=== PATIENT | male | born 1955 | race Hispanic/Latino ===

== ENCOUNTER 2019-11-22 09:09 | Inpatient (IN) | payer MEDICARE, MEDICAID, SELFPAY ==
[2019-11-22] VITALS (31 sets, daily range): BP systolic 127–193; BP diastolic 75–95; PULSE 60–103; RESP 22–45; TEMP 36.1–37.4; O2SAT 85–99; BMI 45.1
--- NOTE | ~2019-11-22 | XR_ITS ---
EXAMINATION: XR chest 1V portable DATE: 12/19/2019 06:11 INDICATION: COVID-19 pneumonia. TECHNIQUE: A single frontal view of the chest was obtained. COMPARISON: Chest single view 12/18/2019 FINDINGS: The lung volumes are small. There are airspace opacities throughout the lungs bilaterally. No pleural effusion or pneumothorax. The heart size is normal. The endotracheal tube tip is 3.2 cm ab ove the anthony. The nasogastric tube tip is in the distal stomach. A right internal jugular central v enous catheter is seen with tip in the right atrium. Median sternotomy wires are noted. IMPRESSION: 1. Stable diffuse lung disease, consistent with pneumonia versus pulmonary edema versus acute respira tory distress syndrome (ARDS). Reviewed, dictated and finalized at location A. IMPRESSION: 1. Stable diffuse lung disease, consistent with pneumonia versus pulmonary gabbie a versus acute respiratory distress syndrome (ARDS).
--- NOTE | ~2019-11-22 | CT_ITS ---
EXAMINATION: CT chest abdomen pelvis wo con DATE: 12/09/2019 11:20 INDICATION: Sepsis. Covid -positive patient on ventilator. TECHNIQUE: Computed tomography (CT) of the chest, abdomen, and pelvis was performed without intraveno us contrast. Automated exposure control and iterative reconstruction technique were employed. Exam do se: 1352.31 mGy-cm total exam DLP. COMPARISON: 12/09/2019 portable AP chest FINDINGS: CHEST CT: An endotracheal tube is present. There is a right internal jugular central venous catheter. There is a nasogastric tube, the distal tip overlying the distal gastric antrum. Status post sternotomy and coronary artery bypass graft surgery. Extensive coronary artery calcificat ions. Heart size is within normal limits. No pericardial effusion. There is slight bilateral pleural effusions. There is aortic and great vessel calcification. No thoracic aortic aneurysm. No hilar or mediastinal mass lesion or lymphadenopathy. There is pneumomediastinum. There are extensive patchy groundglass and consolidating infiltrates scattered throughout most of bot h lungs, consistent with extensive bilateral pneumonia; findings would be consistent with Covid 19 pn eumonia. Prominent osteoarthritic change at the glenohumeral joints. Degenerative changes of the thoracic and lumbar spine. No suspicious osteolytic or osteoblastic lesio ns are noted. ABDOMEN/PELVIS CT: Status post cholecystectomy. Status post appendectomy. The liver, spleen, pancreas, and adrenal glands and kidneys are unremarkable on this limited noncontr ast examination. No urinary tract calculus or hydroureteronephrosis is evident. There is some nonspecific bilateral perinephric stranding and mild asymmetric thickening of the right lateroconal fascia. There is abdominal aortic calcification and calcification of the aortic branches. No abdominal aortic aneurysm. No intraperitoneal or retroperitoneal or pelvic mass lesion or adenopathy or ascites. There is a prominent amount of fecal material in the colon, some liquid stool. There is no bowel obst ruction. No bowel wall thickening, pneumatosis or intraperitoneal free air. Prostate enlargement and calcifications. There is a Rios catheter within the evacuated urinary bladd er. There is some air in the urinary bladder likely due to the catheter. Bilateral small fat-containing inguinal hernias, left greater than right. IMPRESSION: Severe bilateral pneumonia Pneumomediastinum; no pneumothorax Endotracheal and NG tubes in satisfactory position Right internal jugular central venous catheter Status post cholecystectomy Status post appendectomy Prostate enlargement and calcifications Reviewed, dictated and finalized at [facility]. Reviewed, dictated and finalized at location A.
--- NOTE | ~2019-11-22 | XR_ITS ---
EXAMINATION: XR chest 1V portable EXAM DATE: 11/22/2019 10:09 INDICATION: Respiratory failure. TECHNIQUE: Portable AP frontal chest x-ray was obtained. Comparison is made to prior examination from 07/18/2016. FINDINGS: There is extensive left greater than right acute airspace disease which is ill-defined. Dif ferential diagnosis includes acute lung injury (including from COVID-19), pneumonia from other etiolo gy, less likely asymmetric pulmonary edema. Please clinically correlate. Sternotomy wires are present without findings to suggest sternal dehiscence. No pneumothorax or pleur al effusion. The cardiomediastinal silhouette is prominent but magnified on this AP technique. There are mild bony degenerative changes. IMPRESSION: 1. Extensive bilateral acute airspace disease; please clinically correlate. Reviewed, dictated and finalized at location A.
--- NOTE | ~2019-11-22 | XR_ITS ---
EXAMINATION: XR chest ET placement, XR abdomen NG/feed tube insert DATE: 11/26/2019 11:12 INDICATION: Endotracheal tube placement. Orogastric tube placement.. TECHNIQUE: 1. frontal view of the chest was obtained. 2. Supine AP view of the abdomen was obtained. COMPARISON: Chest radiograph dated 11/26/2019 at 6:08 AM FINDINGS: Chest: Endotracheal tube tip 2.9 cm above the anthony. No significant interval change in bilateral diffuse pa tchy airspace opacities. No pneumothorax or definitive pleural effusion. The cardiomediastinal silhou ette is normal. Median sternotomy wires and mediastinal surgical clips are seen, likely from prior co ronary artery bypass grafting. Abdomen: Nasogastric tube tip in proximal side port in the body of the stomach. The subscapularis scattered th roughout the colon. No dilated loops of gas-filled bowel to suggest obstruction. Cholecystectomy clip s in the right upper quadrant. IMPRESSION: 1. Endotracheal tube and nasogastric tube in expected positions. 2. Unchanged diffuse bilateral lung disease consistent with pneumonia and/or pulmonary edema. Reviewed, dictated and finalized at location A. IMPRESSION: 1. Endotracheal tube and nasogastric tube in expected positions. 2. Unchanged diffuse bilateral lung disease consistent with pneumonia and/or pu lmonary edema.
--- NOTE | ~2019-11-22 | XR_ITS ---
EXAMINATION: XR chest 1V portable EXAM DATE: 12/26/2019 06:15 INDICATION: Acute respiratory failure. COVID-19 TECHNIQUE: Portable AP frontal chest x-ray was obtained. Comparison is made to prior examination from 12/23/2019. FINDINGS: Patient has tracheostomy tube in position. There is left-sided PICC line, tip projecting o dixie inferior aspect of the SVC. Sternotomy wires are present without findings to suggest sternal dehi scence. There is extensive bilateral acute airspace disease, probably ARDS from viral infection. There are no sizable pleural effusions. There is no pneumothorax suspected. The cardiac silhouette is enlarge d. The bones and soft tissues are unremarkable. There is no significant interval change. IMPRESSION: Stable extensive acute airspace disease. Reviewed, dictated and finalized at location A.
--- NOTE | ~2019-11-22 | XR_ITS ---
XR chest 1V portable DATE: 12/20/2019 06:13 INDICATION: Acute respiratory failure. Covid 19 positive. TECHNIQUE: Portable upright AP chest on 12/20/2019 at 0527 hours COMPARISON: 12/19/2019 portable AP chest at 0516 hours 12/18/2019 portable AP chest FINDINGS: ET tube is 3.5 cm above anthony in satisfactory position. A nasogastric tube is noted passin g into the stomach. Left upper extremity PIC catheter tip is situated near the superior cavoatrial junction. Status post sternotomy. Cardiomegaly. Aortic calcification, ectasia, unfolding. There are diffuse bilateral patchy urinary infiltrates throughout the lungs; there is suggestion of m ild improvement compared to 12/18/2019. No pleural effusion or pneumothorax is evident. Osteoarthritic changes of both glenohumeral joints. IMPRESSION: Diffuse extensive bilateral pulmonary infiltrates, suggestion of mild improvement since Reviewed, dictated and finalized at location A. IMPRESSION: Diffuse extensive bilateral pulmonary infiltrates, suggestion of mi ld improvement since 12/18/2019
--- NOTE | ~2019-11-22 | XR_ITS ---
EXAMINATION: XR chest 1V portable EXAM DATE: 12/23/2019 06:06 INDICATION: Acute respiratory failure. COVID-19 TECHNIQUE: Portable AP frontal chest x-ray was obtained. Comparison is made to prior examination from 02/22/2020. FINDINGS: Patient has had interval tracheostomy tube placement. Sternotomy wires are present without findings to suggest sternal dehiscence. There is there are suspected below the right hemidiaphragm, please clinically correlate. There is ext ensive bilateral acute airspace disease. There are no sizable pleural effusions. There is no pneumo thorax suspected. The cardiac silhouette is enlarged. The bones and soft tissues are unremarkable . Development of free intraperitoneal air is the only change compared to yesterday. IMPRESSION: 1. Probable free intraperitoneal gas, could be postoperative or bowel perforation. 2. Stable airspace disease and other findings as above. I spoke with nurse in the ICU, states patient did have both tracheostomy and PEG tube placement yeste rday which could explain the free intraperitoneal air. Reviewed, dictated and finalized at location A. IMPRESSION: 1. Probable free intraperitoneal gas, could be postoperative or bowel perforat ion. 2. Stable airspace disease and other findings as above. I spoke with nurse in the ICU, states patient did have both tracheostomy and PE G tube placement yesterday which could explain the free intraperitoneal air.
--- NOTE | ~2019-11-22 | US_ITS ---
EXAMINATION: US venous doppler [facility] DATE: 11/28/2019 14:58 INDICATION: Acute respiratory failure TECHNIQUE: Grayscale ultrasound images without and with compression and Doppler ultrasound images of the bilateral lower extremity veins were obtained. COMPARISON: None. FINDINGS: The visualized portions of right common femoral vein, profunda (deep) femoral vein, femoral vein, pop liteal vein, posterior tibial veins, peroneal veins, gastrocnemius vein and greater saphenous vein ou tflow are patent. The visualized portions of left common femoral vein, profunda femoral vein, femoral vein, popliteal v ein, posterior tibial veins, peroneal veins, gastrocnemius vein and greater saphenous vein outflow ar e patent. IMPRESSION: 1. No deep venous thrombosis in either lower limb. Reviewed, dictated and finalized at location A.
--- NOTE | ~2019-11-22 | XR_ITS ---
EXAMINATION: XR chest 1V portable DATE: 12/11/2019 23:20 INDICATION: Respiratory failure. TECHNIQUE: A single frontal view of the chest was obtained. COMPARISON: Chest single view 12/11/2019 at 5:16 AM FINDINGS: There are patchy airspace opacities throughout the lungs bilaterally. No pleural effusion o r pneumothorax. The heart size is normal. The endotracheal tube tip is 3.4 cm above the anthony. The n asogastric tube tip is in the distal stomach. A right internal jugular central venous catheter is see n with tip in the right atrium. Surgical clips in the right upper quadrant are likely from cholecyste ctomy. Median sternotomy wires and mediastinal surgical clips are seen, likely from prior coronary ar edgard bypass grafting. IMPRESSION: 1. Stable severe diffuse lung disease, consistent with pneumonia versus pulmonary edema versus acute respiratory distress syndrome (ARDS). Reviewed, dictated and finalized at location A. IMPRESSION: 1. Stable severe diffuse lung disease, consistent with pneumonia versus pulmona ry edema versus acute respiratory distress syndrome (ARDS).
--- NOTE | ~2019-11-22 | XR_ITS ---
EXAMINATION: XR chest ET placement INDICATION: Respiratory failure, reintubated TECHNIQUE: Portable AP chest at 1135 hours COMPARISON: 0547 hours FINDINGS: The endotracheal tube ends approximately 2.8 cm above the anthony. The nasogastric tube is f ollowed as far as the stomach. Its tip is beyond the inferior margin of the radiograph. A right inter nal jugular central venous catheter ends with its tip in the distal superior vena cava. Diffuse bilat eral patchy airspace opacities persist without significant change. There is no pleural effusion or pn eumothorax. The cardiomediastinal silhouette is stable. IMPRESSION: 1. Endotracheal tube in adequate position. 2. Diffuse lung disease without significant change, consistent with pulmonary edema and/or pneumonia and/or acute respiratory distress syndrome (ARDS). Reviewed, dictated and finalized at location A. IMPRESSION: 1. Endotracheal tube in adequate position. 2. Diffuse lung disease without significant change, consistent with pulmonary e froy and/or pneumonia and/or acute respiratory distress syndrome (ARDS).
--- NOTE | ~2019-11-22 | XR_ITS ---
EXAMINATION: XR chest 1V portable DATE: 12/17/2019 06:12 INDICATION: COVID-19 pneumonia. TECHNIQUE: A single frontal view of the chest was obtained. COMPARISON: Chest single view 12/16/2019 FINDINGS: The lung volumes are small. There are airspace and interstitial opacities throughout the rajesh ngs bilaterally. No pleural effusion or pneumothorax. Cardiomegaly is noted. The endotracheal tube ti p is 2.7 cm above the anthony. The nasogastric tube tip is beyond the inferior margin of the radiograp h, but at least to the stomach. A right internal jugular central venous catheter is seen with tip at superior cavoatrial junction. Median sternotomy wires are noted. IMPRESSION: 1. Stable diffuse lung disease, consistent with pneumonia versus pulmonary edema versus acute respira tory distress syndrome (ARDS). Reviewed, dictated and finalized at location A. IMPRESSION: 1. Stable diffuse lung disease, consistent with pneumonia versus pulmonary gabbie a versus acute respiratory distress syndrome (ARDS).
--- NOTE | ~2019-11-22 | US_ITS ---
EXAMINATION: US venous doppler [facility] DATE: 12/25/2019 13:08 INDICATION: Lower limb edema. TECHNIQUE: Grayscale ultrasound images without and with compression and Doppler ultrasound images of the bilateral lower extremity veins were obtained. COMPARISON: Ultrasound 11/28/2019 FINDINGS: The visualized portions of right common femoral vein, profunda (deep) femoral vein, femoral vein, pop liteal vein, peroneal veins, posterior tibial veins, and greater saphenous vein outflow are patent. The visualized portions of left common femoral vein, profunda femoral vein, femoral vein, popliteal v ein, peroneal veins, posterior tibial veins, and greater saphenous vein outflow are patent. IMPRESSION: 1. No deep venous thrombosis. Reviewed, dictated and finalized at location A.
--- NOTE | ~2019-11-22 | XR_ITS ---
EXAMINATION: XR chest 1V portable DATE: 12/12/2019 22:27 INDICATION: Decreased oxygen saturation. TECHNIQUE: A single frontal view of the chest was obtained. COMPARISON: Chest single view at 5:12 AM FINDINGS: There are patchy airspace opacities throughout the lungs bilaterally. No pleural effusion o r pneumothorax. The heart size is normal. The endotracheal tube tip is 2.9 cm above the anthony. The n asogastric tube tip is beyond the inferior margin of the radiograph, but at least to the stomach. A r ight internal jugular central venous catheter is seen with tip in the superior vena cava. IMPRESSION: 1. Diffuse lung disease with worsening on the right, consistent with pneumonia versus pulmonary edema versus acute respiratory distress syndrome (ARDS). Reviewed, dictated and finalized at location A.
--- NOTE | ~2019-11-22 | XR_ITS ---
EXAMINATION: XR chest 1V portable DATE: 11/25/2019 05:58 INDICATION: Bilateral pulmonary infiltrates TECHNIQUE: frontal view of the chest was obtained. COMPARISON: Chest radiograph dated 11/24/2019 FINDINGS: No significant interval change in patchy bilateral airspace opacities. No pleural effusion or pneumot horax. The cardiomediastinal silhouette is normal. Median sternotomy wires and mediastinal surgical c lips are seen, likely from prior coronary artery bypass grafting. IMPRESSION: 1. No significant change in extensive bilateral airspace disease concerning for pneumonia. Reviewed, dictated and finalized at location A.
--- NOTE | ~2019-11-22 | XR_ITS ---
EXAMINATION: XR chest 1V portable DATE: 12/06/2019 06:33 INDICATION: Bilateral lung infiltrates. COVID-19 pneumonia. TECHNIQUE: A single frontal view of the chest was obtained. COMPARISON: Chest single view 12/05/2019 FINDINGS: Lung volumes are small. There are airspace and interstitial opacities throughout the lungs bilaterally. No pleural effusion or pneumothorax. The heart size is normal. Median sternotomy wires a re noted. The endotracheal tube tip is 1.9 cm above the anthony. The nasogastric tube tip is beyond th e inferior margin of the radiograph, but at least to the stomach. There are surgical clips in the abd omen. A right internal jugular central venous catheter is seen with tip in the right atrium. IMPRESSION: 1. Unchanged diffuse lung disease, consistent with pneumonia versus pulmonary edema versus acute resp iratory distress syndrome (ARDS). Reviewed, dictated and finalized at location A. IMPRESSION: 1. Unchanged diffuse lung disease, consistent with pneumonia versus pulmonary e froy versus acute respiratory distress syndrome (ARDS).
--- NOTE | ~2019-11-22 | XR_ITS ---
EXAMINATION: XR chest 1V portable DATE: 12/16/2019 06:16 INDICATION: Bilateral lung infiltrates. COVID-19 positive. TECHNIQUE: A single frontal view of the chest was obtained. COMPARISON: Chest single view 12/15/2019 FINDINGS: Lung volumes are small. There are airspace and interstitial opacities throughout the lungs bilaterally. No pleural effusion or pneumothorax. The heart size is normal. The endotracheal tube tip is 3.1 cm above the anthony. Median sternotomy wires and mediastinal surgical clips are seen, likely from prior coronary artery bypass grafting. The nasogastric tube tip is beyond the inferior margin of the radiograph, but at least to the stomach. A right internal jugular central venous catheter is see n with tip in the right atrium. IMPRESSION: 1. Stable diffuse lung disease, consistent with pneumonia versus pulmonary edema versus acute respira tory distress syndrome (ARDS). Reviewed, dictated and finalized at location A. IMPRESSION: 1. Stable diffuse lung disease, consistent with pneumonia versus pulmonary gabbie a versus acute respiratory distress syndrome (ARDS).
--- NOTE | ~2019-11-22 | XR_ITS ---
XR abdomen obstructive series 12/24/2019 22:38 Indication: Vomiting Procedure: Supine and upright views of abdomen Comparison: 12/05/2019 Findings: There is abnormal gas beneath the diaphragm and surrounding small bowel loops, compatible w ith free intraperitoneal air. Findings suspicious for bowel perforation in the absence of recent surg mercedes. Status post median sternotomy for CABG. Cardiomegaly. There is diffuse bilateral airspace diseas e, most likely edema. There is a gastric tube in the upper abdomen. Impression: 1: Probable free intraperitoneal air, suspicious for bowel perforation and there is no clinical histo ry of recent surgery. Consider correlation with CT. 2: Cardiomegaly with diffuse bilateral airspace disease, most likely edema. Dr. Harley discussed with the abstract clerk in ICU [facility] at 12/24/2019 22:51 CDT. Reviewed, dictated and finalized at location A. Impression: 1: Probable free intraperitoneal air, suspicious for bowel perforation and ther e is no clinical history of recent surgery. Consider correlation with CT. 2: Cardiomegaly with diffuse bilateral airspace disease, most likely edema. Dr. Harley discussed with the abstract clerk in ICU [facility] at 12/24/2019 22:51 CDT.
--- NOTE | ~2019-11-22 | XR_ITS ---
EXAMINATION: XR chest 1V portable DATE: 12/12/2019 06:05 INDICATION: Respiratory failure TECHNIQUE: frontal view of the chest was obtained. COMPARISON: Chest radiograph dated 12/11/2019 FINDINGS: Endotracheal tube tip 1.2 cm above the anthony. Nasogastric tube tip in the gastric pylorus with proxi mal side-port in the distal body of the stomach. Right internal jugular central venous catheter with distal tip near the superior cavoatrial junction. Unchanged distribution but with slight decreased density of scattered bilateral patchy airspace opaci ties. No pleural effusion or pneumothorax. Borderline heart size. Median sternotomy wires and mediast inal surgical clips are seen, likely from prior coronary artery bypass grafting. Cholecystectomy clip s in right upper quadrant. IMPRESSION: 1. Slight improvement in diffuse bilateral patchy airspace opacities which could represent multifocal pneumonia, pulmonary edema, ARDS or some combination thereof. 2. Nasogastric tube tip near the gastric pylorus possibly in the first portion of the duodenum and wo uld consider withdrawal by 5 cm. Reviewed, dictated and finalized at location A. IMPRESSION: 1. Slight improvement in diffuse bilateral patchy airspace opacities which coul d represent multifocal pneumonia, pulmonary edema, ARDS or some combination the reof. 2. Nasogastric tube tip near the gastric pylorus possibly in the first portion of the duodenum and would consider withdrawal by 5 cm.
--- NOTE | ~2019-11-22 | XR_ITS ---
EXAMINATION: XR chest 1V portable DATE: 12/09/2019 05:37 INDICATION: Respiratory failure TECHNIQUE: frontal view of the chest was obtained. COMPARISON: Chest radiograph dated 12/08/2019 and 12/07/2019 FINDINGS: Right internal jugular central venous catheter with distal tip near the superior cavoatrial junction. Continued progression in diffuse interstitial and patchy airspace opacities throughout both lungs. T here is some relative sparing of the apices and periphery of the lungs. No pneumothorax or definitive pleural effusion. Heart size remains within normal limits for AP technique. Median sternotomy wires and mediastinal surgical clips are seen, likely from prior coronary artery bypass grafting. Cholecyst ectomy clips in the right upper quadrant. IMPRESSION: 1. Worsening diffuse bilateral lung disease suggesting pulmonary edema superimposed over atelectasis, pneumonia and/or ARDS. Reviewed, dictated and finalized at location A. IMPRESSION: 1. Worsening diffuse bilateral lung disease suggesting pulmonary edema superimp osed over atelectasis, pneumonia and/or ARDS.
--- NOTE | ~2019-11-22 | XR_ITS ---
EXAMINATION: XR chest 1V portable DATE: 12/05/2019 05:40 INDICATION: Bilateral pulmonary infiltrates. COVID 19 TECHNIQUE: frontal view of the chest was obtained. COMPARISON: Chest radiograph dated 12/04/2019 FINDINGS: Endotracheal tube tip 3.3 cm above the anthony. Right internal jugular central venous catheter with di stal tip at the superior cavoatrial junction. Nasogastric tube extends below the left hemidiaphragm with distal tip collimated off the study. No significant interval change in diffuse indistinct interstitial pattern and patchy airspace opaciti es throughout both lungs. No pleural effusion or pneumothorax. The cardiomediastinal silhouette is no rmal. Median sternotomy wires and mediastinal surgical clips are seen, likely from prior coronary art mercedes bypass grafting. Cholecystectomy clips in right upper quadrant. IMPRESSION: 1. No change in diffuse bilateral lung disease consistent with pneumonia, pulmonary edema, ARDS or co mbination thereof. Reviewed, dictated and finalized at location A. IMPRESSION: 1. No change in diffuse bilateral lung disease consistent with pneumonia, pulmo nary edema, ARDS or combination thereof.
--- NOTE | ~2019-11-22 | US_ITS ---
EXAMINATION: US arterial duplex LE RT DATE: 12/09/2019 10:17 INDICATION: Pain at the site of a femoral arterial line TECHNIQUE: Grayscale and color Doppler images of the region of concern at the right groin were obtain ed. COMPARISON: None. FINDINGS: Right common femoral, superficial femoral and profunda femoral arteries appear normal with normal tri phasic arterial waveforms. The right common femoral, superficial femoral and profunda femoral veins a ppear normal and compressible with no arterialization of flow to suggest AV fistula. No pseudoaneurys ms identified. There is an 8.3 x 2.7 x 3.9 cm heterogeneously hypoechoic/anechoic fluid collection wi thout internal flow on color Doppler likely representing a large hematoma. IMPRESSION: 1. 8.3 x 2.7 x 3.9 cm complex fluid collection at the right groin without internal flow on color Dopp ler most likely representing an evolving hematoma. No pseudoaneurysm identified. Reviewed, dictated and finalized at location A. IMPRESSION: 1. 8.3 x 2.7 x 3.9 cm complex fluid collection at the right groin without inter nal flow on color Doppler most likely representing an evolving hematoma. No pse udoaneurysm identified.
--- NOTE | ~2019-11-22 | XR_ITS ---
EXAMINATION: XR chest 1V portable DATE: 11/26/2019 06:34 INDICATION: Bilateral pulmonary infiltrates. TECHNIQUE: frontal view of the chest was obtained. COMPARISON: Chest radiograph dated 11/25/2019 FINDINGS: No significant interval change in patchy bilateral airspace opacities. No pleural effusion or pneumot horax. The cardiomediastinal silhouette is normal. Median sternotomy wires and mediastinal surgical c lips are seen, likely from prior coronary artery bypass grafting. Cholecystectomy clips in right uppe r quadrant. IMPRESSION: 1. No significant change in extensive bilateral airspace disease concerning for pneumonia. Reviewed, dictated and finalized at location A.
--- NOTE | ~2019-11-22 | XR_ITS ---
EXAMINATION: XR chest 1V portable EXAM DATE: 11/23/2019 06:15 INDICATION: Pneumonia. Bilateral infiltrates. TECHNIQUE: Portable AP frontal chest x-ray was obtained. Comparison is made to prior examination from 07/18/2016. FINDINGS: There is extensive left greater than right acute airspace disease which is ill-defined. Dif ferential diagnosis includes acute lung injury (including from COVID-19), pneumonia from other etiolo gy, less likely asymmetric pulmonary edema. Please clinically correlate. Sternotomy wires are present without findings to suggest sternal dehiscence. No pneumothorax or pleur al effusion. The cardiomediastinal silhouette is prominent but magnified on this AP technique. There are mild bony degenerative changes. Accounting for differences in technique, there is no significant interval change. IMPRESSION: 1. Extensive bilateral acute airspace disease not significantly changed. Reviewed, dictated and finalized at location A.
--- NOTE | ~2019-11-22 | XR_ITS ---
EXAMINATION: XR chest 1V portable DATE: 12/03/2019 06:07 INDICATION: Bilateral pulmonary infiltrates. COVID 19 positive. TECHNIQUE: frontal view of the chest was obtained. COMPARISON: Chest radiograph dated 12/02/2019 FINDINGS: Endotracheal tube tip 5.0 cm above the anthony. Right internal jugular central venous catheter with di stal tip near the superior cavoatrial junction. Nasogastric tube extends below the left hemidiaphrag m with distal tip collimated off the study. Continued significant improvement in diffuse bilateral airspace opacities. No pleural effusion or pne umothorax. The cardiomediastinal silhouette is normal. IMPRESSION: 1. Continued significant decrease in diffuse bilateral lung disease which could represent improving p neumonia, pulmonary edema, ARDS or some combination thereof. Reviewed, dictated and finalized at location A. IMPRESSION: 1. Continued significant decrease in diffuse bilateral lung disease which could represent improving pneumonia, pulmonary edema, ARDS or some combination there of.
--- NOTE | ~2019-11-22 | XR_ITS ---
EXAMINATION: XR chest 1V portable DATE: 11/24/2019 06:23 INDICATION: Bilateral pulmonary infiltrates TECHNIQUE: frontal view of the chest was obtained. COMPARISON: Chest radiograph dated 11/23/2019 FINDINGS: Chronic mild elevation of the right hemidiaphragm. No significant interval change in bilateral patchy airspace opacities throughout both lungs relatively sparing the right lower lung zone. No pleural ef fusion or pneumothorax. The cardiomediastinal silhouette is normal limits for AP technique. Median st ernotomy wires and mediastinal surgical clips are seen, likely from prior coronary artery bypass felisha ting. IMPRESSION: 1. No significant change in extensive bilateral airspace opacities concerning for pneumonia. Reviewed, dictated and finalized at location A. IMPRESSION: 1. No significant change in extensive bilateral airspace opacities concerning f or pneumonia.
--- NOTE | ~2019-11-22 | XR_ITS ---
EXAMINATION: XR chest 1V portable EXAM DATE: 12/22/2019 06:05 INDICATION: Acute respiratory failure. COVID-19 TECHNIQUE: Portable AP frontal chest x-ray was obtained. Comparison is made to prior examination from 12/21/2019. FINDINGS: Endotracheal tube tip is 3-4 centimeters above the anthony (ideal range is between 2 to 5 cm ). Feeding tube is in position. There is a left-sided PICC line. There is rather extensive bilateral acute airspace disease. There are no sizable pleural effusions. There is no pneumothorax suspected. The cardiomediastinal silhouette is prominent but magnified o n this AP technique. Mild to moderate thoracolumbar spondylosis. Sternotomy wires. There is no sig nificant interval change compared to prior exam. IMPRESSION: 1. Line(s) and tube(s) in position. 2. Extensive bilateral acute airspace disease. Reviewed, dictated and finalized at location A.
--- NOTE | ~2019-11-22 | XR_ITS ---
XR chest ET placement 12/09/2019 09:19 Indication: Intubation. Respiratory failure. Procedure: AP portable chest Comparison: Comparison to multiple prior studies sequentially, with oldest reviewed study dated 12/05. Findings: Improving diffuse bilateral airspace disease. NG tube in the stomach. Endotracheal tube tip 4.4 cm above the anthony. Right IJ central line tip in the SVC. No pleural effusion or pneumothorax. Impression: 1: Improving bilateral airspace disease which may represent edema, pneumonia or less likely ARDS. Reviewed, dictated and finalized at location B. Impression: 1: Improving bilateral airspace disease which may represent edema, pneumonia or less likely ARDS.
--- NOTE | ~2019-11-22 | XR_ITS ---
EXAMINATION: XR chest 1V portable DATE: 11/30/2019 05:48 INDICATION: Respiratory failure TECHNIQUE: frontal view of the chest was obtained. COMPARISON: Chest radiograph dated 11/29/2019 FINDINGS: Endotracheal tube tip 3.4 cm above the anthony. Nasogastric tube extends below the left hemidiaphragm with distal tip collimated off the study. Right internal jugular central venous catheter with distal tip near the superior cavoatrial junction. Diffuse bilateral airspace opacities with some increase in the right lower lung zone. No pneumothorax or definitive pleural effusion. The cardiomediastinal silhouette is normal. Median sternotomy wires and mediastinal surgical clips are seen, likely from prior coronary artery bypass grafting. IMPRESSION: 1. Extensive diffuse bilateral lung disease with slight progression in the right lower lung zone whic h could represent pneumonia, pulmonary edema, ARDS or some combination thereof. Reviewed, dictated and finalized at location A. IMPRESSION: 1. Extensive diffuse bilateral lung disease with slight progression in the righ t lower lung zone which could represent pneumonia, pulmonary edema, ARDS or ivon e combination thereof.
--- NOTE | ~2019-11-22 | XR_ITS ---
EXAMINATION: XR chest 1V portable DATE: 12/10/2019 06:13 INDICATION: Respiratory failure TECHNIQUE: frontal view of the chest was obtained. COMPARISON: Chest radiograph and CT dated 12/09/2019 FINDINGS: Endotracheal tube tip 2.8 cm above the anthony. Nasogastric tube tip in proximal side port in the stom ach. Right internal jugular central venous catheter with distal tip near the superior cavoatrial junc tion. Persistent diffuse bilateral patchy airspace opacities throughout both lungs consistent with pneumoni a. No pleural effusion or pneumothorax. The cardiomediastinal silhouette is normal. IMPRESSION: 1. No significant interval change in diffuse bilateral lung disease consistent with pneumonia, pulmon jamel edema, ARDS or some combination thereof. Reviewed, dictated and finalized at location A. IMPRESSION: 1. No significant interval change in diffuse bilateral lung disease consistent with pneumonia, pulmonary edema, ARDS or some combination thereof.
--- NOTE | ~2019-11-22 | XR_ITS ---
EXAMINATION: XR chest 1V portable DATE: 11/29/2019 05:56 INDICATION: Respiratory failure TECHNIQUE: frontal view of the chest was obtained. COMPARISON: Chest radiograph dated 11/28/2019 and 11/26/2019 FINDINGS: Endotracheal tube tip 3.8 cm above the anthony. Nasogastric tube extends below the left hemidiaphragm with distal tip collimated off the study. Right internal jugular central venous catheter with distal tip at the superior cavoatrial junction. No significant interval change in diffuse bilateral lung disease. No pleural effusion or pneumothorax . The cardiomediastinal silhouette is normal. Median sternotomy wires and mediastinal surgical clips are seen, likely from prior coronary artery bypass grafting. IMPRESSION: 1. No change in extensive bilateral lung disease which could represent pneumonia, pulmonary edema, AR DS or some combination thereof. Reviewed, dictated and finalized at location A. IMPRESSION: 1. No change in extensive bilateral lung disease which could represent pneumoni a, pulmonary edema, ARDS or some combination thereof.
--- NOTE | ~2019-11-22 | XR_ITS ---
EXAMINATION: XR chest 1V portable DATE: 12/01/2019 05:27 INDICATION: Respiratory failure TECHNIQUE: frontal view of the chest was obtained. COMPARISON: Chest radiograph dated 11/30/2019 FINDINGS: Endotracheal tube tip 3.5 cm above the anthony. Nasogastric tube extends below the left hemidiaphragm with distal tip collimated off the study. Right internal jugular central venous catheter with distal tip at the superior cavoatrial junction. Again seen is diffuse bilateral patchy airspace opacities with slight improvement in the right upper lung zone. Skinfold projects over the left lung. No pleural effusion or pneumothorax. The cardiomedia stinal silhouette is normal. Median sternotomy wires and mediastinal surgical clips are seen, likely from prior coronary artery bypass grafting. IMPRESSION: 1. Sensitive diffuse bilateral lung disease which could represent pneumonia, pulmonary edema, ARDS or some combination thereof slight improvement in the right upper lung zone. Reviewed, dictated and finalized at location A. IMPRESSION: 1. Sensitive diffuse bilateral lung disease which could represent pneumonia, pu lmonary edema, ARDS or some combination thereof slight improvement in the right upper lung zone.
--- NOTE | ~2019-11-22 | XR_ITS ---
EXAMINATION: XR chest 1V portable INDICATION: Respiratory failure TECHNIQUE: Portable AP chest at 0547 hours COMPARISON: 12/12/2019 FINDINGS: The endotracheal tube ends approximately 2.1 cm above the anthony. The nasogastric tube is f ollowed as far as the stomach. Its tip is beyond the inferior margin of the radiograph. A right inter nal jugular central venous catheter ends with its tip in the superior vena cava. There are diffuse, p atchy bilateral airspace opacities with mild improvement. The heart size is normal. There is no pleur al effusion or pneumothorax. Mild elevation of the right hemidiaphragm is seen. IMPRESSION: 1. Diffuse lung disease with slight improvement, consistent with pneumonia and/or pulmonary edema and /or acute respiratory distress syndrome (ARDS). Reviewed, dictated and finalized at location A. IMPRESSION: 1. Diffuse lung disease with slight improvement, consistent with pneumonia and/ or pulmonary edema and/or acute respiratory distress syndrome (ARDS).
--- NOTE | ~2019-11-22 | XR_ITS ---
EXAMINATION: XR chest 1V portable DATE: 12/07/2019 05:46 INDICATION: Respiratory failure. COVID-19 pneumonia. TECHNIQUE: A single frontal view of the chest was obtained. COMPARISON: Chest single view 12/06/2019 FINDINGS: There are airspace and interstitial opacities throughout the lungs bilaterally. No pleural effusion or pneumothorax. The heart size is normal. Median sternotomy wires and mediastinal surgical clips are seen, likely from prior coronary artery bypass grafting. The nasogastric tube tip is in the distal stomach. Surgical clips in the right upper quadrant are likely from cholecystectomy. The endo tracheal tube tip is 4.0 cm above the anthony. A right internal jugular central venous catheter is see n with tip in the right atrium. IMPRESSION: 1. Stable diffuse lung disease, consistent with pneumonia versus pulmonary edema versus acute respira tory distress syndrome (ARDS). Reviewed, dictated and finalized at location A. IMPRESSION: 1. Stable diffuse lung disease, consistent with pneumonia versus pulmonary gabbie a versus acute respiratory distress syndrome (ARDS).
--- NOTE | ~2019-11-22 | XR_ITS ---
EXAMINATION: XR sm bowel follow through WS EXAM DATE: 12/25/2019 13:27 INDICATION: Free intraperitoneal gas PEG tube. TECHNIQUE: 200 mL of Omnipaque 350 was injected through the gastrostomy tube and a KUB image was obt ained portably. Correlation is made to CT scan abdomen pelvis 12/24/2019. FINDINGS: There is free intraperitoneal gas. There is contrast within the stomach and proximal portio n of the jejunum. There are cholecystectomy clips. There is a linear band of soft tissue density in t he right upper quadrant which is likely the same ligament or soft tissue identified on CT scan valladares l image. Relatively low density of the contrast, but no suspicion of contrast extravasation on this i mage. IMPRESSION: Free intraperitoneal gas. Opacified stomach, proximal jejunum. No suspicion of extravasat ed contrast. Reviewed, dictated and finalized at location A. IMPRESSION: Free intraperitoneal gas. Opacified stomach, proximal jejunum. No s uspicion of extravasated contrast.
--- NOTE | ~2019-11-22 | XR_ITS ---
XR chest 1V portable DATE: 12/21/2019 06:23 INDICATION: Acute respiratory failure. Covid 19 positive patient TECHNIQUE: Portable AP chest on 12/21/2019 at 0526 hours COMPARISON: 12/20/2019 portable AP chest at 0527 hours FINDINGS: ET tube in satisfactory position. NG tube in stomach. Left upper extremity PIC catheter ove rlying upper right atrium. Status post sternotomy. Diffuse patchy bilateral pulmonary infiltrates persist, relatively stable since 12/20/2019. No pleural effusion is evident. Aortic calcification. Bilateral glenohumeral osteoarthritis. IMPRESSION: Persistent diffuse bilateral patchy pulmonary infiltrates, relatively stable since 020 Reviewed, dictated and finalized at location A. IMPRESSION: Persistent diffuse bilateral patchy pulmonary infiltrates, relative ly stable since 12/20/2019
--- NOTE | ~2019-11-22 | XR_ITS ---
EXAMINATION: XR chest 1V portable DATE: 12/02/2019 05:20 INDICATION: COVID 19. Bilateral pulmonary infiltrates. TECHNIQUE: frontal view of the chest was obtained. COMPARISON: Chest radiograph dated 12/01/2019 FINDINGS: Endotracheal tube tip 3.6 cm above the anthony. Right internal jugular central venous catheter tip at the superior cavoatrial junction. Nasogastric tube extends below the left hemidiaphragm with distal tip collimated off the study. Interval improvement in diffuse bilateral patchy airspace opacities. No pleural effusion or pneumotho rax. The cardiomediastinal silhouette is normal. Median sternotomy wires and mediastinal surgical cli ps are seen, likely from prior coronary artery bypass grafting. IMPRESSION: 1. Continued improvement in diffuse bilateral lung disease which could represent pneumonia, pulmonary edema, ARDS or some combination thereof. Reviewed, dictated and finalized at location A. IMPRESSION: 1. Continued improvement in diffuse bilateral lung disease which could represen t pneumonia, pulmonary edema, ARDS or some combination thereof.
--- NOTE | ~2019-11-22 | XR_ITS ---
EXAMINATION: XR chest 1V portable DATE: 12/11/2019 06:16 INDICATION: Respiratory failure TECHNIQUE: frontal view of the chest was obtained. COMPARISON: Chest radiograph dated 12/10/2019 FINDINGS: Endotracheal tube tip 2.1 cm above the anthony. Nasogastric tube tip near the gastric outlet with prox imal side-port in the body of the stomach. Right internal jugular central venous catheter with distal tip near the superior cavoatrial junction. No significant interval change in diffuse bilateral airspace opacities throughout both lungs. No pleu ral effusion or pneumothorax. The cardiomediastinal silhouette is normal. Median sternotomy wires and mediastinal surgical clips are seen, likely from prior coronary artery bypass grafting. IMPRESSION: 1. Unchanged diffuse bilateral lung disease consistent with pneumonia, pulmonary edema, ARDS or some combination thereof. 2. Nasogastric tube tip near the gastric outlet. Consider withdrawal by 5 cm. Reviewed, dictated and finalized at location A. IMPRESSION: 1. Unchanged diffuse bilateral lung disease consistent with pneumonia, pulmonar y edema, ARDS or some combination thereof. 2. Nasogastric tube tip near the gastric outlet. Consider withdrawal by 5 cm.
--- NOTE | ~2019-11-22 | XR_ITS ---
EXAMINATION: XR chest 1V portable DATE: 11/28/2019 05:55 INDICATION: Respiratory failure TECHNIQUE: frontal view of the chest was obtained. COMPARISON: Chest radiograph dated 11/27/2019 FINDINGS: Endotracheal tube tip 4.0 cm above the anthony. Nasogastric tube tip in proximal side port in the body of the stomach. Right internal jugular central venous catheter with distal tip in the right atrium. Scattered opacities throughout both lungs. No pleural effusion or pneumothorax. Cholecystectomy clips in the right upper quadrant. Moderate scattered degenerative skeletal changes. IMPRESSION: 1. No change in extensive bilateral lung disease which could represent pneumonia, pulmonary edema, AR DS or some combination thereof. Reviewed, dictated and finalized at location A. IMPRESSION: 1. No change in extensive bilateral lung disease which could represent pneumoni a, pulmonary edema, ARDS or some combination thereof.
--- NOTE | ~2019-11-22 | XR_ITS ---
EXAMINATION: XR chest 1V portable DATE: 11/27/2019 05:48 INDICATION: Bilateral pulmonary infiltrates TECHNIQUE: Portable AP view of the chest was obtained. COMPARISON: Chest radiograph dated 11/26/2019 FINDINGS: Endotracheal tube tip 3.1 cm above the anthony. Right internal jugular central venous catheter with di stal tip in the right atrium. Nasogastric tube extends below the left hemidiaphragm with distal tip collimated off the study. Persistent diffuse patchy airspace opacities throughout both lungs. No pleural effusion or pneumothor ax. The cardiomediastinal silhouette is normal. Median sternotomy wires and mediastinal surgical clip s are seen, likely from prior coronary artery bypass grafting. IMPRESSION: 1. Excessive bilateral lung disease which could represent pneumonia, pulmonary edema, ARDS or some co mbination thereof. Reviewed, dictated and finalized at location A. IMPRESSION: 1. Excessive bilateral lung disease which could represent pneumonia, pulmonary edema, ARDS or some combination thereof.
--- NOTE | ~2019-11-22 | US_ITS ---
EXAMINATION: US venous doppler UE DATE: 12/25/2019 13:08 INDICATION: Upper limb edema. TECHNIQUE: Grayscale ultrasound images without and with compression and Doppler ultrasound images of the bilateral upper extremity veins were obtained. COMPARISON: None. FINDINGS: The visualized portions of the right internal jugular vein, subclavian vein, axillary vein, brachial veins, basilic vein, cephalic vein, radial vein, and ulnar vein are patent. The visualized portions of the left internal jugular vein, subclavian vein, axillary vein, cephalic v ein, radial vein, and ulnar vein are patent. There is thrombus in left brachial and basilic veins. IMPRESSION: 1. Deep vein thrombosis involving left brachial vein. I called this result to Dr. Ho on 0 at 13:20. 2. Superficial vein thrombosis involving left basilic vein. Reviewed, dictated and finalized at location A. IMPRESSION: 1. Deep vein thrombosis involving left brachial vein. I called this result to Dr. Ho on 12/25/19 at 13:20. 2. Superficial vein thrombosis involving left basilic vein.
--- NOTE | ~2019-11-22 | XR_ITS ---
EXAMINATION: XR chest port-a-cath/central EXAM DATE: 11/26/2019 13:50 INDICATION: Left IJ line placement. TECHNIQUE: Portable AP frontal chest x-ray was obtained. Comparison is made to prior examination from earlier same date. FINDINGS: Endotracheal tube, feeding tube, right IJ central line overlying expected position. Sterno carlos wires are present without findings to suggest sternal dehiscence. Rather extensive bilateral ill-defined acute airspace disease again noted. There are no sizable pleu ral effusions. There is no pneumothorax suspected. The cardiomediastinal silhouette is prominent but magnified on this AP technique. There are bony degenerative changes. There is no significant interval change compared to prior exam. IMPRESSION: 1. Line(s) and tube(s) in position. 2. No evidence postprocedure pneumothorax. 3. Rather extensive airspace disease unchanged. Reviewed, dictated and finalized at location B.
--- NOTE | ~2019-11-22 | XR_ITS ---
EXAMINATION: XR chest 1V portable EXAM DATE: 12/27/2019 05:50 INDICATION: Pneumonia. COVID 19. TECHNIQUE: Portable AP frontal chest x-ray was obtained. Comparison is made to prior examination from 12/26/2019. FINDINGS: Patient has tracheostomy tube in position. There is left-sided PICC line, tip projecting ov er inferior aspect of the SVC. Sternotomy wires are present without findings to suggest sternal dehis cence. There is extensive bilateral acute airspace disease, probably ARDS from viral infection. There are no sizable pleural effusions. There is no pneumothorax suspected. The cardiac silhouette is enlarge d. Cardiac monitoring leads. The bones and soft tissues are unremarkable. There is no significant interv al change. IMPRESSION: Stable extensive acute airspace disease. Reviewed, dictated and finalized at location A.
--- NOTE | ~2019-11-22 | XR_ITS ---
EXAMINATION: XR chest 1V portable DATE: 12/15/2019 06:39 INDICATION: Bilateral lung infiltrates. COVID-19 pneumonia. TECHNIQUE: A single frontal view of the chest was obtained on 2 radiographs. COMPARISON: Chest single view 12/14/2019, chest CT 12/09/2019 FINDINGS: There are airspace and interstitial opacities throughout the lungs bilaterally. No pleural effusion or pneumothorax. The heart size is normal. Median sternotomy wires and mediastinal surgical clips are seen, likely from prior coronary artery bypass grafting. The endotracheal tube tip is 3.2 c m above the anthony. The nasogastric tube tip is in the stomach. A right internal jugular central veno us catheter is seen with tip at the superior cavoatrial junction. Surgical clips in the right upper q uadrant are likely from cholecystectomy. IMPRESSION: 1. Unchanged diffuse lung disease, consistent with pneumonia versus pulmonary edema versus acute resp iratory distress syndrome (ARDS). Reviewed, dictated and finalized at location A. IMPRESSION: 1. Unchanged diffuse lung disease, consistent with pneumonia versus pulmonary e froy versus acute respiratory distress syndrome (ARDS).
--- NOTE | ~2019-11-22 | XR_ITS ---
EXAMINATION: XR abdomen obstructive series DATE: 12/05/2019 08:12 INDICATION: Ileus versus small bowel obstruction. TECHNIQUE: Frontal supine and upright views of the abdomen were obtained. COMPARISON: 11/26/[address] abdomen and pelvis dated 03/06/2018 FINDINGS: Nasogastric tube tip and proximal side port at the gastric antrum. Moderate amount of gas scattered t hroughout the colon which demonstrates a normal haustral fold pattern. Small amount of stool in the d escending colon. No dilated gas-filled loops of small bowel to suggest obstruction. Cholecystectomy c lips in the right upper quadrant. Diffuse patchy airspace opacities throughout both lungs consistent with pneumonia. Cardiomediastinal silhouette is normal. Median sternotomy wires and mediastinal surgi jarocho clips are seen, likely from prior coronary artery bypass grafting. Increased density at the right sacroiliac joint corresponding to bulky bridging anterior osteophyte on prior CT. IMPRESSION: 1. Nonobstructive bowel gas pattern. 2. Diffuse bilateral lung disease consistent with pneumonia Reviewed, dictated and finalized at location A.
--- NOTE | ~2019-11-22 | XR_ITS ---
EXAMINATION: XR chest 1V portable DATE: 12/04/2019 05:45 INDICATION: COVID 19. Bilateral pulmonary infiltrates. TECHNIQUE: frontal view of the chest was obtained. COMPARISON: Chest radiograph dated 12/03/2019 FINDINGS: Endotracheal tube tip 4.5 cm above the anthony. Nasogastric tube extends below the left hemidiaphragm with distal tip collimated off the study. Right internal jugular central venous catheter with distal tip near the superior cavoatrial junction. Slight increase in diffuse indistinct interstitial pattern suggesting pulmonary edema superimposed ov er mild patchy airspace opacities. No pleural effusion or pneumothorax. The cardiomediastinal silhoue tte is normal. Cholecystectomy clips in the right upper quadrant. IMPRESSION: 1. Slight increase in diffuse indistinct interstitial pattern superimposed over persistent patchy air space opacities most likely representing mild pulmonary edema superimposed over pneumonia and/or ARDS . Reviewed, dictated and finalized at location A. IMPRESSION: 1. Slight increase in diffuse indistinct interstitial pattern superimposed over persistent patchy airspace opacities most likely representing mild pulmonary e froy superimposed over pneumonia and/or ARDS.
--- NOTE | ~2019-11-22 | XR_ITS ---
EXAMINATION: XR chest 1V portable DATE: 12/08/2019 05:49 INDICATION: Respiratory failure TECHNIQUE: frontal view of the chest was obtained. COMPARISON: Chest radiograph dated 12/07/2019 FINDINGS: Endotracheal tube and nasogastric tube have been removed. Right internal jugular central venous henna ter with distal tip near the superior cavoatrial junction. Decreased right lung volume with elevation of the right hemidiaphragm. Interval increase in the diffuse airspace and interstitial opacities thr oughout both lungs. No pleural effusion or pneumothorax. The cardiomediastinal silhouette is normal. Median sternotomy wires and mediastinal surgical clips are seen, likely from prior coronary artery by pass grafting. Cholecystectomy clips in right upper quadrant. IMPRESSION: 1. Worsening bilateral diffuse lung disease consistent with pneumonia, pulmonary edema, ARDS or some combination thereof. 2. Interval elevation of the right hemidiaphragm suggesting some degree of atelectasis on the right. Reviewed, dictated and finalized at location A. IMPRESSION: 1. Worsening bilateral diffuse lung disease consistent with pneumonia, pulmonar y edema, ARDS or some combination thereof. 2. Interval elevation of the right hemidiaphragm suggesting some degree of atel ectasis on the right.
--- NOTE | ~2019-11-22 | XR_ITS ---
EXAMINATION: XR chest 1V portable INDICATION: Bilateral infiltrates, COVID 19 positive TECHNIQUE: Portable AP chest at 0516 hours COMPARISON: 12/13/2019 FINDINGS: The endotracheal tube ends approximately 2.8 cm above the anthony. The nasogastric tube is i n the stomach. A right internal jugular central venous catheter ends with its tip in the superior seng a cava. Diffuse patchy bilateral airspace opacities are unchanged. There is no pleural effusion or pn eumothorax. The cardiomediastinal silhouette is stable. Median sternotomy wires and mediastinal surgi jarocho clips are seen, likely from prior coronary artery bypass grafting. IMPRESSION: 1. Diffuse lung disease without significant change, consistent with pulmonary edema and/or pneumonia and/or acute respiratory distress syndrome (ARDS). Reviewed, dictated and finalized at location A. IMPRESSION: 1. Diffuse lung disease without significant change, consistent with pulmonary e froy and/or pneumonia and/or acute respiratory distress syndrome (ARDS).
--- NOTE | ~2019-11-22 | XR_ITS ---
EXAMINATION: XR abdomen NG/feed tube insert INDICATION: Reinserted OG TECHNIQUE: Portable AP KUB-NG at 1136 hours COMPARISON: 12/09/2019 FINDINGS: The OG tube ends with its tip in the distal stomach. Diffuse lung disease is noted. A right -sided central venous catheter ends with its tip in the distal superior vena cava. IMPRESSION: 1. OG tube in the stomach. Reviewed, dictated and finalized at location A. IMPRESSION: 1. OG tube in the stomach.
--- NOTE | ~2019-11-22 | XR_ITS ---
XR abdomen NG/feed tube insert INDICATION: Evaluate NG tube position. TECHNIQUE: Limited KUB perform for evaluating NG tube . COMPARISON: 12/05/2019 FINDINGS: NG tube tip in the stomach. Visualized bowel gas pattern is unremarkable. IMPRESSION: 1: NG tube tip in the stomach. Reviewed, dictated and finalized at location B.
--- NOTE | ~2019-11-22 | XR_ITS ---
EXAMINATION: XR chest 1V portable DATE: 12/18/2019 06:05 INDICATION: COVID-19 pneumonia. TECHNIQUE: A single frontal view of the chest was obtained. COMPARISON: Chest single view 12/17/2019 FINDINGS: Skinfolds overlie right chest. The lung volumes are small. There are airspace opacities thr oughout the lungs bilaterally. No pleural effusion or pneumothorax. The heart size is normal. Median sternotomy wires and mediastinal surgical clips are seen, likely from prior coronary artery bypass gr afting. The endotracheal tube tip is 2.3 cm above the anthony. The nasogastric tube tip is beyond the inferior margin of the radiograph, but at least to the stomach. A right internal jugular central veno us catheter is seen with tip in the right atrium. IMPRESSION: 1. Diffuse lung disease with worsening on the left, consistent with pneumonia versus pulmonary edema versus acute respiratory distress syndrome (ARDS). Reviewed, dictated and finalized at location A. IMPRESSION: 1. Diffuse lung disease with worsening on the left, consistent with pneumonia v ersus pulmonary edema versus acute respiratory distress syndrome (ARDS).
--- NOTE | ~2019-11-22 | CT_ITS ---
EXAMINATION: CT chest abdomen pelvis w con DATE: 12/24/2019 23:42 CDT INDICATION: Free intraperitoneal air. COVID positive. TECHNIQUE: Computed tomography (CT) of the chest, abdomen, and pelvis was performed with 100 cc Omnip aque 350 intravenous contrast. The dose-length product was 1573.67 mGy-cm. Automated exposure control and iterative reconstruction technique were employed. COMPARISON: CT dated 12/09/2019 FINDINGS: CHEST CT: There has been progression of extensive bilateral airspace consolidation. There is a tracheostomy tub e present. There is mediastinal lymphadenopathy. Small left pleural effusion. There is thickening of the esophagus, suspicious for esophagitis. No pneumothorax. Cardiomegaly. There is atherosclerosis of the aorta and coronary arteries. ABDOMEN/PELVIS CT: There is a moderate amount of free intraperitoneal air, suspicious for bowel perforation. The site of perforation is not identified. Rios catheter in the bladder. There is bladder wall thickening with surrounding perivesical infiltration and fluid in the paracolic gutters, suspicious for cystitis. Fat -containing inguinal hernias. There are bilateral lipomas in the hip flexor muscles. There are degene rative changes of the thoracic and lumbar spine. No evidence for bowel obstruction. The liver, spleen , pancreas, adrenal glands and kidneys are unremarkable. IMPRESSION: 1. Moderate free intraperitoneal air, suspicious for bowel perforation. Site of perforation not ident ified. 2: Progression of extensive bilateral airspace disease which may represent pneumonia, edema and/or AR DS. 3: Abnormal bladder wall thickening with surrounding perivesical infiltration, suspicious for cystiti s. 4: Small left pleural effusion. Reviewed, dictated and finalized at location A. IMPRESSION: 1. Moderate free intraperitoneal air, suspicious for bowel perforation. Site of perforation not identified. 2: Progression of extensive bilateral airspace disease which may represent pneu monia, edema and/or ARDS. 3: Abnormal bladder wall thickening with surrounding perivesical infiltration, suspicious for cystitis. 4: Small left pleural effusion.
--- NOTE | 2019-11-22 09:13 | ED.GENADULT ---
HPI - General Adult General Chief complaint: Shortness of Breath/Dyspnea Stated complaint: SOB,COUGH,FEVER Time Seen by Provider: 11/22/19 09:12 Source: patient Mode of arrival: ambulatory Limitations: no limitations History of Present Illness HPI narrative: Patient is a 64-year-old male with a history of hypertension, hyperlipidemia, CABG, diabetes who presents for evaluation of fever, cough and shortness of breath. Patient reportedly has had symptoms over the past 3 days, worsening, with increased dyspnea overnight into this morning. Patient's brought him to the emergency department because he was having trouble breathing. He is reporting fever, chills, myalgias, nonproductive cough and difficulty breathing. He denies overt chest pain, but reports all over body pain and achiness. Patient denies recent travel or recent sick contacts. Patient's states that they have mostly been quarantining at home with minimal outside exposures. No nausea or diarrhea per patient. Patient does have a history of pneumonia. Patient does not use any tobacco products currently. Denies drug use or alcohol use. Related Data Home Medications Medication Instructions Recorded Confirmed amlodipine-benazepril 1 cap PO DAILY 11/22/19 11/22/19 famotidine 40 mg PO BID 11/22/19 11/22/19 glimepiride 4 mg PO DAILY 11/22/19 11/22/19 levothyroxine 100 mcg PO DAILY 11/22/19 11/22/19 metformin 1,000 mg PO BID 11/22/19 11/22/19 metoprolol succinate 25 mg PO DAILY 11/22/19 11/22/19 omeprazole 40 mg PO DAILY 11/22/19 11/22/19 potassium chloride 10 meq PO DAILY 11/22/19 11/22/19 semaglutide [Ozempic] 0.5 mg SUBCUT WEEKLY 11/22/19 11/22/19 sitagliptin [Januvia] 100 mg PO DAILY 11/22/19 11/22/19 Allergies Allergy/AdvReac Type Severity Reaction Status Date / Time naproxen Allergy Unknown Redness of Verified 11/22/19 09:43 Skin Review of Systems Review of Systems: Narrative: CONSTITUTIONAL: Reports fever and chills EYES: Denies visual changes, redness, or discharge. ENT: Denies rhinorrhea, congestion, sore throat, or otalgia. CARDIOVASCULAR: Denies chest pain RESPIRATORY: Reports cough and shortness of breath GASTROINTESTINAL: Denies abdominal pain, nausea, vomiting, or diarrhea. GENITOURINARY: Denies dysuria or hematuria. SKIN: Denies rash or itching. MUSCULOSKELETAL: Reports myalgias NEUROLOGIC: Reports mild headache PMFSH Past Medical History Medical History (Updated 11/22/19 @ 14:05 by Reed Ho MD) Anxiety Chronic knee pain after total replacement of both knee joints Congestive heart failure Coronary artery disease involving coronary bypass graft Depression Diabetes Hyperlipidemia Hypertension Hypothyroidism Myocardial infarction Surgical History Surgical History (Updated 11/22/19 @ 09:29 by Sherry Nieto MD) H/O total knee replacement History of appendectomy Social History Social History Smoking status: Former smoker Smoking end date: 05/28/92 Alcohol intake: never Substance use: never Gender identity (if verbalized by the patient): Male Spiritual care concerns: No Exam Narrative: Exam Narrative: GENERAL: Awake, alert, able to converse HEAD: Normocephalic, atraumatic. EYES: PERRLA and EOMI. ENT: Nares clear, no rhinorrhea or epistaxis. Mucous membranes moist. NECK: Supple. CHEST: Tachypneic, hypoxemic, room air saturation 72%, no audible wheezing HEART: Borderline tachycardic rate, sinus rhythm ABDOMEN:Non distended, non tender EXTREMITIES: Normal range of motion. No edema. SKIN: Warm, dry, no rash. NEURO:No focal deficits. Alert and oriented x3 Course Vital Signs Vital signs: Vital Signs Pulse Rate 100 11/22/19 09:22 Respiratory Rate 45 H 11/22/19 09:22 Pulse Oximetry 86 L 11/22/19 09:22 Temperature 36.5 C 11/22/19 15:49 Pulse Rate 85 11/22/19 14:22 Respiratory Rate 24 H 11/22/19 14:00 Blood Pressure 15
--- NOTE | 2019-11-22 09:17 | PC.NURSE ---
Pt placed on o2 at 2L/NC, spo2 increases to 86%.
--- NOTE | 2019-11-22 09:20 | PC.NURSE ---
sp02 87%, increased O2 to 4L/NC
--- NOTE | 2019-11-22 09:24 | ECG_ITS ---
Measurements Intervals [place] Rate: 101 P: 9 NV: 158 QRS: -19 QRSD: 90 T: 65 QT: 319 QTc: 415 Interpretive Statements SINUS TACHYCARDIA INCOMPLETE RIGHT BUNDLE BRANCH BLOCK DELAYED PRECORDIAL R/S TRANSITION BORDERLINE ST-T WAVE ABNORMALITY- HIGH LATERAL LEADS BASELINE ARTIFACT- I, II, AVR, V1-V3 BORDERLINE ECG Electronically Signed On 11-22-2019 13:14:12 CDT by Eugene Moss D.O.
--- NOTE | 2019-11-22 09:30 | PC.NURSE ---
O2 increased to 6L/NC per order Dr. Nieto for spo2 of 88%.
[2019-11-22] MEDS: SODIUM CHLORIDE 0.9% IV 500 ML 999 ML IV CONT (09:41)
--- NOTE | 2019-11-22 09:48 | PC.NURSE ---
RT at bedside for ABG collection. Pt currently 94-95% on 6L/NC.
[2019-11-22 09:49] LABS: Basophils Percent Auto 0.2 % (0.2-1.2); Hematocrit 38.9 % (42.0-52.0); Hemoglobin 13.1 g/dL (14.0-18.0); Immature Granulocyte Absolute 0.04 K/mm3 (0.00-0.031); Immature Granulocyte Percent A 0.7 % (0-0.5); Lymphocytes Absolute Auto 0.75 K/mm3 (0.9-3.2); Lymphocytes Percent Auto 12.5 % (18.3-44.2); Mean Corpuscular HGB Conc 33.7 g/dl (32-36); Mean Corpuscular Hemoglobin 29.8 pg (26-34); Mean Corpuscular Volume 88.4 fl (80-100); Mean Platelet Volume 10.1 fl (7.4-10.4); Monocytes Absolute Auto 0.5 K/mm3 (0.1-0.6); Monocytes Percent Auto 8.5 % (2.6-8.5); Neutrophils Absolute Auto 4.7 K/mm3 (1.3-6.7); Neutrophils Percent Auto 78.1 % (45.5-73.1); Platelet Count Result 198 k/mm3 (150-375); Red Cell Distribution Width 12.4 % (11.5-14.5)
[2019-11-22 09:57] LABS: Alveolar/Arterial O2 Gradient 214.9 mmHg; Base Excess ABG 0.5 mEq/l (+/-2.0); Fractional Inspired Oxygen 44 %; HCO3 ABG 23.7 mEq/l (22.0-26.0); Oxygen Content ABG 15.8 %vol (16.0-22.0); Oxygen Saturation ABG 92.8 % (95.0-100.0); PCO2 ABG 33.6 mmHg (35.0-45.0); PO2 ABG 60.5 mmHg (80.0-100.0); PO2 FiO2 Ratio Arterial Blood 1.38 %; Total Hemoglobin 12.5 g/dL (12.0-18.0); pH ABG 7.466 (7.350-7.450)
[2019-11-22 09:58] LABS: Device NASAL CANNULA; Site Drawn LEFT BRACHIAL
[2019-11-22 10:01] LABS: Alanine Aminotransferase 27 U/L (4-50); Albumin Level 3.9 g/dL (3.5-5.1); Alkaline Phosphatase 88 U/L (38-126); Aspartate Amino Transferase 51 U/L (17-59); Bilirubin,Total 0.4 mg/dL (0.2-1.3); Blood Urea Nitrogen 18 mg/dL (9-20); Calcium 8.4 mg/dL (8.4-10.2); Carbon Dioxide 27 mmol/L (22-30); Chloride 102 mmol/L (98-107); Estimated CRCL calculation 79 ml/min; Estimated Glomerular Filt Rate > 60; Glucose 172 mg/dL (75-110); Lactic Acid Reflex 1.3 mmol/L (0.7-2.1); Potassium 3.8 mmol/L (3.4-5.0); Sodium 137 mmol/L (137-145)
[2019-11-22 10:01] LABS: INR 1.1; Prothrombin Time 13.7 Seconds (11.1-14.7)
[2019-11-22 10:02] LABS: Partial Thromboplastin Time 29.8 SECONDS (22.3-36.8)
--- NOTE | 2019-11-22 10:11 | PC.NURSE ---
After ABG's resulted, pt placed on high flow o2 at 8L/nc per order Dr. Nieto. Pt remains unable to void.
[2019-11-22 10:13] LABS: NT Pro B Type Natriuretic Pept 662 PG/ML (5-100); Troponin I < 0.012 ng/mL (0.000-0.034)
[2019-11-22 10:20] LABS: CRP 20.2 mg/dL (<1.0); Lactate Dehydrogenase 1068 U/L (313-618)
[2019-11-22] MEDS: ENOXAPARIN 40 MG/0.4 ML SYRINGE SUB-Q (10:55)
[2019-11-22 11:17] LABS: Add Urine Microscopic? YES; Appearance Urine Clear (Clear); Bacteria Urine Trace /hpf; Bilirubin Urine Negative (Negative); Blood Urine 1+ (Negative); Color Urine Yellow (Yellow); Glucose Urine UA 1+ mg/dL (Negative); Ketones Urine 1+ mg/dL (Negative); Leukocyte Esterase Ur Negative LEU/UL (Negative); Mucus Urine Heavy /lpf; Nitrate Urine Negative (Negative); Protein Urine 3+ mg/dL (Negative); RBC Urine 0-2 /hpf (0-2); Specific Grav Ur 1.028 (1.001-1.035); Urobilinogen Urine Negative mg/dL (<2.0); WBC Urine 0-3 /hpf
--- NOTE | 2019-11-22 12:17 | ADMGEN ---
This patient, Willie Urias, was admitted to Intensive Care Unit-2. Patient/family oriented to hospital policies and general routines including ID bracelet, bed and alarms, visiting hours, pain management, procedures, bathroom and other care routines, personal items, smoking policy, room service/diet, and visiting hours. Valuables list has been completed. Information on how to activate the Rapid Response Team has been discussed. Patient/Family are encouraged to report perceived risks to care and to ask questions if they do not understand what they are told or what they should do.
--- NOTE | 2019-11-22 12:27 | WPDCNINT ---
Assessment and Plan Assessment and plan (1) Respiratory failure with hypoxia: Qualifiers: Chronicity: acute Qualified Code(s): J96.01 - Acute respiratory failure with hypoxia Code(s): J96.91 - Respiratory failure, unspecified with hypoxia Status: Acute Assessment and Plan: Acute hypoxic respiratory failure likely related to bilateral infiltrates likely covid -19 started on azithromycin and ceftraixone CXR and ABGs reviewed On high flow therapy D/w pt regarding intubation if situations worsens, he is agreeabe for mechanical ventilaton started pt on Dexamethasone. If Covid is positive will start pt on Remdesivir (2) Suspected 2019 novel coronavirus infection: Code(s): Z20.828 - Contact with and (suspected) exposure to other viral communicable diseases Status: Acute Assessment and Plan: SARS-CoV-2 PCR obtained and pending Pt on airborne, droplet and contact isolation and precautions check inflammatory markers (3) DM type 2 (diabetes mellitus, type 2): Code(s): E11.9 - Type 2 diabetes mellitus without complications Status: Acute Assessment and Plan: Accucheks and SSI - Monitor blood sugars as pt on steroids (4) Essential (primary) hypertension: Code(s): I10 - Essential (primary) hypertension Status: Acute Assessment and Plan: pt slightlt hypertensive, has not taken his meds on the day of admission. Will start metoprolol and add PRN hydralazine. Hold armand inhibitor (5) DVT prophylaxis: Code(s): Z29.9 - Encounter for prophylactic measures, unspecified Status: Acute Assessment and Plan: Lovenox (6) Hypothyroidism: Code(s): E03.9 - Hypothyroidism, unspecified Status: Acute Assessment and Plan: continue levothyroxine Additional Plan D/w pt using interior design assistant services. Updated him with his condition and plan of care. He is agreeable to mechanical ventilation if required. Alos discussed with him is code status and he requested to be a full code Code Status: Full code Critical care time spent: 47 minutes Due to a high probability of clinically significant, life threatening deterioration, the patient required my highest level of preparedness to intervene emergently and I personally spent this critical care time directly and personally managing the patient. This critical care time included obtaining a history; examining the patient; pulse oximetry; ordering and review of studies; arranging urgent treatment with development of a management plan; evaluation of patient's response to treatment; frequent reassessment; and discussions with other providers. It was exclusive of separately billable procedures and treating other patients and teaching time. Please see Assessment and Plan section and the rest of the note for further information on patient assessment and treatment Psychology Teacher Consult Note Consult date: 11/22/19 Time Seen: 11:33 Reason for consult: Acute respiratory failure, suspect COVID-19, shortness of breath, fevers, malaise HPI: Willie Urias is a 64 year old male with significant past medical history of essential hypertension, hyperlipidemia, CAD/CABG, diabetes type 2 hypothyroidism, anxiety and depression presented to the ED on 11/22/2019 in the morning with complains of fevers, cough, increasing shortness of breath. History was obtained from medical records as well as the remote interior design assistant via Internet in the room. Patient states that his fevers and shortness of breath along with chills, myalgias, nonproductive cough started about 3 days ago and have been worsening since then. On the day of admission patient's breathing worsened significantly and he was unable to catch his breath. On further questioning the patient in the room in the ICU he stated that he has been home most of the times but has been going out to the stores for gross creatinine medicines. He is not aware if he was not contact with an
--- NOTE | 2019-11-22 12:39 | PC.NURSE ---
Upon arrival of patient from ED, patient was on 8L high flow and oxygen saturation was only 86%. turned up oxygen to 10L, pulse ox still did not come up. Turned up oxygen to 12L and pulse ox came up to 90%. dr. chin at bedside to examine the patient. verbal orders to have respiratory place patient on Airvo. Respiratory called and came to bedside to place patient on Airvo. Setting are at 80% and 60L. Will continue to monitor and no new orders at this time.
[2019-11-22 13:29] LABS: Glucose Point of Care 181 (65-105)
[2019-11-22] MEDS: METOPROLOL SUCCINATE EXT REL 25 MG TABCR PO (14:22)
[2019-11-22] MEDS: PANTOPRAZOLE SODIUM IV 40 MG VIAL IV PUSH (14:22)
[2019-11-22 15:00] LABS: Troponin I < 0.012 ng/mL (0.000-0.034)
[2019-11-22] MEDS: INSULIN ASPART (*BKC) 100 UNITS/ML SUB-Q (17:08)
[2019-11-22 17:16] LABS: Glucose Point of Care 312 (65-105)
--- NOTE | 2019-11-22 19:00 | PM.IMHP ---
H&P: HPI History of Present Illness Chief complaint: Cough, shortness of breath, fever. Narrative: Willie Urias is a 64-year-old male with history of coronary artery disease status post CABG, hypertension, hyperlipidemia, and type 2 diabetes mellitus who presented to the emergency department earlier this morning with complaints of cough, shortness of breath, and fever. The patient is primarily Danish-speaking however he is able to speak some [place], and I am able to speak some Danish and thus I was able to obtain a pretty good history. Some of this history is supplemented via a review of the electronic medical records as well as previous H&Ps done by myself. He has had symptoms for the past 3 days, with increasing shortness of breath overnight and into this morning. He has a cough but it has not been very productive and he also reports subjective fever, chills, and myalgias. He and his have been at home most of the time during quarantine, with minimal outside exposure aside from going to the grocery store into the pharmacy. He has not had recent travel and is unaware of any sick contacts. He denies chest pain, pleuritic pain, abdominal pain, nausea, vomiting, diarrhea, anosmia, and dysgeusia. No dysphagia or concerns for aspiration. Review of Systems Review of Systems: Narrative: All systems were reviewed and are remarkable except as noted in the HPI. [facility] Past Medical History Medical History (Updated 11/22/19 @ 22:44 by Rere Weiner PA-C) Anemia Anxiety Cerebrovascular accident Chronic knee pain after total replacement of both knee joints Congestive heart failure Coronary artery disease involving coronary bypass graft Depression Former smoker Gastroesophageal reflux disease Hiatal hernia Hyperlipidemia Hypertension Hypothyroidism Myocardial infarction Osteoarthritis Type 2 diabetes mellitus with diabetic neuropathy Vitamin D deficiency Surgical History Surgical History (Updated 11/22/19 @ 22:36 by Rere Weiner PA-C) History of appendectomy History of bilateral knee arthroplasty (~03/2015) History of endoscopy With findings of hiatal hernia. Previous food impaction with subsequent removal and esophageal dilatation. History of laparoscopic cholecystectomy (~02/2015) History of three vessel coronary artery bypass (~2012) Family History Family History (Updated 11/22/19 @ 22:38 by Rere Weiner PA-C) Sibling Diabetes mellitus Mother Diabetes mellitus Other Hypertension Social History Social History (Updated 11/22/19 @ 22:39 by Rere Weiner PA-C) Social History: Surrogate decision maker: Colleen Szymanski, . Code status: Full code. Smoking packs per day: 1.5 Smoking cigarettes per day: 30.0 Years smoked: 20 Smoking pack-years: 30.00 Smoking status: Former smoker Smoking end date: 05/28/92 Alcohol intake: never Substance use: never Additional living arrangements comments: Patient lives with his in [place]. Additional occupation/education comments: Retired. Gender identity (if verbalized by the patient): Male Spiritual care concerns: No Meds Home Medications and Allergies Home Medications Medication Instructions Recorded Confirmed Type amlodipine-benazepril 1 cap PO DAILY 11/22/19 11/22/19 History famotidine 40 mg PO BID 11/22/19 11/22/19 History glimepiride 4 mg PO DAILY 11/22/19 11/22/19 History levothyroxine 100 mcg PO DAILY 11/22/19 11/22/19 History metformin 1,000 mg PO BID 11/22/19 11/22/19 History metoprolol succinate 25 mg PO DAILY 11/22/19 11/22/19 History omeprazole 40 mg PO DAILY 11/22/19 11/22/19 History potassium chloride 10 meq PO DAILY 11/22/19 11/22/19 History semaglutide [Ozempic] 0.5 mg SUBCUT WEEKLY 11/22/19 11/22/19 History sitagliptin [Januvia] 100 mg PO DAILY 11/22/19 11/22/19 History Allergies Allergy/AdvReac Type Severity Reaction Status Date / Time naproxen Allergy Unknown Redness of Veri
[2019-11-22 21:04] LABS: SARS-CoV-2 RNA PCR Positive
[2019-11-22 21:16] LABS: Glucose Point of Care 244 (65-105)
[2019-11-22] MEDS: INSULIN GLARGINE (*BKC) 100 UNITS/ML 8 UNITS SUB-Q (21:45)
[2019-11-23] VITALS (18 sets, daily range): BP systolic 121–149; BP diastolic 66–86; PULSE 58–81; RESP 25–32; TEMP 35.9–36.7; O2SAT 86–96
[2019-11-23 04:06] LABS: Alveolar/Arterial O2 Gradient 490.1 mmHg; Base Excess ABG 0.6 mEq/l (+/-2.0); Carboxyhemoglobin 0.3 % THb (0-2.0); Fractional Inspired Oxygen 80 %; HCO3 ABG 23.9 mEq/l (22.0-26.0); Methemoglobin ABG 0.3 %THb (0-1.5); Oxygen Content ABG 15.7 %vol (16.0-22.0); Oxyhemoglobin 80.3 % THb (90.0-100.0); PCO2 ABG 34.2 mmHg (35.0-45.0); PO2 FiO2 Ratio Arterial Blood 0.56 %; Reduced Hemoglobin 19.1 %THb (0-5.0); Total Hemoglobin 13.9 g/dL (12.0-18.0); pH ABG 7.462 (7.350-7.450)
[2019-11-23 04:09] LABS: Device HIGH FLOW THERAPY; Modified Allen's Test Pass; Oxygen Saturation ABG 83.4 % (95.0-100.0); PO2 ABG 44.4 mmHg (80.0-100.0); Site Drawn RIGHT RADIAL
[2019-11-23 04:53] LABS: Basophils Percent Auto 0.2 % (0.2-1.2); Hematocrit 39.3 % (42.0-52.0); Hemoglobin 13.2 g/dL (14.0-18.0); Immature Granulocyte Absolute 0.04 K/mm3 (0.00-0.031); Immature Granulocyte Percent A 0.5 % (0-0.5); Lymphocytes Absolute Auto 0.68 K/mm3 (0.9-3.2); Mean Corpuscular HGB Conc 33.6 g/dl (32-36); Mean Corpuscular Hemoglobin 29.5 pg (26-34); Mean Corpuscular Volume 87.7 fl (80-100); Mean Platelet Volume 10.5 fl (7.4-10.4); Monocytes Absolute Auto 0.6 K/mm3 (0.1-0.6); Monocytes Percent Auto 6.5 % (2.6-8.5); Neutrophils Absolute Auto 7.3 K/mm3 (1.3-6.7); Neutrophils Percent Auto 84.8 % (45.5-73.1); Platelet Count Result 209 k/mm3 (150-375); Red Blood Count 4.48 M/mm3 (4.6-6.20); Red Cell Distribution Width 12.3 % (11.5-14.5); White Blood Count 8.6 K/mm3 (4.5-10.0)
[2019-11-23 05:03] LABS: Hemoglobin A1C 8.1 % (<5.7)
[2019-11-23 05:04] LABS: INR 1.1; Prothrombin Time 13.4 Seconds (11.1-14.7)
[2019-11-23 05:05] LABS: Partial Thromboplastin Time 29.4 SECONDS (22.3-36.8)
[2019-11-23 05:07] LABS: D Dimer 0.35 ug/mL (<0.48)
[2019-11-23 05:23] LABS: Alanine Aminotransferase 28 U/L (4-50); Albumin Level 3.6 g/dL (3.5-5.1); Alkaline Phosphatase 82 U/L (38-126); Aspartate Amino Transferase 44 U/L (17-59); Bilirubin,Total 0.2 mg/dL (0.2-1.3); Blood Urea Nitrogen 20 mg/dL (9-20); CRP 15.7 mg/dL (<1.0); Calcium 8.4 mg/dL (8.4-10.2); Carbon Dioxide 24 mmol/L (22-30); Chloride 105 mmol/L (98-107); Estimated Glomerular Filt Rate > 60; Glucose 216 mg/dL (75-110); Lactate Dehydrogenase 912 U/L (313-618); Magnesium 2.3 mg/dL (1.6-2.3); Phosphorus 2.8 mg/dL (2.5-4.5); Potassium 4.1 mmol/L (3.4-5.0); Sodium 136 mmol/L (137-145)
[2019-11-23] MEDS: LEVOTHYROXINE SODIUM 100 MCG TABLET PO (05:46)
[2019-11-23 06:14] LABS: Lactic Acid 1.1 mmol/L (0.7-2.1)
[2019-11-23] MEDS: ENOXAPARIN 40 MG/0.4 ML SYRINGE SUB-Q (08:13)
[2019-11-23] MEDS: METOPROLOL SUCCINATE EXT REL 25 MG TABCR PO (08:13)
[2019-11-23] MEDS: PANTOPRAZOLE SODIUM IV 40 MG VIAL IV PUSH (08:13)
--- NOTE | 2019-11-23 08:22 | WPDINTPN ---
Progress Note: A&P Assessment and Plan (1) Respiratory failure with hypoxia: Qualifiers: Chronicity: acute Qualified Code(s): J96.01 - Acute respiratory failure with hypoxia Code(s): J96.91 - Respiratory failure, unspecified with hypoxia Status: Acute Assessment and Plan: Acute hypoxic respiratory failure likely related to bilateral infiltrates POSITIVE COVID-19 Continue azithromycin and ceftriaxone Continue dexamethasone, started patient on Remdesivir CXR and ABGs reviewed On high flow therapy, patient looks comfortable at this time, O2 sats have been greater than 92%, will continue to monitor D/w pt regarding intubation if situations worsens, he is agreeabe for mechanical ventilaton (2) Suspected 2019 novel coronavirus infection: Code(s): Z20.828 - Contact with and (suspected) exposure to other viral communicable diseases Status: Acute Assessment and Plan: SARS-CoV-2 PCR POSITIVE Pt on airborne, droplet and contact isolation and precautions D-dimer and ferritin are within normal limits LDH and CRP trending down (3) DM type 2 (diabetes mellitus, type 2): Code(s): E11.9 - Type 2 diabetes mellitus without complications Status: Acute Assessment and Plan: Accucheks and SSI - Monitor blood sugars as pt on steroids (4) Essential (primary) hypertension: Code(s): I10 - Essential (primary) hypertension Status: Acute Assessment and Plan: pt slightlt hypertensive, has not taken his meds on the day of admission. Will start metoprolol and add PRN hydralazine. Hold armand inhibitor (5) DVT prophylaxis: Code(s): Z29.9 - Encounter for prophylactic measures, unspecified Status: Acute Assessment and Plan: Lovenox (6) Hypothyroidism: Code(s): E03.9 - Hypothyroidism, unspecified Status: Acute Assessment and Plan: continue levothyroxine Additional Plan D/w pt using professional bilingual interpreter services via the Internet. Updated him with his condition and plan of care. He is agreeable to mechanical ventilation if required. Code Status: Full code Critical care time spent: 37 minutes Due to a high probability of clinically significant, life threatening deterioration, the patient required my highest level of preparedness to intervene emergently and I personally spent this critical care time directly and personally managing the patient. This critical care time included obtaining a history; examining the patient; pulse oximetry; ordering and review of studies; arranging urgent treatment with development of a management plan; evaluation of patient's response to treatment; frequent reassessment; and discussions with other providers. It was exclusive of separately billable procedures and treating other patients and teaching time. Please see Assessment and Plan section and the rest of the note for further information on patient assessment and treatment Subjective Date/time seen: 11/23/19 08:22 Interval history: Reason for consult: Acute respiratory failure, POSITIVE COVID-19, shortness of breath, fevers, malaise 11/23/2019: Professional bilingual interpreter services via the Internet we used. In seen and examined, complains of chest tightness with deep respirations, complains of watery and burning eyes. Denies any abdominal pain, nausea, vomiting, diarrhea. Denies any back pain, lower extremity pain, headaches, vision changes. Urine output was adequate, patient is afebrile. Remains on high-flow oxygen therapy, 60% flow rate 90% FiO2. Patient's D-dimer and ferritin are normal. Lactic acid is 1.1. WBC count is 8.6 lymphocyte percentage is decreased. LDH and CRP trending down. Review of Systems Review of Systems: All systems reviewed & are unremarkable except as noted in HPI and below Exam Const: General: comfortable Other: Tachypneic but in no acute distress at this time HENMT: Mouth: Yes moist mucous membranes Eyes:
[2019-11-23 08:33] LABS: Glucose Point of Care 201 (65-105)
[2019-11-23] MEDS: INSULIN ASPART (*BKC) 100 UNITS/ML SUB-Q ×3 (09:08→17:13)
[2019-11-23] MEDS: REMDESIVIR 200 MG/NS 250 ML 200 MG/250 ML BAG 250 MG IVPB (09:23)
[2019-11-23 12:15] LABS: Glucose Point of Care 230 (65-105)
--- NOTE | 2019-11-23 15:35 | PM.IMPN ---
Progress Note: A&P Assessment and Plan (1) Acute respiratory failure with hypoxia: Code(s): J96.01 - Acute respiratory failure with hypoxia Status: Acute Assessment and Plan: On high flow oxygen, he does not seem in resp distress at this time. The most likely cause for his hypoxemic failure is COVID 19. Management per intensive care physician. 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 (4) Hypothyroidism: Qualifiers: Hypothyroidism type: unspecified Qualified Code(s): E03.9 - Hypothyroidism, unspecified Code(s): E03.9 - Hypothyroidism, unspecified Status: Acute (5) DVT prophylaxis: Code(s): Z29.9 - Encounter for prophylactic measures, unspecified Status: Acute Assessment and Plan: On pharmacological therapy. Subjective Date/time seen: Not in distress, he states he feels better today, no significant cough or chest pain. 11/23/19 15:35 Review of Systems Review of Systems: All systems reviewed & are unremarkable except as noted in HPI and below Exam Const: General: no acute distress Neck: Neck: supple and no JVD Resp: Auscultation: diminished lung sounds Cardio: Other: Not using accessory muscles to breath. GI: Auscultation: normal bowel sounds Skin: General skin exam: normal color and no rashes or lesions noted Neuro: Cognition (Neuro): normal cognition Motor exam (neuro): 5/5 motor strength present throughout and Normal motor muscle tone present throughout Extrem: General: normal to inspection Psych: Affect: normal affect Objective Data Vital Signs Vital Signs: Vital Signs - 24 hr 11/22/19 15:49 11/22/19 16:08 11/22/19 16:24 Temperature 97.7 F Pulse Rate 71 73 Respiratory Rate 30 H Blood Pressure 127/77 Pulse Oximetry 97 11/22/19 16:48 11/22/19 17:05 11/22/19 17:40 Temperature Pulse Rate Respiratory Rate Blood Pressure Pulse Oximetry 95 99 91 11/22/19 18:00 11/22/19 20:00 11/22/19 20:16 Temperature 97 F L Pulse Rate 69 66 Respiratory Rate 28 H 25 H Blood Pressure 138/81 147/80 H Pulse Oximetry 95 98 97 11/22/19 22:00 11/23/19 00:00 11/23/19 01:56 Temperature 97 F L 96.9 F L Pulse Rate 62 58 L Respiratory Rate 22 H 27 H Blood Pressure 144/78 H 128/69 Pulse Oximetry 92 93 92 11/23/19 02:00 11/23/19 04:00 11/23/19 05:17 Temperature 97.9 F Pulse Rate 58 L 71 Respiratory Rate 30 H 25 H Blood Pressure 121/80 149/79 H Pulse Oximetry 92 86 L 89 L 11/23/19 06:00 11/23/19 08:00 11/23/19 08:05 Temperature 96.7 F L Pulse Rate 62 73 Respiratory Rate 27 H 28 H Blood Pressure 147/77 H 147/81 H Pulse Oximetry 96 93 95 11/23/19 08:13 11/23/19 10:00 11/23/19 12:00 Temperature 97.9 F Pulse Rate 68 81 67 Respiratory Rate 26 H 32 H Blood Pressure 140/77 136/72 Pulse Oximetry 93 95 11/23/19 14:00 Temperature Pulse Rate 69 Respiratory Rate 31 H Blood Pressure 138/86 Pulse Oximetry 95 Intake/Output Intake/Output: Intake & Output 11/20/19 11/21/19 11/22/19 11/23/19 23:59 23:59 23:59 23:59 Intake Total 1220 390 Output Total 175 400 Balance 1045 -10 Meds/Results Medications: Active Medications Generic Name Dose Route Start Last Admin Trade Name Freq PRN Reason Stop Dose Admin Acetaminoph
[2019-11-23 16:43] LABS: Glucose Point of Care 294 (65-105)
[2019-11-23] MEDS: INSULIN GLARGINE (*BKC) 100 UNITS/ML 12 UNITS SUB-Q (21:19)
[2019-11-23] MEDS: ACETAMINOPHEN 325 MG TABLET 650 MG PO (21:19)
[2019-11-23 21:57] LABS: Glucose Point of Care 250 (65-105)
[2019-11-24] VITALS (14 sets, daily range): BP systolic 113–160; BP diastolic 62–88; PULSE 57–83; RESP 22–32; TEMP 36.3–36.9; O2SAT 87–94; BMI 45.8
[2019-11-24] MEDS: ACETAMINOPHEN 325 MG TABLET 650 MG PO (04:30)
[2019-11-24 04:39] LABS: Alveolar/Arterial O2 Gradient 623.1 mmHg; Base Excess ABG 1.8 mEq/l (+/-2.0); Fractional Inspired Oxygen 100 %; HCO3 ABG 25.4 mEq/l (22.0-26.0); Methemoglobin ABG 0.3 %THb (0-1.5); Oxygen Content ABG 16.7 %vol (16.0-22.0); Oxygen Saturation ABG 89.8 % (95.0-100.0); Oxyhemoglobin 87.7 % THb (90.0-100.0); PCO2 ABG 36.3 mmHg (35.0-45.0); PO2 ABG 53.6 mmHg (80.0-100.0); PO2 FiO2 Ratio Arterial Blood 0.54 %; Total Hemoglobin 13.6 g/dL (12.0-18.0); pH ABG 7.462 (7.350-7.450)
[2019-11-24 04:40] LABS: Device HIGH FLOW THERAPY; Modified Allen's Test Pass; Site Drawn RIGHT RADIAL
[2019-11-24 05:06] LABS: Basophils Percent Auto 0.2 % (0.2-1.2); Hematocrit 39.1 % (42.0-52.0); Hemoglobin 13.2 g/dL (14.0-18.0); Immature Granulocyte Absolute 0.12 K/mm3 (0.00-0.031); Immature Granulocyte Percent A 0.8 % (0-0.5); Lymphocytes Absolute Auto 1.05 K/mm3 (0.9-3.2); Lymphocytes Percent Auto 6.9 % (18.3-44.2); Mean Corpuscular HGB Conc 33.8 g/dl (32-36); Mean Corpuscular Hemoglobin 29.3 pg (26-34); Mean Corpuscular Volume 86.9 fl (80-100); Mean Platelet Volume 10.9 fl (7.4-10.4); Monocytes Absolute Auto 0.7 K/mm3 (0.1-0.6); Monocytes Percent Auto 4.5 % (2.6-8.5); Neutrophils Absolute Auto 13.2 K/mm3 (1.3-6.7); Neutrophils Percent Auto 87.6 % (45.5-73.1); Platelet Count Result 253 k/mm3 (150-375); Red Cell Distribution Width 12.1 % (11.5-14.5); White Blood Count 15.1 K/mm3 (4.5-10.0)
[2019-11-24 05:16] LABS: INR 1.1; Prothrombin Time 13.8 Seconds (11.1-14.7)
[2019-11-24 05:18] LABS: Lactic Acid 1.4 mmol/L (0.7-2.1)
[2019-11-24 05:20] LABS: Alanine Aminotransferase 34 U/L (4-50); Albumin Level 3.3 g/dL (3.5-5.1); Alkaline Phosphatase 83 U/L (38-126); Aspartate Amino Transferase 39 U/L (17-59); Bilirubin,Total 0.2 mg/dL (0.2-1.3); Blood Urea Nitrogen 23 mg/dL (9-20); CRP 6.1 mg/dL (<1.0); Calcium 8.1 mg/dL (8.4-10.2); Carbon Dioxide 26 mmol/L (22-30); Chloride 103 mmol/L (98-107); Estimated Glomerular Filt Rate > 60; Glucose 190 mg/dL (75-110); Lactate Dehydrogenase 897 U/L (313-618); Magnesium 2.3 mg/dL (1.6-2.3); Phosphorus 3.8 mg/dL (2.5-4.5); Sodium 134 mmol/L (137-145)
[2019-11-24 05:22] LABS: D Dimer 0.27 ug/mL (<0.48)
[2019-11-24] MEDS: LEVOTHYROXINE SODIUM 100 MCG TABLET PO (06:01)
--- NOTE | 2019-11-24 07:24 | WPDINFPN2 ---
Progress Note: A&P Assessment and Plan (1) COVID-19 virus infection: Code(s): U07.1 - COVID-19 Status: Acute Assessment and Plan: 1. Dyspnea and cough due to CoVid 10 viral pneumonia 2. TKAs 3. DM REC Remdesivir #2 /5, and dexamethasone # 2 / 10 (there is of course no data looking at efficacy of the combination, but very reasonable to give). Stop antibacterials. Subjective Date/time seen: 11/24/19 07:24 Objective Data Vital Signs Vital Signs: Vital Signs - 24 hr 11/23/19 08:00 11/23/19 08:05 11/23/19 08:13 Temperature 35.9 C L Pulse Rate 73 68 Respiratory Rate 28 H Blood Pressure 147/81 H Pulse Oximetry 93 95 11/23/19 10:00 11/23/19 12:00 11/23/19 14:00 Temperature 36.6 C Pulse Rate 81 67 69 Respiratory Rate 26 H 32 H 31 H Blood Pressure 140/77 136/72 138/86 Pulse Oximetry 93 95 95 11/23/19 16:00 11/23/19 16:07 11/23/19 18:00 Temperature 36.7 C Pulse Rate 71 75 69 Respiratory Rate 31 H 31 H Blood Pressure 137/78 131/74 Pulse Oximetry 88 L 94 11/23/19 20:00 11/23/19 21:05 11/23/19 22:00 Temperature 36.6 C Pulse Rate 70 62 Respiratory Rate 32 H 26 H Blood Pressure 133/71 127/66 Pulse Oximetry 90 93 93 11/24/19 00:00 11/24/19 02:00 11/24/19 04:00 Temperature 36.4 C 36.3 C L Pulse Rate 63 63 74 Respiratory Rate 24 H 26 H 31 H Blood Pressure 113/62 153/71 H 139/70 Pulse Oximetry 93 93 88 L 11/24/19 06:00 Temperature Pulse Rate 58 L Respiratory Rate 26 H Blood Pressure 137/76 Pulse Oximetry 94 Intake/Output Intake/Output: Intake & Output 11/21/19 11/22/19 11/23/19 11/24/19 23:59 23:59 23:59 23:59 Intake Total 1220 760 240 Output Total 175 7400 450 Balance 4040 -930 -456 Meds/Results Medications: Active Medications Generic Name Dose Route Start Last Admin Trade Name Freq PRN Reason Stop Dose Admin Acetaminophen 650 mg 11/22/19 10:38 11/24/19 04:30 Tylenol Tablet PO 650 mg Q4H PRN Administration Mild Pain (1-3) or Fever Artificial Tears 1 drop 11/23/19 15:28 11/23/19 16:00 Artificial Tears EACH EYE 1 drop QID PRN Administration Dry Eye(s) Dexamethasone Sodium Phosphate 6 mg 11/23/19 09:00 11/23/19 09:23 Decadron 10 Mg/Ml Inj IV PUSH 12/02/19 09:01 6 mg DAILY OLENA Administration Dextrose 12.5 gm 11/22/19 13:13 Dextrose 50% Syringe IV PUSH PRN PRN Hypoglycemia Protocol Enoxaparin Sodium 40 mg 11/23/19 09:00 11/23/19 08:13 Lovenox SUB-Q 40 mg DAILY OLENA Administration Glucagon 1 mg 11/22/19 13:13 Glucagon For Inj IM PRN PRN Hypoglycemia Protocol Glucose 15 gm 11/22/19 13:13 Glutose 15 PO PRN PRN Hypoglycemia Protocol Hydralazine HCl 10 mg 11/22/19 13:22 Apresoline Hcl Inj IV PUSH Q4H PRN Blood Pressure - High Azithromycin 500 mg in 250 mls @ 250 mls/hr 11/22/19 14:00 11/23/19 15:52 Zithromax IVPB Infused Q24H OLENA Infusion Ceftriaxone Sodium/Dextrose 1 gm in 50 mls @ 100 mls/hr 11/22/19 14:00 11/23/19 15:00 Rocephin 1 Gm/D5w 50 Ml IVPB Infused Q24H OLENA Infusion Dextrose 1,000 mls @ 100 mls/hr 11/22/19 13:13 Dextrose 5% 1,000 Ml IVPB PRN PRN Hypoglycemia Protocol Remdesivir 100 mg in 250 mls @ 250 mls/hr 11/24/19 09:00 IVPB 11/27/19 10:00 Q24H OLENA Insulin Aspart 4 - 8 units 11/22/19 17:00 11/23/19 17:13 Novolog SUB-Q 5 units TIDWM OLENA Administration Protocol Insulin Glargine 12 units 11/23/19 21:00 11/23/19 21:19 Lantus SUB-Q 12 units HS OLENA Administration Levothyroxine Sodium 100 mcg 11/23/19 06:30 11/24/19 06:01 Synthroid PO 100 mcg DAILY@0630 OLENA Administration Metoprolol Succinate 25 mg 11/22/19 13:20 11/23/19 08:13 Toprol Xl PO 25 mg DAILY OLENA Administration Ondansetron HCl 4 mg 11/22/19 10:38 Zofran Inj IV PUSH Q4H PRN Nausea Pantoprazole Sodium 40 mg 06
[2019-11-24] MEDS: PANTOPRAZOLE SODIUM IV 40 MG VIAL IV PUSH (08:06)
[2019-11-24] MEDS: ENOXAPARIN 40 MG/0.4 ML SYRINGE SUB-Q (08:07)
[2019-11-24] MEDS: METOPROLOL SUCCINATE EXT REL 25 MG TABCR PO (08:07)
[2019-11-24] MEDS: REMDESIVIR 100 MG/NS 250 ML 100 MG/250 ML BAG 250 MG IVPB (08:07)
[2019-11-24 08:23] LABS: Glucose Point of Care 172 (65-105)
--- NOTE | 2019-11-24 09:02 | WPDINTPN ---
Progress Note: A&P Assessment and Plan (1) Respiratory failure with hypoxia: Qualifiers: Chronicity: acute Qualified Code(s): J96.01 - Acute respiratory failure with hypoxia Code(s): J96.91 - Respiratory failure, unspecified with hypoxia Status: Acute Assessment and Plan: Acute hypoxic respiratory failure likely related to bilateral infiltrates POSITIVE COVID-19 Continue azithromycin and ceftriaxone Continue dexamethasone, started patient on Remdesivir CXR and ABGs reviewed On high flow therapy, patient looks comfortable at this time, O2 sats have been greater than 92%, will continue to monitor D/w pt regarding intubation if situations worsens, he is agreeabe for mechanical ventilaton (2) Suspected 2019 novel coronavirus infection: Code(s): Z20.828 - Contact with and (suspected) exposure to other viral communicable diseases Status: Acute Assessment and Plan: SARS-CoV-2 PCR POSITIVE Pt on airborne, droplet and contact isolation and precautions D-dimer and ferritin are within normal limits LDH and CRP trending down Appreciate infectious disease evaluation recommendation (3) DM type 2 (diabetes mellitus, type 2): Qualifiers: 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 correction insulin use status Diabetes mellitus complication status: with neurologic complications Diabetes mellitus complication detail: with unspecified neuropathy Qualified Code(s): E11.40 - Type 2 diabetes mellitus with diabetic neuropathy, unspecified Code(s): E11.9 - Type 2 diabetes mellitus without complications Status: Acute Assessment and Plan: Accucheks and SSI -continue Lantus - Monitor blood sugars as pt on steroids (4) Essential (primary) hypertension: Code(s): I10 - Essential (primary) hypertension Status: Acute Assessment and Plan: Patient is hypertensive, -continue metoprolol and p.r.n. hydralazine (5) DVT prophylaxis: Code(s): Z29.9 - Encounter for prophylactic measures, unspecified Status: Acute Assessment and Plan: Lovenox (6) Hypothyroidism: Qualifiers: Hypothyroidism type: unspecified Qualified Code(s): E03.9 - Hypothyroidism, unspecified Code(s): E03.9 - Hypothyroidism, unspecified Status: Acute Assessment and Plan: continue levothyroxine Additional Plan D/w pt using professional rn diabetes services via the Internet. Updated him with his condition and plan of care. He is agreeable to mechanical ventilation if required. Code Status: Full code Critical care time spent: 34 minutes Due to a high probability of clinically significant, life threatening deterioration, the patient required my highest level of preparedness to intervene emergently and I personally spent this critical care time directly and personally managing the patient. This critical care time included obtaining a history; examining the patient; pulse oximetry; ordering and review of studies; arranging urgent treatment with development of a management plan; evaluation of patient's response to treatment; frequent reassessment; and discussions with other providers. It was exclusive of separately billable procedures and treating other patients and teaching time. Please see Assessment and Plan section and the rest of the note for further information on patient assessment and treatment Subjective Date/time seen: 11/24/19 09:02 Interval history: Reason for consult: Acute respiratory failure, POSITIVE COVID-19, shortness of breath, fevers, malaise 11/24/2019:Professional rn diabetes services via the Internet we used to converse with the patient. Patient denies any chest pain, abdominal pain, nausea vomiting. Still complains of shortness of breath. Patient is on 60 L flow rate and 90% FiO2. Patient's D-dimer and ferritin are within normal limits, LDH and CRP trending down. Patient remains on dexamethasone and Rem
[2019-11-24] MEDS: INSULIN ASPART (*BKC) 100 UNITS/ML SUB-Q ×2 (12:07→16:17)
[2019-11-24 12:31] LABS: Glucose Point of Care 242 (65-105)
--- NOTE | 2019-11-24 12:38 | CONS_ITS ---
DATE OF CONSULTATION: 11/24/2019 REASON FOR CONSULTATION: COVID infection. HISTORY OF PRESENT ILLNESS: The patient is a 64-year-old male who is a [place] speaker. Interview obtained via an online sunglass clip attacher. The patient was admitted to the hospital on November 21 with cough, shortness of breath, sore throat with burning, eyes burning, subjective fever, chills, and myalgias. His swab is positive and consultation requested. He has been on ceftriaxone and azithromycin since admission and also on remdesivir and dexamethasone since yesterday. He is on high-flow oxygen, but has not required pressors nor positive-pressure ventilation. He has a history of pneumonia in the past. He knows of no household nor other exposures to coronavirus. PRESENT MEDICATIONS: As above. No other immunosuppressants. Home medication list reviewed. ALLERGIES: NAPROXEN, CAUSED RASH. HABITS: Ex-smoker. No alcohol. PAST MEDICAL AND SURGICAL HISTORY: Bilateral total knee arthroplasties, [place], hypothyroidism, hypertension, hyperlipidemia, diabetes, depression, CABG for CAD, congestive heart failure, appendectomy. REVIEW OF SYSTEMS: 14-point review otherwise negative. FAMILY HISTORY: Not pertinent to his present illness. SOCIAL HISTORY: He does not work outside the home. He is . Lives locally and retired. PHYSICAL EXAMINATION: GENERAL: This is a middle-aged male, who appears his actual age, in moderate respiratory distress, coughing actively. VITAL SIGNS: His temperature on admission was 37.4. He has been afebrile since. 58, 26, 137/76, 94% on high-flow O2 with nasal cannula and facemask. SKIN: Warm and dry. No rashes. NODES: He has no cervical adenopathy. EENT: The pupils are equal, round, and reactive to light. No conjunctival injection. No petechiae. The oropharynx, oral mucosa is dry, otherwise normal. Teeth in good repair. No paranasal sinus erythema, edema or tenderness. NECK: No stridor. Trachea is in the midline. No neck masses. No meningismus. CHEST: Equal expansion. Normal AP diameter. LUNGS: Bilateral rales. No wheezing. No rhonchi. Breath sounds are vesicular. Clear to percussion. CARDIAC: Bradycardic, regular, distant S1, S2. No murmurs. ABDOMEN: Soft, mildly obese. No organomegaly. No masses. Nontender. Normal bowel sounds. EXTREMITIES: Well perfused. No clubbing, cyanosis, edema. IV sites appropriate. MUSCULOSKELETAL: He has bilateral anterior knee scars. No effusions, warmth, or tenderness in the knees. NEUROLOGIC: He is awake, alert, oriented, and appropriate. DIAGNOSTIC DATA: I personally reviewed his chest x-ray. He has bilateral multilobar infiltrates. I also reviewed the radiologist's interpretation. LABORATORY DATA: Blood cultures, no growth after 2 days incubation. His white count today is 15.1, hemoglobin stable at 13.2, and platelets are 253. He has a left shift on differential. Prothrombin time normal. His blood gases, 7.46, 36, 54, 25, 90%. His AA gradient is 623, up from 215. His sodium is 134, down from 137. Remainder of his chemistry panel is normal except for glucose of 190. His hemoglobin A1c is 8.1%. LDH is 897. His CRP is 6.1. BNP is 662, albumin 3.1, otherwise liver function tests normal. His urinalysis, no evidence of infection. His COVID assay positive. ASSESSMENT: 1. Dyspnea and cough due to coronavirus disease 19 viral pneumonia. Other causes are less likely including other viral pneumonias, bacterial processes, fungal or mycobacterial infection. No known sources of contact for this virus and he reports he has been largely self-quarantined status. 2. Respiratory insufficiency due to his pneumonia. 3. Leukocytosis, multifactorial, due to steroid treatment as well as his
[2019-11-24 16:24] LABS: Glucose Point of Care 271 (65-105)
--- NOTE | 2019-11-24 17:04 | PM.IMPN ---
Progress Note: A&P Assessment and Plan (1) Acute respiratory failure with hypoxia: Code(s): J96.01 - Acute respiratory failure with hypoxia Status: Acute Assessment and Plan: On high flow oxygen, he does not seem in resp distress at this time. Management per intensive care physician. 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 On long acting insulin and ISS, consider short acting meal time insulin if glucose continue to be high. (4) Hypothyroidism: Qualifiers: Hypothyroidism type: unspecified Qualified Code(s): E03.9 - Hypothyroidism, unspecified Code(s): E03.9 - Hypothyroidism, unspecified Status: Acute (5) DVT prophylaxis: Code(s): Z29.9 - Encounter for prophylactic measures, unspecified Status: Acute Assessment and Plan: On pharmacological therapy. Subjective Date/time seen: No new complains, he still feeling SOB on and off, still on high flow oxygen. 11/24/19 17:04 Review of Systems Review of Systems: All systems reviewed & are unremarkable except as noted in HPI and below Exam Const: General: no acute distress Neck: Neck: supple and no JVD Resp: Auscultation: rales and diminished lung sounds Cardio: Rate: regular rate and bradycardic Rhythm: regular rhythm GI: Inspection: non-distended Auscultation: normal bowel sounds and bowels sounds normal Skin: General skin exam: no rashes or lesions noted Neuro: Speech: normal speech Motor exam (neuro): 5/5 motor strength present throughout Objective Data Vital Signs Vital Signs: Vital Signs - 24 hr 11/23/19 18:00 11/23/19 20:00 11/23/19 21:05 Temperature 97.9 F Pulse Rate 69 70 Respiratory Rate 31 H 32 H Blood Pressure 131/74 133/71 Pulse Oximetry 94 90 93 11/23/19 22:00 11/24/19 00:00 11/24/19 02:00 Temperature 97.6 F Pulse Rate 62 63 63 Respiratory Rate 26 H 24 H 26 H Blood Pressure 127/66 113/62 153/71 H Pulse Oximetry 93 93 93 11/24/19 04:00 11/24/19 06:00 11/24/19 08:00 Temperature 97.4 F L 98.5 F Pulse Rate 74 58 L 83 Respiratory Rate 31 H 26 H 29 H Blood Pressure 139/70 137/76 160/75 H Pulse Oximetry 88 L 94 87 L 11/24/19 08:05 11/24/19 08:07 11/24/19 10:00 Temperature Pulse Rate 67 68 Respiratory Rate 28 H Blood Pressure 132/74 Pulse Oximetry 90 93 11/24/19 12:00 11/24/19 14:00 11/24/19 16:00 Temperature 97.8 F 97.8 F Pulse Rate 63 68 67 Respiratory Rate 32 H 25 H 22 H Blood Pressure 131/68 147/86 H 141/73 H Pulse Oximetry 92 94 90 Intake/Output Intake/Output: Intake & Output 11/21/19 11/22/19 11/23/19 11/24/19 23:59 23:59 23:59 23:59 Intake Total 5314 513 4821 Output Total 175 1050 1200 Balance 1045 -290 10 Meds/Results Medications: Active Medications Generic Name Dose Route Start Last Admin Trade Name Freq PRN Reason Stop Dose Admin Acetaminophen 650 mg 11/22/19 10:38 11/24/19 04:30 Tylenol Tablet PO 650 mg Q4H PRN Administration Mild Pain (1-3) or Fever Artificial Tears 1 drop 11/23/19 15:28 11/24/19 07:55 Artificial Tears EACH EYE 1 drop QID PRN Administration Dry Eye(s) Benzocaine 1 lozenge 11/24/19 07:22 Chloraseptic Lozenge PO PRN PRN Sore Throat Dexamethasone Sodium Phosphate 6 mg 11/23/19 09:00 06/2
[2019-11-24] MEDS: INSULIN GLARGINE (*BKC) 100 UNITS/ML 12 UNITS SUB-Q (20:12)
[2019-11-24] MEDS: BENZOCAINE/MENTHOL (*BKC) 18 EA LOZENGE 1 LOZENGE PO (20:13)
[2019-11-24 20:26] LABS: Glucose Point of Care 223 (65-105)
[2019-11-25] VITALS (23 sets, daily range): BP systolic 120–160; BP diastolic 52–92; PULSE 60–78; RESP 21–87; TEMP 36.8–37.2; O2SAT 32–93
[2019-11-25 05:11] LABS: Alveolar/Arterial O2 Gradient 623.4 mmHg; Base Excess ABG 2.4 mEq/l (+/-2.0); Carboxyhemoglobin 0.3 % THb (0-2.0); Fractional Inspired Oxygen 100 %; HCO3 ABG 24.9 mEq/l (22.0-26.0); Methemoglobin ABG 0.3 %THb (0-1.5); Oxygen Content ABG 17.3 %vol (16.0-22.0); Oxygen Saturation ABG 92.4 % (95.0-100.0); PCO2 ABG 32.4 mmHg (35.0-45.0); PO2 ABG 57.2 mmHg (80.0-100.0); PO2 FiO2 Ratio Arterial Blood 0.57 %; Reduced Hemoglobin 10.4 %THb (0-5.0); Total Hemoglobin 13.8 g/dL (12.0-18.0); pH ABG 7.504 (7.350-7.450)
[2019-11-25 05:12] LABS: Device HIGH FLOW NASAL CANN; Modified Allen's Test Pass; Site Drawn LEFT BRACHIAL
[2019-11-25 05:59] LABS: Basophils Percent Auto 0.2 % (0.2-1.2); Eosinophils Percent Auto 0.1 % (0-4.4); Hematocrit 38.1 % (42.0-52.0); Hemoglobin 13.1 g/dL (14.0-18.0); Immature Granulocyte Absolute 0.13 K/mm3 (0.00-0.031); Immature Granulocyte Percent A 0.8 % (0-0.5); Lymphocytes Percent Auto 6.9 % (18.3-44.2); Mean Corpuscular HGB Conc 34.4 g/dl (32-36); Mean Corpuscular Hemoglobin 29.6 pg (26-34); Mean Corpuscular Volume 86.2 fl (80-100); Mean Platelet Volume 11.4 fl (7.4-10.4); Monocytes Absolute Auto 0.9 K/mm3 (0.1-0.6); Monocytes Percent Auto 5.8 % (2.6-8.5); Neutrophils Absolute Auto 13.7 K/mm3 (1.3-6.7); Neutrophils Percent Auto 86.2 % (45.5-73.1); Platelet Count Result 274 k/mm3 (150-375); Red Blood Count 4.42 M/mm3 (4.6-6.20); Red Cell Distribution Width 12.1 % (11.5-14.5); White Blood Count 15.9 K/mm3 (4.5-10.0)
[2019-11-25 06:08] LABS: INR 1.2; Partial Thromboplastin Time 26.4 SECONDS (22.3-36.8); Prothrombin Time 14.5 Seconds (11.1-14.7)
[2019-11-25 06:11] LABS: D Dimer 0.42 ug/mL (<0.48); Lactic Acid 1.3 mmol/L (0.7-2.1)
[2019-11-25 06:12] LABS: Alanine Aminotransferase 35 U/L (4-50); Albumin Level 3.1 g/dL (3.5-5.1); Alkaline Phosphatase 88 U/L (38-126); Aspartate Amino Transferase 30 U/L (17-59); Bilirubin,Total 0.3 mg/dL (0.2-1.3); Blood Urea Nitrogen 22 mg/dL (9-20); CRP 3.7 mg/dL (<1.0); Calcium 7.9 mg/dL (8.4-10.2); Carbon Dioxide 28 mmol/L (22-30); Chloride 102 mmol/L (98-107); Estimated CRCL calculation 100 ml/min; Estimated Glomerular Filt Rate > 60; Glucose 175 mg/dL (75-110); Lactate Dehydrogenase 905 U/L (313-618); Magnesium 2.2 mg/dL (1.6-2.3); Phosphorus 3.2 mg/dL (2.5-4.5); Potassium 4.1 mmol/L (3.4-5.0); Sodium 135 mmol/L (137-145)
[2019-11-25] MEDS: LEVOTHYROXINE SODIUM 100 MCG TABLET PO (06:49)
[2019-11-25] MEDS: REMDESIVIR 100 MG/NS 250 ML 100 MG/250 ML BAG 250 MG IVPB (08:09)
[2019-11-25] MEDS: METOPROLOL SUCCINATE EXT REL 25 MG TABCR PO (08:09)
[2019-11-25] MEDS: ENOXAPARIN 40 MG/0.4 ML SYRINGE SUB-Q (08:09)
[2019-11-25] MEDS: PANTOPRAZOLE SODIUM IV 40 MG VIAL IV PUSH (08:09)
--- NOTE | 2019-11-25 08:20 | WPDINTPN ---
Progress Note: A&P Assessment and Plan (1) Respiratory failure with hypoxia: Qualifiers: Chronicity: acute Qualified Code(s): J96.01 - Acute respiratory failure with hypoxia Code(s): J96.91 - Respiratory failure, unspecified with hypoxia Status: Acute Assessment and Plan: Acute hypoxic respiratory failure likely related to bilateral infiltrates POSITIVE COVID-19 Antibiotics were discontinued by Infectious Disease Continue dexamethasone, started patient on Remdesivir CXR and ABGs reviewed On high flow therapy, patient looks comfortable at this time, patient has been maintaining his O2 saturations. Continue to monitor closely D/w pt regarding intubation if situations worsens, he is agreeabe for mechanical ventilaton (2) Suspected 2019 novel coronavirus infection: Code(s): Z20.828 - Contact with and (suspected) exposure to other viral communicable diseases Status: Acute Assessment and Plan: SARS-CoV-2 PCR POSITIVE Pt on airborne, droplet and contact isolation and precautions D-dimer and ferritin are within normal limits LDH stable and CRP trending down Appreciate infectious disease evaluation recommendation (3) DM type 2 (diabetes mellitus, type 2): Qualifiers: Diabetes mellitus group home insulin use: unspecified group home insulin use status Diabetes mellitus complication status: with neurologic complications Diabetes mellitus complication detail: with unspecified neuropathy Qualified Code(s): E11.40 - Type 2 diabetes mellitus with diabetic neuropathy, unspecified Code(s): E11.9 - Type 2 diabetes mellitus without complications Status: Acute Assessment and Plan: Accucheks and SSI -continue Lantus - Monitor blood sugars as pt on steroids (4) Essential (primary) hypertension: Code(s): I10 - Essential (primary) hypertension Status: Acute Assessment and Plan: Patient is hypertensive, -continue metoprolol and p.r.n. hydralazine (5) DVT prophylaxis: Code(s): Z29.9 - Encounter for prophylactic measures, unspecified Status: Acute Assessment and Plan: Lovenox (6) Hypothyroidism: Qualifiers: Hypothyroidism type: unspecified Qualified Code(s): E03.9 - Hypothyroidism, unspecified Code(s): E03.9 - Hypothyroidism, unspecified Status: Acute Assessment and Plan: continue levothyroxine Additional Plan D/w pt using professional healthcare interpreter services via the Internet. Updated him with his condition and plan of care. He is agreeable to mechanical ventilation if required. Code Status: Full code Critical care time spent: 35 minutes Due to a high probability of clinically significant, life threatening deterioration, the patient required my highest level of preparedness to intervene emergently and I personally spent this critical care time directly and personally managing the patient. This critical care time included obtaining a history; examining the patient; pulse oximetry; ordering and review of studies; arranging urgent treatment with development of a management plan; evaluation of patient's response to treatment; frequent reassessment; and discussions with other providers. It was exclusive of separately billable procedures and treating other patients and teaching time. Please see Assessment and Plan section and the rest of the note for further information on patient assessment and treatment Subjective Date/time seen: 11/25/19 08:20 Interval history: Reason for consult: Acute respiratory failure, POSITIVE COVID-19, shortness of breath, fevers, malaise 11/25/2019: Patient remains on 90% FiO2 with 60 L flow rate on high-flow therapy. Patient also on 100% non-rebreather mask. Had an uneventful night. Has patient has been turning on either side with improvement in his O2 sats. Is unable to lay prone. Urine output has been adequate, patient is afebrile, hemodynamically stable. D-di
[2019-11-25 08:31] LABS: Glucose Point of Care 158 (65-105)
--- NOTE | 2019-11-25 11:05 | PCDIET ---
ICU Rounding Note: Patient taking 50% of trays on full liquid diet. Per RN, patient really likes Glucerna and would like to receive more, as avoiding all dairy options on tray. Recommended increase to 2 Glucerna/meal (440kcal, 20g protein) and requested dietary send non-dairy options on standard trays while on full liquid diet. Last recorded weight is 83.3kg which is stable. Bowel Motility: BM x 1 on 11/24/19. Labs Reviewed: Glu (175), BUN (22), Cr (0.6), Na (135), Alb (3.1) Meds Noted: Decadron, Novolog, Lantus, Remdesivir Additional Notes: No documented skin breakdown. Following daily in ICU rounds. Assessing/reassessing every 3 days.
[2019-11-25 11:45] LABS: Glucose Point of Care 278 (65-105)
[2019-11-25] MEDS: INSULIN ASPART (*BKC) 100 UNITS/ML SUB-Q ×2 (12:15→16:30)
--- NOTE | 2019-11-25 13:14 | PM.IMPN ---
Progress Note: A&P Assessment and Plan (1) Acute respiratory failure with hypoxia: Code(s): J96.01 - Acute respiratory failure with hypoxia Status: Acute Assessment and Plan: On high flow oxygen, ongoing respiratory distress, continue to monitor Management per intensive care physician. 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 On long acting insulin and ISS, consider short acting meal time insulin if glucose continue to be high. (4) Hypothyroidism: Qualifiers: Hypothyroidism type: unspecified Qualified Code(s): E03.9 - Hypothyroidism, unspecified Code(s): E03.9 - Hypothyroidism, unspecified Status: Chronic Assessment and Plan: On levothryoxine (5) DVT prophylaxis: Code(s): Z29.9 - Encounter for prophylactic measures, unspecified Status: Acute Assessment and Plan: On lovenox Subjective Date/time seen: 11/25/19 13:14 Interval history: 64-year-old male with history of coronary artery disease status post CABG, hypertension, hyperlipidemia, and type 2 diabetes mellitus who presented to the emergency department earlier this morning with complaints of cough, shortness of breath, and fever. Found to be covid positive with Bilateral infiltrates on cxr. Pt is on remdesivir and IV steroids. Pt is currently on high flow oxygen for acute respiratory distress. Review of Systems Respiratory: Respiratory: Reports cough and Reports dyspnea Exam Narrative: Exam Narrative: Temp Pulse Resp BP Pulse Ox 36.8 C 70 32 H 151/78 H 92 11/25/19 12:00 11/25/19 12:00 11/25/19 12:00 11/25/19 12:00 11/25/19 12:00 Pt is on high flow oxygen sats are 95% Mild respiratory distress Nurse in the room with patient Objective Data Vital Signs Vital Signs: Vital Signs - 24 hr 11/24/19 14:00 11/24/19 16:00 11/24/19 18:00 Temperature 36.6 C Pulse Rate 68 67 68 Respiratory Rate 25 H 22 H 29 H Blood Pressure 147/86 H 141/73 H 147/75 H Pulse Oximetry 94 90 90 11/24/19 20:00 11/24/19 22:00 11/25/19 00:00 Temperature Pulse Rate 59 L 57 L 67 Respiratory Rate 22 H 28 H 31 H Blood Pressure 152/88 H 139/73 120/52 L Pulse Oximetry 94 90 89 L 11/25/19 02:00 11/25/19 04:00 11/25/19 06:00 Temperature Pulse Rate 67 75 60 Respiratory Rate 25 H 26 H Blood Pressure 134/71 148/79 H Pulse Oximetry 88 L 88 L 11/25/19 06:45 11/25/19 08:00 11/25/19 08:09 Temperature 36.8 C Pulse Rate 65 69 68 Respiratory Rate 28 H 32 H Blood Pressure 148/80 H 160/92 H Pulse Oximetry 93 90 11/25/19 08:52 11/25/19 10:00 11/25/19 12:00 Temperature 36.8 C Pulse Rate 78 70 Respiratory Rate 27 H 32 H Blood Pressure 151/83 H 151/78 H Pulse Oximetry 91 87 L 92 Intake/Output Intake/Output: Intake & Output 11/22/19 11/23/19 11/24/19 11/25/19 23:59 23:59 23:59 23:59 Intake Total 0769 337 6823 1140 Output Total 175 1050 1400 1375 Balance 3984 -556 120 -284 Meds/Results Medications: Active Medications Generic Name Dose Route Start Last Admin Trade Name Freq PRN Reason Stop Dose Admin Acetaminophen 650 mg 11/22/19 10:38 11/24/19 04:30 Tylenol Tablet PO 650 mg
--- NOTE | 2019-11-25 15:02 | WPDPN ---
Progress Note: A&P Assessment and Plan (1) COVID-19 virus infection: Code(s): U07.1 - COVID-19 Status: Acute Assessment and Plan: 1. Dyspnea and cough due to CoVid 10 viral pneumonia, CXR and inflammatory markers stable 2. TKAs 3. DM REC Remdesivir #3 /, and dexamethasone # 3 / , continue. Exam Narrative: Exam Narrative: afebrile, sats into upper 802 at times, largely in low 90s Const: General: in distress Objective Data Vital Signs Vital Signs: Vital Signs - 24 hr 11/24/19 16:00 11/24/19 18:00 11/24/19 20:00 Temperature 36.6 C Pulse Rate 67 68 59 L Respiratory Rate 22 H 29 H 22 H Blood Pressure 141/73 H 147/75 H 152/88 H Pulse Oximetry 90 90 94 11/24/19 22:00 11/25/19 00:00 11/25/19 02:00 Temperature Pulse Rate 57 L 67 67 Respiratory Rate 28 H 31 H 25 H Blood Pressure 139/73 120/52 L 134/71 Pulse Oximetry 90 89 L 88 L 11/25/19 04:00 11/25/19 06:00 11/25/19 06:45 Temperature Pulse Rate 75 60 65 Respiratory Rate 26 H 28 H Blood Pressure 148/79 H 148/80 H Pulse Oximetry 88 L 93 11/25/19 08:00 11/25/19 08:09 11/25/19 08:52 Temperature 36.8 C Pulse Rate 69 68 Respiratory Rate 32 H Blood Pressure 160/92 H Pulse Oximetry 90 91 11/25/19 10:00 11/25/19 12:00 11/25/19 14:00 Temperature 36.8 C Pulse Rate 78 74 64 Respiratory Rate 27 H 32 H 32 H Blood Pressure 151/83 H 151/78 H 146/74 H Pulse Oximetry 87 L 92 92 Intake/Output Intake/Output: Intake & Output 11/22/19 11/23/19 11/24/19 11/25/19 23:59 23:59 23:59 23:59 Intake Total 8134 185 8836 1140 Output Total 175 1050 1400 1375 Balance 1042 -924 840 -706 Meds/Results Medications: Active Medications Generic Name Dose Route Start Last Admin Trade Name Freq PRN Reason Stop Dose Admin Acetaminophen 650 mg 11/22/19 10:38 11/24/19 04:30 Tylenol Tablet PO 650 mg Q4H PRN Administration Mild Pain (1-3) or Fever Artificial Tears 1 drop 11/23/19 15:28 11/24/19 07:55 Artificial Tears EACH EYE 1 drop QID PRN Administration Dry Eye(s) Benzocaine 1 lozenge 11/24/19 07:22 11/24/19 20:13 Chloraseptic Lozenge PO 1 lozenge PRN PRN Administration Sore Throat Dexamethasone Sodium Phosphate 6 mg 11/23/19 09:00 11/25/19 08:09 Decadron 10 Mg/Ml Inj IV PUSH 12/02/19 09:01 6 mg DAILY OLENA Administration Dextrose 12.5 gm 11/22/19 13:13 Dextrose 50% Syringe IV PUSH PRN PRN Hypoglycemia Protocol Enoxaparin Sodium 40 mg 11/23/19 09:00 11/25/19 08:09 Lovenox SUB-Q 40 mg DAILY OLENA Administration Glucagon 1 mg 11/22/19 13:13 Glucagon For Inj IM PRN PRN Hypoglycemia Protocol Glucose 15 gm 11/22/19 13:13 Glutose 15 PO PRN PRN Hypoglycemia Protocol Hydralazine HCl 10 mg 11/22/19 13:22 Apresoline Hcl Inj IV PUSH Q4H PRN Blood Pressure - High Dextrose 1,000 mls @ 100 mls/hr 11/22/19 13:13 Dextrose 5% 1,000 Ml IVPB PRN PRN Hypoglycemia Protocol Remdesivir 100 mg in 250 mls @ 250 mls/hr 11/24/19 09:00 11/25/19 09:10 IVPB 11/27/19 10:00 Infused Q24H OLENA Infusion Insulin Aspart 4 - 8 units 11/22/19 17:00 11/25/19 12:15 Novolog SUB-Q 5 units TIDWM OLENA Administration Protocol Insulin Glargine 12 units 11/23/19 21:00 11/24/19 20:12 Lantus SUB-Q 12 units HS OLENA Administration Levothyroxine Sodium 100 mcg 11/23/19 06:30 11/25/19 06:49 Synthroid PO 100 mcg DAILY@0630 OLENA Administration Metoprolol Succinate 25 mg 11/22/19 13:20 11/25/19 08:09 Toprol Xl PO 25 mg DAILY OLENA Administration Ondansetron HCl 4 mg 11/22/19 10:38 Zofran Inj IV PUSH Q4H PRN Nausea Pantoprazole Sodium 40 mg 11/23/19 09:00 11/25/19 08:09 Protonix Iv IV PUSH 40 mg QAM OLENA Administration Radiology Results: ITS Impressions Chest X-Ray 11/25/19 06:50 IMPRESSION: 1. No significant c
[2019-11-25 16:36] LABS: Glucose Point of Care 226 (65-105)
[2019-11-25] MEDS: INSULIN GLARGINE (*BKC) 100 UNITS/ML 12 UNITS SUB-Q (19:36)
--- NOTE | 2019-11-25 20:19 | PC.NURSE ---
Updated Dr. chin on patient increase work of breathing. Continue to monitor at this time.
[2019-11-25 22:43] LABS: Base Excess ABG 1.9 mEq/l (+/-2.0); Carboxyhemoglobin 0.3 % THb (0-2.0); Fractional Inspired Oxygen 95 %; HCO3 ABG 25.2 mEq/l (22.0-26.0); Methemoglobin ABG 0.4 %THb (0-1.5); Oxygen Content ABG 16.8 %vol (16.0-22.0); Oxygen Saturation ABG 88.1 % (95.0-100.0); Oxyhemoglobin 84.9 % THb (90.0-100.0); PCO2 ABG 35.6 mmHg (35.0-45.0); PO2 ABG 50.3 mmHg (80.0-100.0); PO2 FiO2 Ratio Arterial Blood 0.53 %; Reduced Hemoglobin 14.4 %THb (0-5.0); Total Hemoglobin 14.1 g/dL (12.0-18.0); pH ABG 7.468 (7.350-7.450)
[2019-11-25 22:44] LABS: Modified Allen's Test Pass; Site Drawn RIGHT RADIAL
[2019-11-25 22:46] LABS: Device HIGH FLOW THERAPY
--- NOTE | 2019-11-25 22:52 | PC.NURSE ---
Unable to get O2sat above 80-84% on the monitor. ABG was received. O2 sat on ABG is 88.1% with a PO2 of 50.3. Continue treatment as is. Get ABG in AM.
[2019-11-26] VITALS (34 sets, daily range): BP systolic 88–162; BP diastolic 54–87; PULSE 70–102; RESP 24–33; TEMP 36.3–37; O2SAT 79–98
[2019-11-26] MEDS: ACETAMINOPHEN 325 MG TABLET 650 MG PO (00:32)
[2019-11-26 01:24] LABS: Alveolar/Arterial O2 Gradient 585.7 mmHg; Base Excess ABG 3.1 mEq/l (+/-2.0); Carboxyhemoglobin 0.3 % THb (0-2.0); Fractional Inspired Oxygen 95 %; HCO3 ABG 26.1 mEq/l (22.0-26.0); Methemoglobin ABG 0.3 %THb (0-1.5); Oxygen Content ABG 16.6 %vol (16.0-22.0); Oxygen Saturation ABG 91.6 % (95.0-100.0); PCO2 ABG 35.1 mmHg (35.0-45.0); PO2 ABG 56.1 mmHg (80.0-100.0); PO2 FiO2 Ratio Arterial Blood 0.59 %; Reduced Hemoglobin 10.4 %THb (0-5.0); Total Hemoglobin 13.3 g/dL (12.0-18.0)
[2019-11-26 01:25] LABS: Device HIGH FLOW NASAL CANN; Modified Allen's Test Pass; Site Drawn RIGHT RADIAL
--- NOTE | 2019-11-26 01:41 | PC.NURSE ---
Dr. Hale ordered ABG, ABG results given to Dr. Hale. Continue to monitor at this time.
[2019-11-26 05:09] LABS: Basophils Absolute Auto 0.1 K/mm3 (0.0-0.1); Basophils Percent Auto 0.3 % (0.2-1.2); Hematocrit 37.5 % (42.0-52.0); Hemoglobin 12.8 g/dL (14.0-18.0); Immature Granulocyte Absolute 0.29 K/mm3 (0.00-0.031); Immature Granulocyte Percent A 1.9 % (0-0.5); Lymphocytes Absolute Auto 1.01 K/mm3 (0.9-3.2); Lymphocytes Percent Auto 6.8 % (18.3-44.2); Mean Corpuscular HGB Conc 34.1 g/dl (32-36); Mean Corpuscular Hemoglobin 29.6 pg (26-34); Mean Corpuscular Volume 86.6 fl (80-100); Mean Platelet Volume 10.5 fl (7.4-10.4); Monocytes Absolute Auto 0.8 K/mm3 (0.1-0.6); Monocytes Percent Auto 5.2 % (2.6-8.5); Neutrophils Absolute Auto 12.8 K/mm3 (1.3-6.7); Neutrophils Percent Auto 85.8 % (45.5-73.1); Platelet Count Result 246 k/mm3 (150-375); Red Blood Count 4.33 M/mm3 (4.6-6.20); White Blood Count 14.9 K/mm3 (4.5-10.0)
[2019-11-26 05:19] LABS: INR 1.3; Partial Thromboplastin Time 25.6 SECONDS (22.3-36.8); Prothrombin Time 15.9 Seconds (11.1-14.7)
[2019-11-26 05:22] LABS: D Dimer 0.65 ug/mL (<0.48); Lactic Acid 1.4 mmol/L (0.7-2.1)
[2019-11-26 05:24] LABS: Alanine Aminotransferase 29 U/L (4-50); Albumin Level 2.9 g/dL (3.5-5.1); Alkaline Phosphatase 82 U/L (38-126); Aspartate Amino Transferase 26 U/L (17-59); Bilirubin,Total 0.3 mg/dL (0.2-1.3); Blood Urea Nitrogen 19 mg/dL (9-20); CRP 7.5 mg/dL (<1.0); Calcium 7.8 mg/dL (8.4-10.2); Carbon Dioxide 28 mmol/L (22-30); Chloride 101 mmol/L (98-107); Estimated CRCL calculation 100 ml/min; Estimated Glomerular Filt Rate > 60; Glucose 141 mg/dL (75-110); Lactate Dehydrogenase 875 U/L (313-618); Magnesium 2.1 mg/dL (1.6-2.3); Phosphorus 3.1 mg/dL (2.5-4.5); Potassium 3.9 mmol/L (3.4-5.0); Sodium 134 mmol/L (137-145)
[2019-11-26 06:01] LABS: Alveolar/Arterial O2 Gradient 580.3 mmHg; Base Excess ABG 2.2 mEq/l (+/-2.0); Carboxyhemoglobin 0.3 % THb (0-2.0); Fractional Inspired Oxygen 95 %; HCO3 ABG 24.1 mEq/l (22.0-26.0); Methemoglobin ABG 0.3 %THb (0-1.5); Oxygen Content ABG 17.9 %vol (16.0-22.0); Oxygen Saturation ABG 95.3 % (95.0-100.0); Oxyhemoglobin 92.9 % THb (90.0-100.0); PCO2 ABG 29.9 mmHg (35.0-45.0); PO2 ABG 66.8 mmHg (80.0-100.0); Reduced Hemoglobin 6.5 %THb (0-5.0); Total Hemoglobin 13.7 g/dL (12.0-18.0)
[2019-11-26 06:02] LABS: Device HIGH FLOW THERAPY; Modified Allen's Test Pass; Site Drawn RIGHT RADIAL; pH ABG 7.525 (7.350-7.450)
[2019-11-26] MEDS: ENOXAPARIN 40 MG/0.4 ML SYRINGE SUB-Q (08:02)
[2019-11-26] MEDS: PANTOPRAZOLE SODIUM IV 40 MG VIAL IV PUSH (08:02)
[2019-11-26] MEDS: LEVOTHYROXINE SODIUM INJ 100 MCG/5 ML VIAL 50 MCG IV PUSH (08:14)
[2019-11-26] MEDS: PROPOFOL IV EMULSION 100 ML 10 MG IV CONT (08:45)
--- NOTE | 2019-11-26 10:31 | PCDIET ---
Nutrition Follow-Up Complete: Nutrition Diagnosis: Predicted suboptimal oral intake related to increased O2 requirements as evidenced by full liquid diet order. Nutrition Goal: Patient to consume 50% of meals and supplements or greater. Goal previously met, as patient was eating about half of meals and taking Glucerna Shake. Patient has just been intubated, however. Will recommend enteral feedings once stable and medically appropriate. Last recorded weight is 83.5 kg which is stable. Bowel Motility: Last documented BM on 11/24/19. Labs Reviewed: Hgb (12.8), Hct (37.5), Glu (141), Cr (0.60), Na (134), Alb (2.9), Teri Ca (8.68) Meds Noted: Nimbex, Decadron, Novolog, Lantus, Protonix, Remdesivir Additional Notes: No documented skin breakdown. Will re-evaluate in 24 hours and recommend initiating EN if medically appropriate. Nutrition Monitoring and Evaluation: Follow up every 3 days. Follow daily in ICU rounds.
[2019-11-26] MEDS: REMDESIVIR 100 MG/NS 250 ML 100 MG/250 ML BAG 250 MG IVPB (11:29)
--- NOTE | 2019-11-26 11:35 | WPDINTPN ---
Progress Note: A&P Assessment and Plan (1) Respiratory failure with hypoxia: Qualifiers: Chronicity: acute Qualified Code(s): J96.01 - Acute respiratory failure with hypoxia Code(s): J96.91 - Respiratory failure, unspecified with hypoxia Status: Acute Assessment and Plan: Acute hypoxic respiratory failure likely related to bilateral infiltrates. Intubated patient on 11/26/2019 as he was tachypneic and in respiratory distress. He himself stated that he was tired. POSITIVE COVID-19 Antibiotics were discontinued by Infectious Disease Continue dexamethasone, and Remdesivir CXR and ABGs reviewed Patient was successfully intubated on 11/26/2019 Post intubation chest x-ray reviewed, ABGs pending (2) Suspected 2019 novel coronavirus infection: Code(s): Z20.828 - Contact with and (suspected) exposure to other viral communicable diseases Status: Acute Assessment and Plan: SARS-CoV-2 PCR POSITIVE Pt on airborne, droplet and contact isolation and precautions D-dimer slightly elevated and ferritin is normal LDH trending down and CRP trending up Appreciate infectious disease evaluation recommendation (3) DM type 2 (diabetes mellitus, type 2): Qualifiers: 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: unspecified fpc insulin use status Diabetes mellitus complication status: with neurologic complications Diabetes mellitus complication detail: with unspecified neuropathy Qualified Code(s): E11.40 - Type 2 diabetes mellitus with diabetic neuropathy, unspecified Code(s): E11.9 - Type 2 diabetes mellitus without complications Status: Acute Assessment and Plan: Accucheks and SSI -continue Lantus - Monitor blood sugars as pt on steroids (4) Essential (primary) hypertension: Code(s): I10 - Essential (primary) hypertension Status: Acute Assessment and Plan: Blood pressures stable after intubation -hold metoprolol (5) DVT prophylaxis: Code(s): Z29.9 - Encounter for prophylactic measures, unspecified Status: Acute Assessment and Plan: Lovenox (6) Hypothyroidism: Qualifiers: Hypothyroidism type: unspecified Qualified Code(s): E03.9 - Hypothyroidism, unspecified Code(s): E03.9 - Hypothyroidism, unspecified Status: Chronic Assessment and Plan: continue levothyroxine Additional Plan D/w pt using professional telehealth case manager services via the Internet. Updated him with his condition, his lab and radiology reports. I did discuss with him that we will place the breathing tube and put him on a mechanical ventilator to which he was agreeable. Code Status: Full code Critical care time spent: 51 minutes Due to a high probability of clinically significant, life threatening deterioration, the patient required my highest level of preparedness to intervene emergently and I personally spent this critical care time directly and personally managing the patient. This critical care time included obtaining a history; examining the patient; pulse oximetry; ordering and review of studies; arranging urgent treatment with development of a management plan; evaluation of patient's response to treatment; frequent reassessment; and discussions with other providers. It was exclusive of separately billable procedures and treating other patients and teaching time. Please see Assessment and Plan section and the rest of the note for further information on patient assessment and treatment Subjective Date/time seen: 11/26/19 11:35 Interval history: Reason for consult: Acute respiratory failure, POSITIVE COVID-19, shortness of breath, fevers, malaise 11/26/2019: Using the [employer] telehealth case manager services, I saw and examined the patient. Patient stated he is just tired and is having difficulty breathing, continues to have cough and sore throat and chest tightness. Discussed with patient regarding intubation and mechanical seng
--- NOTE | 2019-11-26 11:57 | WPDPROCEDUR ---
Procedures Intubation Intubation Date: 11/26/19 Intubation Time: 08:11 A pre-procedural Time-Out was completed immediately before starting the procedure and confirmed: Patient Identification, Site, Procedure, Patient Position and the Availability of Requisite Equipment: Yes Sedative: etomidate Paralytic: succinylcholine Laryngoscope: fiber optic video scope Assist device used: fiber optic device ET tube size: 8 Tube secured depth (cm): 24 Tube secured location: lips Tube placement confirmation: visualized tube passing through cords, equal breath sounds bilaterally, no breath sounds over epigastrium and confirmation by capnometry Patient tolerated procedure: well Intubation complications: none Additional comments: After obtaining consent from the patient and explaining the rationale for intubation. it was decided to go ahead and intubate the patient. The patient was lying in the supine position. Preoxygenation via BVM was provided for a minimum of 3 minutes. The patient had continuous cardiac as well as pulse oximetry monitoring during the procedure. Rapid sequence induction was provided by administration of Etomidate and Succinylcholine. A Glidescope blade 4 was used to directly visualize the vocal cords. A 8 mm endotracheal tube was visualized advancing between the cords to a level of 24 cm at the lip. The stylette was then removed. Tube placement was also noted by fogging in the tube, equal and bilateral breath sounds, no sounds over the epigastrium, and end-tidal colorimetric monitoring. The cuff was then inflated with 10 ml of air and the tube secured using a commercially available device. A good pulse oximetry wave form was seen on the monitor throughout the procedure. The patient was then connected to the ventilator at a tidal volume of 400 ml; rate of 28; FiO2 of 100%; and PEEP of 14. A portable chest x-ray has been ordered for placement. Continued sedation will be provided by propofol continuous infusion titrated to a RASS of -2. The patient tolerated the procedure well.
[2019-11-26 12:05] LABS: Base Excess ABG -0.9 mEq/l (+/-2.0); Fractional Inspired Oxygen 100 %; HCO3 ABG 25.5 mEq/l (22.0-26.0); Oxygen Content ABG 23.5 %vol (16.0-22.0); Oxygen Saturation ABG 97.1 % (95.0-100.0); PCO2 ABG 47.9 mmHg (35.0-45.0); PO2 ABG 99.1 mmHg (80.0-100.0); PO2 FiO2 Ratio Arterial Blood 0.99 %; Total Hemoglobin 17.4 g/dL (12.0-18.0); pH ABG 7.344 (7.350-7.450)
[2019-11-26 12:06] LABS: Arterial Blood Gas Vent Mode CMV; Arterial Blood Gas Ventilator rate 28 /MIN; Device VENTILATOR; Site Drawn ARTLINE
[2019-11-26 12:07] LABS: Arterial Blood Gas PEEP 14 cmH2O; Arterial Blood Gas Tidal Volume 400 ml
--- NOTE | 2019-11-26 12:10 | WPDINFPN2 ---
Progress Note: A&P Assessment and Plan (1) COVID-19 virus infection: Code(s): U07.1 - COVID-19 Status: Acute Assessment and Plan: 1. Dyspnea and cough due to CoVid 10 viral pneumonia. 2. TKAs 3. DM 4. Respiratory failure, ventilator 11/25 5. Multifactorial leukocytosis REC Remdesivir #4 /5, and dexamethasone # 4 / 10, continue. LFTs normal except high LDH and low albumin. Subjective Date/time seen: 11/26/19 12:10 Interval history: intubated this am. On 100 % fio2. Exam Narrative: Exam Narrative: afebrile. No pressors, + paralytic Const: General: no acute distress Resp: Effort & Inspection: normal respiratory effort Auscultation: rales (r anterior lung field) Cardio: Rate: regular rate Rhythm: regular rhythm Heart sounds: no murmurs GI: Inspection: non-distended GI Palp: Yes Soft to palpation and No Tenderness to palpation present (GI) Other: r femoral arterial line, reading much higher BP than cuff Urinary Catheter: Urinary Catheter: patent and draining and urine clear Skin: General skin exam: normal color and no rashes or lesions noted Objective Data Vital Signs Vital Signs: Vital Signs - 24 hr 11/25/19 14:00 11/25/19 16:00 11/25/19 18:00 Temperature 37.2 C Pulse Rate 64 76 70 Respiratory Rate 32 H 32 H 27 H Blood Pressure 146/74 H 137/70 139/85 Pulse Oximetry 92 90 86 L 11/25/19 19:46 11/25/19 20:00 11/25/19 20:18 Temperature 36.8 C Pulse Rate 70 70 65 Respiratory Rate 32 H 87 H 35 H Blood Pressure 143/79 H Pulse Oximetry 86 L 32 L 87 L 11/25/19 20:32 11/25/19 22:00 11/25/19 22:05 Temperature Pulse Rate 70 65 Respiratory Rate 33 H 38 H Blood Pressure Pulse Oximetry 90 88 L 11/25/19 22:06 11/25/19 22:33 11/25/19 23:28 Temperature Pulse Rate 64 73 61 Respiratory Rate 38 H 29 H 34 H Blood Pressure 155/80 H Pulse Oximetry 83 L 89 L 89 L 11/25/19 23:30 11/26/19 00:00 11/26/19 01:59 Temperature Pulse Rate 68 76 70 Respiratory Rate 21 H 32 H 33 H Blood Pressure 159/83 H 149/81 H Pulse Oximetry 93 89 L 89 L 11/26/19 02:00 11/26/19 03:28 11/26/19 04:00 Temperature 36.9 C Pulse Rate 86 86 80 Respiratory Rate 33 H 29 H Blood Pressure 155/77 H Pulse Oximetry 89 L 86 L 11/26/19 06:00 11/26/19 08:50 Temperature Pulse Rate 83 102 H Respiratory Rate 29 H Blood Pressure 162/83 H Pulse Oximetry 87 L 92 Intake/Output Intake/Output: Intake & Output 11/23/19 11/24/19 11/25/19 11/26/19 23:59 23:59 23:59 23:59 Intake Total 760 1770 1500 200 Output Total 1050 1400 1900 800 Balance -290 370 -400 -600 Meds/Results Medications: Active Medications Generic Name Dose Route Start Last Admin Trade Name Freq PRN Reason Stop Dose Admin Acetaminophen 650 mg 11/22/19 10:38 11/26/19 00:32 Tylenol Tablet PO 650 mg Q4H PRN Administration Mild Pain (1-3) or Fever Artificial Tears 1 drop 11/23/19 15:28 11/24/19 07:55 Artificial Tears EACH EYE 1 drop QID PRN Administration Dry Eye(s) Benzocaine 1 lozenge 11/24/19 07:22 11/24/19 20:13 Chloraseptic Lozenge PO 1 lozenge PRN PRN Administration Sore Throat Dexamethasone Sodium Phosphate 6 mg 11/23/19 09:00 11/26/19 08:02 Decadron 10 Mg/Ml Inj IV PUSH 12/02/19 09:01 6 mg DAILY OLENA Administration Dextrose 12.5 gm 11/22/19 13:13 Dextrose 50% Syringe IV PUSH PRN PRN Hypoglycemia Protocol Enoxaparin Sodium 40 mg 11/23/19 09:00 11/26/19 08:02 Lovenox SUB-Q 40 mg DAILY OLENA Administration Glucagon 1 mg 11/22/19 13:13 Glucagon For Inj IM PRN PRN Hypoglycemia Protocol Glucose 15 gm 11/22/19 13:13 Glutose 15 PO PRN PRN Hypoglycemia Protocol Hydralazine HCl 10 mg 11/22/19 13:22 Apresoline Hcl Inj IV PUSH Q4H PRN Blood Pressure - High Dextrose 1,000 mls @ 100 mls/hr 11/22/19 13:13 Dextrose 5% 1,000 Ml IVPB PRN PRN Hy
[2019-11-26] MEDS: SODIUM CHLORIDE 0.9% IV 500 ML 999 ML IV CONT (12:30)
[2019-11-26] MEDS: MIDAZOLAM HCL 2 MG/2 ML VIAL 4 MG IV PUSH ×2 (12:49→12:52)
[2019-11-26] MEDS: hydrALAZINE HCL 20 MG/ML VIAL IV PUSH (12:52)
--- NOTE | 2019-11-26 13:26 | WPDPROCEDUR ---
Procedures Central Line Placement Right IJ: Central Line Date: 11/26/19 Central Line Time: 13:12 Discussed w/ the patient/family/POA,the placement of a central venous catheter, including its clinical necessity/indication & associated potential risks, benifits and alternatives.: Yes The patient/family/POA understand(s) and acknowledge(s) the need to proceed with central venous catheter insertion as an important element of the patient's clinical management.: Yes Time Out Performed: Yes Patient Position: supine Patient placed on monitor/pulse ox: Yes Provider Prep: mask, sterile gown, sterile gloves, Max. sterile barrier precautions and hand hygiene Central line prep: Chlorhexidine scrub and sterile full body sheet applied Local anesthesia used: lidocaine 1% Amount of anesthesia used (ml): 3 Sterile Ultrasound Technique used for placement: Yes Central line lumen inserted: triple [place]: 16 Length (cm): 16 Depth of Insertion (cm): 16 Post procedure: sutured in place, good blood return, all ports aspirated, flushed, capped, tegaderm, hemostatic disc, antimicrobial disc and aseptic technique maintained throughout procedure Patient tolerated procedure: well Complications: none Additional comments: Chest x-ray has been ordered
[2019-11-26] MEDS: INSULIN ASPART (*BKC) 100 UNITS/ML SUB-Q ×2 (13:27→18:11)
[2019-11-26 13:33] LABS: Procalcitonin 0.17 ng/mL (<0.10)
[2019-11-26 16:40] LABS: Glucose Point of Care 262 (65-105)
[2019-11-26] MEDS: SODIUM CHLORIDE 0.9% IV 1,000 ML 75 ML IV CONT (17:04)
--- NOTE | 2019-11-26 18:05 | PM.IMPN ---
Progress Note: A&P Assessment and Plan (1) Acute respiratory failure with hypoxia: Code(s): J96.01 - Acute respiratory failure with hypoxia Status: Acute Assessment and Plan: Pt is on ventilator had to be intubated today due to resp distress Pt has central line placed today started on iv fluids Management per intensive care physician. (2) COVID-19 virus infection: Code(s): U07.1 - COVID-19 Status: Acute Assessment and Plan: He is on remdisivir and dexamethasone. Pt is over 63 and has multiple medical problems making him high risk for covid. Otherwise from history no recent travel or sick contacts (3) DM type 2 (diabetes mellitus, type 2): Qualifiers: Diabetes mellitus complication detail: with unspecified neuropathy Diabetes mellitus complication status: with neurologic complications Diabetes mellitus buttermaker continuous churn insulin use: unspecified buttermaker continuous churn insulin use status Qualified Code(s): E11.40 - Type 2 diabetes mellitus with diabetic neuropathy, unspecified Code(s): E11.9 - Type 2 diabetes mellitus without complications Status: Acute Assessment and Plan: Monitor blood glucose on dexamethasone. On long acting insulin and ISS. (4) Hypothyroidism: Qualifiers: Hypothyroidism type: unspecified Qualified Code(s): E03.9 - Hypothyroidism, unspecified Code(s): E03.9 - Hypothyroidism, unspecified Status: Chronic Assessment and Plan: On levothryoxine (5) DVT prophylaxis: Code(s): Z29.9 - Encounter for prophylactic measures, unspecified Status: Acute Assessment and Plan: On lovenox Subjective Date/time seen: 11/26/19 18:05 Interval history: 64-year-old male with history of coronary artery disease status post CABG, hypertension, hyperlipidemia, and type 2 diabetes mellitus who presented to the emergency department with complaints of cough, shortness of breath, and fever. Found to be covid positive with Bilateral infiltrates on cxr. Pt is on remdesivir and IV steroids. Pt is intubated due to acute respiratory distress Review of Systems Review of Systems: ROS unobtainable: Yes unobtainable due to endotracheal tube Exam Narrative: Exam Narrative: Pt is intubated on ventilator Objective Data Vital Signs Vital Signs: Vital Signs - 24 hr 11/25/19 19:46 11/25/19 20:00 11/25/19 20:18 Temperature 36.8 C Pulse Rate 70 70 65 Respiratory Rate 32 H 87 H 35 H Blood Pressure 143/79 H Pulse Oximetry 86 L 32 L 87 L 11/25/19 20:32 11/25/19 22:00 11/25/19 22:05 Temperature Pulse Rate 70 65 Respiratory Rate 33 H 38 H Blood Pressure Pulse Oximetry 90 88 L 11/25/19 22:06 11/25/19 22:33 11/25/19 23:28 Temperature Pulse Rate 64 73 61 Respiratory Rate 38 H 29 H 34 H Blood Pressure 155/80 H Pulse Oximetry 83 L 89 L 89 L 11/25/19 23:30 11/26/19 00:00 11/26/19 01:59 Temperature Pulse Rate 68 76 70 Respiratory Rate 21 H 32 H 33 H Blood Pressure 159/83 H 149/81 H Pulse Oximetry 93 89 L 89 L 11/26/19 02:00 11/26/19 03:28 11/26/19 04:00 Temperature 36.9 C Pulse Rate 86 86 80 Respiratory Rate 33 H 29 H Blood Pressure 155/77 H Pulse Oximetry 89 L 86 L 11/26/19 06:00 11/26/19 08:00 11/26/19 08:45 Temperature 36.9 C Pulse Rate 83 87 97 Respiratory Rate 29 H 24 H 24 H Blood Pressure 162/83 H 161/85 H Pulse Oximetry 87 L 86 L 79 L 11/26/19 08:50 11/26/19 10:00 11/26/19 11:25 Temperature Pulse Rate 102 H 94 102 H Respiratory Rate 28 H Blood Pressure 131/87 Pulse Oximetry 92 97 97 11/26/19 12:00 11/26/19 12:30 11/26/19 13:23 Temperature 37.0 C Pulse Rate 93 73 80 Respiratory Rate 26 H 28 H 28 H Blood Pressure 88/59 L Pulse Oximetry 96 97 11/26/19 13:24 11/26/19 14:00 11/26/19 14:30 Temperature Pulse Rate 79 75 75 Respiratory Rate 28 H 28 H 28 H Blood Pressure 100/54 L Pulse Oximetry 98 11/26/19 14:55 070
[2019-11-26 18:32] LABS: Glucose Point of Care 264 (65-105)
[2019-11-26 18:33] LABS: Alveolar/Arterial O2 Gradient 449.3 mmHg; Fractional Inspired Oxygen 80 %; HCO3 ABG 23.7 mEq/l (22.0-26.0); Oxygen Content ABG 17.5 %vol (16.0-22.0); Oxygen Saturation ABG 95.8 % (95.0-100.0); Oxyhemoglobin 94.2 % THb (90.0-100.0); PCO2 ABG 39.4 mmHg (35.0-45.0); PO2 ABG 79.7 mmHg (80.0-100.0); Total Hemoglobin 13.2 g/dL (12.0-18.0); pH ABG 7.397 (7.350-7.450)
[2019-11-26 18:34] LABS: Device VENTILATOR; Site Drawn ARTLINE
[2019-11-26 18:35] LABS: Arterial Blood Gas PEEP 14 cmH2O; Arterial Blood Gas Pressure Support 0 cmH2O; Arterial Blood Gas Tidal Volume 400 ml; Arterial Blood Gas Vent Mode CMV; Arterial Blood Gas Ventilator rate 28 /MIN
[2019-11-26] MEDS: INSULIN GLARGINE (*BKC) 100 UNITS/ML 12 UNITS SUB-Q (20:03)
[2019-11-26 23:16] LABS: Glucose Point of Care 195 (65-105)
[2019-11-27] VITALS (41 sets, daily range): BP systolic 103–131; BP diastolic 57–79; PULSE 67–92; RESP 21–34; TEMP 36.3–37.2; O2SAT 91–96; BMI 33.5
[2019-11-27 04:41] LABS: Alveolar/Arterial O2 Gradient 455.6 mmHg; Carboxyhemoglobin 0.3 % THb (0-2.0); Fractional Inspired Oxygen 80 %; HCO3 ABG 22.7 mEq/l (22.0-26.0); Methemoglobin ABG 0.3 %THb (0-1.5); Oxygen Saturation ABG 94.8 % (95.0-100.0); Oxyhemoglobin 93.3 % THb (90.0-100.0); PCO2 ABG 38.6 mmHg (35.0-45.0); PO2 ABG 74.3 mmHg (80.0-100.0); PO2 FiO2 Ratio Arterial Blood 0.93 %; Reduced Hemoglobin 6.1 %THb (0-5.0); Total Hemoglobin 14.5 g/dL (12.0-18.0); pH ABG 7.387 (7.350-7.450)
[2019-11-27 04:42] LABS: Arterial Blood Gas Vent Mode CMV; Arterial Blood Gas Ventilator rate 28 /MIN; Device VENTILATOR; Site Drawn ARTLINE
[2019-11-27 04:43] LABS: Arterial Blood Gas PEEP 14 cmH2O; Arterial Blood Gas Tidal Volume 400 ml
[2019-11-27] MEDS: LEVOTHYROXINE SODIUM INJ 100 MCG/5 ML VIAL 50 MCG IV PUSH (05:39)
[2019-11-27 05:42] LABS: Basophils Percent Auto 0.3 % (0.2-1.2); Eosinophils Percent Auto 0.3 % (0-4.4); Hematocrit 37.2 % (42.0-52.0); Hemoglobin 12.2 g/dL (14.0-18.0); Immature Granulocyte Absolute 0.23 K/mm3 (0.00-0.031); Immature Granulocyte Percent A 1.6 % (0-0.5); Lymphocytes Absolute Auto 0.88 K/mm3 (0.9-3.2); Lymphocytes Percent Auto 6.1 % (18.3-44.2); Mean Corpuscular HGB Conc 32.8 g/dl (32-36); Mean Corpuscular Volume 88.6 fl (80-100); Mean Platelet Volume 10.8 fl (7.4-10.4); Monocytes Absolute Auto 0.8 K/mm3 (0.1-0.6); Monocytes Percent Auto 5.4 % (2.6-8.5); Neutrophils Absolute Auto 12.4 K/mm3 (1.3-6.7); Neutrophils Percent Auto 86.3 % (45.5-73.1); Platelet Count Result 254 k/mm3 (150-375); Red Cell Distribution Width 12.5 % (11.5-14.5); White Blood Count 14.3 K/mm3 (4.5-10.0)
[2019-11-27 05:49] LABS: INR 1.4; Prothrombin Time 17.1 Seconds (11.1-14.7)
[2019-11-27 05:50] LABS: Partial Thromboplastin Time 28.6 SECONDS (22.3-36.8)
[2019-11-27 05:52] LABS: D Dimer 2.36 ug/mL (<0.48)
[2019-11-27 05:55] LABS: Lactic Acid 1.4 mmol/L (0.7-2.1)
[2019-11-27 06:00] LABS: Alanine Aminotransferase 27 U/L (4-50); Albumin Level 2.8 g/dL (3.5-5.1); Alkaline Phosphatase 81 U/L (38-126); Aspartate Amino Transferase 24 U/L (17-59); Bilirubin,Total 0.3 mg/dL (0.2-1.3); Blood Urea Nitrogen 35 mg/dL (9-20); Calcium 7.2 mg/dL (8.4-10.2); Carbon Dioxide 26 mmol/L (22-30); Chloride 102 mmol/L (98-107); Estimated CRCL calculation 71 ml/min; Estimated Glomerular Filt Rate > 60; Glucose 162 mg/dL (75-110); Lactate Dehydrogenase 833 U/L (313-618); Magnesium 2.2 mg/dL (1.6-2.3); Potassium 4.3 mmol/L (3.4-5.0); Sodium 134 mmol/L (137-145)
[2019-11-27 06:17] LABS: CRP 22.9 mg/dL (<1.0)
[2019-11-27] MEDS: SODIUM CHLORIDE 0.9% IV 1,000 ML 75 ML IV CONT ×2 (06:17→19:33)
[2019-11-27] MEDS: ENOXAPARIN 40 MG/0.4 ML SYRINGE SUB-Q (08:08)
[2019-11-27] MEDS: PANTOPRAZOLE SODIUM IV 40 MG VIAL IV PUSH (08:08)
--- NOTE | 2019-11-27 08:15 | WPDINTPN ---
Progress Note: A&P Assessment and Plan (1) Respiratory failure with hypoxia: Qualifiers: Chronicity: acute Qualified Code(s): J96.01 - Acute respiratory failure with hypoxia Code(s): J96.91 - Respiratory failure, unspecified with hypoxia Status: Acute Assessment and Plan: Acute hypoxic respiratory failure likely related to bilateral infiltrates. Intubated patient on 11/26/2019 for impending respiratory failure POSITIVE COVID-19 with ARDS physiology, low tidal volume strategy Antibiotics were discontinued by Infectious Disease Continue dexamethasone, and Remdesivir CXR and ABGs reviewed ABGs are acceptable (2) Suspected 2019 novel coronavirus infection: Code(s): Z20.828 - Contact with and (suspected) exposure to other viral communicable diseases Status: Acute Assessment and Plan: SARS-CoV-2 PCR POSITIVE Pt on airborne, droplet and contact isolation and precautions D-dimer and CRP have increased significantly. LDH stable, ferritin remains normal Appreciate infectious disease evaluation recommendation (3) DM type 2 (diabetes mellitus, type 2): Qualifiers: Diabetes mellitus penitentiary insulin use: unspecified penitentiary insulin use status Diabetes mellitus complication status: with neurologic complications Diabetes mellitus complication detail: with unspecified neuropathy Qualified Code(s): E11.40 - Type 2 diabetes mellitus with diabetic neuropathy, unspecified Code(s): E11.9 - Type 2 diabetes mellitus without complications Status: Acute Assessment and Plan: Accucheks and SSI -continue Lantus - Monitor blood sugars as pt on steroids (4) Essential (primary) hypertension: Code(s): I10 - Essential (primary) hypertension Status: Acute Assessment and Plan: Blood pressures stable after intubation -hold metoprolol (5) DVT prophylaxis: Code(s): Z29.9 - Encounter for prophylactic measures, unspecified Status: Acute Assessment and Plan: Lovenox (6) Hypothyroidism: Qualifiers: Hypothyroidism type: unspecified Qualified Code(s): E03.9 - Hypothyroidism, unspecified Code(s): E03.9 - Hypothyroidism, unspecified Status: Chronic Assessment and Plan: Switch PO levothyroxine to IV (7) Dietary counseling and surveillance: Code(s): Z71.3 - Dietary counseling and surveillance Status: Acute Assessment and Plan: Will start trickle tube feeds Additional Plan Discussed with and his grandson and updated them with patient's condition and plan of care. I answered all questions Code Status: Full code Critical care time spent: 36 minutes Due to a high probability of clinically significant, life threatening deterioration, the patient required my highest level of preparedness to intervene emergently and I personally spent this critical care time directly and personally managing the patient. This critical care time included obtaining a history; examining the patient; pulse oximetry; ordering and review of studies; arranging urgent treatment with development of a management plan; evaluation of patient's response to treatment; frequent reassessment; and discussions with other providers. It was exclusive of separately billable procedures and treating other patients and teaching time. Please see Assessment and Plan section and the rest of the note for further information on patient assessment and treatment Subjective Date/time seen: 11/27/19 08:15 Interval history: Reason for consult: Acute respiratory failure, POSITIVE COVID-19, shortness of breath, fevers, malaise -intubated on 11/26/2019, central line placed on 11/26/2019, arterial line placed on 11/26/2019 11/27/2019: Patient is intubated, on 80% FiO2, peep of 14 on CMV mode of ventilation. Urine output has been adequate, afebrile. Patient is sedated with fentanyl 125 mcg/min and Versed 5 mg min infusions. Hemodyna
[2019-11-27] MEDS: REMDESIVIR 100 MG/NS 250 ML 100 MG/250 ML BAG 250 MG IVPB (08:18)
--- NOTE | 2019-11-27 10:48 | PCDIET ---
ICU Rounding Note: MD ordered to start trickle feedings: Glucerna 1.2 at 10mL/hr. Last recorded weight is 88.7kg which is increased from last review. Bowel Motility: +BM on 11/25/19 per RN. Labs Reviewed: Glu (162), Na (134), Alb (2.8), Teri Ca (8.16) Meds Noted: Lantus, Decadron, Versed, Fentanyl, Novolog, Protonix, Remdesivir, NS at 75mL/hr Additional Notes: No skin breakdown reported. Following daily in ICU rounds. Assessing/reassessing every Sunday/Sunday.
[2019-11-27 11:39] LABS: Glucose Point of Care 163 (65-105)
--- NOTE | 2019-11-27 14:28 | WPDINFPN2 ---
Progress Note: A&P Assessment and Plan (1) COVID-19 virus infection: Code(s): U07.1 - COVID-19 Status: Acute Assessment and Plan: 1. Dyspnea and cough due to CoVid 19 viral pneumonia. 2. TKAs 3. DM 4. Respiratory failure, ventilator 11/25. Aa gradient stable 455 5. Multifactorial leukocytosis REC Remdesivir #5 /5, complete today. Dexamethasone # 5 / 10, continue. Discussed and to get convalescent plasma as soon as available from blood bank, as adjunctive therapy. Subjective Date/time seen: 11/27/19 14:28 Interval history: sedated with fentanyl, no pressors Exam Narrative: Exam Narrative: afebrile Const: General: comfortable and no acute distress Neck: Neck: no JVD Other: r ij cvc Resp: Effort & Inspection: normal respiratory effort Auscultation: clear to auscultation bilaterally and diminished lung sounds Cardio: Rate: regular rate Rhythm: regular rhythm Heart sounds: no gallops and no murmurs GI: Inspection: non-distended GI Palp: Yes Soft to palpation and No Tenderness to palpation present (GI) Objective Data Vital Signs Vital Signs: Vital Signs - 24 hr 11/26/19 14:30 11/26/19 14:55 11/26/19 16:00 Temperature 36.4 C Pulse Rate 75 73 75 Respiratory Rate 28 H 28 H Blood Pressure 114/64 Pulse Oximetry 97 96 11/26/19 17:06 11/26/19 17:08 11/26/19 18:00 Temperature Pulse Rate 75 76 81 Respiratory Rate 28 H 28 H 28 H Blood Pressure 114/63 Pulse Oximetry 94 11/26/19 18:02 11/26/19 18:08 11/26/19 18:09 Temperature Pulse Rate 80 81 81 Respiratory Rate 28 H 28 H Blood Pressure Pulse Oximetry 94 11/26/19 20:00 11/26/19 20:20 11/26/19 20:47 Temperature 36.3 C L Pulse Rate 78 79 79 Respiratory Rate 28 H 28 H Blood Pressure 103/56 L Pulse Oximetry 93 93 11/26/19 20:48 11/26/19 22:00 11/26/19 23:17 Temperature Pulse Rate 78 80 78 Respiratory Rate 28 H 30 H 30 H Blood Pressure 108/59 L Pulse Oximetry 92 11/26/19 23:18 11/26/19 23:25 11/26/19 23:48 Temperature Pulse Rate 78 75 77 Respiratory Rate 30 H 32 H Blood Pressure Pulse Oximetry 93 92 11/27/19 00:00 11/27/19 01:41 11/27/19 01:42 Temperature 36.4 C L Pulse Rate 76 76 76 Respiratory Rate 30 H 32 H 32 H Blood Pressure 103/57 L Pulse Oximetry 93 11/27/19 02:00 11/27/19 02:53 11/27/19 04:00 Temperature 36.7 C Pulse Rate 74 77 89 Respiratory Rate 30 H 34 H Blood Pressure 115/61 105/79 Pulse Oximetry 94 94 93 11/27/19 04:45 11/27/19 06:00 11/27/19 06:01 Temperature Pulse Rate 79 89 90 Respiratory Rate 32 H 32 H Blood Pressure 131/67 Pulse Oximetry 94 91 11/27/19 06:04 11/27/19 06:18 11/27/19 06:19 Temperature Pulse Rate 90 89 89 Respiratory Rate 32 H 30 H 32 H Blood Pressure Pulse Oximetry 91 11/27/19 08:00 11/27/19 08:38 11/27/19 09:07 Temperature 37.2 C Pulse Rate 91 91 91 Respiratory Rate 32 H 32 H Blood Pressure 124/68 Pulse Oximetry 94 92 11/27/19 10:00 11/27/19 10:36 11/27/19 11:25 Temperature Pulse Rate 87 81 80 Respiratory Rate 21 H 26 H 26 H Blood Pressure 113/78 Pulse Oximetry 95 11/27/19 11:28 11/27/19 11:43 11/27/19 12:00 Temperature 37.1 C Pulse Rate 80 82 81 Respiratory Rate 28 H 25 H Blood Pressure 117/63 Pulse Oximetry 95 96 Intake/Output Intake/Output: Intake & Output 11/24/19 11/25/19 11/26/19 11/27/19 23:59 23:59 23:59 23:59 Intake Total 1770 1500 1097 1403 Output Total 1400 1900 1300 625 Balance 129 -189 -596 738 Meds/Results Medications: Active Medications Generic Name Dose Route Start Last Admin Trade Name Freq PRN Reason Stop Dose Admin Acetaminophen 650 mg 11/22/19 10:38 11/26/19 00:32 Tylenol Tablet PO 650 mg Q4H PRN Administration Mild Pain (1-3) or Fever Artificial Tears 1 drop 11/23/19 15:28 11/24/19 07:55 Artificial Tears EACH EYE 1 drop QID PRN Administration Dry Eye(s) Benzocaine
--- NOTE | 2019-11-27 16:47 | PM.IMPN ---
Progress Note: A&P Assessment and Plan (1) Acute respiratory failure with hypoxia: Code(s): J96.01 - Acute respiratory failure with hypoxia Status: Acute Assessment and Plan: Pt is on ventilator had to be intubated due to resp distress Pt has central line placed on iv fluids, iv remdesivir completed today and iv dexathasone pt will be having one unit of plasma today Management per intensive care physician. (2) COVID-19 virus infection: Code(s): U07.1 - COVID-19 Status: Acute Assessment and Plan: He has completed 5 days of remdesivir and dexamethasone. awaiting to start plasma one unit Pt is over 63 and has multiple medical problems making him high risk for covid. Otherwise from history no recent travel or sick contacts (3) DM type 2 (diabetes mellitus, type 2): Qualifiers: Diabetes mellitus residential insulin use: unspecified long term care phlebotomist insulin use status Diabetes mellitus complication status: with neurologic complications Diabetes mellitus complication detail: with unspecified neuropathy Qualified Code(s): E11.40 - Type 2 diabetes mellitus with diabetic neuropathy, unspecified Code(s): E11.9 - Type 2 diabetes mellitus without complications Status: Acute Assessment and Plan: Monitor blood glucose on dexamethasone. On long acting insulin and ISS. (4) Hypothyroidism: Qualifiers: Hypothyroidism type: unspecified Qualified Code(s): E03.9 - Hypothyroidism, unspecified Code(s): E03.9 - Hypothyroidism, unspecified Status: Chronic Assessment and Plan: On levothryoxine (5) DVT prophylaxis: Code(s): Z29.9 - Encounter for prophylactic measures, unspecified Status: Acute Assessment and Plan: On lovenox Subjective Date/time seen: 11/27/19 16:47 Interval history: 64-year-old male with history of coronary artery disease status post CABG, hypertension, hyperlipidemia, and type 2 diabetes mellitus who presented to the emergency department with complaints of cough, shortness of breath, and fever. Found to be covid positive with Bilateral infiltrates on cxr. Pt is on remdesivir and IV steroids. Pt is intubated due to acute respiratory distress. Pt is going to have convalescent plasma, completed remdesivir for 5 days. Review of Systems Review of Systems: All systems reviewed & are unremarkable except as noted in HPI and below ROS unobtainable: Yes unobtainable due to endotracheal tube Exam Narrative: Exam Narrative: Pt is intubated on ventilator Objective Data Vital Signs Vital Signs: Vital Signs - 24 hr 11/26/19 17:06 11/26/19 17:08 11/26/19 18:00 Temperature Pulse Rate 75 76 81 Respiratory Rate 28 H 28 H 28 H Blood Pressure 114/63 Pulse Oximetry 94 11/26/19 18:02 11/26/19 18:08 11/26/19 18:09 Temperature Pulse Rate 80 81 81 Respiratory Rate 28 H 28 H Blood Pressure Pulse Oximetry 94 11/26/19 20:00 11/26/19 20:20 11/26/19 20:47 Temperature 36.3 C L Pulse Rate 78 79 79 Respiratory Rate 28 H 28 H Blood Pressure 103/56 L Pulse Oximetry 93 93 11/26/19 20:48 11/26/19 22:00 11/26/19 23:17 Temperature Pulse Rate 78 80 78 Respiratory Rate 28 H 30 H 30 H Blood Pressure 108/59 L Pulse Oximetry 92 11/26/19 23:18 11/26/19 23:25 11/26/19 23:48 Temperature Pulse Rate 78 75 77 Respiratory Rate 30 H 32 H Blood Pressure Pulse Oximetry 93 92 11/27/19 00:00 11/27/19 01:41 11/27/19 01:42 Temperature 36.4 C L Pulse Rate 76 76 76 Respiratory Rate 30 H 32 H 32 H Blood Pressure 103/57 L Pulse Oximetry 93 11/27/19 02:00 11/27/19 02:53 11/27/19 04:00 Temperature 36.7 C Pulse Rate 74 77 89 Respiratory Rate 30 H 34 H Blood Pressure 115/61 105/79 Pulse Oximetry 94 94 93 11/27/19 04:45 11/27/19 06:00 11/27/19 06:01 Temperature Pulse Rate 79 89 90 Respiratory Rate 32 H 32 H Blood Pressure 131/67 Pulse Oximetr
[2019-11-27 18:01] LABS: Glucose Point of Care 254 (65-105)
[2019-11-27] MEDS: CENTRAL LINE FLUSH 10 ML IV PUSH ×2 (19:21→20:01)
[2019-11-27] MEDS: INSULIN ASPART (*BKC) 100 UNITS/ML SUB-Q (19:21)
[2019-11-27] MEDS: ENOXAPARIN 80 MG/0.8 ML SYRINGE SUB-Q (20:00)
[2019-11-27] MEDS: INSULIN GLARGINE (*BKC) 100 UNITS/ML 12 UNITS SUB-Q (20:12)
[2019-11-27 23:32] LABS: Glucose Point of Care 181 (65-105)
[2019-11-28] VITALS (39 sets, daily range): BP systolic 110–149; BP diastolic 57–67; PULSE 61–76; RESP 28–30; TEMP 36.1–36.7; O2SAT 91–96
[2019-11-28 04:05] LABS: Basophils Percent Auto 0.2 % (0.2-1.2); Eosinophils Percent Auto 0.2 % (0-4.4); Hematocrit 32.7 % (42.0-52.0); Hemoglobin 10.7 g/dL (14.0-18.0); Immature Granulocyte Absolute 0.24 K/mm3 (0.00-0.031); Immature Granulocyte Percent A 1.9 % (0-0.5); Lymphocytes Absolute Auto 0.42 K/mm3 (0.9-3.2); Lymphocytes Percent Auto 3.4 % (18.3-44.2); Mean Corpuscular HGB Conc 32.7 g/dl (32-36); Mean Corpuscular Hemoglobin 29.2 pg (26-34); Mean Corpuscular Volume 89.3 fl (80-100); Mean Platelet Volume 11.2 fl (7.4-10.4); Monocytes Absolute Auto 0.7 K/mm3 (0.1-0.6); Monocytes Percent Auto 5.5 % (2.6-8.5); Neutrophils Percent Auto 88.8 % (45.5-73.1); Platelet Count Result 266 k/mm3 (150-375); Red Blood Count 3.66 M/mm3 (4.6-6.20); Red Cell Distribution Width 12.7 % (11.5-14.5); White Blood Count 12.4 K/mm3 (4.5-10.0)
[2019-11-28 04:15] LABS: INR 1.5; Prothrombin Time 17.5 Seconds (11.1-14.7)
[2019-11-28 04:16] LABS: Partial Thromboplastin Time 36.3 SECONDS (22.3-36.8)
[2019-11-28 04:18] LABS: D Dimer 1.51 ug/mL (<0.48)
[2019-11-28 04:26] LABS: Alanine Aminotransferase 19 U/L (4-50); Albumin Level 2.5 g/dL (3.5-5.1); Alkaline Phosphatase 69 U/L (38-126); Aspartate Amino Transferase 15 U/L (17-59); Bilirubin,Total 0.1 mg/dL (0.2-1.3); Blood Urea Nitrogen 41 mg/dL (9-20); Calcium 7.1 mg/dL (8.4-10.2); Carbon Dioxide 26 mmol/L (22-30); Chloride 105 mmol/L (98-107); Estimated CRCL calculation 72 ml/min; Estimated Glomerular Filt Rate > 60; Glucose 191 mg/dL (75-110); Lactate Dehydrogenase 658 U/L (313-618); Magnesium 2.6 mg/dL (1.6-2.3); Phosphorus 3.8 mg/dL (2.5-4.5); Potassium 4.5 mmol/L (3.4-5.0); Sodium 136 mmol/L (137-145)
[2019-11-28 04:32] LABS: CRP 18.1 mg/dL (<1.0)
[2019-11-28 04:44] LABS: Alveolar/Arterial O2 Gradient 459.6 mmHg; Carboxyhemoglobin 0.3 % THb (0-2.0); Fractional Inspired Oxygen 80 %; HCO3 ABG 23.5 mEq/l (22.0-26.0); Methemoglobin ABG 0.3 %THb (0-1.5); Oxygen Content ABG 15.1 %vol (16.0-22.0); Oxygen Saturation ABG 92.2 % (95.0-100.0); Oxyhemoglobin 90.7 % THb (90.0-100.0); PCO2 ABG 42.9 mmHg (35.0-45.0); PO2 ABG 65.8 mmHg (80.0-100.0); PO2 FiO2 Ratio Arterial Blood 0.82 %; Reduced Hemoglobin 8.7 %THb (0-5.0); Total Hemoglobin 11.8 g/dL (12.0-18.0); pH ABG 7.356 (7.350-7.450)
[2019-11-28 04:45] LABS: Arterial Blood Gas Ventilator rate 28 /MIN; Device VENTILATOR; Site Drawn ARTLINE
[2019-11-28 04:46] LABS: Arterial Blood Gas PEEP 14 cmH2O; Arterial Blood Gas Tidal Volume 400 ml; Arterial Blood Gas Vent Mode CMV
[2019-11-28] MEDS: CENTRAL LINE FLUSH 10 ML IV PUSH ×4 (05:03→20:01)
[2019-11-28] MEDS: LEVOTHYROXINE SODIUM INJ 100 MCG/5 ML VIAL 50 MCG IV PUSH (05:43)
--- NOTE | 2019-11-28 08:27 | WPDINTPN ---
Progress Note: A&P Assessment and Plan (1) Respiratory failure with hypoxia: Qualifiers: Chronicity: acute Qualified Code(s): J96.01 - Acute respiratory failure with hypoxia Code(s): J96.91 - Respiratory failure, unspecified with hypoxia Status: Acute Assessment and Plan: Acute hypoxic respiratory failure likely related to bilateral infiltrates as a result of COVID19. Intubated patient on 11/26/2019 for impending respiratory failure POSITIVE COVID-19 with ARDS physiology. Employ low tidal volume strategies. Wean peep and FiO2 if tolerated. Plateau pressure are within acceptable range. Antibiotics were discontinued by Infectious Disease Continue dexamethasone. He completed the dose of remdisivir of 5 days already. CXR and ABGs reviewed ABGs are acceptable He is going to receive convalescent plasma today. Check procalcitonin level. Will check Doppler ultrasound for DVT and echocardiogram as well. (2) Suspected 2019 novel coronavirus infection: Code(s): Z20.828 - Contact with and (suspected) exposure to other viral communicable diseases Status: Acute Assessment and Plan: SARS-CoV-2 PCR POSITIVE Pt on airborne, droplet and contact isolation and precautions D-dimer and CRP have increased significantly. Downward trend in CRP and D-dimers now. LDH stable with downward trend, ferritin remains normal Appreciate infectious disease evaluation recommendation. Currently on dexamethasone. He has finished Remdisivir already. He is going to get convalescent plasma today. (3) DM type 2 (diabetes mellitus, type 2): Qualifiers: Diabetes mellitus complication detail: with unspecified neuropathy Diabetes mellitus complication status: with neurologic complications Diabetes mellitus watermaster insulin use: unspecified long-term insulin use status Qualified Code(s): E11.40 - Type 2 diabetes mellitus with diabetic neuropathy, unspecified Code(s): E11.9 - Type 2 diabetes mellitus without complications Status: Acute Assessment and Plan: Accucheks and SSI -continue Lantus - Monitor blood sugars as pt on steroids. (4) Essential (primary) hypertension: Code(s): I10 - Essential (primary) hypertension Status: Acute Assessment and Plan: Hemodynamics are stable. Is not requiring any pressor supports. -hold metoprolol (5) DVT prophylaxis: Code(s): Z29.9 - Encounter for prophylactic measures, unspecified Status: Acute Assessment and Plan: Lovenox with therapeutic dose. (6) Hypothyroidism: Qualifiers: Hypothyroidism type: unspecified Qualified Code(s): E03.9 - Hypothyroidism, unspecified Code(s): E03.9 - Hypothyroidism, unspecified Status: Chronic Assessment and Plan: Continue IV thyroxine. (7) Dietary counseling and surveillance: Code(s): Z71.3 - Dietary counseling and surveillance Status: Acute Assessment and Plan: Continue tube feed at low rate. Additional Plan Will call patient family and update them about his clinical status. Code Status: Full code Critical care time spent: 36 minutes Due to a high probability of clinically significant, life threatening deterioration, the patient required my highest level of preparedness to intervene emergently and I personally spent this critical care time directly and personally managing the patient. This critical care time included obtaining a history; examining the patient; pulse oximetry; ordering and review of studies; arranging urgent treatment with development of a management plan; evaluation of patient's response to treatment; frequent reassessment; and discussions with other providers. It was exclusive of separately billable procedures and treating other patients and teaching time. Please see Assessment and Plan section and the rest of the note for further information on patient assessment and treatment Subjective Date/
[2019-11-28] MEDS: SODIUM CHLORIDE 0.9% IV 1,000 ML 75 ML IV CONT (08:53)
[2019-11-28] MEDS: ENOXAPARIN 80 MG/0.8 ML SYRINGE SUB-Q ×2 (09:12→20:01)
[2019-11-28] MEDS: PANTOPRAZOLE SODIUM IV 40 MG VIAL IV PUSH (09:13)
--- NOTE | 2019-11-28 10:43 | PCDIET ---
Nutrition Follow-Up Complete: Nutrition Diagnosis: Predicted suboptimal oral intake related to increased O2 requirements as evidenced by full liquid diet order. Nutrition Goal: Patient to consume 50% of meals and supplements or greater. New goal: Patient to meet estimated nutritional needs. Goal in progress. MD ordered to increase tube feedings toward goal. Recommend Glucerna 1.2 goal of 50mL/hr with Pro-Stat flush BID for 1520kcal and 96g protein daily. MD ordered to stop IV fluids. Last recorded weight is 90.3 kg which is increased from last review. +I/O noted. Bowel Motility: Last documented BM on 11/24/19. Labs Reviewed: Hgb (10.7), Hct (32.7), Glu (191), Na (136), Alb (2.5), Teri Ca (8.3) Meds Noted: Decadron, Fentanyl, Versed, Protonix, Novolog, Lantus Additional Notes: No documented skin breakdown. Plan for convalescent plasma today. Nutrition Monitoring and Evaluation: Follow up every Sunday/Sunday. Follow daily in ICU rounds.
[2019-11-28] MEDS: SODIUM CHLORIDE 0.9% IV 250 ML 999 ML (10:53)
[2019-11-28 11:23] LABS: Glucose Point of Care 171 (65-105)
--- NOTE | 2019-11-28 16:16 | PM.IMPN ---
Progress Note: A&P Assessment and Plan (1) Acute respiratory failure with hypoxia: Code(s): J96.01 - Acute respiratory failure with hypoxia Status: Acute Assessment and Plan: Pt is on ventilator had to be intubated due to resp distress Pt has central line placed on iv fluids, iv remdesivir completed today and iv dexathasone pt will be having one unit of plasma today Management per intensive care physician. (2) COVID-19 virus infection: Code(s): U07.1 - COVID-19 Status: Acute Assessment and Plan: He has completed 5 days of remdesivir and dexamethasone. awaiting to start plasma one unit Pt is over 63 and has multiple medical problems making him high risk for covid. Otherwise from history no recent travel or sick contacts (3) DM type 2 (diabetes mellitus, type 2): Qualifiers: Diabetes mellitus complication detail: with unspecified neuropathy Diabetes mellitus complication status: with neurologic complications Diabetes mellitus [facility] use: unspecified [facility] insulin use status Qualified Code(s): E11.40 - Type 2 diabetes mellitus with diabetic neuropathy, unspecified Code(s): E11.9 - Type 2 diabetes mellitus without complications Status: Acute Assessment and Plan: Monitor blood glucose on dexamethasone. On long acting insulin and ISS. (4) Hypothyroidism: Qualifiers: Hypothyroidism type: unspecified Qualified Code(s): E03.9 - Hypothyroidism, unspecified Code(s): E03.9 - Hypothyroidism, unspecified Status: Chronic Assessment and Plan: On levothryoxine (5) DVT prophylaxis: Code(s): Z29.9 - Encounter for prophylactic measures, unspecified Status: Acute Assessment and Plan: On lovenox Subjective Date/time seen: 11/28/19 16:16 Interval history: 64-year-old male with history of coronary artery disease status post CABG, hypertension, hyperlipidemia, and type 2 diabetes mellitus who presented to the emergency department with complaints of cough, shortness of breath, and fever. Found to be covid positive with Bilateral infiltrates on cxr. Patient was intubated for acute hypoxic respiratory failure. Pt was on remdesivir and IV steroids. He has completed remdisivir. He is going to get convalescent plasma today. Review of Systems Review of Systems: All systems reviewed & are unremarkable except as noted in HPI and below ROS unobtainable: Yes unobtainable due to endotracheal tube Exam Narrative: Exam Narrative: Pt is intubated on ventilator Objective Data Vital Signs Vital Signs: Vital Signs - 24 hr 11/27/19 17:35 11/27/19 17:36 11/27/19 18:00 Temperature 36.6 C Pulse Rate 72 74 75 Respiratory Rate 28 H 28 H 26 H Blood Pressure 110/60 Pulse Oximetry 94 11/27/19 18:03 11/27/19 19:34 11/27/19 19:35 Temperature Pulse Rate 75 72 73 Respiratory Rate 32 H 28 H Blood Pressure Pulse Oximetry 93 11/27/19 19:43 11/27/19 19:46 11/27/19 20:00 Temperature 36.4 C Pulse Rate 72 73 72 Respiratory Rate 30 H 32 H Blood Pressure 112/60 Pulse Oximetry 94 93 11/27/19 20:30 11/27/19 21:59 11/27/19 23:05 Temperature Pulse Rate 72 71 68 Respiratory Rate 30 H Blood Pressure 113/60 Pulse Oximetry 93 93 93 11/27/19 23:07 11/27/19 23:08 11/27/19 23:36 Temperature Pulse Rate 67 70 69 Respiratory Rate 28 H 32 H 28 H Blood Pressure Pulse Oximetry 92 11/27/19 23:42 11/28/19 00:00 11/28/19 02:00 Temperature 36.3 C L Pulse Rate 70 67 66 Respiratory Rate 28 H 28 H Blood Pressure 116/61 110/58 L Pulse Oximetry 92 92 11/28/19 02:03 11/28/19 02:04 11/28/19 02:25 Temperature Pulse Rate 63 64 64 Respiratory Rate 28 H 28 H Blood Pressure Pulse Oximetry 93 11/28/19 03:43 11/28/19 03:58 11/28/19 04:00 Temperature 36.4 C L Pulse Rate 65 65 69 Respiratory Rate 30 H 30 H Blood Pressure 119/60 Pulse Oxim
[2019-11-28] MEDS: INSULIN ASPART (*BKC) 100 UNITS/ML SUB-Q ×2 (18:46→23:42)
[2019-11-28 19:14] LABS: Glucose Point of Care 230 (65-105)
[2019-11-28] MEDS: INSULIN GLARGINE (*BKC) 100 UNITS/ML 12 UNITS SUB-Q (20:28)
[2019-11-29] VITALS (21 sets, daily range): BP systolic 127–159; BP diastolic 60–73; PULSE 60–93; RESP 28–94; TEMP 36–37.1; O2SAT 30–94
--- NOTE | 2019-11-29 | ECHO_ITS ---
Patient Info Name: Willie Urias Age: 64 years : 1955 Gender: Male Ht: 76 in Wt: 199 lbs BSA: 2.20 m2 HR: 91 bpm BP: 131 / 65 mmHg Heart Rhythm: Sinus Rhythm Technical Quality: Good Exam Date: 11/29/2019 1:59 PM Exam Location: [facility] Pulmonary Exam Room: ICU 02 Patient Status: Inpatient Admit Date: 11/22/2019 Staff Ordering Physician: Carin España MD Ecology Teacher: Sue Cruz RCS Attending Provider: Cedric Wisnton MD Exam Type: CA echo doppler color flow Study Info Indications - acute resp failure Complete two-dimensional, color flow and Doppler transthoracic echocardiogram is performed. Summary 1. Left ventricular systolic function is hyperdynamic, estimated at >70%. 2. There is moderate to severe concentric increased left ventricular wall thickness. 3. The left ventricular diastolic function is grade I diastolic dysfunction. 4. Right atrial chamber dimension is moderately enlarged. 5. Left atrial chamber dimension is mildly enlarged. 6. There is trace mitral valve regurgitation. 7. There is no aortic valve stenosis. 8. There is no aortic valve regurgitation. 9. There is mild tricuspid valve regurgitation. 10. No pulmonary hypertension, estimated pulmonary arterial systolic pressure is 33 mmHg. Left Ventricle Left ventricular chamber dimension is normal. Left ventricular systolic function is hyperdynamic, estimated at >70%. There is moderate to severe concentric increased left ventricular wall thickness. The left ventricular diastolic function is grade I diastolic dysfunction. Right Ventricle Right ventricular chamber dimension is normal. Right ventricular systolic function is normal. Left Atria Left atrial chamber dimension is mildly enlarged. Right Atria Right atrial chamber dimension is moderately enlarged. Aortic Valve The aortic valve is trileaflet. There is no aortic valve stenosis. There is no aortic valve regurgitation. Pulmonic Valve The pulmonic valve is not well visualized. Mitral Valve The mitral valve has normal leaflets. There is trace mitral valve regurgitation. The mitral valve annulus is moderately calcified. Tricuspid Valve The tricuspid valve leaflets are normal. There is mild tricuspid valve regurgitation. No pulmonary hypertension, estimated pulmonary arterial systolic pressure is 33 mmHg. Pericardium/Pleural The pericardium appears epicardial fat pad. There is trivial pericardial effusion. Aorta The aortic root size at the sinus of Valsalva is normal. There is mild-moderate aortic atherosclerosis. Left Ventricular Outflow Tract Name Value Normal LVOT 2D LVOT Diameter 2.1 cm LVOT Doppler LVOT Peak Gradient 5 mmHg LVOT Mean Gradient 3 mmHg LVOT VTI 25 cm LVOT VTI/AV VTI Ratio 0.7 LVOT Stroke Volume 85 ml LVOT CO 18.1 l/min LVOT CI 8.2 l/min/m2 Pulmonic Valve
[2019-11-29 00:14] LABS: Glucose Point of Care 211 (65-105)
[2019-11-29 04:14] LABS: Alveolar/Arterial O2 Gradient 443.2 mmHg; Base Excess ABG -1.4 mEq/l (+/-2.0); Carboxyhemoglobin 0.1 % THb (0-2.0); Fractional Inspired Oxygen 80 %; HCO3 ABG 24.4 mEq/l (22.0-26.0); Methemoglobin ABG 0.4 %THb (0-1.5); Oxygen Content ABG 23.7 %vol (16.0-22.0); Oxygen Saturation ABG 95.4 % (95.0-100.0); Oxyhemoglobin 94.3 % THb (90.0-100.0); PCO2 ABG 44.4 mmHg (35.0-45.0); PO2 ABG 80.6 mmHg (80.0-100.0); PO2 FiO2 Ratio Arterial Blood 1.01 %; Reduced Hemoglobin 5.2 %THb (0-5.0); Total Hemoglobin 17.9 g/dL (12.0-18.0); pH ABG 7.357 (7.350-7.450)
[2019-11-29 04:15] LABS: Device VENTILATOR; Site Drawn ARTLINE
[2019-11-29 04:16] LABS: Arterial Blood Gas PEEP 14 cmH2O; Arterial Blood Gas Tidal Volume 400 ml; Arterial Blood Gas Vent Mode CMV; Arterial Blood Gas Ventilator rate 28 /MIN
[2019-11-29 04:56] LABS: Hematocrit 33.7 % (42.0-52.0); Mean Corpuscular HGB Conc 32.6 g/dl (32-36); Mean Corpuscular Hemoglobin 29.3 pg (26-34); Mean Corpuscular Volume 89.6 fl (80-100); Platelet Count Result 298 k/mm3 (150-375); Red Blood Count 3.76 M/mm3 (4.6-6.20); Red Cell Distribution Width 12.6 % (11.5-14.5)
[2019-11-29 05:10] LABS: Blood Urea Nitrogen 39 mg/dL (9-20); CRP 8.8 mg/dL (<1.0); Calcium 7.8 mg/dL (8.4-10.2); Carbon Dioxide 26 mmol/L (22-30); Chloride 106 mmol/L (98-107); Estimated CRCL calculation 81 ml/min; Estimated Glomerular Filt Rate > 60; Glucose 224 mg/dL (75-110); Phosphorus 3.4 mg/dL (2.5-4.5); Potassium 4.7 mmol/L (3.4-5.0); Sodium 137 mmol/L (137-145)
[2019-11-29] MEDS: LEVOTHYROXINE SODIUM INJ 100 MCG/5 ML VIAL 50 MCG IV PUSH (06:01)
[2019-11-29] MEDS: CENTRAL LINE FLUSH 10 ML IV PUSH ×4 (06:03→20:19)
[2019-11-29 06:15] LABS: Glucose Point of Care 202 (65-105)
[2019-11-29] MEDS: INSULIN ASPART (*BKC) 100 UNITS/ML SUB-Q ×4 (06:16→23:38)
--- NOTE | 2019-11-29 08:06 | WPDINTPN ---
Progress Note: A&P Assessment and Plan (1) Respiratory failure with hypoxia: Qualifiers: Chronicity: acute Qualified Code(s): J96.01 - Acute respiratory failure with hypoxia Code(s): J96.91 - Respiratory failure, unspecified with hypoxia Status: Acute Assessment and Plan: Acute hypoxic respiratory failure likely related to bilateral infiltrates as a result of COVID19. Intubated patient on 11/26/2019 for impending respiratory failure POSITIVE COVID-19 with ARDS physiology. Employ low tidal volume strategies. Wean peep and FiO2 if tolerated. Plateau pressure are within acceptable range. We can wean FiO2 down to 70% and 60% later in the afternoon if he is able to tolerated. PO2 on ABG is in 80s which is better than over the last few days. Antibiotics were discontinued by Infectious Disease Continue dexamethasone. He completed the dose of remdisivir of 5 days already. CXR and ABGs reviewed. PO2 is better today. Chest x-ray with bilateral airspace disease but less tense today compared to over the last few days. He has received cannula some plasma yesterday. Procalcitonin level is pending as well. Doppler ultrasound of the lower extremity has been negative for DVT. Echo is pending. He has significant positive fluid balance since the time of admission. He will be started on diuretics today with 40 mg of Lasix IV now and will repeat the dose later today. IV fluid have been stopped yesterday. (2) Suspected 2019 novel coronavirus infection: Code(s): Z20.828 - Contact with and (suspected) exposure to other viral communicable diseases Status: Acute Assessment and Plan: SARS-CoV-2 PCR POSITIVE Pt on airborne, droplet and contact isolation/precautions D-dimer and CRP have increased significantly. Downward trend in CRP and D-dimers now. LDH stable with downward trend, ferritin remains normal Appreciate infectious disease evaluation recommendation. Currently on dexamethasone. He has finished Remdisivir already. He has received cannula some plasma yesterday. (3) DM type 2 (diabetes mellitus, type 2): Qualifiers: Diabetes mellitus complication detail: with unspecified neuropathy Diabetes mellitus complication status: with neurologic complications Diabetes mellitus fpc insulin use: unspecified fpc insulin use status Qualified Code(s): E11.40 - Type 2 diabetes mellitus with diabetic neuropathy, unspecified Code(s): E11.9 - Type 2 diabetes mellitus without complications Status: Acute Assessment and Plan: Accucheks and SSI -continue Lantus - Monitor blood sugars as pt on steroids. (4) Essential (primary) hypertension: Code(s): I10 - Essential (primary) hypertension Status: Acute Assessment and Plan: Hemodynamics are stable. Is not requiring any pressor supports. -hold metoprolol (5) DVT prophylaxis: Code(s): Z29.9 - Encounter for prophylactic measures, unspecified Status: Acute Assessment and Plan: Lovenox with therapeutic dose. (6) Hypothyroidism: Qualifiers: Hypothyroidism type: unspecified Qualified Code(s): E03.9 - Hypothyroidism, unspecified Code(s): E03.9 - Hypothyroidism, unspecified Status: Chronic Assessment and Plan: Continue IV thyroxine. (7) Dietary counseling and surveillance: Code(s): Z71.3 - Dietary counseling and surveillance Status: Acute Assessment and Plan: Continue tube feed Additional Plan Will call patient family and update them about his clinical status. Code Status: Full code Right foot is mildly colder than the left foot. Bedside Doppler will be obtained. If there is any concern then right femoral arterial line will be discontinued. He has right internal jugular central line. Critical care time spent: 36 minutes Due to a high probability of clinically significant, life threatening deterioration, the patient r
[2019-11-29] MEDS: PANTOPRAZOLE SODIUM IV 40 MG VIAL IV PUSH (08:26)
[2019-11-29] MEDS: ENOXAPARIN 80 MG/0.8 ML SYRINGE SUB-Q ×2 (08:26→20:18)
[2019-11-29] MEDS: FUROSEMIDE INJ 40 MG/4 ML VIAL IV PUSH ×2 (08:26→16:37)
[2019-11-29 12:31] LABS: Glucose Point of Care 267 (65-105)
--- NOTE | 2019-11-29 14:41 | PM.IMPN ---
Progress Note: A&P Assessment and Plan (1) Acute respiratory failure with hypoxia: Code(s): J96.01 - Acute respiratory failure with hypoxia Status: Acute Assessment and Plan: Pt is on ventilator had to be intubated due to resp distress Pt has central line placed on iv fluids, iv remdesivir completed today and iv dexathasone pt completed one unit of plasma today Cxr still shows ARDs, pt to start diuresis today watch for improvement with PEEP Management per intensive care physician. (2) COVID-19 virus infection: Code(s): U07.1 - COVID-19 Status: Acute Assessment and Plan: He has completed 5 days of remdesivir and dexamethasone. completed plasma one unit Pt is over 65 and has multiple medical problems making him high risk for covid. 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 On long acting insulin and ISS. (4) Hypothyroidism: Qualifiers: Hypothyroidism type: unspecified Qualified Code(s): E03.9 - Hypothyroidism, unspecified Code(s): E03.9 - Hypothyroidism, unspecified Status: Chronic Assessment and Plan: On levothryoxine (5) DVT prophylaxis: Code(s): Z29.9 - Encounter for prophylactic measures, unspecified Status: Acute Assessment and Plan: On lovenox Subjective Date/time seen: 11/29/19 14:41 Interval history: 64-year-old male with history of coronary artery disease status post CABG, hypertension, hyperlipidemia, and type 2 diabetes mellitus who presented to the emergency department with complaints of cough, shortness of breath, and fever. Found to be covid positive with Bilateral infiltrates on cxr. Patient was intubated for acute hypoxic respiratory failure. Pt has received convalescent plasma. Currently he is on steroids and diuresis. Completed 5 days of remdesivir already Review of Systems Review of Systems: ROS unobtainable: Yes unobtainable due to endotracheal tube Exam Narrative: Exam Narrative: Pt is intubated on ventilator Objective Data Vital Signs Vital Signs: Vital Signs - 24 hr 11/28/19 16:00 11/28/19 17:16 11/28/19 18:00 Temperature 36.1 C L Pulse Rate 63 62 61 Respiratory Rate 28 H 28 H Blood Pressure 123/57 L 126/59 L Pulse Oximetry 96 96 95 11/28/19 19:56 11/28/19 20:00 11/28/19 20:27 Temperature 36.4 C L Pulse Rate 63 63 73 Respiratory Rate 30 H 30 H Blood Pressure 148/66 H Pulse Oximetry 94 94 95 11/28/19 20:29 11/28/19 20:30 11/28/19 21:54 Temperature Pulse Rate 73 74 63 Respiratory Rate 30 H 30 H 28 H Blood Pressure 132/61 Pulse Oximetry 94 11/28/19 23:09 11/28/19 23:27 11/28/19 23:28 Temperature Pulse Rate 68 70 72 Respiratory Rate 30 H 30 H Blood Pressure Pulse Oximetry 94 11/28/19 23:55 11/28/19 23:59 11/29/19 00:00 Temperature 36.2 C L Pulse Rate 64 61 60 Respiratory Rate 28 H 28 H Blood Pressure 136/63 Pulse Oximetry 91 92 11/29/19 02:00 11/29/19 02:07 11/29/19 04:00 Temperature 36.0 C L Pulse Rate 67 69 63 Respiratory Rate 30 H 28 H Blood Pressure 158/68 H 140/60 Pulse Oximetry 94 94 93 11/29/19 04:18 11/29/19 06:00 11/29/19 08:00 Temperature 36.7 C Pulse Rate 63 84 80 Respiratory Rate 28 H 28 H Blood Pressure 159/73 H 136/62 Pulse Oximetry 94 93 93 11/29/19 08:10 11/29/19 08:50 11/29/19 10:00 Temperature Pulse Rate 77 93 84 Respiratory
[2019-11-29 18:11] LABS: Glucose Point of Care 277 (65-105)
[2019-11-29 20:51] LABS: Glucose Point of Care 241 (65-105)
[2019-11-29] MEDS: INSULIN GLARGINE (*BKC) 100 UNITS/ML 12 UNITS SUB-Q (20:53)
[2019-11-29 23:37] LABS: Glucose Point of Care 230 (65-105)
[2019-11-30] VITALS (24 sets, daily range): BP systolic 130–176; BP diastolic 62–80; PULSE 57–107; RESP 28–32; TEMP 36.2–37; O2SAT 89–95
[2019-11-30 04:13] LABS: Alveolar/Arterial O2 Gradient 291.1 mmHg; Base Excess ABG 4.2 mEq/l (+/-2.0); Carboxyhemoglobin 0.3 % THb (0-2.0); Device VENTILATOR; Fractional Inspired Oxygen 60 %; Methemoglobin ABG 0.4 %THb (0-1.5); Oxygen Content ABG 19.4 %vol (16.0-22.0); Oxyhemoglobin 94.1 % THb (90.0-100.0); PCO2 ABG 49.3 mmHg (35.0-45.0); PO2 ABG 82.5 mmHg (80.0-100.0); PO2 FiO2 Ratio Arterial Blood 1.38 %; Reduced Hemoglobin 5.2 %THb (0-5.0); Site Drawn ARTLINE; Total Hemoglobin 14.6 g/dL (12.0-18.0); pH ABG 7.402 (7.350-7.450)
[2019-11-30 04:14] LABS: Arterial Blood Gas PEEP 14 cmH2O; Arterial Blood Gas Tidal Volume 400 ml; Arterial Blood Gas Vent Mode CMV; Arterial Blood Gas Ventilator rate 28 /MIN
[2019-11-30] MEDS: INSULIN ASPART (*BKC) 100 UNITS/ML SUB-Q ×4 (05:20→23:30)
[2019-11-30] MEDS: LEVOTHYROXINE SODIUM INJ 100 MCG/5 ML VIAL 50 MCG IV PUSH (05:35)
[2019-11-30] MEDS: CENTRAL LINE FLUSH 10 ML IV PUSH ×4 (05:36→20:21)
[2019-11-30 05:37] LABS: Hematocrit 34.4 % (42.0-52.0); Hemoglobin 11.1 g/dL (14.0-18.0); Mean Corpuscular HGB Conc 32.3 g/dl (32-36); Mean Corpuscular Hemoglobin 29.1 pg (26-34); Mean Corpuscular Volume 90.3 fl (80-100); Platelet Count Result 294 k/mm3 (150-375); Red Blood Count 3.81 M/mm3 (4.6-6.20); Red Cell Distribution Width 12.6 % (11.5-14.5); White Blood Count 11.8 K/mm3 (4.5-10.0)
[2019-11-30 05:51] LABS: Blood Urea Nitrogen 41 mg/dL (9-20); CRP 6.6 mg/dL (<1.0); Calcium 7.9 mg/dL (8.4-10.2); Carbon Dioxide 33 mmol/L (22-30); Chloride 101 mmol/L (98-107); Estimated CRCL calculation 76 ml/min; Estimated Glomerular Filt Rate > 60; Glucose 240 mg/dL (75-110); Magnesium 2.6 mg/dL (1.6-2.3); Phosphorus 3.7 mg/dL (2.5-4.5); Potassium 4.5 mmol/L (3.4-5.0); Sodium 139 mmol/L (137-145)
[2019-11-30 05:59] LABS: Glucose Point of Care 223 (65-105)
--- NOTE | 2019-11-30 07:42 | WPDINTPN ---
Progress Note: A&P Assessment and Plan (1) Respiratory failure with hypoxia: Qualifiers: Chronicity: acute Qualified Code(s): J96.01 - Acute respiratory failure with hypoxia Code(s): J96.91 - Respiratory failure, unspecified with hypoxia Status: Acute Assessment and Plan: Acute hypoxic respiratory failure likely related to bilateral infiltrates/ARDS as a result of COVID19. Intubated patient on 11/26/2019 for impending respiratory failure POSITIVE COVID-19 with ARDS physiology. Employ low tidal volume strategies. Wean peep and FiO2 if tolerated. Plateau pressure are within acceptable range. Wean FiO2 to 40-50% range today. Will start wean PEEP today to a goal of 10 today if he is able to tolerated. Minimal manipulation and movement in the bed makes him hypoxic to mid 80s. Antibiotics were discontinued by Infectious Disease Continue dexamethasone for total of 10 days. He completed the dose of remdisivir of 5 days already. CXR and ABGs reviewed. PO2 is better today. Chest x-ray with bilateral airspace disease with no significant change. He has received convalascent plasma. His inflammatory markers are trending down with D-dimer and CRP with downward trend. LDH is stable. Ferritin remained within acceptable range. His oxygen and PEEP requirement is trending down as well and currently on 55% FiO2 and 10 of PEEP with oxygen saturation in mid and high 90s. I do not feel that he needs 2nd dose of convalescent plasma. Procalcitonin level minimally elevated. There is no obvious source of bacterial infection with no increase secretion. Doppler ultrasound of the lower extremity has been negative for DVT. Echo is pending. He has significant positive fluid balance since the time of admission. He has been diuresed yesterday and will continue to do so and will give him Lasix 40 mg IV now. Strict intake output record and daily weight. Continue to monitor renal parameters and electrolytes. Hemodynamics are stable. Renal functions are stable as well. (2) Suspected 2019 novel coronavirus infection: Code(s): Z20.828 - Contact with and (suspected) exposure to other viral communicable diseases Status: Acute Assessment and Plan: SARS-CoV-2 PCR POSITIVE Pt on airborne, droplet and contact isolation/precautions D-dimer and CRP have increased significantly but now seeing a downward trend. CRP is trending down. Will check ferritin, LDH and D-dimers today. Appreciate infectious disease evaluation recommendation. Currently on dexamethasone and will stop after a course of 10 days. He has finished Remdisivir already. He has received convalescent plasma 11/28/19. His inflammatory markers are trending down with his oxygenation status improving. I do not feel if he needs a 2nd dose of her medicine plasma. (3) DM type 2 (diabetes mellitus, type 2): Qualifiers: Diabetes mellitus complication detail: with unspecified neuropathy Diabetes mellitus complication status: with neurologic complications Diabetes mellitus care home insulin use: unspecified care home insulin use status Qualified Code(s): E11.40 - Type 2 diabetes mellitus with diabetic neuropathy, unspecified Code(s): E11.9 - Type 2 diabetes mellitus without complications Status: Acute Assessment and Plan: Accucheks and SSI -continue Lantus but will increase the dose to 14 units from 12 because of fingerstick a bit on the higher side. - Monitor blood sugars as pt on steroids. (4) Essential (primary) hypertension: Code(s): I10 - Essential (primary) hypertension Status: Acute Assessment and Plan: Hemodynamics are stable. Is not requiring any pressor supports. -hold metoprolol (5) DVT prophylaxis: Code(s): Z29.9 - Encounter for prophylactic measures, unspecified Status: Acute Assessment and Plan: Lovenox with therapeutic dose. (6) Hypothyroidism: Qualifiers: Hypothyro
[2019-11-30] MEDS: ENOXAPARIN 80 MG/0.8 ML SYRINGE SUB-Q ×2 (08:24→20:18)
[2019-11-30] MEDS: PANTOPRAZOLE SODIUM IV 40 MG VIAL IV PUSH (08:24)
[2019-11-30] MEDS: FUROSEMIDE INJ 40 MG/4 ML VIAL IV PUSH ×2 (08:24→18:12)
[2019-11-30 09:05] LABS: D Dimer 1.06 ug/mL (<0.48)
[2019-11-30 09:06] LABS: Lactate Dehydrogenase 826 U/L (313-618)
[2019-11-30] MEDS: polyethylene glycoL 3350 17 GM POWD.PACK PO (10:22)
[2019-11-30 11:40] LABS: Glucose Point of Care 298 (65-105)
--- NOTE | 2019-11-30 17:03 | PM.IMPN ---
Progress Note: A&P Assessment and Plan (1) Acute respiratory failure with hypoxia: Code(s): J96.01 - Acute respiratory failure with hypoxia Status: Acute Assessment and Plan: Pt is on ventilator had to be intubated due to resp distress Pt has central line placed on iv fluids, iv remdesivir completed today and iv dexathasone pt is having diuresis currently sp convascelent plasma Management per intensive care physician. (2) COVID-19 virus infection: Code(s): U07.1 - COVID-19 Status: Acute Assessment and Plan: He has completed 5 days of remdesivir and dexamethasone. awaiting to start plasma one unit Pt is over 65 and has multiple medical problems making him high risk for covid. 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 On long acting insulin and ISS. (4) Hypothyroidism: Qualifiers: Hypothyroidism type: unspecified Qualified Code(s): E03.9 - Hypothyroidism, unspecified Code(s): E03.9 - Hypothyroidism, unspecified Status: Chronic Assessment and Plan: On levothryoxine (5) DVT prophylaxis: Code(s): Z29.9 - Encounter for prophylactic measures, unspecified Status: Acute Assessment and Plan: On lovenox Subjective Date/time seen: 11/30/19 17:03 Interval history: 64-year-old male with history of coronary artery disease status post CABG, hypertension, hyperlipidemia, and type 2 diabetes mellitus who presented to the emergency department with complaints of cough, shortness of breath, and fever. Found to be covid positive with Bilateral infiltrates on cxr. Patient was intubated for acute hypoxic respiratory failure. Pt has received convalescent plasma. Currently he is on steroids and diuresis. Completed 5 days of remdesivir already. Awaiting improvement with respiratory status Exam Narrative: Exam Narrative: Pt is intubated on ventilator Objective Data Vital Signs Vital Signs: Vital Signs - 24 hr 11/29/19 17:46 07/04/20 18:00 11/29/19 20:00 Temperature 36.6 C Pulse Rate 85 86 78 Respiratory Rate 28 H 28 H 30 H Blood Pressure 136/67 127/63 Pulse Oximetry 93 92 11/29/19 20:25 11/29/19 20:52 11/29/19 22:00 Temperature Pulse Rate 83 78 63 Respiratory Rate 30 H 28 H Blood Pressure 141/67 H Pulse Oximetry 94 93 11/30/19 00:00 11/30/19 00:04 11/30/19 02:00 Temperature 36.4 C Pulse Rate 62 61 61 Respiratory Rate 28 H 30 H Blood Pressure 147/69 H 147/67 H Pulse Oximetry 94 94 94 11/30/19 03:56 11/30/19 04:00 11/30/19 05:18 Temperature 36.2 C L Pulse Rate 58 L 57 L Respiratory Rate 28 H Blood Pressure 156/66 H Pulse Oximetry 92 93 11/30/19 06:00 11/30/19 08:00 11/30/19 08:15 Temperature 36.8 C Pulse Rate 73 69 69 Respiratory Rate 30 H 28 H Blood Pressure 166/74 H 159/65 H Pulse Oximetry 89 L 92 92 11/30/19 09:08 11/30/19 10:00 11/30/19 10:15 Temperature Pulse Rate 93 81 76 Respiratory Rate 32 H 28 H Blood Pressure 152/72 H Pulse Oximetry 90 91 11/30/19 11:00 11/30/19 12:00 11/30/19 14:00 Temperature 36.8 C Pulse Rate 70 74 69 Respiratory Rate 28 H 28 H Blood Pressure 130/80 135/62 Pulse Oximetry 91 94 95 11/30/19 14:15 11/30/19 15:14 11/30/19 16:00 Temperature 36.8 C Pulse Rate 95 70 105 H Respiratory Rate 28 H 28 H Blood Pressure 176/79 H Pulse Oximetry 90 90 Intake/Output In
[2019-11-30 18:28] LABS: Glucose Point of Care 310 (65-105)
[2019-11-30] MEDS: INSULIN GLARGINE (*BKC) 100 UNITS/ML 14 UNITS SUB-Q (20:21)
[2019-11-30 20:30] LABS: Glucose Point of Care 281 (65-105)
[2019-11-30 23:50] LABS: Glucose Point of Care 263 (65-105)
[2019-12-01] VITALS (30 sets, daily range): BP systolic 130–207; BP diastolic 59–91; PULSE 52–81; RESP 28–30; TEMP 36.2–37.1; O2SAT 91–94
[2019-12-01 04:12] LABS: Alveolar/Arterial O2 Gradient 236.7 mmHg; Base Excess ABG 9.4 mEq/l (+/-2.0); Carboxyhemoglobin 0.3 % THb (0-2.0); Fractional Inspired Oxygen 50 %; HCO3 ABG 34.6 mEq/l (22.0-26.0); Methemoglobin ABG 0.3 %THb (0-1.5); Oxygen Content ABG 15.1 %vol (16.0-22.0); Oxygen Saturation ABG 93.2 % (95.0-100.0); Oxyhemoglobin 90.6 % THb (90.0-100.0); PCO2 ABG 49.6 mmHg (35.0-45.0); PO2 FiO2 Ratio Arterial Blood 1.28 %; Reduced Hemoglobin 8.8 %THb (0-5.0); Site Drawn ARTLINE; Total Hemoglobin 11.8 g/dL (12.0-18.0); pH ABG 7.461 (7.350-7.450)
[2019-12-01 04:13] LABS: Arterial Blood Gas PEEP 10 cmH2O; Arterial Blood Gas Tidal Volume 400 ml; Arterial Blood Gas Vent Mode CMV; Arterial Blood Gas Ventilator rate 28 /MIN; Device VENTILATOR
[2019-12-01 05:36] LABS: Hematocrit 34.2 % (42.0-52.0); Mean Corpuscular HGB Conc 32.2 g/dl (32-36); Mean Corpuscular Hemoglobin 29.1 pg (26-34); Mean Corpuscular Volume 90.5 fl (80-100); Mean Platelet Volume 11.1 fl (7.4-10.4); Platelet Count Result 268 k/mm3 (150-375); Red Blood Count 3.78 M/mm3 (4.6-6.20); Red Cell Distribution Width 12.5 % (11.5-14.5); White Blood Count 9.6 K/mm3 (4.5-10.0)
[2019-12-01 05:46] LABS: Blood Urea Nitrogen 45 mg/dL (9-20); CRP 4.9 mg/dL (<1.0); Carbon Dioxide 37 mmol/L (22-30); Chloride 97 mmol/L (98-107); Estimated CRCL calculation 76 ml/min; Estimated Glomerular Filt Rate > 60; Glucose 275 mg/dL (75-110); Magnesium 2.4 mg/dL (1.6-2.3); Phosphorus 3.5 mg/dL (2.5-4.5); Potassium 4.4 mmol/L (3.4-5.0); Sodium 138 mmol/L (137-145)
[2019-12-01] MEDS: INSULIN ASPART (*BKC) 100 UNITS/ML SUB-Q ×4 (06:02→23:45)
[2019-12-01] MEDS: CENTRAL LINE FLUSH 10 ML IV PUSH ×4 (06:03→20:00)
[2019-12-01] MEDS: LEVOTHYROXINE SODIUM INJ 100 MCG/5 ML VIAL 50 MCG IV PUSH (06:04)
--- NOTE | 2019-12-01 08:21 | WPDINTPN ---
Progress Note: A&P Assessment and Plan (1) Respiratory failure with hypoxia: Qualifiers: Chronicity: acute Qualified Code(s): J96.01 - Acute respiratory failure with hypoxia Code(s): J96.91 - Respiratory failure, unspecified with hypoxia Status: Acute Assessment and Plan: Acute hypoxic respiratory failure likely related to bilateral infiltrates/ARDS as a result of COVID19. Intubated patient on 11/26/2019 for impending respiratory failure POSITIVE COVID-19 with ARDS physiology. low tidal volume strategies. Wean peep and FiO2 if tolerated. Plateau pressure are within acceptable range. Chest x-ray and ABGs reviewed, peep of 10 and FiO2 of 50%, chest x-ray with no change Minimal manipulation and movement in the bed makes him hypoxic to mid 80s. Antibiotics were discontinued by Infectious Disease Continue dexamethasone for total of 10 days. He completed the dose of remdisivir of 5 days already. He has received convalascent plasma on 11/28/2019 His inflammatory markers are trending down with D-dimer and CRP with downward trend. LDH is stable. Ferritin remained within acceptable range. His oxygen and PEEP requirement is trending down as well and currently on 50% FiO2 and 10 of PEEP with oxygen saturation in mid and high 90s. I do not feel that he needs 2nd dose of convalescent plasma. Procalcitonin level minimally elevated. There is no obvious source of bacterial infection with no increase secretion. Doppler ultrasound of the lower extremity has been negative for DVT. Echo 11/29/2019: EF 70%, moderate to severe concentric LV wall thickness, grade 1 diastolic dysfunction, are a moderately enlarged RVSP 33 mmHg Patient has been diuresing very well, almost euvolemic since admission. BUN and CO2 climbing up, will hold diuresis today Renal function is stable (2) Suspected 2019 novel coronavirus infection: Code(s): Z20.828 - Contact with and (suspected) exposure to other viral communicable diseases Status: Acute Assessment and Plan: SARS-CoV-2 PCR POSITIVE Pt on airborne, droplet and contact isolation/precautions D-dimer and CRP have increased significantly but now seeing a downward trend. CRP is trending down. Ferritin levels are within normal limits, LDH has been stable Appreciate infectious disease evaluation recommendation. Currently on dexamethasone and will stop after a course of 10 days. He has finished Remdisivir already. He has received convalescent plasma 11/28/19. His inflammatory markers are trending down with his oxygenation status improving. I do not feel if he needs a 2nd dose of her medicine plasma. (3) DM type 2 (diabetes mellitus, type 2): Qualifiers: Diabetes mellitus jail insulin use: unspecified manager terminal insulin use status Diabetes mellitus complication status: with neurologic complications Diabetes mellitus complication detail: with unspecified neuropathy Qualified Code(s): E11.40 - Type 2 diabetes mellitus with diabetic neuropathy, unspecified Code(s): E11.9 - Type 2 diabetes mellitus without complications Status: Acute Assessment and Plan: Accucheks and SSI -patient hyperglycemic, will increase Lantus - Monitor blood sugars as pt on steroids. (4) Essential (primary) hypertension: Code(s): I10 - Essential (primary) hypertension Status: Acute Assessment and Plan: Hemodynamics are stable. Is not requiring any pressor supports. -started on amlodipine, if blood pressures remain elevated will add metoprolol (5) DVT prophylaxis: Code(s): Z29.9 - Encounter for prophylactic measures, unspecified Status: Acute Assessment and Plan: Lovenox with therapeutic dose. (6) Hypothyroidism: Qualifiers: Hypothyroidism type: unspecified Qualified Code(s): E03.9 - Hypothyroidism, unspecified Code(s): E03.9 - Hypothyroidism, unspecified Status: Chronic Assessment and Plan:
[2019-12-01] MEDS: PANTOPRAZOLE SODIUM IV 40 MG VIAL IV PUSH (09:30)
[2019-12-01] MEDS: ENOXAPARIN 80 MG/0.8 ML SYRINGE SUB-Q ×2 (09:30→20:00)
[2019-12-01] MEDS: AMLODIPINE BESYLATE 5 MG TABLET PO (09:38)
[2019-12-01] MEDS: polyethylene glycoL 3350 17 GM POWD.PACK PO (09:50)
--- NOTE | 2019-12-01 10:41 | PCDIET ---
ICU Rounding Note: Patient tolerating Glucerna 1.2 at goal rate of 50mL/hr with Pro-Stat flush BID. Discussed volume based feedings with MD; continuing with current orders at this time. Last recorded weight is 82.1kg which is significantly decreased from last review due to diuresis. Bowel Motility: Last reported BM on 11/25/19. Miralax initiated and MD made aware by nursing. Labs Reviewed: Hgb (11.0), Hct (34.2), Glu (275), BUN (45) Meds Noted: Decadron, Fentanyl, Novolog, Lantus, Versed, Protonix, Miralax Additional Notes: Lantus increased. No documented skin breakdown. Following daily in ICU rounds. Assessing/reassessing every Sunday/Sunday.
[2019-12-01 12:07] LABS: Glucose Point of Care 293 (65-105)
--- NOTE | 2019-12-01 17:11 | PM.IMPN ---
Progress Note: A&P Assessment and Plan (1) Acute respiratory failure with hypoxia: Code(s): J96.01 - Acute respiratory failure with hypoxia Status: Acute Assessment and Plan: Pt is on ventilator had to be intubated due to resp distress Pt has central line placed on iv fluids, iv remdesivir completed today and iv dexathasone pt is having diuresis currently sp convascelent plasma Management per intensive care physician. 12/01/19 17:11 Interval history: 64-year-old male with history of coronary artery disease status post CABG, hypertension, hyperlipidemia, and type 2 diabetes mellitus who presented to the emergency department with complaints of cough, shortness of breath, and fever. Found to be covid positive with Bilateral infiltrates on cxr. Patient was intubated for acute hypoxic respiratory failure. COVID-19 positive, Pt has received convalescent plasma. Currently he is on steroids and diuresis. Completed 5 days of remdesivir already. Inflammatory marker CRP and D-dimer a trending down LDH is stable Awaiting improvement with respiratory status, seen by intensive and process of weaning the patient off ventilator (2) COVID-19 virus infection: Code(s): U07.1 - COVID-19 Status: Acute Assessment and Plan: He has completed 5 days of remdesivir and dexamethasone. awaiting to start plasma one unit Pt is over 63 and has multiple medical problems making him high risk for covid. Otherwise from history no recent travel or sick contacts (3) DM type 2 (diabetes mellitus, type 2): Qualifiers: Diabetes mellitus roasterman insulin use: unspecified roasterman insulin use status Diabetes mellitus complication status: with neurologic complications Diabetes mellitus complication detail: with unspecified neuropathy Qualified Code(s): E11.40 - Type 2 diabetes mellitus with diabetic neuropathy, unspecified Code(s): E11.9 - Type 2 diabetes mellitus without complications Status: Acute Assessment and Plan: Monitor blood glucose on dexamethasone. On long acting insulin and ISS. (4) Hypothyroidism: Qualifiers: Hypothyroidism type: unspecified Qualified Code(s): E03.9 - Hypothyroidism, unspecified Code(s): E03.9 - Hypothyroidism, unspecified Status: Chronic Assessment and Plan: On levothryoxine (5) DVT prophylaxis: Code(s): Z29.9 - Encounter for prophylactic measures, unspecified Status: Acute Assessment and Plan: On lovenox Subjective Date/time seen: 12/01/19 17:11 Interval history: 64-year-old male with history of coronary artery disease status post CABG, hypertension, hyperlipidemia, and type 2 diabetes mellitus who presented to the emergency department with complaints of cough, shortness of breath, and fever. Found to be covid positive with Bilateral infiltrates on cxr. Patient was intubated for acute hypoxic respiratory failure. COVID-19 positive, Pt has received convalescent plasma. Currently he is on steroids and diuresis. Completed 5 days of remdesivir already. Inflammatory marker CRP and D-dimer a trending down LDH is stable Awaiting improvement with respiratory status, seen by intensive and process of weaning the patient off ventilator Review of Systems Review of Systems: ROS unobtainable: Yes unobtainable due to endotracheal tube Exam Narrative: Exam Narrative: On ventilator and sedated, patient is seen but not examine Const: General: comfortable and no acute distress HENMT: General nose exam: Normal nares present Neck: Other: No retraction Resp: Effort & Inspection: normal respiratory effort Other: On vent GI: Other: Not distended Skin: General skin exam: normal color Neuro: Other: On vent and sedated Extrem: General: normal to inspection Psych: Other: On vent and sedated Objective Data Vital Signs Vital Signs: Vital Signs - 24 hr 11/30/19 17:47 11/30/19 18:00 11/30/19
[2019-12-01 18:31] LABS: Glucose Point of Care 325 (65-105)
[2019-12-01] MEDS: INSULIN GLARGINE (*BKC) 100 UNITS/ML 30 UNITS SUB-Q (20:00)
[2019-12-02] VITALS (27 sets, daily range): BP systolic 124–172; BP diastolic 60–87; PULSE 55–101; RESP 26–32; TEMP 36.5–37.1; O2SAT 89–99
[2019-12-02 00:03] LABS: Glucose Point of Care 275 (65-105)
[2019-12-02 04:41] LABS: Alveolar/Arterial O2 Gradient 218.4 mmHg; Base Excess ABG 8.3 mEq/l (+/-2.0); Fractional Inspired Oxygen 50 %; HCO3 ABG 33.2 mEq/l (22.0-26.0); Methemoglobin ABG 0.1 %THb (0-1.5); Oxygen Content ABG 15.9 %vol (16.0-22.0); Oxygen Saturation ABG 96.8 % (95.0-100.0); Oxyhemoglobin 95.3 % THb (90.0-100.0); PCO2 ABG 47.4 mmHg (35.0-45.0); PO2 ABG 84.8 mmHg (80.0-100.0); Reduced Hemoglobin 4.6 %THb (0-5.0); Total Hemoglobin 11.8 g/dL (12.0-18.0); pH ABG 7.463 (7.350-7.450)
[2019-12-02 04:43] LABS: Arterial Blood Gas Vent Mode CMV; Arterial Blood Gas Ventilator rate 28 /MIN; Device VENTILATOR; Modified Allen's Test Pass; Site Drawn ARTLINE
[2019-12-02 04:44] LABS: Arterial Blood Gas PEEP 10 cmH2O; Arterial Blood Gas Pressure Support 0 cmH2O; Arterial Blood Gas Tidal Volume 400 ml
[2019-12-02 04:47] LABS: Basophils Percent Auto 0.2 % (0.2-1.2); Eosinophils Absolute Auto 0.2 K/mm3 (0-0.3); Eosinophils Percent Auto 1.9 % (0-4.4); Hematocrit 33.7 % (42.0-52.0); Immature Granulocyte Absolute 0.22 K/mm3 (0.00-0.031); Immature Granulocyte Percent A 2.2 % (0-0.5); Lymphocytes Percent Auto 7.8 % (18.3-44.2); Mean Corpuscular HGB Conc 32.6 g/dl (32-36); Mean Corpuscular Hemoglobin 29.3 pg (26-34); Mean Corpuscular Volume 89.9 fl (80-100); Mean Platelet Volume 10.8 fl (7.4-10.4); Monocytes Absolute Auto 0.6 K/mm3 (0.1-0.6); Monocytes Percent Auto 6.3 % (2.6-8.5); Neutrophils Absolute Auto 8.4 K/mm3 (1.3-6.7); Neutrophils Percent Auto 81.6 % (45.5-73.1); Platelet Count Result 259 k/mm3 (150-375); Red Blood Count 3.75 M/mm3 (4.6-6.20); Red Cell Distribution Width 12.4 % (11.5-14.5); White Blood Count 10.2 K/mm3 (4.5-10.0)
[2019-12-02] MEDS: hydrALAZINE HCL 20 MG/ML VIAL 10 MG IV PUSH (04:54)
[2019-12-02 05:00] LABS: D Dimer 0.79 ug/mL (<0.48)
[2019-12-02 05:06] LABS: Alanine Aminotransferase 21 U/L (4-50); Albumin Level 2.6 g/dL (3.5-5.1); Alkaline Phosphatase 99 U/L (38-126); Aspartate Amino Transferase 17 U/L (17-59); Bilirubin,Total 0.1 mg/dL (0.2-1.3); Blood Urea Nitrogen 45 mg/dL (9-20); CRP 2.8 mg/dL (<1.0); Calcium 8.2 mg/dL (8.4-10.2); Carbon Dioxide 37 mmol/L (22-30); Chloride 98 mmol/L (98-107); Estimated CRCL calculation 90 ml/min; Estimated Glomerular Filt Rate > 60; Glucose 267 mg/dL (75-110); Lactate Dehydrogenase 546 U/L (313-618); Magnesium 2.5 mg/dL (1.6-2.3); Phosphorus 3.7 mg/dL (2.5-4.5); Potassium 4.6 mmol/L (3.4-5.0); Sodium 137 mmol/L (137-145)
[2019-12-02] MEDS: CENTRAL LINE FLUSH 10 ML IV PUSH ×4 (05:28→22:45)
[2019-12-02] MEDS: INSULIN ASPART (*BKC) 100 UNITS/ML SUB-Q ×4 (05:29→23:26)
[2019-12-02] MEDS: LEVOTHYROXINE SODIUM INJ 100 MCG/5 ML VIAL 50 MCG IV PUSH (05:31)
[2019-12-02] MEDS: polyethylene glycoL 3350 17 GM POWD.PACK PO (08:26)
[2019-12-02] MEDS: ENOXAPARIN 80 MG/0.8 ML SYRINGE SUB-Q ×2 (08:27→22:44)
[2019-12-02] MEDS: AMLODIPINE BESYLATE 5 MG TABLET PO (08:27)
[2019-12-02] MEDS: PANTOPRAZOLE SODIUM IV 40 MG VIAL IV PUSH (08:28)
--- NOTE | 2019-12-02 08:39 | WPDINTPN ---
Progress Note: A&P Assessment and Plan (1) Respiratory failure with hypoxia: Qualifiers: Chronicity: acute Qualified Code(s): J96.01 - Acute respiratory failure with hypoxia Code(s): J96.91 - Respiratory failure, unspecified with hypoxia Status: Acute Assessment and Plan: Acute hypoxic respiratory failure likely related to bilateral infiltrates/ARDS as a result of COVID19. Intubated patient on 11/26/2019 for impending respiratory failure POSITIVE COVID-19 with ARDS physiology. low tidal volume strategies. Wean peep and FiO2 if tolerated. Plateau pressure are within acceptable range. Chest x-ray and ABGs reviewed, peep of 10 and FiO2 of 50%, chest x-ray with no change pt becomes hypertensive and tachycardic with turning the pt Antibiotics were discontinued by Infectious Disease Continue dexamethasone for total of 10 days ( 12/02/2019) He completed the dose of remdisivir of 5 days already. He has received convalascent plasma on 11/28/2019 His inflammatory markers are trending down with D-dimer and CRP with downward trend. LDH is normal Ferritin remained within acceptable range. Decreased PEEP to 8. continue fio2 at 50% - May not require 2nd dose of convalescent plasma. Procalcitonin level minimally elevated. There is no obvious source of bacterial infection with no increase secretion. Doppler ultrasound of the lower extremity has been negative for DVT. Echo 11/29/2019: EF 70%, moderate to severe concentric LV wall thickness, grade 1 diastolic dysfunction, are a moderately enlarged RVSP 33 mmHg Patient has been diuresing very well, almost euvolemic since admission. BUN and CO2 climbing up, will hold diuresis today Renal function is stable (2) Suspected 2019 novel coronavirus infection: Code(s): Z20.828 - Contact with and (suspected) exposure to other viral communicable diseases Status: Acute Assessment and Plan: SARS-CoV-2 PCR POSITIVE Pt on airborne, droplet and contact isolation/precautions D-dimer and CRP have increased significantly but now seeing a downward trend. CRP is trending down. Ferritin levels are within normal limits, LDH normal Appreciate infectious disease evaluation recommendation. Currently on dexamethasone and will stop after a course of 10 days. He has finished Remdisivir already. He has received convalescent plasma 11/28/19. His inflammatory markers are trending down with his oxygenation status improving. (3) DM type 2 (diabetes mellitus, type 2): Qualifiers: Diabetes mellitus long goods drier insulin use: unspecified halfway insulin use status Diabetes mellitus complication status: with neurologic complications Diabetes mellitus complication detail: with unspecified neuropathy Qualified Code(s): E11.40 - Type 2 diabetes mellitus with diabetic neuropathy, unspecified Code(s): E11.9 - Type 2 diabetes mellitus without complications Status: Acute Assessment and Plan: Accucheks and SSI -patient hyperglycemic, will increase Lantus - Monitor blood sugars as pt on steroids. (4) Essential (primary) hypertension: Code(s): I10 - Essential (primary) hypertension Status: Acute Assessment and Plan: Hemodynamics are stable. Is not requiring any pressor supports. -continue amlodipine. - start metoprolol (5) DVT prophylaxis: Code(s): Z29.9 - Encounter for prophylactic measures, unspecified Status: Acute Assessment and Plan: Lovenox with therapeutic dose. (6) Hypothyroidism: Qualifiers: Hypothyroidism type: unspecified Qualified Code(s): E03.9 - Hypothyroidism, unspecified Code(s): E03.9 - Hypothyroidism, unspecified Status: Chronic Assessment and Plan: Continue IV thyroxine. (7) Dietary counseling and surveillance: Code(s): Z71.3 - Dietary counseling and surveillance Status: Acute Assessment and Plan: Continue tube feed - on miralax Ad
[2019-12-02] MEDS: METOPROLOL TARTRATE 25 MG TABLET PO ×2 (09:46→22:49)
[2019-12-02] MEDS: BISACODYL 10 MG SUPPOSITORY RECTAL (11:22)
--- NOTE | 2019-12-02 11:25 | PCDIET ---
Nutrition Follow-Up Complete: Nutrition Diagnosis: Predicted suboptimal oral intake related to increased O2 requirements as evidenced by full liquid diet order. Nutrition Goal: Patient to meet estimated nutrition needs. Goal met. Patient tolerating Glucerna 1.2 at 50mL/hr with Pro-Stat flush BID. Last recorded weight is 88.8 kg which is increased from last review. Bowel Motility: Still no reported BM. Patient continues on Miralax and MD adding Dulcolax today. Labs Reviewed: Hgb (11.0), Hct (33.7), Glu (267), Alb (2.6) Meds Noted: Fentanyl, Novolog, Lantus, Versed, Protonix, Miralax Additional Notes: No documented skin breakdown. Will continue to monitor with same goals. Nutrition Monitoring and Evaluation: Follow up every Sunday/Sunday. Follow daily in ICU rounds.
[2019-12-02 11:29] LABS: Glucose Point of Care 269 (65-105)
--- NOTE | 2019-12-02 12:52 | WPDINFPN2 ---
Progress Note: A&P Assessment and Plan (1) COVID-19 virus infection: Code(s): U07.1 - COVID-19 Status: Acute Assessment and Plan: 1. Dyspnea and cough due to CoVid 19 viral pneumonia. Clinically improving and seems to have responded well (as opposed to earlier patients with similar severity, who did not receive specific or adjunctive therapy). 2. TKAs 3. DM 4. Respiratory failure, ventilator 11/25. 5. Multifactorial leukocytosis, almost back to normal REC Remdesivir completed 11/26. Dexamethasone # , stop after today. Convalescent plasma given 11/26. Discussed. Subjective Date/time seen: 12/02/19 12:52 Interval history: sedated though eyes open. Exam Narrative: Exam Narrative: afebrile Const: General: no acute distress Eyes: General: appearance normal, both eyes and all related structures Resp: Effort & Inspection: normal respiratory effort Auscultation: clear to auscultation bilaterally and diminished lung sounds Cardio: Rate: regular rate Rhythm: regular rhythm Heart sounds: no murmurs GI: Inspection: non-distended GI Palp: Yes Soft to palpation and No Tenderness to palpation present (GI) Skin: General skin exam: normal color and no rashes or lesions noted Extrem: General: normal to inspection Objective Data Vital Signs Vital Signs: Vital Signs - 24 hr 12/01/19 13:41 12/01/19 14:00 12/01/19 16:00 Temperature 37.1 C Pulse Rate 60 62 63 Respiratory Rate 28 H 28 H Blood Pressure 130/60 130/59 L Pulse Oximetry 92 94 93 12/01/19 17:00 12/01/19 17:58 12/01/19 18:00 Temperature Pulse Rate 63 70 68 Respiratory Rate 30 H 28 H Blood Pressure 155/69 H Pulse Oximetry 92 93 12/01/19 19:33 12/01/19 19:51 12/01/19 19:55 Temperature 37.1 C Pulse Rate 81 77 75 Respiratory Rate 30 H 28 H Blood Pressure 141/66 H Pulse Oximetry 93 94 94 12/01/19 20:00 12/01/19 20:51 12/01/19 21:01 Temperature Pulse Rate 77 77 69 Respiratory Rate 28 H 28 H Blood Pressure Pulse Oximetry 12/01/19 21:51 12/01/19 22:00 12/01/19 22:33 Temperature Pulse Rate 63 59 L 60 Respiratory Rate 28 H Blood Pressure 132/60 Pulse Oximetry 93 92 12/01/19 23:52 12/02/19 00:00 12/02/19 00:37 Temperature 36.6 C Pulse Rate 66 64 55 L Respiratory Rate 30 H 30 H 30 H Blood Pressure 147/68 H Pulse Oximetry 92 12/02/19 01:45 12/02/19 02:00 12/02/19 02:16 Temperature Pulse Rate 55 L 55 L 58 L Respiratory Rate 28 H 28 H Blood Pressure 144/65 H Pulse Oximetry 94 94 12/02/19 03:11 12/02/19 03:40 12/02/19 04:00 Temperature 36.5 C Pulse Rate 55 L 55 L 55 L Respiratory Rate 28 H 28 H 28 H Blood Pressure 135/60 Pulse Oximetry 93 92 12/02/19 04:22 12/02/19 04:56 12/02/19 05:30 Temperature Pulse Rate 56 L 63 86 Respiratory Rate 28 H 30 H Blood Pressure Pulse Oximetry 93 12/02/19 06:00 12/02/19 06:20 12/02/19 08:00 Temperature 36.6 C Pulse Rate 92 95 101 H Respiratory Rate 29 H 32 H 26 H Blood Pressure 172/75 H 157/76 H Pulse Oximetry 94 99 12/02/19 08:30 12/02/19 10:00 12/02/19 12:00 Temperature 37.0 C Pulse Rate 92 80 73 Respiratory Rate 28 H 28 H Blood Pressure 147/87 H 149/68 H Pulse Oximetry 94 94 95 12/02/19 12:15 Temperature Pulse Rate 80 Respiratory Rate Blood Pressure Pulse Oximetry 95 Intake/Output Intake/Output: Intake & Output 11/29/19 11/30/19 12/01/19 12/02/19 23:59 23:59 23:59 23:59 Intake Total 4885 4854 8910 818 Output Total 4817 3850 8580 020 Obixuva -0012 -3247 1462 216 Meds/Results Medications: Active Medications Generic Name Dose Route Start Last Admin Trade Name Freq PRN Reason Stop Dose Admin Acetaminophen 650 mg 11/22/19 10:38 11/26/19 00:32 Tylenol Tablet PO 650 mg Q4H PRN Administration Mild Pain (1-3) or Fever Amlodipine Besylate 5 mg 12/01/19 09:00 12/02/19 08:27 Norvasc PO 5 mg QAM OLENA Administration Artificial Tear
[2019-12-02 13:34] LABS: Alveolar/Arterial O2 Gradient 205.2 mmHg; Base Excess ABG 7.4 mEq/l (+/-2.0); Fractional Inspired Oxygen 50 %; HCO3 ABG 32.6 mEq/l (22.0-26.0); Oxygen Content ABG 17.2 %vol (16.0-22.0); Oxygen Saturation ABG 97.5 % (95.0-100.0); Oxyhemoglobin 95.9 % THb (90.0-100.0); PCO2 ABG 48.6 mmHg (35.0-45.0); PO2 ABG 96.6 mmHg (80.0-100.0); PO2 FiO2 Ratio Arterial Blood 1.93 %; Total Hemoglobin 12.7 g/dL (12.0-18.0); pH ABG 7.445 (7.350-7.450)
[2019-12-02 13:35] LABS: Arterial Blood Gas Vent Mode CMV; Arterial Blood Gas Ventilator rate 28 /MIN; Device VENTILATOR; Site Drawn ARTLINE
[2019-12-02 13:36] LABS: Arterial Blood Gas PEEP 8 cmH2O; Arterial Blood Gas Tidal Volume 400 ml
[2019-12-02 14:47] LABS: Procalcitonin 0.28 ng/mL (<0.10)
--- NOTE | 2019-12-02 15:57 | PM.IMPN ---
Progress Note: A&P Assessment and Plan (1) Acute respiratory failure with hypoxia: Code(s): J96.01 - Acute respiratory failure with hypoxia Status: Acute Assessment and Plan: Pt is on ventilator had to be intubated due to resp distress Pt has central line placed on iv fluids, iv remdesivir completed today and iv dexathasone pt is having diuresis currently sp convascelent plasma Management per intensive care physician. 12/02/19 15:57 Interval history: 64-year-old male with history of coronary artery disease status post CABG, hypertension, hyperlipidemia, and type 2 diabetes mellitus who presented to the emergency department with complaints of cough, shortness of breath, and fever. Found to be covid positive with Bilateral infiltrates on cxr. Patient was intubated for acute hypoxic respiratory failure. COVID-19 positive, Pt has received convalescent plasma. Currently he is on steroids and diuresis. Completed 5 days of remdesivir already. Inflammatory marker CRP and D-dimer a trending down LDH is stable, patient is seen by Dr. mulligan and suggested patient clinically symptoms are improving, Awaiting improvement with respiratory status, seen by intensive and process of weaning the patient off ventilator (2) COVID-19 virus infection: Code(s): U07.1 - COVID-19 Status: Acute Assessment and Plan: He has completed 5 days of remdesivir and dexamethasone. awaiting to start plasma one unit Pt is over 63 and has multiple medical problems making him high risk for covid. Otherwise from history no recent travel or sick contacts (3) DM type 2 (diabetes mellitus, type 2): Qualifiers: Diabetes mellitus long chain quiller tender insulin use: unspecified halfway insulin use status Diabetes mellitus complication status: with neurologic complications Diabetes mellitus complication detail: with unspecified neuropathy Qualified Code(s): E11.40 - Type 2 diabetes mellitus with diabetic neuropathy, unspecified Code(s): E11.9 - Type 2 diabetes mellitus without complications Status: Acute Assessment and Plan: Monitor blood glucose on dexamethasone. On long acting insulin and ISS. (4) Hypothyroidism: Qualifiers: Hypothyroidism type: unspecified Qualified Code(s): E03.9 - Hypothyroidism, unspecified Code(s): E03.9 - Hypothyroidism, unspecified Status: Chronic Assessment and Plan: On levothryoxine (5) DVT prophylaxis: Code(s): Z29.9 - Encounter for prophylactic measures, unspecified Status: Acute Assessment and Plan: On lovenox Subjective Date/time seen: 12/02/19 15:57 Interval history: 64-year-old male with history of coronary artery disease status post CABG, hypertension, hyperlipidemia, and type 2 diabetes mellitus who presented to the emergency department with complaints of cough, shortness of breath, and fever. Found to be covid positive with Bilateral infiltrates on cxr. Patient was intubated for acute hypoxic respiratory failure. COVID-19 positive, Pt has received convalescent plasma. Currently he is on steroids and diuresis. Completed 5 days of remdesivir already. Inflammatory marker CRP and D-dimer a trending down LDH is stable, patient is seen by Dr. mulligan and suggested patient clinically symptoms are improving, Awaiting improvement with respiratory status, seen by intensive and process of weaning the patient off ventilator Review of Systems Review of Systems: ROS unobtainable: Yes unobtainable due to endotracheal tube Exam Narrative: Exam Narrative: Patient is seen outside the glass door but not examine as patient is COVID-19 positive Const: General: no acute distress HENMT: General nose exam: Normal nares present Other: ET tube in place Neck: Other: No retraction Resp: Effort & Inspection: normal respiratory effort GI: Other: Not distended Skin: General skin exam: normal color Neuro: Other: Patie
[2019-12-02 19:01] LABS: Glucose Point of Care 297 (65-105)
[2019-12-02] MEDS: INSULIN GLARGINE (*BKC) 100 UNITS/ML 30 UNITS SUB-Q (22:44)
[2019-12-02 23:45] LABS: Glucose Point of Care 269 (65-105)
[2019-12-03] VITALS (27 sets, daily range): BP systolic 120–195; BP diastolic 46–85; PULSE 53–111; RESP 28–34; TEMP 36.6–37.1; O2SAT 91–98
[2019-12-03 03:45] LABS: Alveolar/Arterial O2 Gradient 231.3 mmHg; Base Excess ABG 8.4 mEq/l (+/-2.0); Carboxyhemoglobin 0.2 % THb (0-2.0); Device VENTILATOR; Fractional Inspired Oxygen 50 %; HCO3 ABG 32.9 mEq/l (22.0-26.0); Methemoglobin ABG 0.4 %THb (0-1.5); Oxygen Content ABG 19.7 %vol (16.0-22.0); Oxygen Saturation ABG 95.9 % (95.0-100.0); Oxyhemoglobin 93.8 % THb (90.0-100.0); PCO2 ABG 44.7 mmHg (35.0-45.0); PO2 ABG 74.9 mmHg (80.0-100.0); Reduced Hemoglobin 5.6 %THb (0-5.0); Site Drawn ARTLINE; Total Hemoglobin 14.9 g/dL (12.0-18.0); pH ABG 7.485 (7.350-7.450)
[2019-12-03 03:46] LABS: Arterial Blood Gas PEEP 8 cmH2O; Arterial Blood Gas Tidal Volume 400 ml; Arterial Blood Gas Vent Mode CMV; Arterial Blood Gas Ventilator rate 28 /MIN
[2019-12-03 04:29] LABS: Basophils Percent Auto 0.3 % (0.2-1.2); Eosinophils Absolute Auto 0.1 K/mm3 (0-0.3); Eosinophils Percent Auto 0.9 % (0-4.4); Hemoglobin 10.7 g/dL (14.0-18.0); Immature Granulocyte Absolute 0.18 K/mm3 (0.00-0.031); Immature Granulocyte Percent A 1.7 % (0-0.5); Lymphocytes Absolute Auto 0.96 K/mm3 (0.9-3.2); Lymphocytes Percent Auto 9.3 % (18.3-44.2); Mean Corpuscular HGB Conc 32.4 g/dl (32-36); Mean Corpuscular Hemoglobin 29.2 pg (26-34); Mean Corpuscular Volume 90.2 fl (80-100); Mean Platelet Volume 10.9 fl (7.4-10.4); Monocytes Absolute Auto 0.8 K/mm3 (0.1-0.6); Monocytes Percent Auto 7.4 % (2.6-8.5); Neutrophils Absolute Auto 8.3 K/mm3 (1.3-6.7); Neutrophils Percent Auto 80.4 % (45.5-73.1); Platelet Count Result 237 k/mm3 (150-375); Red Blood Count 3.66 M/mm3 (4.6-6.20); Red Cell Distribution Width 12.5 % (11.5-14.5); White Blood Count 10.3 K/mm3 (4.5-10.0)
[2019-12-03 04:44] LABS: Alanine Aminotransferase 21 U/L (4-50); Albumin Level 2.5 g/dL (3.5-5.1); Alkaline Phosphatase 85 U/L (38-126); Aspartate Amino Transferase 18 U/L (17-59); Bilirubin,Total 0.2 mg/dL (0.2-1.3); Blood Urea Nitrogen 42 mg/dL (9-20); CRP 2.2 mg/dL (<1.0); Calcium 8.2 mg/dL (8.4-10.2); Carbon Dioxide 35 mmol/L (22-30); Chloride 100 mmol/L (98-107); Estimated CRCL calculation 90 ml/min; Estimated Glomerular Filt Rate > 60; Glucose 246 mg/dL (75-110); Lactate Dehydrogenase 457 U/L (313-618); Magnesium 2.4 mg/dL (1.6-2.3); Phosphorus 3.7 mg/dL (2.5-4.5); Potassium 4.5 mmol/L (3.4-5.0); Sodium 137 mmol/L (137-145)
[2019-12-03 04:45] LABS: D Dimer 0.54 ug/mL (<0.48)
[2019-12-03] MEDS: CENTRAL LINE FLUSH 10 ML IV PUSH ×4 (05:19→20:04)
[2019-12-03] MEDS: INSULIN ASPART (*BKC) 100 UNITS/ML SUB-Q ×4 (05:19→23:37)
[2019-12-03] MEDS: LEVOTHYROXINE SODIUM INJ 100 MCG/5 ML VIAL 50 MCG IV PUSH (05:19)
[2019-12-03] MEDS: hydrALAZINE HCL 20 MG/ML VIAL 10 MG IV PUSH (06:20)
[2019-12-03] MEDS: PANTOPRAZOLE SODIUM IV 40 MG VIAL IV PUSH (08:18)
[2019-12-03] MEDS: AMLODIPINE BESYLATE 5 MG TABLET 10 MG PO (08:19)
[2019-12-03] MEDS: METOPROLOL TARTRATE 25 MG TABLET PO ×2 (08:19→20:03)
[2019-12-03] MEDS: ENOXAPARIN 80 MG/0.8 ML SYRINGE SUB-Q ×2 (08:19→20:03)
[2019-12-03] MEDS: polyethylene glycoL 3350 17 GM POWD.PACK PO (08:20)
--- NOTE | 2019-12-03 08:59 | WPDINTPN ---
Progress Note: A&P Assessment and Plan (1) Respiratory failure with hypoxia: Qualifiers: Chronicity: acute Qualified Code(s): J96.01 - Acute respiratory failure with hypoxia Code(s): J96.91 - Respiratory failure, unspecified with hypoxia Status: Acute Assessment and Plan: Acute hypoxic respiratory failure likely related to bilateral infiltrates/ARDS as a result of COVID19. Intubated patient on 11/26/2019 for impending respiratory failure POSITIVE COVID-19 with ARDS physiology. low tidal volume strategies. Chest x-ray and ABGs reviewed, peep of 8 and FiO2 45%, chest x-ray with significant improvement in bilateral infiltrates Patient has completed 10 day course of dexamethasone on 12/02/2019 He completed the dose of remdisivir of 5 days a on 11/27/2019 Received convalascent plasma on 11/28/2019 His inflammatory markers are trending down with D-dimer and CRP with downward trend. LDH is normal Ferritin remained within acceptable range. -continue to wean FiO2 and PEEP as tolerated - May not require 2nd dose of convalescent plasma. Doppler ultrasound of the lower extremity has been negative for DVT. Echo 11/29/2019: EF 70%, moderate to severe concentric LV wall thickness, grade 1 diastolic dysfunction, are a moderately enlarged RVSP 33 mmHg Patient has been diuresing very well, almost euvolemic since admission. BUN and CO2 climbing up, will hold diuresis today Renal function is stable (2) Suspected 2019 novel coronavirus infection: Code(s): Z20.828 - Contact with and (suspected) exposure to other viral communicable diseases Status: Acute Assessment and Plan: SARS-CoV-2 PCR POSITIVE Pt on airborne, droplet and contact isolation/precautions D-dimer and CRP have increased significantly but now seeing a downward trend. CRP is trending down. Ferritin levels are within normal limits, LDH normal Appreciate infectious disease evaluation recommendation. Status post dexamethasone, Remdesivir, 1 unit of convalescent plasma (3) DM type 2 (diabetes mellitus, type 2): Qualifiers: Diabetes mellitus [place] history professor insulin use: unspecified custodial insulin use status Diabetes mellitus complication status: with neurologic complications Diabetes mellitus complication detail: with unspecified neuropathy Qualified Code(s): E11.40 - Type 2 diabetes mellitus with diabetic neuropathy, unspecified Code(s): E11.9 - Type 2 diabetes mellitus without complications Status: Acute Assessment and Plan: Accucheks and SSI -patient hyperglycemic, will increase Lantus - Monitor blood sugars as pt on steroids. (4) Essential (primary) hypertension: Code(s): I10 - Essential (primary) hypertension Status: Acute Assessment and Plan: Hemodynamics are stable. Is not requiring any pressor supports. -increased amlodipine. -continue metoprolol (5) DVT prophylaxis: Code(s): Z29.9 - Encounter for prophylactic measures, unspecified Status: Acute Assessment and Plan: Lovenox with therapeutic dose. (6) Hypothyroidism: Qualifiers: Hypothyroidism type: unspecified Qualified Code(s): E03.9 - Hypothyroidism, unspecified Code(s): E03.9 - Hypothyroidism, unspecified Status: Chronic Assessment and Plan: Continue IV thyroxine. (7) Dietary counseling and surveillance: Code(s): Z71.3 - Dietary counseling and surveillance Status: Acute Assessment and Plan: Continue tube feed - on miralax Additional Plan Will discuss with family Code Status: Full code Critical care time spent: 34 minutes Due to a high probability of clinically significant, life threatening deterioration, the patient required my highest level of preparedness to intervene emergently and I personally spent this critical care time directly and personally managing the patient. This critical care time included obtaining a history; examinin
--- NOTE | 2019-12-03 10:41 | PCDIET ---
ICU Rounding Note: Patient tolerating Glucerna 1.2 at 50mL/hr with Pro-Stat BID. No significant residuals. Last recorded weight is 88.3kg which is stable. Bowel Motility: Still no significant BM. Patient received Dulcolax yesterday and RN reports bowel sounds much improved. MD monitoring. Labs Reviewed: Glu (246), Alb (2.5), Teri Ca (9.4) Meds Noted: Fentanyl, Novolog, Lantus, Versed, Protonix, Miralax Additional Notes: No documented skin breakdown. Lantus increased from 30u to 40u today. Following daily in ICU rounds. Assessing/reassessing every Sunday/Sunday.
[2019-12-03 12:10] LABS: Glucose Point of Care 234 (65-105)
--- NOTE | 2019-12-03 12:32 | WPDINFPN2 ---
Progress Note: A&P Assessment and Plan (1) COVID-19 virus infection: Code(s): U07.1 - COVID-19 Status: Acute Assessment and Plan: 1. Dyspnea and cough due to CoVid 19 viral pneumonia. Clinically improving. 2. TKAs 3. DM, Accucheks high 4. Respiratory failure, ventilator 11/25. FiO2 down to 40% 5. Multifactorial leukocytosis, almost back to normal REC Remdesivir completed 11/26. Dexamethasone completed 12/01. Convalescent plasma given 11/26. No new measures Subjective Date/time seen: 12/03/19 12:32 Interval history: intubated, eyes open, no pressors Exam Narrative: Exam Narrative: afebrile Const: General: no acute distress Neck: Neck: supple Resp: Effort & Inspection: normal respiratory effort Auscultation: clear to auscultation bilaterally and diminished lung sounds Cardio: Rate: regular rate Rhythm: regular rhythm Heart sounds: no gallops and no murmurs GI: Inspection: non-distended GI Palp: Yes Soft to palpation, No Tenderness to palpation present (GI) and No Guarding due to palpation present (GI) Urinary Catheter: Urinary Catheter: patent and draining and urine clear Skin: General skin exam: no rashes or lesions noted Objective Data Vital Signs Vital Signs: Vital Signs - 24 hr 12/02/19 14:00 12/02/19 16:00 12/02/19 18:00 Temperature 37.1 C Pulse Rate 77 69 66 Respiratory Rate 28 H 28 H 28 H Blood Pressure 136/64 133/60 127/68 Pulse Oximetry 95 92 92 12/02/19 20:00 12/02/19 20:15 12/02/19 22:00 Temperature 36.6 C Pulse Rate 63 63 68 Respiratory Rate 28 H 28 H Blood Pressure 124/73 149/65 H Pulse Oximetry 92 92 90 12/02/19 22:49 12/02/19 23:24 12/02/19 23:35 Temperature Pulse Rate 68 57 L 59 L Respiratory Rate 28 H Blood Pressure Pulse Oximetry 91 89 L 12/03/19 00:00 12/03/19 01:21 12/03/19 01:23 Temperature 36.6 C Pulse Rate 59 L 57 L 57 L Respiratory Rate 28 H 28 H 28 H Blood Pressure 127/56 L Pulse Oximetry 93 12/03/19 01:52 12/03/19 02:00 12/03/19 03:24 Temperature Pulse Rate 56 L 62 55 L Respiratory Rate 28 H 28 H 28 H Blood Pressure 146/62 H Pulse Oximetry 94 93 12/03/19 03:49 12/03/19 04:00 12/03/19 04:42 Temperature 36.9 C Pulse Rate 57 L 53 L 65 Respiratory Rate 28 H 28 H Blood Pressure 150/65 H Pulse Oximetry 92 91 12/03/19 04:43 12/03/19 06:00 12/03/19 08:00 Temperature 36.6 C Pulse Rate 65 80 96 Respiratory Rate 28 H 34 H 28 H Blood Pressure 195/85 H 161/74 H Pulse Oximetry 95 94 12/03/19 08:40 12/03/19 10:00 12/03/19 12:00 Temperature 37.1 C Pulse Rate 111 H 108 H 108 H Respiratory Rate 28 H 28 H Blood Pressure 160/72 H 158/79 H Pulse Oximetry 92 93 95 Intake/Output Intake/Output: Intake & Output 11/30/19 12/01/19 12/02/19 12/03/19 23:59 23:59 23:59 23:59 Intake Total 2413 2644 1856 995 Output Total 4150 1175 1400 600 Balance -0577 1469 456 395 Meds/Results Medications: Active Medications Generic Name Dose Route Start Last Admin Trade Name Freq PRN Reason Stop Dose Admin Acetaminophen 650 mg 11/22/19 10:38 11/26/19 00:32 Tylenol Tablet PO 650 mg Q4H PRN Administration Mild Pain (1-3) or Fever Amlodipine Besylate 10 mg 12/03/19 09:00 12/03/19 08:19 Norvasc PO 10 mg QAM OLENA Administration Artificial Tears 1 drop 11/23/19 15:28 11/24/19 07:55 Artificial Tears EACH EYE 1 drop QID PRN Administration Dry Eye(s) Benzocaine 1 lozenge 11/24/19 07:22 11/24/19 20:13 Chloraseptic Lozenge PO 1 lozenge PRN PRN Administration Sore Throat Dextrose 12.5 gm 11/22/19 13:13 Dextrose 50% Syringe IV PUSH PRN PRN Hypoglycemia Protocol Enoxaparin Sodium 80 mg 11/27/19 21:00 12/03/19 08:19 Lovenox SUB-Q 80 mg Q12HR OLENA Administration Glucagon 1 mg 11/22/19 13:13 Glucagon For Inj IM PRN PRN Hypoglycemia Protocol Glucose 15 gm 11/22/19 13:13 Glutose 15 PO
--- NOTE | 2019-12-03 14:59 | PM.IMPN ---
Progress Note: A&P Assessment and Plan (1) Acute respiratory failure with hypoxia: Code(s): J96.01 - Acute respiratory failure with hypoxia Status: Acute Assessment and Plan: Pt is on ventilator had to be intubated due to resp distress Pt has central line placed on iv fluids, iv remdesivir completed today and iv dexathasone pt is having diuresis currently sp convascelent plasma Management per intensive care physician. 12/03/19 14:59 Interval history: 64-year-old male with history of coronary artery disease status post CABG, hypertension, hyperlipidemia, and type 2 diabetes mellitus who presented to the emergency department with complaints of cough, shortness of breath, and fever. Found to be covid positive with Bilateral infiltrates on cxr. Patient was intubated for acute hypoxic respiratory failure. COVID-19 positive, Pt has received convalescent plasma. Currently he is on steroids and diuresis. Completed 5 days of remdesivir already. Inflammatory marker CRP and D-dimer a trending down LDH is stable, Chest x-raqy showing ARDS patient is seen by Dr. Leone and suggested patient clinically symptoms are improving, Awaiting improvement with respiratory status, seen by intensive and process of weaning the patient off ventilator (2) COVID-19 virus infection: Code(s): U07.1 - COVID-19 Status: Acute Assessment and Plan: He has completed 5 days of remdesivir and dexamethasone. awaiting to start plasma one unit Pt is over 63 and has multiple medical problems making him high risk for covid. Otherwise from history no recent travel or sick contacts (3) DM type 2 (diabetes mellitus, type 2): Qualifiers: Diabetes mellitus complication detail: with unspecified neuropathy Diabetes mellitus complication status: with neurologic complications Diabetes mellitus superintendent container terminal insulin use: unspecified superintendent container terminal insulin use status Qualified Code(s): E11.40 - Type 2 diabetes mellitus with diabetic neuropathy, unspecified Code(s): E11.9 - Type 2 diabetes mellitus without complications Status: Acute Assessment and Plan: Monitor blood glucose on dexamethasone. On long acting insulin and ISS. (4) Hypothyroidism: Qualifiers: Hypothyroidism type: unspecified Qualified Code(s): E03.9 - Hypothyroidism, unspecified Code(s): E03.9 - Hypothyroidism, unspecified Status: Chronic Assessment and Plan: On levothryoxine (5) DVT prophylaxis: Code(s): Z29.9 - Encounter for prophylactic measures, unspecified Status: Acute Assessment and Plan: On lovenox Subjective Date/time seen: 12/03/19 14:59 Interval history: 64-year-old male with history of coronary artery disease status post CABG, hypertension, hyperlipidemia, and type 2 diabetes mellitus who presented to the emergency department with complaints of cough, shortness of breath, and fever. Found to be covid positive with Bilateral infiltrates on cxr. Patient was intubated for acute hypoxic respiratory failure. COVID-19 positive, Pt has received convalescent plasma. Currently he is on steroids and diuresis. Completed 5 days of remdesivir already. Inflammatory marker CRP and D-dimer a trending down LDH is stable, Chest x-raqy showing ARDS patient is seen by Dr. Leone and suggested patient clinically symptoms are improving, Awaiting improvement with respiratory status, seen by intensive and process of weaning the patient off ventilator Review of Systems Review of Systems: ROS unobtainable: Yes unobtainable due to endotracheal tube Exam Narrative: Exam Narrative: Patient is seen but not examine as patient is COVID positive Const: General: comfortable and no acute distress HENMT: General nose exam: Normal nares present Other: ET tube in place Neck: Other: No retraction Resp: Effort & Inspection: normal respiratory effort GI: Other: Not distended Skin: General sk
[2019-12-03 18:22] LABS: Glucose Point of Care 245 (65-105)
[2019-12-03] MEDS: INSULIN GLARGINE (*BKC) 100 UNITS/ML 40 UNITS SUB-Q (20:03)
[2019-12-03 23:58] LABS: Glucose Point of Care 207 (65-105)
[2019-12-04] VITALS (28 sets, daily range): BP systolic 113–171; BP diastolic 57–79; PULSE 60–118; RESP 28–35; TEMP 36.9–37.2; O2SAT 90–97
[2019-12-04 04:09] LABS: Alveolar/Arterial O2 Gradient 120.7 mmHg; Carboxyhemoglobin 0.7 % THb (0-2.0); Device VENTILATOR; Fractional Inspired Oxygen 35 %; HCO3 ABG 33.1 mEq/l (22.0-26.0); Methemoglobin ABG 0.4 %THb (0-1.5); Oxygen Content ABG 20.9 %vol (16.0-22.0); Oxygen Saturation ABG 95.6 % (95.0-100.0); Oxyhemoglobin 93.4 % THb (90.0-100.0); PCO2 ABG 46.8 mmHg (35.0-45.0); PO2 ABG 74.4 mmHg (80.0-100.0); PO2 FiO2 Ratio Arterial Blood 2.13 %; Reduced Hemoglobin 5.5 %THb (0-5.0); Site Drawn ARTLINE; Total Hemoglobin 15.9 g/dL (12.0-18.0); pH ABG 7.467 (7.350-7.450)
[2019-12-04 04:10] LABS: Arterial Blood Gas PEEP 8 cmH2O; Arterial Blood Gas Tidal Volume 400 ml; Arterial Blood Gas Vent Mode CMV; Arterial Blood Gas Ventilator rate 28 /MIN
[2019-12-04 04:51] LABS: Basophils Percent Auto 0.2 % (0.2-1.2); Eosinophils Absolute Auto 0.2 K/mm3 (0-0.3); Eosinophils Percent Auto 1.9 % (0-4.4); Hemoglobin 11.1 g/dL (14.0-18.0); Immature Granulocyte Absolute 0.12 K/mm3 (0.00-0.031); Immature Granulocyte Percent A 1.1 % (0-0.5); Lymphocytes Absolute Auto 0.97 K/mm3 (0.9-3.2); Mean Corpuscular HGB Conc 32.6 g/dl (32-36); Mean Corpuscular Hemoglobin 29.5 pg (26-34); Mean Corpuscular Volume 90.4 fl (80-100); Mean Platelet Volume 11.1 fl (7.4-10.4); Monocytes Absolute Auto 0.9 K/mm3 (0.1-0.6); Neutrophils Absolute Auto 8.6 K/mm3 (1.3-6.7); Neutrophils Percent Auto 79.8 % (45.5-73.1); Platelet Count Result 241 k/mm3 (150-375); Red Blood Count 3.76 M/mm3 (4.6-6.20); Red Cell Distribution Width 12.6 % (11.5-14.5); White Blood Count 10.8 K/mm3 (4.5-10.0)
[2019-12-04 05:04] LABS: D Dimer 0.42 ug/mL (<0.48)
[2019-12-04 05:08] LABS: Alanine Aminotransferase 25 U/L (4-50); Albumin Level 2.6 g/dL (3.5-5.1); Alkaline Phosphatase 86 U/L (38-126); Aspartate Amino Transferase 24 U/L (17-59); Bilirubin,Total 0.3 mg/dL (0.2-1.3); Blood Urea Nitrogen 41 mg/dL (9-20); CRP 2.7 mg/dL (<1.0); Calcium 8.2 mg/dL (8.4-10.2); Carbon Dioxide 35 mmol/L (22-30); Chloride 100 mmol/L (98-107); Estimated CRCL calculation 103 ml/min; Estimated Glomerular Filt Rate > 60; Glucose 185 mg/dL (75-110); Lactate Dehydrogenase 481 U/L (313-618); Magnesium 2.2 mg/dL (1.6-2.3); Phosphorus 4.2 mg/dL (2.5-4.5); Potassium 4.3 mmol/L (3.4-5.0); Sodium 138 mmol/L (137-145)
[2019-12-04] MEDS: LEVOTHYROXINE SODIUM INJ 100 MCG/5 ML VIAL 50 MCG IV PUSH (06:01)
[2019-12-04] MEDS: CENTRAL LINE FLUSH 10 ML IV PUSH ×4 (06:01→19:47)
[2019-12-04] MEDS: AMLODIPINE BESYLATE 5 MG TABLET 10 MG PO (08:06)
[2019-12-04] MEDS: FUROSEMIDE INJ 40 MG/4 ML VIAL IV PUSH (08:07)
[2019-12-04] MEDS: METOPROLOL TARTRATE 25 MG TABLET PO ×2 (08:07→19:46)
[2019-12-04] MEDS: PANTOPRAZOLE SODIUM IV 40 MG VIAL IV PUSH (08:07)
[2019-12-04] MEDS: polyethylene glycoL 3350 17 GM POWD.PACK PO (08:08)
[2019-12-04] MEDS: ENOXAPARIN 80 MG/0.8 ML SYRINGE SUB-Q ×2 (08:08→19:47)
--- NOTE | 2019-12-04 08:33 | WPDINTPN ---
Progress Note: A&P Assessment and Plan (1) Respiratory failure with hypoxia: Qualifiers: Chronicity: acute Qualified Code(s): J96.01 - Acute respiratory failure with hypoxia Code(s): J96.91 - Respiratory failure, unspecified with hypoxia Status: Acute Assessment and Plan: Acute hypoxic respiratory failure likely related to bilateral infiltrates/ARDS as a result of COVID19. Intubated patient on 11/26/2019 for impending respiratory failure POSITIVE COVID-19 with ARDS physiology. low tidal volume strategies. Chest x-ray and ABGs reviewed, peep of 8 and FiO2 35%, chest x-ray with significant improvement in bilateral infiltrates Patient has completed 10 day course of dexamethasone on 12/02/2019 He completed the dose of remdisivir of 5 days a on 11/27/2019 Received convalascent plasma on 11/28/2019 His inflammatory markers have improved, CRP with downward trend. LDH, D-dimer, ferritin are all within normal limitsl -will start Precedex infusion, decreased fentanyl and Versed, will place patient on breathing trial -Lasix ordered today - May not require 2nd dose of convalescent plasma. Doppler ultrasound of the lower extremity has been negative for DVT. Echo 11/29/2019: EF 70%, moderate to severe concentric LV wall thickness, grade 1 diastolic dysfunction, are a moderately enlarged RVSP 33 mmHg Patient has been diuresing very well, almost euvolemic since admission. BUN and CO2 climbing up, will hold diuresis today Renal function is stable (2) Suspected 2019 novel coronavirus infection: Code(s): Z20.828 - Contact with and (suspected) exposure to other viral communicable diseases Status: Acute Assessment and Plan: SARS-CoV-2 PCR POSITIVE Pt on airborne, droplet and contact isolation/precautions D-dimer and CRP have increased significantly but now seeing a downward trend. CRP is trending down. Ferritin levels are within normal limits, LDH normal Appreciate infectious disease evaluation recommendation. Status post dexamethasone, Remdesivir, 1 unit of convalescent plasma (3) DM type 2 (diabetes mellitus, type 2): Qualifiers: Diabetes mellitus long term acute care registered nurse insulin use: unspecified long term acute care registered nurse insulin use status Diabetes mellitus complication status: with neurologic complications Diabetes mellitus complication detail: with unspecified neuropathy Qualified Code(s): E11.40 - Type 2 diabetes mellitus with diabetic neuropathy, unspecified Code(s): E11.9 - Type 2 diabetes mellitus without complications Status: Acute Assessment and Plan: Accucheks and SSI -patient hyperglycemic, continue Lantus -closely monitor blood sugars now that patient is off steroids (4) Essential (primary) hypertension: Code(s): I10 - Essential (primary) hypertension Status: Acute Assessment and Plan: Hemodynamics are stable. Is not requiring any pressor supports. -continue amlodipine and metoprolol (5) DVT prophylaxis: Code(s): Z29.9 - Encounter for prophylactic measures, unspecified Status: Acute Assessment and Plan: Continue Lovenox at therapeutic dose (6) Hypothyroidism: Qualifiers: Hypothyroidism type: unspecified Qualified Code(s): E03.9 - Hypothyroidism, unspecified Code(s): E03.9 - Hypothyroidism, unspecified Status: Chronic Assessment and Plan: Continue IV thyroxine. (7) Dietary counseling and surveillance: Code(s): Z71.3 - Dietary counseling and surveillance Status: Acute Assessment and Plan: Continue tube feed - on miralax, positive bowel movement Additional Plan Will discuss with family Code Status: Full code Critical care time spent: 33 minutes Due to a high probability of clinically significant, life threatening deterioration, the patient required my highest level of preparedness to intervene emergently and I personally spent this critical care time directly and person
--- NOTE | 2019-12-04 11:38 | PCDIET ---
ICU Rounding Note: Patient tolerating Glucerna 1.2 at 50mL/hr goal rate. Last recorded weight is 88.5kg which is stable. Bowel Motility: RN reports BM on 12/03/19 and overnight. Labs Reviewed: Hgb (11.1), Hct (34.0), Glu (185), BUN (41), Cr (0.6), Alb (2.6) Meds Noted: Precedex, Versed, Protonix, Miralax, Fentanyl, Novolog, Lantus, Lasix Additional Notes: Lantus further increased to 40u daily. No documented skin breakdown. Following daily in ICU rounds. Assessing/reassessing every Sunday/Sunday.
[2019-12-04] MEDS: INSULIN ASPART (*BKC) 100 UNITS/ML SUB-Q ×2 (12:09→17:53)
[2019-12-04 12:20] LABS: Glucose Point of Care 269 (65-105)
--- NOTE | 2019-12-04 13:48 | WPDINFPN2 ---
Progress Note: A&P Assessment and Plan (1) COVID-19 virus infection: Code(s): U07.1 - COVID-19 Status: Acute Assessment and Plan: 1. Dyspnea and cough due to CoVid 19 viral pneumonia. Clinically improving. 2. TKAs 3. DM, Accucheks high 4. Respiratory failure, ventilator 11/25. FiO2 down to 35% 5. Multifactorial leukocytosis, almost back to normal REC Remdesivir completed 11/26. Dexamethasone completed 12/01. Convalescent plasma given 11/26. No new measures, SBT later today Subjective Date/time seen: 12/04/19 13:48 Interval history: sedated eyes open, on vent Exam Narrative: Exam Narrative: afebrile Const: General: no acute distress Resp: Effort & Inspection: normal respiratory effort Auscultation: clear to auscultation bilaterally and diminished lung sounds Cardio: Rate: regular rate Rhythm: regular rhythm Heart sounds: no rubs Objective Data Vital Signs Vital Signs: Vital Signs - 24 hr 12/03/19 14:00 12/03/19 14:30 12/03/19 16:00 Temperature 36.8 C Pulse Rate 96 94 77 Respiratory Rate 28 H 28 H Blood Pressure 131/46 L 120/57 L Pulse Oximetry 94 95 92 12/03/19 17:15 12/03/19 18:00 12/03/19 19:57 Temperature Pulse Rate 79 85 91 Respiratory Rate 28 H 30 H Blood Pressure 145/66 H Pulse Oximetry 91 92 95 12/03/19 20:00 12/03/19 20:03 12/03/19 20:40 Temperature 36.7 C Pulse Rate 91 90 82 Respiratory Rate 28 H Blood Pressure 163/76 H Pulse Oximetry 95 96 12/03/19 21:58 12/03/19 22:05 12/03/19 23:59 Temperature Pulse Rate 74 81 81 Respiratory Rate 28 H 28 H Blood Pressure 124/58 L Pulse Oximetry 98 96 12/04/19 00:00 12/04/19 02:00 12/04/19 02:09 Temperature 36.9 C Pulse Rate 74 77 77 Respiratory Rate 28 H 28 H 28 H Blood Pressure 129/62 133/63 Pulse Oximetry 97 95 12/04/19 03:47 12/04/19 04:00 12/04/19 04:11 Temperature Pulse Rate 73 79 76 Respiratory Rate 28 H 28 H Blood Pressure 145/68 H Pulse Oximetry 95 94 94 12/04/19 04:26 12/04/19 04:50 12/04/19 06:00 Temperature 36.9 C Pulse Rate 77 79 76 Respiratory Rate 28 H 28 H 28 H Blood Pressure 139/65 137/64 Pulse Oximetry 94 94 12/04/19 08:00 12/04/19 08:38 12/04/19 10:00 Temperature 36.9 C Pulse Rate 86 84 86 Respiratory Rate 28 H 28 H Blood Pressure 171/73 H 131/62 Pulse Oximetry 92 93 93 12/04/19 10:08 12/04/19 12:00 12/04/19 12:41 Temperature 37.1 C Pulse Rate 86 72 88 Respiratory Rate 28 H Blood Pressure 113/57 L Pulse Oximetry 91 91 Intake/Output Intake/Output: Intake & Output 12/01/19 12/02/19 12/03/19 12/04/19 23:59 23:59 23:59 23:59 Intake Total 2644 1856 1995 970.0 Output Total 1175 1400 1300 700 Balance 1469 456 695 270.0 Meds/Results Medications: Active Medications Generic Name Dose Route Start Last Admin Trade Name Freq PRN Reason Stop Dose Admin Acetaminophen 650 mg 11/22/19 10:38 11/26/19 00:32 Tylenol Tablet PO 650 mg Q4H PRN Administration Mild Pain (1-3) or Fever Amlodipine Besylate 10 mg 12/03/19 09:00 12/04/19 08:06 Norvasc PO 10 mg QAM OLENA Administration Artificial Tears 1 drop 11/23/19 15:28 11/24/19 07:55 Artificial Tears EACH EYE 1 drop QID PRN Administration Dry Eye(s) Benzocaine 1 lozenge 11/24/19 07:22 11/24/19 20:13 Chloraseptic Lozenge PO 1 lozenge PRN PRN Administration Sore Throat Dextrose 12.5 gm 11/22/19 13:13 Dextrose 50% Syringe IV PUSH PRN PRN Hypoglycemia Protocol Enoxaparin Sodium 80 mg 11/27/19 21:00 12/04/19 08:08 Lovenox SUB-Q 80 mg Q12HR OLENA Administration Glucagon 1 mg 11/22/19 13:13 Glucagon For Inj IM PRN PRN Hypoglycemia Protocol Glucose 15 gm 11/22/19 13:13 Glutose 15 PO PRN PRN Hypoglycemia Protocol Hydralazine HCl 10 mg 11/22/19 13:22 12/03/19 06:20 Apresoline Hcl Inj IV PUSH 10 mg Q4H PRN Administration Blood Pressu
--- NOTE | 2019-12-04 16:36 | PM.IMPN ---
Progress Note: A&P Assessment and Plan (1) Acute respiratory failure with hypoxia: Code(s): J96.01 - Acute respiratory failure with hypoxia Status: Acute Assessment and Plan: Pt is on ventilator had to be intubated due to resp distress Pt has central line placed on iv fluids, iv remdesivir completed today and iv dexathasone pt is having diuresis currently sp convascelent plasma Management per intensive care physician. 12/04/19 16:36 Interval history: 64-year-old male with history of coronary artery disease status post CABG, hypertension, hyperlipidemia, and type 2 diabetes mellitus who presented to the emergency department with complaints of cough, shortness of breath, and fever. Found to be covid positive with Bilateral infiltrates on cxr. Patient was intubated for acute hypoxic respiratory failure. COVID-19 positive, Pt has received convalescent plasma. he was on steroids completed the course, Completed 5 days of remdesivir already. Inflammatory marker CRP and D-dimer a trending down LDH is stable, Chest x-raqy showing ARDS patient is seen by Dr. Leone and suggested patient clinically symptoms are improving, Awaiting improvement with respiratory status, seen by intensive and will SBT in process of weaning the patient off ventilator (2) COVID-19 virus infection: Code(s): U07.1 - COVID-19 Status: Acute Assessment and Plan: He has completed 5 days of remdesivir and dexamethasone. awaiting to start plasma one unit Pt is over 63 and has multiple medical problems making him high risk for covid. Otherwise from history no recent travel or sick contacts (3) DM type 2 (diabetes mellitus, type 2): Qualifiers: Diabetes mellitus terminal computer operator insulin use: unspecified terminal computer operator insulin use status Diabetes mellitus complication status: with neurologic complications Diabetes mellitus complication detail: with unspecified neuropathy Qualified Code(s): E11.40 - Type 2 diabetes mellitus with diabetic neuropathy, unspecified Code(s): E11.9 - Type 2 diabetes mellitus without complications Status: Acute Assessment and Plan: Monitor blood glucose on dexamethasone. On long acting insulin and ISS. (4) Hypothyroidism: Qualifiers: Hypothyroidism type: unspecified Qualified Code(s): E03.9 - Hypothyroidism, unspecified Code(s): E03.9 - Hypothyroidism, unspecified Status: Chronic Assessment and Plan: On levothryoxine (5) DVT prophylaxis: Code(s): Z29.9 - Encounter for prophylactic measures, unspecified Status: Acute Assessment and Plan: On lovenox Subjective Date/time seen: 12/04/19 16:36 Interval history: 64-year-old male with history of coronary artery disease status post CABG, hypertension, hyperlipidemia, and type 2 diabetes mellitus who presented to the emergency department with complaints of cough, shortness of breath, and fever. Found to be covid positive with Bilateral infiltrates on cxr. Patient was intubated for acute hypoxic respiratory failure. COVID-19 positive, Pt has received convalescent plasma. he was on steroids completed the course, Completed 5 days of remdesivir already. Inflammatory marker CRP and D-dimer a trending down LDH is stable, Chest x-raqy showing ARDS patient is seen by Dr. Leone and suggested patient clinically symptoms are improving, Awaiting improvement with respiratory status, seen by intensive and will SBT in process of weaning the patient off ventilator Review of Systems Review of Systems: ROS unobtainable: Yes unobtainable due to endotracheal tube Exam Narrative: Exam Narrative: Patient is seen but not examined Const: General: no acute distress HENMT: General nose exam: Normal nares present Other: ET tube in place Neck: Other: No retraction Resp: Effort & Inspection: normal respiratory effort GI: Other: Not distantended Skin: General skin exam: normal co
[2019-12-04 18:45] LABS: Glucose Point of Care 242 (65-105)
[2019-12-04] MEDS: INSULIN GLARGINE (*BKC) 100 UNITS/ML 40 UNITS SUB-Q (19:46)
[2019-12-04] MEDS: hydrALAZINE HCL 20 MG/ML VIAL 10 MG IV PUSH (23:42)
[2019-12-05] VITALS (41 sets, daily range): BP systolic 116–169; BP diastolic 52–74; PULSE 59–120; RESP 28–36; TEMP 36.4–37.7; O2SAT 90–98
[2019-12-05] LABS: Glucose Point of Care 177 (65-105)
[2019-12-05 04:30] LABS: Alveolar/Arterial O2 Gradient 177.5 mmHg; Base Excess ABG 7.3 mEq/l (+/-2.0); Carboxyhemoglobin 0.3 % THb (0-2.0); Fractional Inspired Oxygen 40 %; HCO3 ABG 31.4 mEq/l (22.0-26.0); Methemoglobin ABG 0.3 %THb (0-1.5); Oxygen Content ABG 15.3 %vol (16.0-22.0); Oxygen Saturation ABG 92.1 % (95.0-100.0); Oxyhemoglobin 89.4 % THb (90.0-100.0); PCO2 ABG 42.8 mmHg (35.0-45.0); PO2 ABG 58.5 mmHg (80.0-100.0); PO2 FiO2 Ratio Arterial Blood 1.46 %; Site Drawn ARTLINE; Total Hemoglobin 12.2 g/dL (12.0-18.0); pH ABG 7.484 (7.350-7.450)
[2019-12-05 04:31] LABS: Arterial Blood Gas PEEP 8 cmH2O; Arterial Blood Gas Tidal Volume 400 ml; Arterial Blood Gas Vent Mode CMV; Arterial Blood Gas Ventilator rate 28 /MIN; Device VENTILATOR
[2019-12-05 04:42] LABS: Basophils Percent Auto 0.3 % (0.2-1.2); Eosinophils Absolute Auto 0.1 K/mm3 (0-0.3); Eosinophils Percent Auto 0.5 % (0-4.4); Hematocrit 34.5 % (42.0-52.0); Hemoglobin 11.2 g/dL (14.0-18.0); Immature Granulocyte Absolute 0.11 K/mm3 (0.00-0.031); Lymphocytes Percent Auto 6.1 % (18.3-44.2); Mean Corpuscular HGB Conc 32.5 g/dl (32-36); Mean Corpuscular Hemoglobin 29.2 pg (26-34); Mean Corpuscular Volume 89.8 fl (80-100); Mean Platelet Volume 11.6 fl (7.4-10.4); Monocytes Absolute Auto 0.8 K/mm3 (0.1-0.6); Monocytes Percent Auto 7.1 % (2.6-8.5); Neutrophils Absolute Auto 9.7 K/mm3 (1.3-6.7); Platelet Count Result 205 k/mm3 (150-375); Red Blood Count 3.84 M/mm3 (4.6-6.20); Red Cell Distribution Width 12.7 % (11.5-14.5); White Blood Count 11.4 K/mm3 (4.5-10.0)
[2019-12-05 04:57] LABS: D Dimer 0.41 ug/mL (<0.48)
[2019-12-05 05:01] LABS: Alanine Aminotransferase 24 U/L (4-50); Albumin Level 2.7 g/dL (3.5-5.1); Alkaline Phosphatase 90 U/L (38-126); Aspartate Amino Transferase 20 U/L (17-59); Bilirubin,Total 0.4 mg/dL (0.2-1.3); Blood Urea Nitrogen 38 mg/dL (9-20); CRP 5.1 mg/dL (<1.0); Calcium 8.5 mg/dL (8.4-10.2); Carbon Dioxide 35 mmol/L (22-30); Chloride 99 mmol/L (98-107); Estimated CRCL calculation 88 ml/min; Estimated Glomerular Filt Rate > 60; Glucose 275 mg/dL (75-110); Lactate Dehydrogenase 491 U/L (313-618); Magnesium 2.1 mg/dL (1.6-2.3); Phosphorus 3.7 mg/dL (2.5-4.5); Sodium 136 mmol/L (137-145)
[2019-12-05] MEDS: LEVOTHYROXINE SODIUM INJ 100 MCG/5 ML VIAL 50 MCG IV PUSH (05:11)
[2019-12-05] MEDS: CENTRAL LINE FLUSH 10 ML IV PUSH ×4 (05:11→20:06)
[2019-12-05] MEDS: INSULIN ASPART (*BKC) 100 UNITS/ML SUB-Q ×4 (05:13→22:57)
[2019-12-05] MEDS: FUROSEMIDE INJ 40 MG/4 ML VIAL IV PUSH ×2 (08:29→20:02)
[2019-12-05] MEDS: ENOXAPARIN 80 MG/0.8 ML SYRINGE SUB-Q ×2 (08:30→20:02)
[2019-12-05] MEDS: AMLODIPINE BESYLATE 5 MG TABLET 10 MG PO (08:30)
[2019-12-05] MEDS: METOPROLOL TARTRATE 25 MG TABLET PO ×2 (08:31→20:05)
[2019-12-05] MEDS: polyethylene glycoL 3350 17 GM POWD.PACK PO (08:32)
[2019-12-05] MEDS: PANTOPRAZOLE SODIUM IV 40 MG VIAL IV PUSH (08:32)
--- NOTE | 2019-12-05 09:20 | WPDINTPN ---
Progress Note: A&P Assessment and Plan (1) Respiratory failure with hypoxia: Qualifiers: Chronicity: acute Qualified Code(s): J96.01 - Acute respiratory failure with hypoxia Code(s): J96.91 - Respiratory failure, unspecified with hypoxia Status: Acute Assessment and Plan: Acute hypoxic respiratory failure likely related to bilateral infiltrates/ARDS as a result of COVID19. Intubated patient on 11/26/2019 for impending respiratory failure POSITIVE COVID-19 with ARDS physiology. low tidal volume strategies. Chest x-ray and ABGs reviewed, peep of 8 and FiO2 40%, chest x-ray with no change Patient has completed 10 day course of dexamethasone on 12/02/2019 He completed the dose of remdisivir of 5 days a on 11/27/2019 Received convalascent plasma on 11/28/2019 His inflammatory markers have improved, CRP with downward trend. LDH, D-dimer, ferritin are all within normal limitsl -patient on Precedex, fentanyl infusion. Off Versed. decreased fentanyl and Versed, will place patient on breathing trial -will diurese again today - May not require 2nd dose of convalescent plasma. Doppler ultrasound of the lower extremity has been negative for DVT. Echo 11/29/2019: EF 70%, moderate to severe concentric LV wall thickness, grade 1 diastolic dysfunction, are a moderately enlarged RVSP 33 mmHg Patient has been diuresing very well, almost euvolemic since admission. BUN and CO2 climbing up, will hold diuresis today Renal function is stable (2) Suspected 2018 novel coronavirus infection: Code(s): Z20.828 - Contact with and (suspected) exposure to other viral communicable diseases Status: Acute Assessment and Plan: SARS-CoV-2 PCR POSITIVE Pt on airborne, droplet and contact isolation/precautions D-dimer and CRP have increased significantly but now seeing a downward trend. CRP is trending down. Ferritin levels are within normal limits, LDH normal Appreciate infectious disease evaluation recommendation. Status post dexamethasone, Remdesivir, 1 unit of convalescent plasma (3) DM type 2 (diabetes mellitus, type 2): Qualifiers: Diabetes mellitus outsole compressor insulin use: unspecified outsole compressor insulin use status Diabetes mellitus complication status: with neurologic complications Diabetes mellitus complication detail: with unspecified neuropathy Qualified Code(s): E11.40 - Type 2 diabetes mellitus with diabetic neuropathy, unspecified Code(s): E11.9 - Type 2 diabetes mellitus without complications Status: Acute Assessment and Plan: Accucheks and SSI -patient hyperglycemic, continue Lantus -closely monitor blood sugars now that patient is off steroids (4) Essential (primary) hypertension: Code(s): I10 - Essential (primary) hypertension Status: Acute Assessment and Plan: Hemodynamics are stable. Is not requiring any pressor supports. -continue amlodipine and metoprolol (5) DVT prophylaxis: Code(s): Z29.9 - Encounter for prophylactic measures, unspecified Status: Acute Assessment and Plan: Continue Lovenox at therapeutic dose (6) Hypothyroidism: Qualifiers: Hypothyroidism type: unspecified Qualified Code(s): E03.9 - Hypothyroidism, unspecified Code(s): E03.9 - Hypothyroidism, unspecified Status: Chronic Assessment and Plan: Continue IV thyroxine. (7) Dietary counseling and surveillance: Code(s): Z71.3 - Dietary counseling and surveillance Status: Acute Assessment and Plan: Continue tube feed - on miralax, positive bowel movement Additional Plan Will discuss with family Code Status: Full code Critical care time spent: 34 minutes Due to a high probability of clinically significant, life threatening deterioration, the patient required my highest level of preparedness to intervene emergently and I personally spent this critical care time directly and personally manag
[2019-12-05] MEDS: METOCLOPRAMIDE HCL INJ 10 MG/2 ML VIAL IV PUSH ×3 (11:05→22:58)
[2019-12-05] MEDS: BISACODYL 10 MG SUPPOSITORY RECTAL (11:05)
--- NOTE | 2019-12-05 11:57 | PCDIET ---
Nutrition Follow-Up Complete: Nutrition Diagnosis: Predicted suboptimal oral intake related to increased O2 requirements as evidenced by full liquid diet order. Nutrition Goal: Patient to meet estimated nutritional needs. Goal met. Patient tolerating Glucerna 1.2 at 50mL/hr goal rate with Pro-Stat BID. Reported 350mL residual overnight with no significant residuals since. Reglan initiated. Last recorded weight is 85 kg which is down from last review. Bowel Motility: +BM 12/04/19 and 12/05/19. RN reporting flatus. Labs Reviewed: Hgb (11.2), Hct (34.5), Glu (275), Na (136), Alb (2.7) Meds Noted: Precedex, Fentanyl, Lasix, Novolog, Lantus, Versed, Protonix, Miralax, Reglan Additional Notes: No documented skin breakdown. Nutrition Monitoring and Evaluation: Follow up every Sunday/Sunday. Follow daily in ICU rounds.
[2019-12-05 11:59] LABS: Glucose Point of Care 302 (65-105)
[2019-12-05 12:47] LABS: Alveolar/Arterial O2 Gradient 191.3 mmHg; Base Excess ABG 10.9 mEq/l (+/-2.0); Fractional Inspired Oxygen 45 %; HCO3 ABG 35.6 mEq/l (22.0-26.0); Oxygen Content ABG 17.5 %vol (16.0-22.0); Oxygen Saturation ABG 96.1 % (95.0-100.0); Oxyhemoglobin 94.2 % THb (90.0-100.0); PCO2 ABG 47.1 mmHg (35.0-45.0); PO2 FiO2 Ratio Arterial Blood 1.69 %; Total Hemoglobin 13.2 g/dL (12.0-18.0); pH ABG 7.496 (7.350-7.450)
[2019-12-05 12:52] LABS: Device VENTILATOR; Modified Allen's Test Pass; Site Drawn LEFT RADIAL
[2019-12-05 12:53] LABS: Arterial Blood Gas PEEP 8 cmH2O; Arterial Blood Gas Tidal Volume 400 ml; Arterial Blood Gas Vent Mode CMV; Arterial Blood Gas Ventilator rate 28 /MIN
--- NOTE | 2019-12-05 13:23 | WPDINFPN2 ---
Progress Note: A&P Assessment and Plan (1) COVID-19 virus infection: Code(s): U07.1 - COVID-19 Status: Acute Assessment and Plan: 1. Dyspnea and cough due to CoVid 19 viral pneumonia. Clinically improving. 2. TKAs 3. DM, Accucheks high 4. Respiratory failure, ventilator 11/25. FiO2 back up to 45%. CXR unchangedv 5. Multifactorial leukocytosis, still a point high, but not signifiantly changed in recent days REC Remdesivir completed 11/26. Dexamethasone completed 12/01. Convalescent plasma given 11/26. No new measures Subjective Date/time seen: 12/05/19 13:23 Interval history: eye open, restless, arm restraints on Exam Narrative: Exam Narrative: t max 37.7 Const: General: no acute distress Resp: Effort & Inspection: normal respiratory effort Auscultation: clear to auscultation bilaterally and diminished lung sounds Cardio: Rate: regular rate Rhythm: regular rhythm Heart sounds: no gallops and no rubs GI: Inspection: non-distended GI Palp: Yes Soft to palpation and No Tenderness to palpation present (GI) Urinary Catheter: Urinary Catheter: patent and draining and urine clear Skin: General skin exam: no rashes or lesions noted Objective Data Vital Signs Vital Signs: Vital Signs - 24 hr 12/04/19 14:00 12/04/19 16:00 12/04/19 16:42 Temperature 37.2 C Pulse Rate 118 H 77 73 Respiratory Rate 28 H 28 H Blood Pressure 151/75 H 119/58 L Pulse Oximetry 90 94 95 12/04/19 18:00 12/04/19 19:22 12/04/19 19:30 Temperature Pulse Rate 71 68 68 Respiratory Rate 28 H 28 H 28 H Blood Pressure 137/61 Pulse Oximetry 93 12/04/19 19:46 12/04/19 19:53 12/04/19 20:00 Temperature 37.1 C Pulse Rate 68 104 H 116 H Respiratory Rate 34 H Blood Pressure 162/79 H Pulse Oximetry 93 92 12/04/19 20:06 12/04/19 21:58 12/04/19 23:19 Temperature Pulse Rate 115 H 62 68 Respiratory Rate 35 H 28 H 28 H Blood Pressure 143/63 H Pulse Oximetry 92 92 12/04/19 23:24 12/05/19 00:00 12/05/19 00:11 Temperature 36.4 C Pulse Rate 60 68 78 Respiratory Rate 28 H 28 H Blood Pressure 119/52 L Pulse Oximetry 92 92 12/05/19 01:31 12/05/19 01:56 12/05/19 02:00 Temperature Pulse Rate 69 66 69 Respiratory Rate 28 H 28 H Blood Pressure 133/58 L Pulse Oximetry 92 93 12/05/19 02:03 12/05/19 02:04 12/05/19 03:30 Temperature Pulse Rate 66 66 66 Respiratory Rate 28 H 28 H 28 H Blood Pressure Pulse Oximetry 95 12/05/19 03:56 12/05/19 04:00 12/05/19 04:06 Temperature 36.8 C Pulse Rate 75 75 74 Respiratory Rate 28 H 28 H Blood Pressure 116/55 L Pulse Oximetry 92 90 12/05/19 04:11 12/05/19 06:00 12/05/19 07:00 Temperature Pulse Rate 72 60 59 L Respiratory Rate 28 H 28 H 28 H Blood Pressure 130/59 L Pulse Oximetry 98 12/05/19 08:00 12/05/19 08:31 12/05/19 08:48 Temperature 36.5 C Pulse Rate 73 79 87 Respiratory Rate 28 H 30 H Blood Pressure 133/58 L Pulse Oximetry 93 12/05/19 10:00 12/05/19 10:55 12/05/19 11:43 Temperature Pulse Rate 98 110 H 100 Respiratory Rate 28 H 33 H 36 H Blood Pressure 157/70 H Pulse Oximetry 94 12/05/19 11:44 12/05/19 12:00 Temperature 37.7 C H Pulse Rate 100 98 Respiratory Rate 36 H 28 H Blood Pressure 157/71 H Pulse Oximetry 96 Intake/Output Intake/Output: Intake & Output 12/02/19 12/03/19 12/04/19 12/05/19 23:59 23:59 23:59 23:59 Intake Total 1856 1995 1882.0 1129 Output Total 1400 1300 2800 2450 Balance 456 695 -918.0 -1321 Meds/Results Medications: Active Medications Generic Name Dose Route Start Last Admin Trade Name Freq PRN Reason Stop Dose Admin Acetaminophen 650 mg 11/22/19 10:38 11/26/19 00:32 Tylenol Tablet PO 650 mg Q4H PRN Administration Mild Pain (1-3) or Fever Amlodipine Besylate 10 mg 12/03/19 09:00 12/05/19 08:30 Norvasc PO 10 mg QAM OLENA Administration Artificial Tears 1 drop 11/23/19 15:28 11/24/19 07:55
[2019-12-05] MEDS: QUEtiapine FUMARATE 25 MG TABLET PO ×2 (14:15→20:05)
--- NOTE | 2019-12-05 17:18 | PM.IMPN ---
Progress Note: A&P Assessment and Plan (1) Acute respiratory failure with hypoxia: Code(s): J96.01 - Acute respiratory failure with hypoxia Status: Acute Assessment and Plan: Pt is on ventilator had to be intubated due to resp distress Pt has central line placed on iv fluids, iv remdesivir completed today and iv dexathasone pt is having diuresis currently sp convascelent plasma Management per intensive care physician. 12/05/19 17:1 Interval history: 64-year-old male with history of coronary artery disease status post CABG, hypertension, hyperlipidemia, and type 2 diabetes mellitus who presented to the emergency department with complaints of cough, shortness of breath, and fever. Found to be covid positive with Bilateral infiltrates on cxr. Patient was intubated for acute hypoxic respiratory failure. COVID-19 positive, Pt has received convalescent plasma. he was on steroids completed the course, Completed 5 days of remdesivir already. Inflammatory marker CRP and D-dimer a trending down LDH is stable, Chest x-raqy showing ARDS patient is seen by Dr. Leone and suggested patient clinically symptoms are improving, Awaiting improvement with respiratory status, patient is more awake today seen by intensive and will have SBT in process of weaning the patient off ventilator (2) COVID-19 virus infection: Code(s): U07.1 - COVID-19 Status: Acute Assessment and Plan: He has completed 5 days of remdesivir and dexamethasone. awaiting to start plasma one unit Pt is over 63 and has multiple medical problems making him high risk for covid. 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 On long acting insulin and ISS. (4) Hypothyroidism: Qualifiers: Hypothyroidism type: unspecified Qualified Code(s): E03.9 - Hypothyroidism, unspecified Code(s): E03.9 - Hypothyroidism, unspecified Status: Chronic Assessment and Plan: On levothryoxine (5) DVT prophylaxis: Code(s): Z29.9 - Encounter for prophylactic measures, unspecified Status: Acute Assessment and Plan: On lovenox Subjective Date/time seen: 12/05/19 17:1 Interval history: 64-year-old male with history of coronary artery disease status post CABG, hypertension, hyperlipidemia, and type 2 diabetes mellitus who presented to the emergency department with complaints of cough, shortness of breath, and fever. Found to be covid positive with Bilateral infiltrates on cxr. Patient was intubated for acute hypoxic respiratory failure. COVID-19 positive, Pt has received convalescent plasma. he was on steroids completed the course, Completed 5 days of remdesivir already. Inflammatory marker CRP and D-dimer a trending down LDH is stable, Chest x-raqy showing ARDS patient is seen by Dr. Leone and suggested patient clinically symptoms are improving, Awaiting improvement with respiratory status, patient is more awake today seen by intensive and will have SBT in process of weaning the patient off ventilator Review of Systems Review of Systems: ROS unobtainable: Yes unobtainable due to endotracheal tube Exam Narrative: Exam Narrative: Patient is seen but not examine patient appears more awake today Const: General: no acute distress HENMT: General nose exam: Normal nares present Other: ET tube in place Eyes: Sclera: sclerae normal Neck: Other: No retrac
[2019-12-05 18:05] LABS: Glucose Point of Care 261 (65-105)
[2019-12-05] MEDS: INSULIN GLARGINE (*BKC) 100 UNITS/ML 40 UNITS SUB-Q (20:03)
[2019-12-05 20:37] LABS: Glucose Point of Care 264 (65-105)
[2019-12-05 23:21] LABS: Glucose Point of Care 226 (65-105)
[2019-12-06] VITALS (34 sets, daily range): BP systolic 127–170; BP diastolic 50–71; PULSE 59–86; RESP 24–28; TEMP 36.6–37.4; O2SAT 90–99
[2019-12-06 04:18] LABS: Alveolar/Arterial O2 Gradient 170.6 mmHg; Base Excess ABG 10.1 mEq/l (+/-2.0); Carboxyhemoglobin 0.3 % THb (0-2.0); Fractional Inspired Oxygen 40 %; HCO3 ABG 33.6 mEq/l (22.0-26.0); Methemoglobin ABG 0.4 %THb (0-1.5); Oxygen Content ABG 15.5 %vol (16.0-22.0); Oxygen Saturation ABG 95.3 % (95.0-100.0); PCO2 ABG 40.7 mmHg (35.0-45.0); PO2 ABG 67.8 mmHg (80.0-100.0); Reduced Hemoglobin 6.3 %THb (0-5.0); Total Hemoglobin 11.8 g/dL (12.0-18.0)
[2019-12-06 04:19] LABS: Arterial Blood Gas PEEP 8 cmH2O; Arterial Blood Gas Tidal Volume 400 ml; Arterial Blood Gas Vent Mode CMV; Arterial Blood Gas Ventilator rate 28 /MIN; Device VENTILATOR; Site Drawn ARTLINE; pH ABG 7.535 (7.350-7.450)
[2019-12-06 05:34] LABS: Glucose Point of Care 177 (65-105)
[2019-12-06 05:36] LABS: Basophils Percent Auto 0.3 % (0.2-1.2); Eosinophils Percent Auto 0.4 % (0-4.4); Hematocrit 33.8 % (42.0-52.0); Hemoglobin 10.9 g/dL (14.0-18.0); Immature Granulocyte Absolute 0.08 K/mm3 (0.00-0.031); Immature Granulocyte Percent A 0.8 % (0-0.5); Lymphocytes Absolute Auto 1.29 K/mm3 (0.9-3.2); Lymphocytes Percent Auto 13.1 % (18.3-44.2); Mean Corpuscular HGB Conc 32.2 g/dl (32-36); Mean Corpuscular Volume 89.9 fl (80-100); Mean Platelet Volume 11.2 fl (7.4-10.4); Monocytes Percent Auto 10.2 % (2.6-8.5); Neutrophils Absolute Auto 7.4 K/mm3 (1.3-6.7); Neutrophils Percent Auto 75.2 % (45.5-73.1); Platelet Count Result 197 k/mm3 (150-375); Red Blood Count 3.76 M/mm3 (4.6-6.20); Red Cell Distribution Width 12.5 % (11.5-14.5); White Blood Count 9.8 K/mm3 (4.5-10.0)
[2019-12-06 05:59] LABS: Alanine Aminotransferase 23 U/L (4-50); Albumin Level 2.7 g/dL (3.5-5.1); Alkaline Phosphatase 85 U/L (38-126); Aspartate Amino Transferase 22 U/L (17-59); Bilirubin,Total 0.3 mg/dL (0.2-1.3); Blood Urea Nitrogen 30 mg/dL (9-20); CRP 6.5 mg/dL (<1.0); Calcium 8.2 mg/dL (8.4-10.2); Carbon Dioxide 37 mmol/L (22-30); Chloride 95 mmol/L (98-107); Estimated CRCL calculation 78 ml/min; Estimated Glomerular Filt Rate > 60; Glucose 207 mg/dL (75-110); Phosphorus 3.5 mg/dL (2.5-4.5); Potassium 3.5 mmol/L (3.4-5.0); Sodium 136 mmol/L (137-145)
[2019-12-06] MEDS: METOPROLOL TARTRATE 25 MG TABLET PO ×2 (06:06→20:02)
[2019-12-06] MEDS: LEVOTHYROXINE SODIUM INJ 100 MCG/5 ML VIAL 50 MCG IV PUSH (06:07)
[2019-12-06] MEDS: METOCLOPRAMIDE HCL INJ 10 MG/2 ML VIAL IV PUSH ×3 (06:07→17:04)
[2019-12-06] MEDS: CENTRAL LINE FLUSH 10 ML IV PUSH ×4 (06:09→21:58)
[2019-12-06] MEDS: polyethylene glycoL 3350 17 GM POWD.PACK PO (08:06)
[2019-12-06] MEDS: ENOXAPARIN 80 MG/0.8 ML SYRINGE SUB-Q ×2 (08:06→19:59)
[2019-12-06] MEDS: PANTOPRAZOLE SODIUM IV 40 MG VIAL IV PUSH (08:06)
[2019-12-06] MEDS: AMLODIPINE BESYLATE 5 MG TABLET 10 MG PO (08:06)
[2019-12-06] MEDS: QUEtiapine FUMARATE 25 MG TABLET PO ×2 (08:06→20:00)
[2019-12-06] MEDS: POTASSIUM CHLORIDE 20 MEQ PACKET (FOR LIQUID) 40 MEQ PO (09:07)
[2019-12-06] MEDS: FUROSEMIDE INJ 40 MG/4 ML VIAL IV PUSH (09:07)
[2019-12-06 09:32] LABS: Add Urine Microscopic? YES; Appearance Urine Cloudy (Clear); Bacteria Urine Trace /hpf; Bilirubin Urine Negative (Negative); Budding Yeast Urine Present /hpf; Color Urine Yellow (Yellow); Glucose Urine UA Negative (Negative); Ketones Urine Negative (Negative); Leukocyte Esterase Ur Negative LEU/UL (Negative); Mucus Urine Few /lpf; Nitrate Urine Negative (Negative); Protein Urine Negative (Negative); RBC Urine 21-50 /hpf (0-2); Specific Grav Ur 1.025 (1.001-1.035)
[2019-12-06 09:33] LABS: Blood Urine Negative (Negative)
--- NOTE | 2019-12-06 09:43 | WPDINTPN ---
Progress Note: A&P Assessment and Plan (1) Respiratory failure with hypoxia: Qualifiers: Chronicity: acute Qualified Code(s): J96.01 - Acute respiratory failure with hypoxia Code(s): J96.91 - Respiratory failure, unspecified with hypoxia Status: Acute Assessment and Plan: Acute hypoxic respiratory failure likely related to bilateral infiltrates/ARDS as a result of COVID19. Intubated patient on 11/26/2019 for impending respiratory failure POSITIVE COVID-19 with ARDS physiology. low tidal volume strategies. Chest x-ray and ABGs reviewed, peep of 8 and FiO2 40%, chest x-ray with no change Decrease respiratory rate to 24 Patient has completed 10 day course of dexamethasone on 12/02/2019 He completed the dose of remdisivir of 5 days a on 11/27/2019 Received convalascent plasma on 11/28/2019 His inflammatory markers have improved, LDH, D-dimer, ferritin are all within normal limits CRP has increased over last couple of days but patient is afebrile and white count has normalized I placed patient on pressure support but patient became apneic and going into apnea ventilation I will further wean off his sedation and try to get him off of fentanyl and retry pressure support Continue diuresis Doppler ultrasound of the lower extremity has been negative for DVT. Echo 11/29/2019: EF 70%, moderate to severe concentric LV wall thickness, grade 1 diastolic dysfunction, are a moderately enlarged RVSP 33 mmHg (2) Suspected 2019 novel coronavirus infection: Code(s): Z20.828 - Contact with and (suspected) exposure to other viral communicable diseases Status: Acute Assessment and Plan: SARS-CoV-2 PCR POSITIVE Pt on airborne, droplet and contact isolation/precautions D-dimer had increased significantly but now seeing a downward trend. Ferritin levels are within normal limits, LDH normal CRP level has had uptake in last couple of days but patient is afebrile and white count is normal I will check urinalysis since patient has a [facility] infectious disease evaluation recommendation. 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 Increase Lantus dose -closely monitor blood sugars now that patient is off steroids (4) Essential (primary) hypertension: Code(s): I10 - Essential (primary) hypertension Status: Acute Assessment and Plan: Hemodynamics are stable. Is not requiring any pressor supports. -continue amlodipine and metoprolol (5) DVT prophylaxis: Code(s): Z29.9 - Encounter for prophylactic measures, unspecified Status: Acute Assessment and Plan: Continue Lovenox at therapeutic dose (6) Hypothyroidism: Qualifiers: Hypothyroidism type: unspecified Qualified Code(s): E03.9 - Hypothyroidism, unspecified Code(s): E03.9 - Hypothyroidism, unspecified Status: Chronic Assessment and Plan: Continue IV thyroxine. (7) Dietary counseling and surveillance: Code(s): Z71.3 - Dietary counseling and surveillance Status: Acute Assessment and Plan: Continue tube feed - on miralax, positive bowel movement Additional Plan Code Status: Full code Replace low potassium SUP - PPI Critical care time spent: 32 minutes Due to a high probability of clinically significant, life threatening deterioration, the patient required my highest level of
[2019-12-06] MEDS: INSULIN GLARGINE (*BKC) 100 UNITS/ML 10 UNITS SUB-Q (11:17)
[2019-12-06] MEDS: INSULIN ASPART (*BKC) 100 UNITS/ML SUB-Q ×2 (11:17→17:04)
[2019-12-06 11:57] LABS: Glucose Point of Care 279 (65-105)
--- NOTE | 2019-12-06 12:41 | PM.IMPN ---
Progress Note: A&P Assessment and Plan (1) Acute respiratory failure with hypoxia: Code(s): J96.01 - Acute respiratory failure with hypoxia Status: Acute Assessment and Plan: Pt is on ventilator had to be intubated due to resp distress Pt has central line placed on iv fluids, iv remdesivir completed today and iv dexathasone pt is having diuresis currently sp convascelent plasma Management per intensive care physician. 12/06/19 12:42 Interval history: 64-year-old male with history of coronary artery disease status post CABG, hypertension, hyperlipidemia, and type 2 diabetes mellitus who presented to the emergency department with complaints of cough, shortness of breath, and fever. Found to be covid positive with Bilateral infiltrates on cxr. Patient was intubated for acute hypoxic respiratory failure. COVID-19 positive, Pt has received convalescent plasma. he was on steroids completed the course, Completed 5 days of remdesivir already. Inflammatory marker CRP and D-dimer a trending down LDH is stable, Chest x-ray showing ARDS patient is seen by Dr. Leone and suggested patient clinically symptoms are improving, Awaiting improvement with respiratory status, patient is more awake today seen by intensive and earlier today a trail of SVT failed and remains intubated off sedation and will to wean him off tomorrow. (2) COVID-19 virus infection: Code(s): U07.1 - COVID-19 Status: Acute Assessment and Plan: He has completed 5 days of remdesivir and dexamethasone. awaiting to start plasma one unit Pt is over 63 and has multiple medical problems making him high risk for covid. 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 On long acting insulin and ISS. (4) Hypothyroidism: Qualifiers: Hypothyroidism type: unspecified Qualified Code(s): E03.9 - Hypothyroidism, unspecified Code(s): E03.9 - Hypothyroidism, unspecified Status: Chronic Assessment and Plan: On levothryoxine (5) DVT prophylaxis: Code(s): Z29.9 - Encounter for prophylactic measures, unspecified Status: Acute Assessment and Plan: On lovenox Subjective Date/time seen: 12/06/19 12:42 Interval history: 64-year-old male with history of coronary artery disease status post CABG, hypertension, hyperlipidemia, and type 2 diabetes mellitus who presented to the emergency department with complaints of cough, shortness of breath, and fever. Found to be covid positive with Bilateral infiltrates on cxr. Patient was intubated for acute hypoxic respiratory failure. COVID-19 positive, Pt has received convalescent plasma. he was on steroids completed the course, Completed 5 days of remdesivir already. Inflammatory marker CRP and D-dimer a trending down LDH is stable, Chest x-ray showing ARDS patient is seen by Dr. Leone and suggested patient clinically symptoms are improving, Awaiting improvement with respiratory status, patient is more awake today seen by intensive and earlier today a trail of SVT failed and remains intubated off sedation and will to wean him off tomorrow. Review of Systems Review of Systems: ROS unobtainable: Yes unobtainable due to endotracheal tube Exam Narrative: Exam Narrative: Patient is seen but not examined Const: General: no acute distress HENMT: General nose exam: Normal nares present Other: ET tube in place
[2019-12-06] MEDS: METOPROLOL TARTRATE INJ 5 MG/5 ML VIAL IV PUSH (16:53)
[2019-12-06 17:21] LABS: Glucose Point of Care 211 (65-105)
[2019-12-06] MEDS: hydrALAZINE HCL 20 MG/ML VIAL 10 MG IV PUSH (18:41)
[2019-12-06] MEDS: INSULIN GLARGINE (*BKC) 100 UNITS/ML 50 UNITS SUB-Q (21:57)
[2019-12-07] VITALS (20 sets, daily range): BP systolic 122–170; BP diastolic 51–67; PULSE 52–80; RESP 16–24; TEMP 36.2–37.1; O2SAT 90–99
[2019-12-07] MEDS: METOCLOPRAMIDE HCL INJ 10 MG/2 ML VIAL IV PUSH ×3 (01:07→12:07)
[2019-12-07 04:00] LABS: Glucose Point of Care 200 (65-105)
[2019-12-07 04:58] LABS: Alveolar/Arterial O2 Gradient 214.3 mmHg; Carboxyhemoglobin 0.3 % THb (0-2.0); Fractional Inspired Oxygen 50 %; HCO3 ABG 32.6 mEq/l (22.0-26.0); Methemoglobin ABG 0.5 %THb (0-1.5); Oxygen Content ABG 17.4 %vol (16.0-22.0); Oxygen Saturation ABG 97.4 % (95.0-100.0); Oxyhemoglobin 95.2 % THb (90.0-100.0); PCO2 ABG 45.4 mmHg (35.0-45.0); PO2 ABG 91.1 mmHg (80.0-100.0); PO2 FiO2 Ratio Arterial Blood 1.82 %; Total Hemoglobin 12.9 g/dL (12.0-18.0); pH ABG 7.474 (7.350-7.450)
[2019-12-07 05:00] LABS: Device VENTILATOR; Modified Allen's Test Pass; Site Drawn RIGHT RADIAL
[2019-12-07 05:02] LABS: Arterial Blood Gas PEEP 8 cmH2O; Arterial Blood Gas Tidal Volume 400 ml; Arterial Blood Gas Vent Mode CMV; Arterial Blood Gas Ventilator rate 24 /MIN
[2019-12-07] MEDS: LEVOTHYROXINE SODIUM INJ 100 MCG/5 ML VIAL 50 MCG IV PUSH (05:43)
[2019-12-07] MEDS: CENTRAL LINE FLUSH 10 ML IV PUSH ×4 (05:44→19:42)
[2019-12-07 06:07] LABS: Hematocrit 30.8 % (42.0-52.0); Hemoglobin 10.3 g/dL (14.0-18.0); Mean Corpuscular HGB Conc 33.4 g/dl (32-36); Mean Corpuscular Volume 89.8 fl (80-100); Mean Platelet Volume 11.3 fl (7.4-10.4); Platelet Count Result 186 k/mm3 (150-375); Red Blood Count 3.43 M/mm3 (4.6-6.20); Red Cell Distribution Width 12.7 % (11.5-14.5); White Blood Count 6.9 K/mm3 (4.5-10.0)
[2019-12-07 06:22] LABS: Alanine Aminotransferase 20 U/L (4-50); Albumin Level 2.6 g/dL (3.5-5.1); Alkaline Phosphatase 83 U/L (38-126); Aspartate Amino Transferase 22 U/L (17-59); Bilirubin,Total 0.2 mg/dL (0.2-1.3); Blood Urea Nitrogen 27 mg/dL (9-20); Calcium 8.2 mg/dL (8.4-10.2); Carbon Dioxide 38 mmol/L (22-30); Chloride 94 mmol/L (98-107); Estimated CRCL calculation 101 ml/min; Estimated Glomerular Filt Rate > 60; Glucose 213 mg/dL (75-110); Magnesium 2.1 mg/dL (1.6-2.3); Potassium 3.6 mmol/L (3.4-5.0); Sodium 135 mmol/L (137-145)
[2019-12-07] MEDS: INSULIN ASPART (*BKC) 100 UNITS/ML SUB-Q (06:56)
--- NOTE | 2019-12-07 07:50 | WPDINTPN ---
Progress Note: A&P Assessment and Plan (1) Respiratory failure with hypoxia: Qualifiers: Chronicity: acute Qualified Code(s): J96.01 - Acute respiratory failure with hypoxia Code(s): J96.91 - Respiratory failure, unspecified with hypoxia Status: Acute Assessment and Plan: Acute hypoxic respiratory failure likely related to bilateral infiltrates/ARDS as a result of COVID19. Intubated patient on 11/26/2019 for impending respiratory failure POSITIVE COVID-19 with ARDS physiology. low tidal volume strategies. Chest x-ray and ABGs reviewed, peep of 8 and FiO2 40%, chest x-ray with no change, respiratory rate to 24 Patient has completed 10 day course of dexamethasone on 12/02/2019 He completed the dose of remdisivir of 5 days a on 11/27/2019 Received convalascent plasma on 11/28/2019 His inflammatory markers have improved, LDH, D-dimer, ferritin are all within normal limits CRP has increased over last couple of days but patient is afebrile and white count has normalized I placed patient on pressure support yesterday but patient became apneic and going into apnea ventilation. I have discontinued fentanyl infusion and patient is now on Precedex. 12/06 patient again was apneic but respiratory rate improved stimulation. I have placed on pressure support of 10/8 which gives adequate tidal volumes and minute ventilation and will try to wean down I Pap Continue cautious diuresis Doppler ultrasound of the lower extremity has been negative for DVT. Echo 11/29/2019: EF 70%, moderate to severe concentric LV wall thickness, grade 1 diastolic dysfunction, are a moderately enlarged RVSP 33 mmHg (2) Suspected 2019 novel coronavirus infection: Code(s): Z20.828 - Contact with and (suspected) exposure to other viral communicable diseases Status: Acute Assessment and Plan: SARS-CoV-2 PCR POSITIVE Pt on airborne, droplet and contact isolation/precautions D-dimer had increased significantly but now seeing a downward trend. Ferritin levels are within normal limits, LDH normal CRP level has had uptake in last couple of days but patient is afebrile and white count is normal Appreciate infectious disease evaluation recommendation. 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 Increase Lantus dose further -closely monitor blood sugars now that patient is off steroids (4) Essential (primary) hypertension: Code(s): I10 - Essential (primary) hypertension Status: Acute Assessment and Plan: Hemodynamics are stable. Is not requiring any pressor supports. -continue amlodipine and metoprolol (5) DVT prophylaxis: Code(s): Z29.9 - Encounter for prophylactic measures, unspecified Status: Acute Assessment and Plan: Continue Lovenox at therapeutic dose (6) Hypothyroidism: Qualifiers: Hypothyroidism type: unspecified Qualified Code(s): E03.9 - Hypothyroidism, unspecified Code(s): E03.9 - Hypothyroidism, unspecified Status: Chronic Assessment and Plan: Continue IV thyroxine. (7) Dietary counseling and surveillance: Code(s): Z71.3 - Dietary counseling and surveillance Status: Acute Assessment and Plan: Continue tube feed - on miralax, positive bowel movement Additional Plan Code Status: Full code Replace low potassium SUP - PPI Critical care time
[2019-12-07 09:03] LABS: CRP 4.4 mg/dL (<1.0)
[2019-12-07] MEDS: INSULIN GLARGINE (*BKC) 100 UNITS/ML 10 UNITS SUB-Q (09:04)
[2019-12-07] MEDS: FUROSEMIDE INJ 40 MG/4 ML VIAL IV PUSH (09:05)
[2019-12-07] MEDS: PANTOPRAZOLE SODIUM IV 40 MG VIAL IV PUSH (09:05)
[2019-12-07] MEDS: ENOXAPARIN 80 MG/0.8 ML SYRINGE SUB-Q ×2 (09:05→19:41)
[2019-12-07] MEDS: POTASSIUM CHLORIDE 20 MEQ PACKET (FOR LIQUID) 40 MEQ PO (09:06)
[2019-12-07] MEDS: polyethylene glycoL 3350 17 GM POWD.PACK PO (09:06)
[2019-12-07] MEDS: METOPROLOL TARTRATE 25 MG TABLET PO (09:07)
[2019-12-07] MEDS: QUEtiapine FUMARATE 25 MG TABLET PO (09:07)
[2019-12-07] MEDS: AMLODIPINE BESYLATE 5 MG TABLET 10 MG PO (09:07)
[2019-12-07] MEDS: ALBUMIN HUMAN 25% 25 GM/100 ML 100 ML IVPB ×2 (12:07→17:13)
[2019-12-07 12:17] LABS: Glucose Point of Care 189 (65-105)
[2019-12-07 14:03] LABS: Alveolar/Arterial O2 Gradient 189.3 mmHg; Base Excess ABG 4.6 mEq/l (+/-2.0); Fractional Inspired Oxygen 45 %; HCO3 ABG 28.8 mEq/l (22.0-26.0); Oxygen Content ABG 16.4 %vol (16.0-22.0); Oxygen Saturation ABG 96.8 % (95.0-100.0); PCO2 ABG 41.2 mmHg (35.0-45.0); PO2 ABG 84.7 mmHg (80.0-100.0); PO2 FiO2 Ratio Arterial Blood 1.88 %; Total Hemoglobin 12.2 g/dL (12.0-18.0); pH ABG 7.462 (7.350-7.450)
[2019-12-07 14:04] LABS: Site Drawn ARTLINE
[2019-12-07 14:05] LABS: Arterial Blood Gas PEEP 5 cmH2O; Arterial Blood Gas Vent Mode SPONTANEOUS; Device VENTILATOR; Peak Inspiratory Pressure 5 cmH2O
--- NOTE | 2019-12-07 14:17 | PM.EVENT ---
Event Note Event Note Event Note: Patient was started on pressure support ventilation this morning and was eventually weaned down to 5/5 PSV. SBT done for more than 1 hour. RSBI, ABGI and Vitals acceptable. Pt awake and following commands. Will extubate and monitor. NPO for now. DC Lantus monitor sugars every 4 hours
--- NOTE | 2019-12-07 14:41 | PM.IMPN ---
Progress Note: A&P Assessment and Plan (1) Acute respiratory failure with hypoxia: Code(s): J96.01 - Acute respiratory failure with hypoxia Status: Acute Assessment and Plan: Pt is on ventilator had to be intubated due to resp distress Pt has central line placed on iv fluids, iv remdesivir completed today and iv dexathasone pt is having diuresis currently sp convascelent plasma Management per intensive care physician. 12/07/19 14:41 Interval history: 64-year-old male with history of coronary artery disease status post CABG, hypertension, hyperlipidemia, and type 2 diabetes mellitus who presented to the emergency department with complaints of cough, shortness of breath, and fever. Found to be covid positive with Bilateral infiltrates on cxr. Patient was intubated for acute hypoxic respiratory failure. COVID-19 positive, Pt has received convalescent plasma. he was on steroids completed the course, Completed 5 days of remdesivir already. Inflammatory marker CRP and D-dimer a trending down LDH is stable, Chest x-ray showing ARDS patient was seen by Dr. Leone and suggested patient clinically symptoms are improving, Awaiting improvement with respiratory status, patient is more awake today seen by intensive and earlier today a trail of SVT failed as patient became apenic and remains intubated off sedation and will to wean him off tomorrow. (2) COVID-19 virus infection: Code(s): U07.1 - COVID-19 Status: Acute Assessment and Plan: He has completed 5 days of remdesivir and dexamethasone. awaiting to start plasma one unit Pt is over 63 and has multiple medical problems making him high risk for covid. 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 On long acting insulin and ISS. (4) Hypothyroidism: Qualifiers: Hypothyroidism type: unspecified Qualified Code(s): E03.9 - Hypothyroidism, unspecified Code(s): E03.9 - Hypothyroidism, unspecified Status: Chronic Assessment and Plan: On levothryoxine (5) DVT prophylaxis: Code(s): Z29.9 - Encounter for prophylactic measures, unspecified Status: Acute Assessment and Plan: On lovenox Subjective Date/time seen: 12/07/19 14:41 Interval history: 64-year-old male with history of coronary artery disease status post CABG, hypertension, hyperlipidemia, and type 2 diabetes mellitus who presented to the emergency department with complaints of cough, shortness of breath, and fever. Found to be covid positive with Bilateral infiltrates on cxr. Patient was intubated for acute hypoxic respiratory failure. COVID-19 positive, Pt has received convalescent plasma. he was on steroids completed the course, Completed 5 days of remdesivir already. Inflammatory marker CRP and D-dimer a trending down LDH is stable, Chest x-ray showing ARDS patient was seen by Dr. Leone and suggested patient clinically symptoms are improving, Awaiting improvement with respiratory status, patient is more awake today seen by intensive and earlier today a trail of SVT failed as patient became apenic and remains intubated off sedation and will to wean him off tomorrow. Review of Systems Review of Systems: ROS unobtainable: Yes unobtainable due to endotracheal tube Exam Narrative: Exam Narrative: Patient seen but not examined Const: General: comfortable and no acute distress HENMT: Gen
[2019-12-07 19:13] LABS: Glucose Point of Care 119 (65-105)
[2019-12-07 19:53] LABS: Glucose Point of Care 92 (65-105)
[2019-12-08] VITALS (15 sets, daily range): BP systolic 128–149; BP diastolic 49–85; PULSE 57–102; RESP 22–34; TEMP 36.7–37.3; O2SAT 85–100
[2019-12-08] MEDS: ALBUMIN HUMAN 25% 25 GM/100 ML 100 ML IVPB ×4 (00:03→17:13)
[2019-12-08 00:15] LABS: Glucose Point of Care 76 (65-105)
[2019-12-08 04:30] LABS: Alveolar/Arterial O2 Gradient 605.6 mmHg; Base Excess ABG 3.8 mEq/l (+/-2.0); Carboxyhemoglobin 0.6 % THb (0-2.0); Fractional Inspired Oxygen 100 %; HCO3 ABG 28.1 mEq/l (22.0-26.0); Methemoglobin ABG 0.5 %THb (0-1.5); Oxygen Content ABG 20.5 %vol (16.0-22.0); Oxyhemoglobin 91.7 % THb (90.0-100.0); PCO2 ABG 41.1 mmHg (35.0-45.0); PO2 ABG 66.3 mmHg (80.0-100.0); PO2 FiO2 Ratio Arterial Blood 0.66 %; Reduced Hemoglobin 7.2 %THb (0-5.0); Total Hemoglobin 15.9 g/dL (12.0-18.0); pH ABG 7.452 (7.350-7.450)
[2019-12-08 04:31] LABS: Device NON-REBREATHER MASK; Site Drawn ARTLINE
[2019-12-08 04:46] LABS: Hematocrit 30.6 % (42.0-52.0); Hemoglobin 10.1 g/dL (14.0-18.0); Mean Corpuscular Hemoglobin 29.3 pg (26-34); Mean Corpuscular Volume 88.7 fl (80-100); Platelet Count Result 177 k/mm3 (150-375); Red Blood Count 3.45 M/mm3 (4.6-6.20); Red Cell Distribution Width 12.5 % (11.5-14.5); White Blood Count 9.7 K/mm3 (4.5-10.0)
[2019-12-08 05:02] LABS: Alanine Aminotransferase 18 U/L (4-50); Albumin Level 3.4 g/dL (3.5-5.1); Alkaline Phosphatase 72 U/L (38-126); Aspartate Amino Transferase 32 U/L (17-59); Bilirubin,Total 0.8 mg/dL (0.2-1.3); Blood Urea Nitrogen 23 mg/dL (9-20); CRP 3.6 mg/dL (<1.0); Calcium 8.4 mg/dL (8.4-10.2); Carbon Dioxide 35 mmol/L (22-30); Chloride 99 mmol/L (98-107); Estimated CRCL calculation 88 ml/min; Estimated Glomerular Filt Rate > 60; Glucose 82 mg/dL (75-110); Magnesium 2.1 mg/dL (1.6-2.3); Potassium 3.7 mmol/L (3.4-5.0); Sodium 139 mmol/L (137-145)
[2019-12-08] MEDS: LEVOTHYROXINE SODIUM INJ 100 MCG/5 ML VIAL 50 MCG IV PUSH (06:46)
[2019-12-08] MEDS: CENTRAL LINE FLUSH 10 ML IV PUSH ×4 (06:51→19:42)
--- NOTE | 2019-12-08 07:36 | WPDINFPN2 ---
Progress Note: A&P Assessment and Plan (1) COVID-19 virus infection: Code(s): U07.1 - COVID-19 Status: Acute Assessment and Plan: 1. Dyspnea and cough due to CoVid 19 viral pneumonia. Clinically improving. 2. TKAs 3. DM, Accucheks 4. Respiratory failure, largely compensated 5. Multifactorial leukocytosis, resolved REC Remdesivir completed 11/26. Dexamethasone completed 12/01. Convalescent plasma given 11/26. Has seemed to benefit from all of the above interventions. Repeat PCR testing if required by a SNF, should he need to go to one. Otherwise no further testing needed. Will sign off, call if Qs Subjective Date/time seen: 12/08/19 07:36 Interval history: extubated and on NC O2. Motions some Left sided abd pain Exam Narrative: Exam Narrative: afebrile Const: General: no acute distress Eyes: General: appearance normal, both eyes and all related structures Resp: Effort & Inspection: normal respiratory effort Auscultation: clear to auscultation bilaterally and diminished lung sounds Cardio: Rate: regular rate Rhythm: regular rhythm Heart sounds: no murmurs and no rubs GI: Inspection: non-distended GI Palp: Yes Soft to palpation, No Tenderness to palpation present (GI) and No Guarding due to palpation present (GI) Auscultation: abnormal bowel sounds Urinary Catheter: Urinary Catheter: patent and draining and urine clear Skin: General skin exam: normal color and no rashes or lesions noted Objective Data Vital Signs Vital Signs: Vital Signs - 24 hr 12/07/19 07:58 12/07/19 08:00 12/07/19 08:56 Temperature 36.2 C L Pulse Rate 52 L 55 L 52 L Respiratory Rate 24 H Blood Pressure 137/56 L Pulse Oximetry 94 95 12/07/19 09:07 12/07/19 10:00 12/07/19 12:00 Temperature 36.6 C Pulse Rate 52 L 55 L 65 Respiratory Rate 22 H 20 Blood Pressure 126/53 L 127/54 L Pulse Oximetry 93 93 12/07/19 12:42 12/07/19 14:00 12/07/19 14:48 Temperature Pulse Rate 65 68 Respiratory Rate 22 H Blood Pressure 133/54 L Pulse Oximetry 95 94 94 12/07/19 15:56 12/07/19 16:00 12/07/19 18:00 Temperature 37.1 C Pulse Rate 66 66 71 Respiratory Rate 22 H 16 Blood Pressure 142/60 H 149/60 H Pulse Oximetry 94 90 12/07/19 20:00 12/07/19 22:00 12/08/19 00:00 Temperature 36.7 C Pulse Rate 70 80 78 Respiratory Rate 21 H 23 H 27 H Blood Pressure 170/67 H 146/60 H 148/57 H Pulse Oximetry 98 94 95 12/08/19 02:00 12/08/19 04:00 12/08/19 06:00 Temperature 36.7 C Pulse Rate 83 66 57 L Respiratory Rate 24 H 26 H 22 H Blood Pressure 137/53 L 133/51 L 128/51 L Pulse Oximetry 89 L 94 100 Intake/Output Intake/Output: Intake & Output 12/05/19 12/06/19 12/07/19 12/08/19 23:59 23:59 23:59 23:59 Intake Total 2466 2587 1981 100 Output Total 4050 1999 192 67 Balance -1584 587 56 -575 Meds/Results Medications: Active Medications Generic Name Dose Route Start Last Admin Trade Name Freq PRN Reason Stop Dose Admin Acetaminophen 650 mg 11/22/19 10:38 11/26/19 00:32 Tylenol Tablet PO 650 mg Q4H PRN Administration Mild Pain (1-3) or Fever Amlodipine Besylate 10 mg 12/03/19 09:00 12/07/19 09:07 Norvasc PO 10 mg QAM OLENA Administration Artificial Tears 1 drop 11/23/19 15:28 11/24/19 07:55 Artificial Tears EACH EYE 1 drop QID PRN Administration Dry Eye(s) Benzocaine 1 lozenge 11/24/19 07:22 11/24/19 20:13 Chloraseptic Lozenge PO 1 lozenge PRN PRN Administration Sore Throat Dextrose 12.5 gm 11/22/19 13:13 Dextrose 50% Syringe IV PUSH PRN PRN Hypoglycemia Protocol Enoxaparin Sodium 80 mg 11/27/19 21:00 12/07/19 19:41 Lovenox SUB-Q 80 mg Q12HR OLENA Administration Fentanyl Citrate 25 mcg 12/07/19 12:53 Sublimaze IV PUSH Q2H PRN Pain Rated 7-10 Glucagon 1 mg 11/22/19 13:13 Glucagon For Inj IM PRN PRN Hypoglycemia Protocol Glucose 15 gm 11/22/19 13:1
[2019-12-08] MEDS: ENOXAPARIN 80 MG/0.8 ML SYRINGE SUB-Q ×2 (08:01→19:41)
[2019-12-08] MEDS: PANTOPRAZOLE SODIUM IV 40 MG VIAL IV PUSH (08:02)
[2019-12-08 08:36] LABS: Glucose Point of Care 75 (65-105)
--- NOTE | 2019-12-08 10:40 | WPDINTPN ---
Progress Note: A&P Assessment and Plan (1) Respiratory failure with hypoxia: Qualifiers: Chronicity: acute Qualified Code(s): J96.01 - Acute respiratory failure with hypoxia Code(s): J96.91 - Respiratory failure, unspecified with hypoxia Status: Acute Assessment and Plan: Acute hypoxic respiratory failure likely related to bilateral infiltrates/ARDS as a result of COVID19. Intubated patient on 11/26/2019 for impending respiratory failure POSITIVE COVID-19 with ARDS physiology. Patient was extubated 12/06 after successful weaning trial. Since then patient has had slight worsening in his hypoxia and earlier he was on 15 L nasal cannula but now is also on non-rebreather mask. He does not appear in any respiratory distress or is tachypneic at this time. Will continue to monitor closely. He may need BiPAP or CPAP support to prevent atelectasis Chest x-ray and ABGs reviewed Patient has completed 10 day course of dexamethasone on 12/02/2019 He completed the dose of remdisivir of 5 days a on 11/27/2019 Received convalascent plasma on 11/28/2019 His inflammatory markers have improved, LDH, D-dimer, ferritin are all within normal limits CRP has also decreased after a small optic for few days. Will discontinue routine monitoring of markers unless new symptoms arise Discontinue arterial line Will have patient up in chair Incentive spirometry Who diuresis as patient has slight contraction alkalosis Continue close monitoring in ICU at this time Doppler ultrasound of the lower extremity has been negative for DVT. Echo 11/29/2019: EF 70%, moderate to severe concentric LV wall thickness, grade 1 diastolic dysfunction, are a moderately enlarged RVSP 33 mmHg (2) Suspected 2019 novel coronavirus infection: Code(s): Z20.828 - Contact with and (suspected) exposure to other viral communicable diseases Status: Acute Assessment and Plan: SARS-CoV-2 PCR POSITIVE Pt on airborne, droplet and contact isolation/precautions D-dimer had increased significantly but now seeing a downward trend. Ferritin levels are within normal limits, LDH normal CRP level has had uptake in last couple of days but patient is afebrile and white count is normal Appreciate infectious disease evaluation recommendation. Status post dexamethasone, Remdesivir, 1 unit of convalescent plasma (3) DM type 2 (diabetes mellitus, type 2): Qualifiers: Diabetes mellitus shelter insulin use: unspecified shelter insulin use status Diabetes mellitus complication status: with neurologic complications Diabetes mellitus complication detail: with unspecified neuropathy Qualified Code(s): E11.40 - Type 2 diabetes mellitus with diabetic neuropathy, unspecified Code(s): E11.9 - Type 2 diabetes mellitus without complications Status: Acute Assessment and Plan: Accucheks and SSI -tube feeds have been stopped since extubation hence Lantus was discontinued -closely monitor blood sugars now (4) Essential (primary) hypertension: Code(s): I10 - Essential (primary) hypertension Status: Acute Assessment and Plan: Hemodynamics are stable. Is not requiring any pressor supports. -continue amlodipine and metoprolol (5) DVT prophylaxis: Code(s): Z29.9 - Encounter for prophylactic measures, unspecified Status: Acute Assessment and Plan: Continue Lovenox at therapeutic dose (6) Hypothyroidism: Qualifiers: Hypothyroidism type: unspecified Qualified Code(s): E03.9 - Hypothyroidism, unspecified Code(s): E03.9 - Hypothyroidism, unspecified Status: Chronic Assessment and Plan: Continue IV thyroxine. Change to p.o. once patient is able to take (7) Dietary counseling and surveillance: Code(s): Z71.3 - Dietary counseling and surveillance Status: Acute Assessment and Plan: Patient was on tube feed and were stopped after extubation Sp
--- NOTE | 2019-12-08 11:03 | PCPTNOTE ---
The patient's OT and PT initial evaluations were not able to be completed on 12/08/19 due to patient currently on PT and OT therapy hold per MD and nurse account relationship manager. sales service manager spoke with ICU nurse account relationship manager directly to discuss patient case. PT and OT will provide supine UE and LE therapeutic exercise home exercise programs for nursing to complete with patient at bedside as deemed appropriate. PT and OT will re-attempt initial therapy evaluations once deemed appropriate by medical team. Will continue to touch base with medical team pending patient appropriateness for PT and OT evaluations. PT and OT therapy staff updated regarding current patient plan. A ST bedside evaluation has been recommended by the physician to be completed today per nurse account relationship manager. sales service manager has updated ST staff of current patient needs. Maty Archuleta, PT, DPT, acute/[facility] [employer]
--- NOTE | 2019-12-08 11:16 | PCDIET ---
Nutrition Follow-Up Complete: Nutrition Diagnosis: Predicted suboptimal oral intake related to increased O2 requirements as evidenced by full liquid diet order. Nutrition Goal: Patient to meet estimated nutritional needs. Goal in progress. Patient extubated with plan for SILVERING APPLICATOR evaluation. Will recommend resuming tube feedings if unable to safely advance diet. Currently being kept NPO. Last recorded weight is 79.5 kg which is decreased from last review. Bowel Motility: +BM on 12/07/19. Labs Reviewed: Hgb (10.1), Hct (30.6), Alb (3.4) Meds Noted: Albumin, Fentanyl, Novolog, Protonix Additional Notes: No documented skin breakdown. Will continue to monitor with same goal. Nutrition Monitoring and Evaluation: Follow up every 3 days. Follow daily in ICU rounds.
[2019-12-08] MEDS: FUROSEMIDE INJ 40 MG/4 ML VIAL IV PUSH (11:48)
[2019-12-08 14:13] LABS: Glucose Point of Care 82 (65-105)
--- NOTE | 2019-12-08 15:33 | PM.IMPN ---
Progress Note: A&P Assessment and Plan (1) Acute respiratory failure with hypoxia: Code(s): J96.01 - Acute respiratory failure with hypoxia Status: Acute Assessment and Plan: Pt is on ventilator had to be intubated due to resp distress Pt has central line placed on iv fluids, iv remdesivir completed today and iv dexathasone pt is having diuresis currently sp convascelent plasma Management per intensive care physician. 12/08/19 15:33 Interval history: 64-year-old male with history of coronary artery disease status post CABG, hypertension, hyperlipidemia, and type 2 diabetes mellitus who presented to the emergency department with complaints of cough, shortness of breath, and fever. Found to be covid positive with Bilateral infiltrates on cxr. Patient was intubated for acute hypoxic respiratory failure. COVID-19 positive, Pt has received convalescent plasma. he was on steroids completed the course, Completed 5 days of remdesivir already. Inflammatory marker CRP and D-dimer a trending down LDH is stable, Chest x-ray showing ARDS patient was seen by Dr. Leone and suggested patient clinically symptoms are improving, Awaiting improvement with respiratory status, today patient was extubated today, he is on venti mask, he appears to be doing well, he was seen from glass door. patient is seen by intensivit and appreciate. (2) COVID-19 virus infection: Code(s): U07.1 - COVID-19 Status: Acute Assessment and Plan: He has completed 5 days of remdesivir and dexamethasone. awaiting to start plasma one unit Pt is over 65 and has multiple medical problems making him high risk for covid. 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 On long acting insulin and ISS. (4) Hypothyroidism: Qualifiers: Hypothyroidism type: unspecified Qualified Code(s): E03.9 - Hypothyroidism, unspecified Code(s): E03.9 - Hypothyroidism, unspecified Status: Chronic Assessment and Plan: On levothryoxine (5) DVT prophylaxis: Code(s): Z29.9 - Encounter for prophylactic measures, unspecified Status: Acute Assessment and Plan: On lovenox Subjective Date/time seen: 12/08/19 15:33 Interval history: 64-year-old male with history of coronary artery disease status post CABG, hypertension, hyperlipidemia, and type 2 diabetes mellitus who presented to the emergency department with complaints of cough, shortness of breath, and fever. Found to be covid positive with Bilateral infiltrates on cxr. Patient was intubated for acute hypoxic respiratory failure. COVID-19 positive, Pt has received convalescent plasma. he was on steroids completed the course, Completed 5 days of remdesivir already. Inflammatory marker CRP and D-dimer a trending down LDH is stable, Chest x-ray showing ARDS patient was seen by Dr. Leone and suggested patient clinically symptoms are improving, Awaiting improvement with respiratory status, today patient was extubated today, he is on venti mask, he appears to be doing well, he was seen from glass door. Review of Systems Review of Systems: ROS unobtainable: Yes unobtainable due to medical condition Exam Narrative: Exam Narrative: Patient seen but not examined Const: General: comfortable and no acute distress HENMT: General nose exam: Normal nares present Eyes: General: appearance normal, both eyes an
[2019-12-08 17:23] LABS: Glucose Point of Care 111 (65-105)
[2019-12-08 19:58] LABS: Glucose Point of Care 143 (65-105)
[2019-12-08 21:41] LABS: Glucose Point of Care 121 (65-105)
[2019-12-09] VITALS (26 sets, daily range): BP systolic 108–151; BP diastolic 59–78; PULSE 79–121; RESP 18–37; TEMP 36.8–37.7; O2SAT 91–100
[2019-12-09] MEDS: ALBUMIN HUMAN 25% 25 GM/100 ML 100 ML IVPB ×3 (00:25→14:20)
[2019-12-09 01:50] LABS: Glucose Point of Care 127 (65-105)
[2019-12-09 04:57] LABS: Alveolar/Arterial O2 Gradient 596.9 mmHg; Base Excess ABG 2.8 mEq/l (+/-2.0); Carboxyhemoglobin 0.3 % THb (0-2.0); Fractional Inspired Oxygen 100 %; HCO3 ABG 25.7 mEq/l (22.0-26.0); Methemoglobin ABG 0.4 %THb (0-1.5); Oxygen Content ABG 12.7 %vol (16.0-22.0); Oxygen Saturation ABG 97.1 % (95.0-100.0); Oxyhemoglobin 91.1 % THb (90.0-100.0); PO2 ABG 83.1 mmHg (80.0-100.0); PO2 FiO2 Ratio Arterial Blood 0.83 %; Reduced Hemoglobin 8.2 %THb (0-5.0); Total Hemoglobin 9.8 g/dL (12.0-18.0)
[2019-12-09 04:59] LABS: Device NON-REBREATHER MASK; Modified Allen's Test Pass; Site Drawn RIGHT RADIAL; pH ABG 7.509 (7.350-7.450)
[2019-12-09 05:32] LABS: Hematocrit 27.9 % (42.0-52.0); Hemoglobin 9.2 g/dL (14.0-18.0); Mean Corpuscular Hemoglobin 29.5 pg (26-34); Mean Corpuscular Volume 89.4 fl (80-100); Mean Platelet Volume 11.6 fl (7.4-10.4); Platelet Count Result 179 k/mm3 (150-375); Red Blood Count 3.12 M/mm3 (4.6-6.20); Red Cell Distribution Width 12.8 % (11.5-14.5); White Blood Count 11.6 K/mm3 (4.5-10.0)
[2019-12-09 05:46] LABS: Alanine Aminotransferase 17 U/L (4-50); Albumin Level 4.2 g/dL (3.5-5.1); Alkaline Phosphatase 63 U/L (38-126); Aspartate Amino Transferase 29 U/L (17-59); Bilirubin,Total 1.2 mg/dL (0.2-1.3); Blood Urea Nitrogen 24 mg/dL (9-20); Calcium 8.6 mg/dL (8.4-10.2); Carbon Dioxide 33 mmol/L (22-30); Chloride 97 mmol/L (98-107); Estimated CRCL calculation 98 ml/min; Estimated Glomerular Filt Rate > 60; Glucose 126 mg/dL (75-110); Magnesium 2.4 mg/dL (1.6-2.3); Potassium 3.3 mmol/L (3.4-5.0); Sodium 139 mmol/L (137-145)
[2019-12-09] MEDS: LEVOTHYROXINE SODIUM INJ 100 MCG/5 ML VIAL 50 MCG IV PUSH (06:31)
[2019-12-09] MEDS: CENTRAL LINE FLUSH 10 ML IV PUSH ×4 (06:31→20:26)
--- NOTE | 2019-12-09 07:30 | WPDINTPN ---
Progress Note: A&P Assessment and Plan (1) Respiratory failure with hypoxia: Qualifiers: Chronicity: acute Qualified Code(s): J96.01 - Acute respiratory failure with hypoxia Code(s): J96.91 - Respiratory failure, unspecified with hypoxia Status: Acute Assessment and Plan: Acute hypoxic respiratory failure likely related to bilateral infiltrates/ARDS as a result of COVID19. Intubated patient on 11/26/2019 for impending respiratory failure POSITIVE COVID-19 with ARDS physiology. Patient was extubated 12/07/2019 after successful weaning trial. Since then patient has had gradual worsening in his hypoxia and increased oxygen requirement. Patient on non-rebreather mask and 15 L nasal cannula. Although saturation was adequate patient was tachypneic with use of accessory muscles. I explained to patient that he will need to be put back on ventilator and he was agreeable. 12/09/2019 -reintubated without any complication. Chest x-ray reviewed Check ABG Patient has completed 10 day course of dexamethasone on 12/02/2019 He completed the dose of remdisivir of 5 days a on 11/27/2019 Received convalascent plasma on 11/28/2019 His inflammatory markers have improved, LDH, D-dimer, ferritin are all within normal limits CRP has also decreased after a small uptick for few days. Will discontinue routine monitoring of markers unless new symptoms arise Patient was being diuresed and has slight contraction alkalosis but did not show any improvement in hypoxia which suggests that that ARDS is the most likely etiology of hypoxia at this point. Will hold further Lasix at this point Will check CT chest when patient is down for CT abdomen pelvis Doppler ultrasound of the lower extremity has been negative for DVT. Echo 11/29/2019: EF 70%, moderate to severe concentric LV wall thickness, grade 1 diastolic dysfunction, are a moderately enlarged RVSP 33 mmHg (2) COVID-19: Code(s): U07.1 - COVID-19 Status: Acute Assessment and Plan: SARS-CoV-2 PCR POSITIVE Pt on airborne, droplet and contact isolation/precautions His inflammatory markers have improved, LDH, D-dimer, ferritin are all within normal limits CRP has also decreased after a small optic for few days. Appreciate infectious disease evaluation recommendation. Status post dexamethasone, Remdesivir, 1 unit of convalescent plasma (3) DM type 2 (diabetes mellitus, type 2): Qualifiers: Diabetes mellitus mcc insulin use: unspecified mcc insulin use status Diabetes mellitus complication status: with neurologic complications Diabetes mellitus complication detail: with unspecified neuropathy Qualified Code(s): E11.40 - Type 2 diabetes mellitus with diabetic neuropathy, unspecified Code(s): E11.9 - Type 2 diabetes mellitus without complications Status: Acute Assessment and Plan: Accucheks and SSI -tube feeds have been stopped since extubation hence Lantus was discontinued -closely monitor blood sugars now (4) Essential (primary) hypertension: Code(s): I10 - Essential (primary) hypertension Status: Acute Assessment and Plan: Hemodynamics are stable. Is not requiring any pressor supports. -continue amlodipine and metoprolol (5) DVT prophylaxis: Code(s): Z29.9 - Encounter for prophylactic measures, unspecified Status: Acute Assessment and Plan: Continue Lovenox at therapeutic dose (6) Hypothyroidism: Qualifiers: Hypothyroidism type: unspecified Qualified Code(s): E03.9 - Hypothyroidism, unspecified Code(s): E03.9 - Hypothyroidism, unspecified Status: Chronic Assessment and Plan: Continue IV thyroxine. Change to p.o. when possible (7) Dietary counseling and surveillance: Code(s): Z71.3 - Dietary counseling and surveillance Status: Acute Assessment and Plan: Will resume do feeds depending on CT results (8) Abdominal pain:
[2019-12-09] MEDS: ENOXAPARIN 80 MG/0.8 ML SYRINGE SUB-Q ×2 (08:10→19:51)
[2019-12-09] MEDS: PANTOPRAZOLE SODIUM IV 40 MG VIAL IV PUSH (08:11)
[2019-12-09] MEDS: AMLODIPINE BESYLATE 5 MG TABLET 10 MG PO (08:12)
[2019-12-09] MEDS: PROPOFOL IV EMULSION 100 ML 2.4 MG IV CONT (09:00)
[2019-12-09 09:29] LABS: Glucose Point of Care 125 (65-105)
--- NOTE | 2019-12-09 09:35 | WPDPROCEDUR ---
Procedures Intubation Intubation Date: 12/09/19 Intubation Time: 08:00 Consent: Patient in respiratory distress. Verbal consent obtained from patient A pre-procedural Time-Out was completed immediately before starting the procedure and confirmed: Patient Identification, Site, Procedure, Patient Position and the Availability of Requisite Equipment: Yes Sedative: etomidate (4 mg) Mg given: 20 Paralytic: succinylcholine Mg given: 100 Laryngoscope: fiber optic video scope Assist device used: fiber optic device ET tube size: 7.5 Tube secured depth (cm): 24 Tube secured location: lips Tube placement confirmation: visualized tube passing through cords, equal breath sounds bilaterally, no breath sounds over epigastrium and confirmation by capnometry Patient tolerated procedure: well Intubation complications: none Additional comments: Chest x-ray reviewed Patient was also given 4 mg of Versed IV in the beginning
--- NOTE | 2019-12-09 10:35 | P.PNCROSS_ITS ---
Event Note Event Note Event Note: I called and spoke to patient's ishmael but she does not speak Ukrainian. She wanted me to speak to David and joanie were their grandkids but are 17 and 14 years old. Patient daughter Luh who is an adult but was not available and also does not speak Ukrainian. I updated them with patient's status and overnight events and the fact that he was placed back on ventilator. They did not have any questions and I am not sure how much understand regarding patient's current condition and prognosis. I will talk to our insurance case manager and fisheries technical officer to further investigate
--- NOTE | 2019-12-09 11:26 | PCDIET ---
Nutrition Follow-Up Complete: Nutrition Diagnosis: Predicted suboptimal oral intake related to increased O2 requirements as evidenced by full liquid diet order. Nutrition Goal: Patient to meet estimated nutritional needs. Goal in progress. Patient actually consumed ~50% of meals on pureed, diabetic diet yesterday, but required reintubation earlier today. Plan for CT abdomen/pelvis, then likely resume tube feedings. Recommend resuming Glucerna 1.2 at goal of 50mL/hr with Pro-Stat flush BID for 1520kcal and 96g protein over 22 hours/day. Last recorded weight is 79.5 kg which is decreased from last review. -I/O. Bowel Motility: BM x 1 today. Daily BMs noted. Labs Reviewed: Hgb (9.2), Hct (27.9), Glu (126), BUN (24), Cr (0.6), K (3.3) Meds Noted: Albumin, Fentanyl, Novolog, Protonix, Seroquel, Miralax (not given today), KCl Additional Notes: No documented pressure ulcers. Will continue to monitor with same goal. Nutrition Monitoring and Evaluation: Follow up every Sunday/Sunday. Follow daily in ICU rounds.
[2019-12-09] MEDS: PROPOFOL IV EMULSION 100 ML 23.9 MG IV CONT ×3 (12:04→19:38)
--- NOTE | 2019-12-09 12:56 | PM.EVENT ---
Event Note Event Note Event Note: Temp 37.7 WBC 9.7 -> 11.6 Pt tender in R groin. Discussed with nurse who held 10 minute pressure after removing Arterial line yesterday. Hematoma not apparent superficial on exam. US - 8.3 x 2.7 x 3.9 cm complex fluid collection at the right groin without internal flow on color Doppler most likely representing an evolving hematoma. No pseudoaneurysm identified. - Check Blood Cx - Empiric Vanc and Zosyn
[2019-12-09 13:13] LABS: Alveolar/Arterial O2 Gradient 269.4 mmHg; Base Excess ABG 4.8 mEq/l (+/-2.0); Device VENTILATOR; Fractional Inspired Oxygen 55 %; HCO3 ABG 28.6 mEq/l (22.0-26.0); Modified Allen's Test Pass; Oxygen Content ABG 13.2 %vol (16.0-22.0); Oxygen Saturation ABG 96.4 % (95.0-100.0); Oxyhemoglobin 94.2 % THb (90.0-100.0); PCO2 ABG 39.3 mmHg (35.0-45.0); PO2 FiO2 Ratio Arterial Blood 1.44 %; Site Drawn RIGHT RADIAL; Total Hemoglobin 9.9 g/dL (12.0-18.0)
[2019-12-09 13:14] LABS: Arterial Blood Gas PEEP 10 cmH2O; Arterial Blood Gas Tidal Volume 420 ml; Arterial Blood Gas Vent Mode CMV; Arterial Blood Gas Ventilator rate 18 /MIN
[2019-12-09] MEDS: POTASSIUM CHLORIDE 20 MEQ PACKET (FOR LIQUID) 40 MEQ PO (13:55)
[2019-12-09 14:54] LABS: Glucose Point of Care 124 (65-105)
--- NOTE | 2019-12-09 16:53 | PM.IMPN ---
Progress Note: A&P Assessment and Plan (1) Acute respiratory failure with hypoxia: Code(s): J96.01 - Acute respiratory failure with hypoxia Status: Acute Assessment and Plan: He had to be reintubated. Management per intensive care physician. (2) COVID-19 virus infection: Code(s): U07.1 - COVID-19 Status: Acute Assessment and Plan: He completed remdisivir and dexamethasone He also received convalescent plasma. 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 On long acting insulin and ISS, consider short acting meal time insulin if glucose continue to be high. (4) Hypothyroidism: Qualifiers: Hypothyroidism type: unspecified Qualified Code(s): E03.9 - Hypothyroidism, unspecified Code(s): E03.9 - Hypothyroidism, unspecified Status: Chronic (5) DVT prophylaxis: Code(s): Z29.9 - Encounter for prophylactic measures, unspecified Status: Acute Assessment and Plan: On pharmacological therapy. Subjective Date/time seen: Intubated, sedated 12/09/19 16:53 Review of Systems Review of Systems: ROS unobtainable: Yes unobtainable due to endotracheal tube Exam Const: Other: Intubated Neck: Neck: supple and no JVD Resp: Auscultation: crackles and diminished lung sounds Cardio: Rate: regular rate Rhythm: regular rhythm GI: Auscultation: normal bowel sounds Neuro: Other: Unable to assess due to sedation. Objective Data Vital Signs Vital Signs: Vital Signs - 24 hr 12/08/19 18:00 12/08/19 20:00 12/08/19 20:51 Temperature 99.1 F Pulse Rate 102 H 98 92 Respiratory Rate 25 H 31 H 34 H Blood Pressure 140/85 139/63 Pulse Oximetry 98 90 90 12/08/19 22:00 12/09/19 00:00 12/09/19 02:00 Temperature 99.2 F Pulse Rate 88 98 98 Respiratory Rate 33 H 33 H 29 H Blood Pressure 143/66 H 143/66 H 141/67 H Pulse Oximetry 98 95 95 12/09/19 04:00 12/09/19 06:00 12/09/19 08:00 Temperature 98.9 F 98.8 F Pulse Rate 94 91 95 Respiratory Rate 33 H 37 H 23 H Blood Pressure 137/70 151/74 H 142/78 H Pulse Oximetry 97 95 97 12/09/19 08:15 12/09/19 10:00 12/09/19 12:00 Temperature 99.9 F H Pulse Rate 121 H 102 H 92 Respiratory Rate 32 H 23 H Blood Pressure 118/67 118/60 Pulse Oximetry 100 100 97 12/09/19 12:45 12/09/19 14:00 12/09/19 14:43 Temperature Pulse Rate 111 H 88 95 Respiratory Rate 31 H Blood Pressure Pulse Oximetry 100 12/09/19 15:59 12/09/19 16:00 Temperature Pulse Rate 121 H 96 Respiratory Rate Blood Pressure Pulse Oximetry 98 Intake/Output Intake/Output: Intake & Output 12/06/19 12/07/19 12/08/19 12/09/19 23:59 23:59 23:59 23:59 Intake Total 2587 1981 550 530 Output Total 1999 1925 1800 450 Balance 587 56 -1250 80 Meds/Results Medications: Active Medications Generic Name Dose Route Start Last Admin Trade Name Freq PRN Reason Stop Dose Admin Acetaminophen 650 mg 11/22/19 10:38 11/26/19 00:32 Tylenol Tablet PO 650 mg Q4H PRN Administration Mild Pain (1-3) or Fever Amlodipine Besylate 10 mg 12/03/19 09:00 12/09/19 08:12 Norvasc PO 10 mg QAM OLENA Administration Artificial Tears 1 drop 11/23/19 15:28 12/09/19 06:31 Artificial Tears EACH EYE 1 drop QID PRN Administration Dry Eye(s) Benzocaine 1 lozenge 11/24/19 07:22 11/24/19 20:13 Chloraseptic Lozenge PO 1 lozenge PRN PRN Administration Sore Throat Dextrose
[2019-12-09] MEDS: ALBUMIN HUMAN 25% 12.5 GM/50ML 100 ML IVPB ×2 (17:21→23:35)
[2019-12-09 18:19] LABS: Glucose Point of Care 183 (65-105)
[2019-12-09 20:33] LABS: Glucose Point of Care 157 (65-105)
[2019-12-09] MEDS: PROPOFOL IV EMULSION 100 ML 21.5 MG IV CONT (23:35)
[2019-12-10] VITALS (28 sets, daily range): BP systolic 115–154; BP diastolic 60–78; PULSE 73–89; RESP 18–28; TEMP 36.9–37.1; O2SAT 91–99
[2019-12-10 00:37] LABS: Glucose Point of Care 147 (65-105)
[2019-12-10] MEDS: PROPOFOL IV EMULSION 100 ML 21.5 MG IV CONT ×2 (03:13→23:17)
[2019-12-10 05:22] LABS: Base Excess ABG 5.4 mEq/l (+/-2.0); Carboxyhemoglobin 0.2 % THb (0-2.0); Fractional Inspired Oxygen 40 %; HCO3 ABG 30.1 mEq/l (22.0-26.0); Methemoglobin ABG 0.1 %THb (0-1.5); Oxygen Content ABG 10.4 %vol (16.0-22.0); Oxygen Saturation ABG 95.1 % (95.0-100.0); Oxyhemoglobin 92.9 % THb (90.0-100.0); PCO2 ABG 45.3 mmHg (35.0-45.0); PO2 ABG 73.1 mmHg (80.0-100.0); PO2 FiO2 Ratio Arterial Blood 1.83 %; Reduced Hemoglobin 6.8 %THb (0-5.0); pH ABG 7.441 (7.350-7.450)
[2019-12-10 05:24] LABS: Device VENTILATOR; Modified Allen's Test Pass; Site Drawn LEFT RADIAL; Total Hemoglobin 7.9 g/dL (12.0-18.0)
[2019-12-10 05:25] LABS: Arterial Blood Gas PEEP 10 cmH2O; Arterial Blood Gas Tidal Volume 400 ml; Arterial Blood Gas Vent Mode CMV; Arterial Blood Gas Ventilator rate 18 /MIN
[2019-12-10] MEDS: ALBUMIN HUMAN 25% 12.5 GM/50ML 100 ML IVPB ×3 (05:40→17:04)
[2019-12-10] MEDS: CENTRAL LINE FLUSH 10 ML IV PUSH ×4 (05:47→20:38)
[2019-12-10] MEDS: LEVOTHYROXINE SODIUM INJ 100 MCG/5 ML VIAL 50 MCG IV PUSH (05:47)
[2019-12-10 05:48] LABS: Hematocrit 22.5 % (42.0-52.0); Hemoglobin 7.1 g/dL (14.0-18.0); Mean Corpuscular HGB Conc 31.6 g/dl (32-36); Mean Corpuscular Hemoglobin 28.5 pg (26-34); Mean Corpuscular Volume 90.4 fl (80-100); Mean Platelet Volume 10.9 fl (7.4-10.4); Platelet Count Result 142 k/mm3 (150-375); Red Blood Count 2.49 M/mm3 (4.6-6.20); Red Cell Distribution Width 12.8 % (11.5-14.5); White Blood Count 6.8 K/mm3 (4.5-10.0)
[2019-12-10 06:06] LABS: Alanine Aminotransferase 12 U/L (4-50); Alkaline Phosphatase 51 U/L (38-126); Aspartate Amino Transferase 19 U/L (17-59); Bilirubin,Total 0.7 mg/dL (0.2-1.3); Blood Urea Nitrogen 27 mg/dL (9-20); Calcium 8.1 mg/dL (8.4-10.2); Carbon Dioxide 34 mmol/L (22-30); Chloride 97 mmol/L (98-107); Estimated CRCL calculation 77 ml/min; Estimated Glomerular Filt Rate > 60; Glucose 167 mg/dL (75-110); Magnesium 2.7 mg/dL (1.6-2.3); Potassium 3.1 mmol/L (3.4-5.0); Sodium 139 mmol/L (137-145)
[2019-12-10] MEDS: PROPOFOL IV EMULSION 100 ML 19.1 MG IV CONT ×3 (08:10→18:05)
[2019-12-10] MEDS: AMLODIPINE BESYLATE 5 MG TABLET 10 MG PO (08:16)
[2019-12-10] MEDS: ENOXAPARIN 80 MG/0.8 ML SYRINGE SUB-Q ×2 (08:16→20:37)
[2019-12-10] MEDS: PANTOPRAZOLE SODIUM IV 40 MG VIAL IV PUSH (08:16)
[2019-12-10] MEDS: polyethylene glycoL 3350 17 GM POWD.PACK PO (08:16)
--- NOTE | 2019-12-10 08:28 | WPDINTPN ---
Progress Note: A&P Assessment and Plan (1) Respiratory failure with hypoxia: Qualifiers: Chronicity: acute Qualified Code(s): J96.01 - Acute respiratory failure with hypoxia Code(s): J96.91 - Respiratory failure, unspecified with hypoxia Status: Acute Assessment and Plan: Acute hypoxic respiratory failure likely related to bilateral infiltrates/ARDS as a result of COVID19. Intubated patient on 11/26/2019 for impending respiratory failure POSITIVE COVID-19 with ARDS physiology. Patient was extubated 12/07/2019 after successful weaning trial. Since then patient has had gradual worsening in his hypoxia and increased oxygen requirement. Patient on non-rebreather mask and 15 L nasal cannula. Although saturation was adequate patient was tachypneic with use of accessory muscles. I explained to patient that he will need to be put back on ventilator and he was agreeable. 12/09/2019 -reintubated without any complication. Chest x-ray and ABG reviewed Wean FiO2 and PEEP Will likely need tracheostomy less shows market improvement soon Patient has completed 10 day course of dexamethasone on 12/02/2019 He completed the dose of remdisivir of 5 days a on 11/27/2019 Received convalascent plasma on 11/28/2019 His inflammatory markers have improved, LDH, D-dimer, ferritin and CRP are all within normal limits Discontinued routine monitoring of markers unless new symptoms arise Patient was being diuresed and has slight contraction alkalosis but did not show any improvement in hypoxia which suggests that that ARDS is the most likely etiology of hypoxia at this point. Will hold further Lasix at this point Doppler ultrasound of the lower extremity has been negative for DVT. CT Chest 12/08 MPRESSION: Severe bilateral pneumonia Pneumomediastinum; no pneumothorax Endotracheal and NG tubes in satisfactory position Right internal jugular central venous catheter Echo 11/29/2019: EF 70%, moderate to severe concentric LV wall thickness, grade 1 diastolic dysfunction, are a moderately enlarged RVSP 33 mmHg (2) COVID-19: Code(s): U07.1 - COVID-19 Status: Acute Assessment and Plan: SARS-CoV-2 PCR POSITIVE Pt on airborne, droplet and contact isolation/precautions His inflammatory markers have improved, LDH, D-dimer, ferritin and CRP are all decreased Appreciate infectious disease evaluation recommendation. 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 Diabetes mellitus complication status: with neurologic complications Diabetes mellitus complication detail: with unspecified neuropathy Qualified Code(s): E11.40 - Type 2 diabetes mellitus with diabetic neuropathy, unspecified Code(s): E11.9 - Type 2 diabetes mellitus without complications Status: Acute Assessment and Plan: Accucheks and SSI -tube feeds have been stopped since extubation hence Lantus was discontinued -closely monitor blood sugars now (4) Essential (primary) hypertension: Code(s): I10 - Essential (primary) hypertension Status: Acute Assessment and Plan: Hemodynamics are stable. Is not requiring any pressor supports. -continue amlodipine and metoprolol (5) DVT prophylaxis: Code(s): Z29.9 - Encounter for prophylactic measures, unspecified Status: Acute Assessment and Plan: Continue Lovenox at therapeutic dose (6) Hypothyroidism: Qualifiers: Hypothyroidism type: unspecified Qualified Code(s): E03.9 - Hypothyroidism, unspecified Code(s): E03.9 - Hypothyroidism, unspecified Status: Chronic Assessment and Plan: Change levothyroxine to p.o. (7) Dietary counseling and surveillance: Code(s): Z71.3 - Dietary counseling and surveillance Status: Acute Assessment an
[2019-12-10 08:40] LABS: Glucose Point of Care 151 (65-105)
--- NOTE | 2019-12-10 11:09 | PCDIET ---
ICU Rounding Note: Patient remains intubated. MD ordered to restart tube feedings today. Recommend goal of 40mL/hr Glucerna 1.2 due to Propofol dosing. Last recorded weight is 83.9kg which is increased. +I/O. Bowel Motility: Last documented BM on 12/09/19. Labs Reviewed: Hgb (7.1), Hct (22.5), Glu (167), Ca (8.1), K (3.1) Meds Noted: Albumin, Fentanyl, Novolog, Protonix, Precedex, Miralax, Vancomycin, Propofol (rate of 19.1mL/hr provides 504kcal over 24 hours daily) Additional Notes: Incision to right groin. No other skin issues noted. Will continue to monitor with same goal. Following daily in ICU rounds. Assessing/reassessing every Sunday/Sunday.
[2019-12-10 12:33] LABS: Glucose Point of Care 158 (65-105)
--- NOTE | 2019-12-10 14:04 | PM.IMPN ---
Progress Note: A&P Assessment and Plan (1) Acute respiratory failure with hypoxia: Code(s): J96.01 - Acute respiratory failure with hypoxia Status: Acute Assessment and Plan: He had to be reintubated. Management per intensive care physician. (2) COVID-19 virus infection: Code(s): U07.1 - COVID-19 Status: Acute Assessment and Plan: He completed remdisivir and dexamethasone He also received convalescent plasma. (3) DM type 2 (diabetes mellitus, type 2): Qualifiers: Diabetes mellitus bed bug exterminator insulin use: unspecified assisted insulin use status Diabetes mellitus complication status: with neurologic complications Diabetes mellitus complication detail: with unspecified neuropathy Qualified Code(s): E11.40 - Type 2 diabetes mellitus with diabetic neuropathy, unspecified Code(s): E11.9 - Type 2 diabetes mellitus without complications Status: Acute Assessment and Plan: Monitor blood glucose on dexamethasone. On long acting insulin and ISS, consider short acting meal time insulin if glucose continue to be high. (4) Hypothyroidism: Qualifiers: Hypothyroidism type: unspecified Qualified Code(s): E03.9 - Hypothyroidism, unspecified Code(s): E03.9 - Hypothyroidism, unspecified Status: Chronic (5) DVT prophylaxis: Code(s): Z29.9 - Encounter for prophylactic measures, unspecified Status: Acute Assessment and Plan: On pharmacological therapy. Subjective Date/time seen: Remains intubated, open his eyes, not in distress. 12/10/19 14:04 Review of Systems Review of Systems: ROS unobtainable: Yes unobtainable due to endotracheal tube Exam Const: General: no acute distress Other: Intubated Neck: Neck: supple and no JVD Resp: Auscultation: crackles, rales and diminished lung sounds Cardio: Rate: regular rate and bradycardic Rhythm: regular rhythm Other: Not using accessory muscles to breath. GI: Inspection: non-distended Auscultation: normal bowel sounds and bowels sounds normal Neuro: Other: Open his eyes but does not follow commands. Objective Data Vital Signs Vital Signs: Vital Signs - 24 hr 12/09/19 14:43 12/09/19 15:55 12/09/19 15:59 Temperature Pulse Rate 95 94 121 H Respiratory Rate 31 H 30 H Blood Pressure Pulse Oximetry 98 12/09/19 16:00 12/09/19 17:25 12/09/19 18:00 Temperature 98.2 F Pulse Rate 94 87 82 Respiratory Rate 29 H 25 H 22 H Blood Pressure 135/67 131/65 Pulse Oximetry 100 100 12/09/19 19:38 12/09/19 19:53 12/09/19 20:00 Temperature 98.8 F Pulse Rate 92 89 89 Respiratory Rate 21 H 28 H 27 H Blood Pressure 134/69 Pulse Oximetry 100 12/09/19 20:40 12/09/19 21:21 12/09/19 22:00 Temperature Pulse Rate 92 85 Respiratory Rate 22 H Blood Pressure 119/59 L Pulse Oximetry 100 97 100 12/09/19 22:37 12/09/19 23:24 12/09/19 23:35 Temperature Pulse Rate 83 80 79 Respiratory Rate 18 Blood Pressure Pulse Oximetry 100 98 12/10/19 00:00 12/10/19 02:00 12/10/19 02:05 Temperature 98.4 F Pulse Rate 79 80 80 Respiratory Rate 25 H 20 20 Blood Pressure 154/78 H 115/61 Pulse Oximetry 99 96 12/10/19 02:25 12/10/19 03:13 12/10/19 04:00 Temperature 98.8 F Pulse Rate 77 74 78 Respiratory Rate 18 21 H Blood Pressure 121/66 Pulse Oximetry 97 95 12/10/19 05:11 12/10/19 05:50 12/10/19 05:51 Temperature Pulse Rate 73 80 80 Respiratory Rate 26 H 25 H Blood Pressure Pulse Oximetry 97 12/10/19 06:00 12/10/19 07:00 12/10/19 08:00 Temperature 98.5 F Pulse Rate 76 74 76 Respiratory Rate 25 H 25 H 27 H Blood Pressure 130/67 125/63 Pulse Oximetry 92 94 12/10/19 08:10 12/10/19 08:20 12/10/19 10:00 Temperature Pulse Rate 74 81 85 Respiratory Rate 20 23 H Blood Pressure 126/71 Pulse Oximetry 98 93 12/10/19 10:55 12/10/19 12:00 12/10/19 14:00 Temperature 98.6 F
[2019-12-10 14:25] LABS: Hematocrit 21.9 % (42.0-52.0); Hemoglobin 7.1 g/dL (14.0-18.0); Mean Corpuscular HGB Conc 32.4 g/dl (32-36); Mean Corpuscular Hemoglobin 29.6 pg (26-34); Mean Corpuscular Volume 91.3 fl (80-100); Mean Platelet Volume 10.4 fl (7.4-10.4); Platelet Count Result 143 k/mm3 (150-375); Red Cell Distribution Width 13.1 % (11.5-14.5); White Blood Count 7.5 K/mm3 (4.5-10.0)
[2019-12-10 17:23] LABS: Glucose Point of Care 179 (65-105)
[2019-12-10 21:09] LABS: Glucose Point of Care 174 (65-105)
[2019-12-11] VITALS (31 sets, daily range): BP systolic 113–158; BP diastolic 56–76; PULSE 51–105; RESP 17–37; TEMP 36.1–37.1; O2SAT 85–100
[2019-12-11] MEDS: ALBUMIN HUMAN 25% 12.5 GM/50ML 100 ML IVPB ×3 (00:53→11:26)
[2019-12-11 01:19] LABS: Glucose Point of Care 181 (65-105)
[2019-12-11 02:20] LABS: Mean Corpuscular HGB Conc 32.1 g/dl (32-36); Mean Corpuscular Hemoglobin 29.6 pg (26-34); Mean Corpuscular Volume 92.5 fl (80-100); Mean Platelet Volume 11.6 fl (7.4-10.4); Platelet Count Result 152 k/mm3 (150-375); Red Blood Count 2.26 M/mm3 (4.6-6.20); Red Cell Distribution Width 13.3 % (11.5-14.5); White Blood Count 5.7 K/mm3 (4.5-10.0)
[2019-12-11 02:23] LABS: Hematocrit 20.9 % (42.0-52.0); Hemoglobin 6.7 g/dL (14.0-18.0)
[2019-12-11 02:33] LABS: Alanine Aminotransferase 10 U/L (4-50); Albumin Level 4.2 g/dL (3.5-5.1); Alkaline Phosphatase 48 U/L (38-126); Aspartate Amino Transferase 13 U/L (17-59); Bilirubin,Total 0.5 mg/dL (0.2-1.3); Blood Urea Nitrogen 28 mg/dL (9-20); Calcium 8.3 mg/dL (8.4-10.2); Carbon Dioxide 33 mmol/L (22-30); Chloride 96 mmol/L (98-107); Estimated CRCL calculation 69 ml/min; Estimated Glomerular Filt Rate > 60; Glucose 197 mg/dL (75-110); Magnesium 2.9 mg/dL (1.6-2.3); Potassium 3.1 mmol/L (3.4-5.0); Sodium 138 mmol/L (137-145)
[2019-12-11 02:53] LABS: Vancomycin Trough 10.5 ug/mL (10.0-20.0)
[2019-12-11] MEDS: PROPOFOL IV EMULSION 100 ML 21.5 MG IV CONT (04:09)
[2019-12-11 04:51] LABS: Alveolar/Arterial O2 Gradient 224.5 mmHg; Base Excess ABG 7.4 mEq/l (+/-2.0); Carboxyhemoglobin 0.3 % THb (0-2.0); Fractional Inspired Oxygen 50 %; HCO3 ABG 32.5 mEq/l (22.0-26.0); Methemoglobin ABG 0.3 %THb (0-1.5); Oxygen Content ABG 13.4 %vol (16.0-22.0); Oxygen Saturation ABG 95.7 % (95.0-100.0); Oxyhemoglobin 93.7 % THb (90.0-100.0); PCO2 ABG 48.8 mmHg (35.0-45.0); PO2 ABG 77.1 mmHg (80.0-100.0); PO2 FiO2 Ratio Arterial Blood 1.54 %; Reduced Hemoglobin 5.7 %THb (0-5.0); Total Hemoglobin 10.1 g/dL (12.0-18.0); pH ABG 7.441 (7.350-7.450)
[2019-12-11 04:52] LABS: Arterial Blood Gas PEEP 8 cmH2O; Arterial Blood Gas Vent Mode CMV; Arterial Blood Gas Ventilator rate 18 /MIN; Device VENTILATOR; Modified Allen's Test Pass; Site Drawn RIGHT RADIAL
[2019-12-11 04:53] LABS: Arterial Blood Gas Tidal Volume 400 ml
[2019-12-11] MEDS: SODIUM CHLORIDE 0.9% IV 250 ML 30 ML IV CONT (04:55)
[2019-12-11] MEDS: LEVOTHYROXINE SODIUM 100 MCG TABLET PO (05:32)
[2019-12-11] MEDS: CENTRAL LINE FLUSH 10 ML IV PUSH ×4 (05:32→21:06)
--- NOTE | 2019-12-11 07:30 | WPDINTPN ---
Progress Note: A&P Assessment and Plan (1) Respiratory failure with hypoxia: Qualifiers: Chronicity: acute Qualified Code(s): J96.01 - Acute respiratory failure with hypoxia Code(s): J96.91 - Respiratory failure, unspecified with hypoxia Status: Acute Assessment and Plan: Acute hypoxic respiratory failure likely related to bilateral infiltrates/ARDS as a result of COVID19. Intubated patient on 11/26/2019 for impending respiratory failure POSITIVE COVID-19 with ARDS physiology. Patient was extubated 12/07/2019 after successful weaning trial. Since then patient has had gradual worsening in his hypoxia and increased oxygen requirement. Patient on non-rebreather mask and 15 L nasal cannula. Although saturation was adequate patient was tachypneic with use of accessory muscles. I explained to patient that he will need to be put back on ventilator and he was agreeable. 12/09/2019 -reintubated without any complication. Chest x-ray and ABG reviewed Patient is on 8 of PEEP and 50% FiO2.. I placed patient on 8/8 pressure support. Although his tidal volumes of adequate he desaturated requiring increase in FiO2 Patient now is on 15 is on ventilator and is not close to extubation due to persistent hypoxia. He will need tracheostomy. I will discuss with patient's today and proceed accordingly. The family has indicated as of now that they would pursue continued ventilator support if needed Patient has completed 10 day course of dexamethasone on 12/02/2019 He completed the dose of remdisivir of 5 days a on 11/27/2019 Received convalascent plasma on 11/28/2019 His inflammatory markers have improved, LDH, D-dimer, ferritin and CRP are all within normal limits Discontinued routine monitoring of markers unless new symptoms arise Patient was being diuresed and has slight contraction alkalosis but did not show any improvement in hypoxia which suggests that that ARDS is the most likely etiology of hypoxia at this point. Will hold further Lasix at this point Doppler ultrasound of the lower extremity has been negative for DVT. CT Chest 12/08 MPRESSION: Severe bilateral pneumonia Pneumomediastinum; no pneumothorax Endotracheal and NG tubes in satisfactory position Right internal jugular central venous catheter Echo 11/29/2019: EF 70%, moderate to severe concentric LV wall thickness, grade 1 diastolic dysfunction, are a moderately enlarged RVSP 33 mmHg (2) COVID-19: Code(s): U07.1 - COVID-19 Status: Acute Assessment and Plan: SARS-CoV-2 PCR POSITIVE Pt on airborne, droplet and contact isolation/precautions His inflammatory markers have improved, LDH, D-dimer, ferritin and CRP are all decreased Appreciate infectious disease evaluation recommendation. Status post dexamethasone, Remdesivir, 1 unit of convalescent plasma (3) DM type 2 (diabetes mellitus, type 2): Qualifiers: Diabetes mellitus buttermaker continuous churn insulin use: unspecified jail insulin use status Diabetes mellitus complication status: with neurologic complications Diabetes mellitus complication detail: with unspecified neuropathy Qualified Code(s): E11.40 - Type 2 diabetes mellitus with diabetic neuropathy, unspecified Code(s): E11.9 - Type 2 diabetes mellitus without complications Status: Acute Assessment and Plan: Accucheks and SSI Lantus (4) Essential (primary) hypertension: Code(s): I10 - Essential (primary) hypertension Status: Acute Assessment and Plan: Hemodynamics are stable. Is not requiring any pressor supports. -continue amlodipine and metoprolol (5) DVT prophylaxis: Code(s): Z29.9 - Encounter for prophylactic measures, unspecified Status: Acute Assessment and Plan: Continue Lovenox at therapeutic dose (6) Hypothyroidism: Qualifiers: Hypothyroidism type: unspecified Qualified Code(s): E03.9 - Hypothyroidism, unspecified Code(s):
[2019-12-11] MEDS: ENOXAPARIN 80 MG/0.8 ML SYRINGE SUB-Q ×2 (08:47→21:04)
[2019-12-11] MEDS: AMLODIPINE BESYLATE 5 MG TABLET 10 MG PO (08:47)
[2019-12-11] MEDS: polyethylene glycoL 3350 17 GM POWD.PACK PO (08:48)
[2019-12-11] MEDS: PANTOPRAZOLE SODIUM IV 40 MG VIAL IV PUSH (08:48)
[2019-12-11] MEDS: INSULIN ASPART (*BKC) 100 UNITS/ML SUB-Q ×3 (08:49→18:06)
[2019-12-11 10:03] LABS: Glucose Point of Care 208 (65-105)
--- NOTE | 2019-12-11 11:02 | PCDIET ---
ICU Rounding Note: Patient receiving Glucerna 1.2 at 40mL/hr with residuals 90mL and below. Discussed recommendation with MD to increase tube feeding to 50mL/hr now that Propofol has been stopped. Verbal order obtained. Last recorded weight is 82.9kg which is down from last review. +I/O. Bowel Motility: Last documented BM on 12/09/19. Labs Reviewed: Hgb (6.7), Hct (20.9), Glu (181), Ca (8.3), Mg (2.9), K (3.1), Alb (4.2) Meds Noted: Albumin, Precedex, Vancomycin, Fentanyl, Novolog, Protonix, Zosyn, Miralax Additional Notes: Right groin incision. No documented pressure ulcers. MD to discuss trach/PEG with patient's family. Recommend K+ replacement if medically appropriate. Following daily in ICU rounds. Assessing/reassessing every Sunday/Sunday.
[2019-12-11 13:15] LABS: Glucose Point of Care 204 (65-105)
[2019-12-11 15:08] LABS: Hematocrit 28.6 % (42.0-52.0); Hemoglobin 9.6 g/dL (14.0-18.0); Mean Corpuscular HGB Conc 33.6 g/dl (32-36); Mean Corpuscular Hemoglobin 30.3 pg (26-34); Mean Corpuscular Volume 90.2 fl (80-100); Mean Platelet Volume 11.7 fl (7.4-10.4); Platelet Count Result 149 k/mm3 (150-375); Red Blood Count 3.17 M/mm3 (4.6-6.20); Red Cell Distribution Width 13.2 % (11.5-14.5); White Blood Count 6.5 K/mm3 (4.5-10.0)
[2019-12-11] MEDS: ALBUMIN HUMAN 25% 25 GM/100 ML 100 ML IVPB ×2 (17:31→23:55)
[2019-12-11 17:49] LABS: Glucose Point of Care 209 (65-105)
[2019-12-11] MEDS: PROPOFOL IV EMULSION 100 ML 2.5 MG IV CONT (19:43)
[2019-12-11 22:22] LABS: Glucose Point of Care 153 (65-105)
[2019-12-11] MEDS: FUROSEMIDE INJ 40 MG/4 ML VIAL IV PUSH (23:34)
[2019-12-12] VITALS (33 sets, daily range): BP systolic 121–151; BP diastolic 60–71; PULSE 46–119; RESP 18–35; TEMP 36.2–37.1; O2SAT 83–98
[2019-12-12 01:05] LABS: Glucose Point of Care 180 (65-105)
[2019-12-12] MEDS: INSULIN ASPART (*BKC) 100 UNITS/ML SUB-Q ×3 (03:36→16:48)
[2019-12-12 04:46] LABS: Glucose Point of Care 230 (65-105)
[2019-12-12 04:46] LABS: Carboxyhemoglobin 0.3 % THb (0-2.0)
[2019-12-12 04:47] LABS: Device VENTILATOR; Fractional Inspired Oxygen 70 %; Modified Allen's Test Pass; Site Drawn RIGHT RADIAL
[2019-12-12] MEDS: ALBUMIN HUMAN 25% 25 GM/100 ML 100 ML IVPB ×4 (04:47→23:37)
[2019-12-12] MEDS: CENTRAL LINE FLUSH 10 ML IV PUSH ×3 (04:51→20:28)
[2019-12-12] MEDS: LEVOTHYROXINE SODIUM 100 MCG TABLET PO (04:52)
[2019-12-12 04:53] LABS: HCO3 ABG 28.2 mEq/l (22.0-26.0); PCO2 ABG 41.1 mmHg (35.0-45.0); PO2 ABG 62.3 mmHg (80.0-100.0); pH ABG 7.454 (7.350-7.450)
[2019-12-12 04:54] LABS: Alveolar/Arterial O2 Gradient 392.6 mmHg; Base Excess ABG 3.9 mEq/l (+/-2.0); Oxygen Content ABG 14.1 %vol (16.0-22.0); Oxygen Saturation ABG 92.9 % (95.0-100.0); Total Hemoglobin 11.1 g/dL (12.0-18.0)
[2019-12-12 04:55] LABS: Methemoglobin ABG 0.3 %THb (0-1.5); Oxyhemoglobin 90.3 % THb (90.0-100.0); PO2 FiO2 Ratio Arterial Blood 0.89 %; Reduced Hemoglobin 9.1 %THb (0-5.0)
[2019-12-12 04:56] LABS: Arterial Blood Gas PEEP 8 cmH2O; Arterial Blood Gas Tidal Volume 400 ml; Arterial Blood Gas Vent Mode CMV; Arterial Blood Gas Ventilator rate 18 /MIN
[2019-12-12 05:22] LABS: Hematocrit 30.5 % (42.0-52.0); Mean Corpuscular HGB Conc 32.8 g/dl (32-36); Mean Corpuscular Hemoglobin 29.4 pg (26-34); Mean Corpuscular Volume 89.7 fl (80-100); Platelet Count Result 161 k/mm3 (150-375); Red Cell Distribution Width 13.1 % (11.5-14.5); White Blood Count 6.5 K/mm3 (4.5-10.0)
[2019-12-12 05:27] LABS: Blood Urea Nitrogen 27 mg/dL (9-20); Calcium 8.6 mg/dL (8.4-10.2); Carbon Dioxide 35 mmol/L (22-30); Chloride 97 mmol/L (98-107); Estimated CRCL calculation 86 ml/min; Estimated Glomerular Filt Rate > 60; Glucose 265 mg/dL (75-110); Potassium 3.2 mmol/L (3.4-5.0); Sodium 141 mmol/L (137-145)
--- NOTE | 2019-12-12 07:30 | WPDINTPN ---
Progress Note: A&P Assessment and Plan (1) Respiratory failure with hypoxia: Qualifiers: Chronicity: acute Qualified Code(s): J96.01 - Acute respiratory failure with hypoxia Code(s): J96.91 - Respiratory failure, unspecified with hypoxia Status: Acute Assessment and Plan: Acute hypoxic respiratory failure likely related to bilateral infiltrates/ARDS as a result of COVID19. Intubated patient on 11/26/2019 for impending respiratory failure POSITIVE COVID-19 with ARDS physiology. Patient was extubated 12/07/2019 after successful weaning trial. Since then patient has had gradual worsening in his hypoxia and increased oxygen requirement. Patient on non-rebreather mask and 15 L nasal cannula. Although saturation was adequate patient was tachypneic with use of accessory muscles. I explained to patient that he will need to be put back on ventilator and he was agreeable. 12/09/2019 -reintubated without any complication. Chest x-ray and ABG reviewed Overnight patient desaturated when sedation was lowered and FiO2 had to be increased. Increase PEEP to 10 and decrease FiO2 to 70% this morning Received Lasix overnight after blood transfusion Patient has completed 10 day course of dexamethasone on 12/02/2019 He completed the dose of remdisivir of 5 days a on 11/27/2019 Received convalascent plasma on 11/28/2019 His inflammatory markers have improved, LDH, D-dimer, ferritin and CRP are all within normal limits Discontinued routine monitoring of markers unless new symptoms arise Patient was being diuresed and has slight contraction alkalosis but did not show any improvement in hypoxia which suggests that that ARDS is the most likely etiology of hypoxia at this point. Will hold further scheduled Lasix at this point Doppler ultrasound of the lower extremity has been negative for DVT. CT Chest 12/08 IMPRESSION: Severe bilateral pneumonia Pneumomediastinum; no pneumothorax Endotracheal and NG tubes in satisfactory position Right internal jugular central venous catheter Echo 11/29/2019: EF 70%, moderate to severe concentric LV wall thickness, grade 1 diastolic dysfunction, are a moderately enlarged RVSP 33 mmHg Patient now needs tracheostomy. He has been on ventilator for 16 days and is not close to extubation due to hypoxia. I have spoken to patient's family yesterday and a family meeting with director case and a oil transport driver. They are agreeable to proceeding with tracheostomy and PEG tube and want to continue mechanical ventilation support for as long as needed. Will repeat COVID PCR today which will direct his transfer and placement (2) COVID-19: Code(s): U07.1 - COVID-19 Status: Acute Assessment and Plan: SARS-CoV-2 PCR POSITIVE Pt on airborne, droplet and contact isolation/precautions His inflammatory markers have improved, LDH, D-dimer, ferritin and CRP are all decreased Appreciate infectious disease evaluation recommendation. Status post dexamethasone, Remdesivir, 1 unit of convalescent plasma (3) DM type 2 (diabetes mellitus, type 2): Qualifiers: Diabetes mellitus jail insulin use: unspecified long term care social worker insulin use status Diabetes mellitus complication status: with neurologic complications Diabetes mellitus complication detail: with unspecified neuropathy Qualified Code(s): E11.40 - Type 2 diabetes mellitus with diabetic neuropathy, unspecified Code(s): E11.9 - Type 2 diabetes mellitus without complications Status: Acute Assessment and Plan: Accucheks and SSI Lantus increased (4) Essential (primary) hypertension: Code(s): I10 - Essential (primary) hypertension Status: Acute Assessment and Plan: Hemodynamics are stable. Is not requiring any pressor supports. -continue amlodipine and metoprolol (5) DVT prophylaxis: Code(s): Z29.9 - Encounter for prophylactic measures, unspecified Status: Acute Assessment
[2019-12-12] MEDS: INSULIN GLARGINE (*BKC) 100 UNITS/ML 20 UNITS SUB-Q (08:56)
[2019-12-12] MEDS: ENOXAPARIN 80 MG/0.8 ML SYRINGE SUB-Q ×2 (08:57→20:28)
[2019-12-12] MEDS: polyethylene glycoL 3350 17 GM POWD.PACK PO (08:57)
[2019-12-12] MEDS: PANTOPRAZOLE SODIUM IV 40 MG VIAL IV PUSH (08:58)
[2019-12-12] MEDS: AMLODIPINE BESYLATE 5 MG TABLET 10 MG PO (08:58)
[2019-12-12] MEDS: POTASSIUM CHLORIDE 20 MEQ PACKET (FOR LIQUID) 40 MEQ PO ×2 (09:09→13:21)
--- NOTE | 2019-12-12 10:45 | PCDIET ---
Nutrition Follow-Up Complete: Nutrition Diagnosis: Predicted suboptimal oral intake related to increased O2 requirements as evidenced by full liquid diet order. Nutrition Goal: Patient to meet estimated nutritional needs. Goal in progress. Glucerna 1.2 remains at 40mL/hr. RN to advance to 50mL/hr per MD order. Recommend resuming Pro-Stat BID, as well. Plan for trach/PEG in near future. Last recorded weight is 86.7 kg which is increased from last review. +I/O. Bowel Motility: Last documented BM on 12/09/19. Labs Reviewed: Hgb (10.0), Hct (30.5), Glu (265), K (3.2) Meds Noted: Albumin, Zosyn, Precedex, Miralax, KCl, Novolog, Vancomycin, Lantus, Protonix Additional Notes: Right groin incision. No reported pressure ulcers. Nutrition Monitoring and Evaluation: Follow up every Sunday/Sunday. Follow daily in ICU rounds.
[2019-12-12 10:59] LABS: Glucose Point of Care 214 (65-105)
[2019-12-12] MEDS: FUROSEMIDE INJ 40 MG/4 ML VIAL IV PUSH (15:06)
[2019-12-12] MEDS: PROPOFOL IV EMULSION 100 ML 7.8 MG IV CONT (15:07)
--- NOTE | 2019-12-12 15:53 | PM.IMPN ---
Progress Note: A&P Assessment and Plan (1) Acute respiratory failure with hypoxia: Code(s): J96.01 - Acute respiratory failure with hypoxia Status: Acute Assessment and Plan: He had to be reintubated. Management per intensive care physician. (2) COVID-19 virus infection: Code(s): U07.1 - COVID-19 Status: Acute Assessment and Plan: He completed remdisivir and dexamethasone He also received convalescent plasma. (3) DM type 2 (diabetes mellitus, type 2): Qualifiers: Diabetes mellitus medical terminologist insulin use: unspecified [facility] insulin use status Diabetes mellitus complication status: with neurologic complications Diabetes mellitus complication detail: with unspecified neuropathy Qualified Code(s): E11.40 - Type 2 diabetes mellitus with diabetic neuropathy, unspecified Code(s): E11.9 - Type 2 diabetes mellitus without complications Status: Acute Assessment and Plan: Monitor blood glucose on dexamethasone. On long acting insulin and ISS, consider short acting meal time insulin if glucose continue to be high. (4) Hypothyroidism: Qualifiers: Hypothyroidism type: unspecified Qualified Code(s): E03.9 - Hypothyroidism, unspecified Code(s): E03.9 - Hypothyroidism, unspecified Status: Chronic (5) DVT prophylaxis: Code(s): Z29.9 - Encounter for prophylactic measures, unspecified Status: Acute Assessment and Plan: On pharmacological therapy. Subjective Date/time seen: 12/12/19 15:53 Interval history: 64-year-old male with history of coronary artery disease status post CABG, hypertension, hyperlipidemia, and type 2 diabetes mellitus who presented to the emergency department with complaints of cough, shortness of breath, and fever. Found to be covid positive with Bilateral infiltrates on cxr. Patient was intubated for acute hypoxic respiratory failure. Pt has received convalescent plasma. Currently he is on steroids and diuresis. Completed 5 days of remdesivir already. Unfortunately pt had to be reintubated on 12/08 for respiratory failure and ARDS. Pt has been in the hospital over 20 days pt requires extended hospitalization due to ARDS, respiratory failure, COVID positive status with underlying bilateral infiltrates. Pt also has multiple co-morbidities as mentioned above. Review of Systems Review of Systems: ROS unobtainable: Yes unobtainable due to endotracheal tube Exam Const: General: comfortable and no acute distress Other: Intubated Resp: Other: On vent Objective Data Vital Signs Vital Signs: Vital Signs - 24 hr 12/11/19 16:00 12/11/19 17:41 12/11/19 18:00 Temperature 36.8 C Pulse Rate 73 77 81 Respiratory Rate 23 H 25 H Blood Pressure 123/69 136/70 Pulse Oximetry 91 93 90 12/11/19 19:43 12/11/19 20:00 12/11/19 20:30 Temperature 37.1 C Pulse Rate 102 H 105 H 81 Respiratory Rate 37 H 36 H Blood Pressure 158/76 H Pulse Oximetry 85 L 93 12/11/19 22:00 12/11/19 23:20 12/12/19 00:00 Temperature 36.8 C Pulse Rate 60 51 L 49 L Respiratory Rate 18 Blood Pressure 140/69 Pulse Oximetry 99 98 12/12/19 02:00 12/12/19 02:02 12/12/19 04:00 Temperature 36.4 C 36.6 C Pulse Rate 46 L 69 69 Respiratory Rate 18 20 Blood Pressure 132/66 123/65 Pulse Oximetry 97 94 98 12/12/19 05:05 12/12/19 06:00 12/12/19 06:11 Temperature Pulse Rate 65 61 66 Respiratory Rate 21 H 21 H Blood Pressure 133/60 Pulse Oximetry 96 95 12/12/19 08:00 12/12/19 08:15 12/12/19 10:00 Temperature 36.2 C L Pulse Rate 64 63 66 Respiratory Rate 21 H 23 H Blood Pressure 130/64 128/65 Pulse Oximetry 95 95 94 12/12/19 11:20 12/12/19 11:33 12/12/19 11:53 Temperature Pulse Rate 62 75 75 Respiratory Rate 24 H 24 H Blood Pressure Pulse Oximetry 95 12/12/19 12:00 12/12/19 12:03 12/12/19 12:35 Temperature 37.1 C Pulse Rate 80 77 79 Respiratory Ra
[2019-12-12 19:17] LABS: Glucose Point of Care 182 (65-105)
[2019-12-12 19:17] LABS: Glucose Point of Care 212 (65-105)
[2019-12-12 21:00] LABS: Glucose Point of Care 109 (65-105)
[2019-12-12 22:55] LABS: Alveolar/Arterial O2 Gradient 461.1 mmHg; Carboxyhemoglobin 0.3 % THb (0-2.0); Fractional Inspired Oxygen 80 %; HCO3 ABG 32.1 mEq/l (22.0-26.0); Methemoglobin ABG 0.4 %THb (0-1.5); Oxygen Content ABG 13.1 %vol (16.0-22.0); Oxygen Saturation ABG 90.9 % (95.0-100.0); Oxyhemoglobin 88.7 % THb (90.0-100.0); PCO2 ABG 48.5 mmHg (35.0-45.0); PO2 ABG 58.4 mmHg (80.0-100.0); PO2 FiO2 Ratio Arterial Blood 0.73 %; Reduced Hemoglobin 10.6 %THb (0-5.0); Total Hemoglobin 10.5 g/dL (12.0-18.0); pH ABG 7.439 (7.350-7.450)
[2019-12-12 22:56] LABS: Modified Allen's Test Pass; Site Drawn RIGHT RADIAL
[2019-12-12 22:57] LABS: Arterial Blood Gas Vent Mode CMV; Arterial Blood Gas Ventilator rate 18 /MIN; Device VENTILATOR
[2019-12-12 22:58] LABS: Arterial Blood Gas PEEP 14 cmH2O; Arterial Blood Gas Pressure Support 0 cmH2O; Arterial Blood Gas Tidal Volume 400 ml
[2019-12-12] MEDS: PROPOFOL IV EMULSION 100 ML 26 MG IV CONT (23:37)
[2019-12-12 23:47] LABS: Glucose Point of Care 116 (65-105)
[2019-12-13] VITALS (24 sets, daily range): BP systolic 111–164; BP diastolic 60–85; PULSE 56–123; RESP 15–22; TEMP 36.4–37; O2SAT 94–100
[2019-12-13] MEDS: PROPOFOL IV EMULSION 100 ML 26 MG IV CONT ×6 (03:31→21:18)
[2019-12-13 04:49] LABS: Alveolar/Arterial O2 Gradient 447.6 mmHg; Base Excess ABG 4.3 mEq/l (+/-2.0); Carboxyhemoglobin 0.3 % THb (0-2.0); Fractional Inspired Oxygen 80 %; HCO3 ABG 29.2 mEq/l (22.0-26.0); Methemoglobin ABG 0.4 %THb (0-1.5); Oxygen Content ABG 15.5 %vol (16.0-22.0); Oxygen Saturation ABG 95.5 % (95.0-100.0); Oxyhemoglobin 93.6 % THb (90.0-100.0); PCO2 ABG 44.8 mmHg (35.0-45.0); PO2 ABG 75.8 mmHg (80.0-100.0); PO2 FiO2 Ratio Arterial Blood 0.95 %; Reduced Hemoglobin 5.7 %THb (0-5.0); Total Hemoglobin 11.7 g/dL (12.0-18.0); pH ABG 7.432 (7.350-7.450)
[2019-12-13 04:50] LABS: Arterial Blood Gas Ventilator rate 18 /MIN; Device VENTILATOR; Modified Allen's Test Pass; Site Drawn RIGHT RADIAL
[2019-12-13 04:51] LABS: Arterial Blood Gas PEEP 14 cmH2O; Arterial Blood Gas Pressure Support 0 cmH2O; Arterial Blood Gas Tidal Volume 400 ml; Arterial Blood Gas Vent Mode CMV
[2019-12-13] MEDS: ALBUMIN HUMAN 25% 25 GM/100 ML 100 ML IVPB ×4 (05:45→23:00)
[2019-12-13] MEDS: CENTRAL LINE FLUSH 10 ML IV PUSH ×3 (05:45→19:41)
[2019-12-13] MEDS: LEVOTHYROXINE SODIUM 100 MCG TABLET PO (05:50)
[2019-12-13 06:30] LABS: Hematocrit 27.7 % (42.0-52.0); Hemoglobin 9.1 g/dL (14.0-18.0); Mean Corpuscular HGB Conc 32.9 g/dl (32-36); Mean Corpuscular Hemoglobin 29.7 pg (26-34); Mean Corpuscular Volume 90.5 fl (80-100); Mean Platelet Volume 11.1 fl (7.4-10.4); Platelet Count Result 161 k/mm3 (150-375); Red Blood Count 3.06 M/mm3 (4.6-6.20); White Blood Count 7.1 K/mm3 (4.5-10.0)
[2019-12-13 06:41] LABS: Blood Urea Nitrogen 35 mg/dL (9-20); Calcium 8.7 mg/dL (8.4-10.2); Carbon Dioxide 34 mmol/L (22-30); Chloride 99 mmol/L (98-107); Estimated CRCL calculation 87 ml/min; Estimated Glomerular Filt Rate > 60; Glucose 123 mg/dL (75-110); Potassium 3.3 mmol/L (3.4-5.0); Sodium 142 mmol/L (137-145)
[2019-12-13] MEDS: INSULIN GLARGINE (*BKC) 100 UNITS/ML 20 UNITS SUB-Q (07:48)
[2019-12-13] MEDS: ENOXAPARIN 80 MG/0.8 ML SYRINGE SUB-Q ×2 (07:57→19:42)
[2019-12-13] MEDS: AMLODIPINE BESYLATE 5 MG TABLET 10 MG PO (08:00)
[2019-12-13] MEDS: PANTOPRAZOLE SODIUM IV 40 MG VIAL IV PUSH (08:00)
[2019-12-13] MEDS: polyethylene glycoL 3350 17 GM POWD.PACK PO (08:01)
--- NOTE | 2019-12-13 08:39 | WPDINTPN ---
Progress Note: A&P Assessment and Plan (1) Respiratory failure with hypoxia: Qualifiers: Chronicity: acute Qualified Code(s): J96.01 - Acute respiratory failure with hypoxia Code(s): J96.91 - Respiratory failure, unspecified with hypoxia Status: Acute Assessment and Plan: Acute hypoxic respiratory failure likely related to bilateral infiltrates/ARDS as a result of COVID19. Intubated patient on 11/26/2019 for impending respiratory failure POSITIVE COVID-19 with ARDS physiology. Patient was extubated 12/07/2019 after successful weaning trial. Since then patient has had gradual worsening in his hypoxia and increased oxygen requirement. Patient on non-rebreather mask and 15 L nasal cannula. Although saturation was adequate patient was tachypneic with use of accessory muscles. I explained to patient that he will need to be put back on ventilator and he was agreeable. 12/09/2019 -reintubated without any complication. Chest x-ray and ABG reviewed Overnight patient desaturated, ABGs revealed hypoxemia. Peep was increased to 14 and FiO2 was increased to 80% with much improved ABGs this morning Chest x-ray this morning (12/13/2019) with slight improvement in aeration Patient has completed 10 day course of dexamethasone on 12/02/2019 He completed the dose of remdisivir of 5 days a on 11/27/2019 Received convalascent plasma on 11/28/2019 His inflammatory markers have improved, LDH, D-dimer, ferritin and CRP are all within normal limits Discontinued routine monitoring of markers unless new symptoms arise Patient was being diuresed and has slight contraction alkalosis but did not show any improvement in hypoxia which suggests that that ARDS is the most likely etiology of hypoxia at this point. Will hold further scheduled Lasix at this point Doppler ultrasound of the lower extremity has been negative for DVT. CT Chest 12/08 IMPRESSION: Severe bilateral pneumonia Pneumomediastinum; no pneumothorax Endotracheal and NG tubes in satisfactory position Right internal jugular central venous catheter Echo 11/29/2019: EF 70%, moderate to severe concentric LV wall thickness, grade 1 diastolic dysfunction, are a moderately enlarged RVSP 33 mmHg Patient now needs tracheostomy. He has been on ventilator for 16 days and is not close to extubation due to hypoxia. Dr Margaret Cisneros spoke to the family on 12/10 along with [facility] binder caser and a drying frame operator. They are agreeable to proceeding with tracheostomy and PEG tube and want to continue mechanical ventilation support for as long as needed. Will hold repeat SARS-CoV-2 PCR testing as patient has increasing ventilated requirements (2) COVID-19: Code(s): U07.1 - COVID-19 Status: Acute Assessment and Plan: SARS-CoV-2 PCR POSITIVE Pt on airborne, droplet and contact isolation/precautions Will hold testing inflammatory markers as they had improved Appreciate infectious disease evaluation recommendation. Status post dexamethasone, Remdesivir, 1 unit of convalescent plasma (3) DM type 2 (diabetes mellitus, type 2): Qualifiers: Diabetes mellitus [facility] insulin use: unspecified [facility] insulin use status Diabetes mellitus complication status: with neurologic complications Diabetes mellitus complication detail: with unspecified neuropathy Qualified Code(s): E11.40 - Type 2 diabetes mellitus with diabetic neuropathy, unspecified Code(s): E11.9 - Type 2 diabetes mellitus without complications Status: Acute Assessment and Plan: Accucheks and SSI Continue Lantus (4) Essential (primary) hypertension: Code(s): I10 - Essential (primary) hypertension Status: Acute Assessment and Plan: Hemodynamics are stable. Is not requiring any pressor supports. -continue amlodipine and metoprolol (5) DVT prophylaxis: Code(s): Z29.9 - Encounter for prophylactic measures, unspecified Status: Acute Assessme
[2019-12-13 10:38] LABS: Glucose Point of Care 118 (65-105)
--- NOTE | 2019-12-13 11:33 | PC.NURSE ---
At 1056 patients ventilator started alarming for high peak pressures and low tidal volumes. I was putting on PPE and patients oxygen dropped from 94 to 88 before I was able to get in the room. I attempted suctioning patient through ETT but was unable to fully get down. Patients sats continued to rapidly dropped into the 60s. RT and Dr. Ho called STAT to bedside. I attempted bagging the patient but bagging was extremely difficult and patient continued to desaturate down and became bradycardic. Dr. Ho ordered 1 amp of epinephrine and RT was able to remove some secretions via multiple rescue cath attempts. Patient was then able to be bagged and placed on ventilator. Patient was still having high peak pressures so Dr. Ho decided to replace the ETT. New ETT and OG were placed which resulted in easier bagging and improved saturations. Large clot was seen at distal end of ETT.
[2019-12-13 12:02] LABS: Glucose Point of Care 194 (65-105)
[2019-12-13] MEDS: METOPROLOL TARTRATE INJ 5 MG/5 ML VIAL IV PUSH (12:20)
[2019-12-13 12:42] LABS: Alveolar/Arterial O2 Gradient 504.6 mmHg; Base Excess ABG 0.3 mEq/l (+/-2.0); Fractional Inspired Oxygen 100 %; HCO3 ABG 28.2 mEq/l (22.0-26.0); Oxygen Content ABG 15.4 %vol (16.0-22.0); Oxygen Saturation ABG 98.5 % (95.0-100.0); Oxyhemoglobin 96.9 % THb (90.0-100.0); PO2 ABG 145.8 mmHg (80.0-100.0); PO2 FiO2 Ratio Arterial Blood 1.46 %; Total Hemoglobin 11.1 g/dL (12.0-18.0)
[2019-12-13 12:44] LABS: Arterial Blood Gas Ventilator rate 18 /MIN; Device VENTILATOR; Modified Allen's Test Pass; PCO2 ABG 62.6 mmHg (35.0-45.0); Site Drawn RIGHT RADIAL; pH ABG 7.271 (7.350-7.450)
[2019-12-13 12:45] LABS: Arterial Blood Gas PEEP 14 cmH2O; Arterial Blood Gas Tidal Volume 400 ml; Arterial Blood Gas Vent Mode CMV
--- NOTE | 2019-12-13 14:28 | WPDPROCEDUR ---
Procedures Intubation Intubation Date: 12/13/19 A pre-procedural Time-Out was completed immediately before starting the procedure and confirmed: Patient Identification, Site, Procedure, Patient Position and the Availability of Requisite Equipment: Yes Sedative: etomidate Paralytic: succinylcholine Laryngoscope: fiber optic video scope ET tube size: 7.5 Tube secured depth (cm): 25 Tube secured location: lips Tube placement confirmation: visualized tube passing through cords, equal breath sounds bilaterally, no breath sounds over epigastrium and confirmation by capnometry Patient tolerated procedure: well Intubation complications: none Additional comments: Patient had an ETT, saturating 93-95% through the morning, the bedside RN suddenly noticed desaturated to 80s in 60s. We all rushed to the room in started to bagged the patient. It was very difficult to bag him, he continued to drop his O2 sats. A rescue cath and he had multiple mucus plugs after which his sats came up. Patient was just reintubated using new ETT with the help of a glide scope. Not many secretions were noted in the hypopharynx. Once the new ETT was placed, patient's O2 sats came up pretty quickly. The old ETT did contain a lot of thick mucus plugs.
--- NOTE | 2019-12-13 16:23 | PM.IMPN ---
Progress Note: A&P Assessment and Plan (1) Acute respiratory failure with hypoxia: Code(s): J96.01 - Acute respiratory failure with hypoxia Status: Acute Assessment and Plan: He had to be reintubated today. With new ETT by ICU doctor due to desaturation and old ETT tube blocked with mucous plugs 3rd intubation 11/25 ARDS, 12/08 ongoing respiratory failure and 12/12 mucous plugging Management per intensive care physician. (2) COVID-19 virus infection: Code(s): U07.1 - COVID-19 Status: Acute Assessment and Plan: He completed remdisivir and dexamethasone He also received convalescent plasma. 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 On long acting insulin and ISS, consider short acting meal time insulin if glucose continues to be high. (4) Hypothyroidism: Qualifiers: Hypothyroidism type: unspecified Qualified Code(s): E03.9 - Hypothyroidism, unspecified Code(s): E03.9 - Hypothyroidism, unspecified Status: Chronic (5) DVT prophylaxis: Code(s): Z29.9 - Encounter for prophylactic measures, unspecified Status: Acute Assessment and Plan: On pharmacological therapy. Subjective Date/time seen: 12/13/19 16:23 Interval history: 64-year-old male with history of coronary artery disease status post CABG, hypertension, hyperlipidemia, and type 2 diabetes mellitus who presented to the emergency department with complaints of cough, shortness of breath, and fever. Found to be covid positive with Bilateral infiltrates on cxr. Patient was intubated for acute hypoxic respiratory failure. Pt has received convalescent plasma. Currently he is on steroids and diuresis. Completed 5 days of remdesivir already. Unfortunately pt had to be reintubated on 12/08 for respiratory failure and ARDS. Pt had to be reintubated today with new ETT by ICU doctor due to desaturation and old ETT tube blocked with mucous plugs Pt has been in the hospital over 20 days pt requires extended hospitalization due to ARDS, respiratory failure, COVID positive status with underlying bilateral infiltrates. Pt also has multiple co-morbidities as mentioned above. Review of Systems Review of Systems: ROS unobtainable: Yes unobtainable due to endotracheal tube Exam Narrative: Exam Narrative: Patient seen but not examined Const: General: comfortable and no acute distress Other: Intubated Resp: Other: On vent Objective Data Vital Signs Vital Signs: Vital Signs - 24 hr 12/12/19 17:08 12/12/19 17:14 12/12/19 18:00 Temperature Pulse Rate 60 58 L 56 L Respiratory Rate 20 20 Blood Pressure 122/60 Pulse Oximetry 90 88 L 12/12/19 20:00 12/12/19 20:30 12/12/19 21:57 Temperature 36.4 C Pulse Rate 52 L 82 61 Respiratory Rate 18 19 Blood Pressure 123/61 Pulse Oximetry 90 87 L 12/12/19 22:00 12/12/19 22:43 12/13/19 00:00 Temperature 36.6 C Pulse Rate 59 L 59 L 56 L Respiratory Rate 18 16 Blood Pressure 121/60 116/62 Pulse Oximetry 89 L 93 95 12/13/19 02:00 12/13/19 02:25 12/13/19 04:00 Temperature 36.9 C Pulse Rate 59 L 59 L 60 Respiratory Rate 15 17 Blood Pressure 111/60 117/60 Pulse Oximetry 98 96 97 12/13/19 04:34 12/13/19 06:00 12/13/19 07:54 Temperature 37.0 C Pulse Rate 62 74 78 Respiratory Rate 21 H 18 Blood Pressure 123/67 130/72 Pulse Oximetry 99 96 94 12/13/19 08:00 12/13/19 10:00 12/13/19 11:55 Temperature 36.9 C Pul
[2019-12-13 16:54] LABS: Glucose Point of Care 191 (65-105)
[2019-12-13 20:00] LABS: Glucose Point of Care 194 (65-105)
[2019-12-14] VITALS (21 sets, daily range): BP systolic 124–150; BP diastolic 61–70; PULSE 70–105; RESP 19–31; TEMP 36.3–36.9; O2SAT 91–99
[2019-12-14 00:25] LABS: Glucose Point of Care 168 (65-105)
[2019-12-14] MEDS: PROPOFOL IV EMULSION 100 ML 26 MG IV CONT ×6 (01:39→20:32)
[2019-12-14 04:54] LABS: Alveolar/Arterial O2 Gradient 329.4 mmHg; Base Excess ABG 4.9 mEq/l (+/-2.0); Carboxyhemoglobin 0.3 % THb (0-2.0); Device VENTILATOR; Fractional Inspired Oxygen 70 %; HCO3 ABG 29.6 mEq/l (22.0-26.0); Methemoglobin ABG 0.3 %THb (0-1.5); Modified Allen's Test Pass; Oxygen Content ABG 11.9 %vol (16.0-22.0); Oxygen Saturation ABG 98.5 % (95.0-100.0); Oxyhemoglobin 97.1 % THb (90.0-100.0); PCO2 ABG 44.8 mmHg (35.0-45.0); PO2 ABG 121.5 mmHg (80.0-100.0); PO2 FiO2 Ratio Arterial Blood 1.74 %; Reduced Hemoglobin 2.3 %THb (0-5.0); Site Drawn LEFT RADIAL; Total Hemoglobin 8.5 g/dL (12.0-18.0); pH ABG 7.438 (7.350-7.450)
[2019-12-14 04:55] LABS: Arterial Blood Gas PEEP 14 cmH2O; Arterial Blood Gas Tidal Volume 400 ml; Arterial Blood Gas Vent Mode CMV; Arterial Blood Gas Ventilator rate 22 /MIN
[2019-12-14] MEDS: ALBUMIN HUMAN 25% 25 GM/100 ML 100 ML IVPB ×3 (06:19→17:10)
[2019-12-14] MEDS: LEVOTHYROXINE SODIUM 100 MCG TABLET PO (06:23)
[2019-12-14] MEDS: CENTRAL LINE FLUSH 10 ML IV PUSH ×3 (06:25→20:32)
[2019-12-14 06:26] LABS: Hematocrit 26.4 % (42.0-52.0); Hemoglobin 8.5 g/dL (14.0-18.0); Mean Corpuscular HGB Conc 32.2 g/dl (32-36); Mean Corpuscular Hemoglobin 29.5 pg (26-34); Mean Corpuscular Volume 91.7 fl (80-100); Mean Platelet Volume 11.2 fl (7.4-10.4); Platelet Count Result 163 k/mm3 (150-375); Red Blood Count 2.88 M/mm3 (4.6-6.20); Red Cell Distribution Width 13.4 % (11.5-14.5); White Blood Count 7.5 K/mm3 (4.5-10.0)
[2019-12-14 06:48] LABS: Blood Urea Nitrogen 43 mg/dL (9-20); Calcium 9.1 mg/dL (8.4-10.2); Carbon Dioxide 34 mmol/L (22-30); Chloride 99 mmol/L (98-107); Estimated CRCL calculation 89 ml/min; Estimated Glomerular Filt Rate > 60; Glucose 166 mg/dL (75-110); Magnesium 2.8 mg/dL (1.6-2.3); Potassium 3.6 mmol/L (3.4-5.0); Sodium 141 mmol/L (137-145)
[2019-12-14] MEDS: polyethylene glycoL 3350 17 GM POWD.PACK PO (07:39)
[2019-12-14] MEDS: PANTOPRAZOLE SODIUM IV 40 MG VIAL IV PUSH (07:39)
[2019-12-14] MEDS: ENOXAPARIN 80 MG/0.8 ML SYRINGE SUB-Q ×2 (07:40→20:33)
[2019-12-14] MEDS: AMLODIPINE BESYLATE 5 MG TABLET 10 MG PO (07:40)
[2019-12-14] MEDS: INSULIN GLARGINE (*BKC) 100 UNITS/ML 20 UNITS SUB-Q (07:40)
--- NOTE | 2019-12-14 11:06 | WPDINTPN ---
Progress Note: A&P Assessment and Plan (1) Respiratory failure with hypoxia: Qualifiers: Chronicity: acute Qualified Code(s): J96.01 - Acute respiratory failure with hypoxia Code(s): J96.91 - Respiratory failure, unspecified with hypoxia Status: Acute Assessment and Plan: Acute hypoxic respiratory failure likely related to bilateral infiltrates/ARDS as a result of COVID19. Intubated patient on 11/26/2019 for impending respiratory failure POSITIVE COVID-19 with ARDS physiology. Patient was extubated 12/07/2019 after successful weaning trial. Since then patient has had gradual worsening in his hypoxia and increased oxygen requirement. Patient on non-rebreather mask and 15 L nasal cannula. Although saturation was adequate patient was tachypneic with use of accessory muscles. I explained to patient that he will need to be put back on ventilator and he was agreeable. 12/09/2019 -reintubated without any complication. Chest x-ray and ABG reviewed Of 12/13/2019: Patient was hypoxic, patient was reintubated on 12/13/2019 as he had large mucus plugs and his ETT. Patient was placed on 100% FiO2 and peep of 14. Now he is on 70% FiO2, peep of 14 with adequate O2 sats at improved ABGs. Will continue to wean FiO2 and PEEP as tolerated Patient has completed 10 day course of dexamethasone on 12/02/2019 He completed the dose of remdisivir of 5 days a on 11/27/2019 Received convalascent plasma on 11/28/2019 His inflammatory markers have improved, LDH, D-dimer, ferritin and CRP are all within normal limits Discontinued routine monitoring of markers unless new symptoms arise Patient was being diuresed and has slight contraction alkalosis but did not show any improvement in hypoxia which suggests that that ARDS is the most likely etiology of hypoxia at this point. Will hold further scheduled Lasix at this point Doppler ultrasound of the lower extremity has been negative for DVT. CT Chest 12/08 IMPRESSION: Severe bilateral pneumonia Pneumomediastinum; no pneumothorax Endotracheal and NG tubes in satisfactory position Right internal jugular central venous catheter Echo 11/29/2019: EF 70%, moderate to severe concentric LV wall thickness, grade 1 diastolic dysfunction, are a moderately enlarged RVSP 33 mmHg Patient now needs tracheostomy. He has been on ventilator for 16 days and is not close to extubation due to hypoxia. Dr Margaret Cisneros spoke to the family on 12/10 along with [facility] returned case inspector and a ice resurfacing machine operators. They are agreeable to proceeding with tracheostomy and PEG tube and want to continue mechanical ventilation support for as long as needed. Will hold repeat SARS-CoV-2 PCR testing as patient has increasing ventilated requirements (2) COVID-19: Code(s): U07.1 - COVID-19 Status: Acute Assessment and Plan: SARS-CoV-2 PCR POSITIVE Pt on airborne, droplet and contact isolation/precautions Will hold testing inflammatory markers as they had improved Appreciate infectious disease evaluation recommendation. Status post dexamethasone, Remdesivir, 1 unit of convalescent plasma -bilateral infiltrates on chest x-ray could be likely due to fibro proliferative stage of ARDS (3) DM type 2 (diabetes mellitus, type 2): Qualifiers: Diabetes mellitus detention insulin use: unspecified ad terminal makeup operator insulin use status Diabetes mellitus complication status: with neurologic complications Diabetes mellitus complication detail: with unspecified neuropathy Qualified Code(s): E11.40 - Type 2 diabetes mellitus with diabetic neuropathy, unspecified Code(s): E11.9 - Type 2 diabetes mellitus without complications Status: Acute Assessment and Plan: Accucheks and SSI Continue Lantus (4) Essential (primary) hypertension: Code(s): I10 - Essential (primary) hypertension Status: Acute Assessment and Plan: Hemodynamics are stable. Is not requiring any pressor supports. -kemi
[2019-12-14 12:11] LABS: Glucose Point of Care 191 (65-105)
--- NOTE | 2019-12-14 16:11 | PM.IMPN ---
Progress Note: A&P Assessment and Plan (1) Acute respiratory failure with hypoxia: Code(s): J96.01 - Acute respiratory failure with hypoxia Status: Acute Assessment and Plan: He had to be reintubated today. With new ETT by ICU doctor due to desaturation and old ETT tube blocked with mucous plugs 3rd intubation 11/25 ARDS, 12/08 ongoing respiratory failure and 12/12 mucous plugging Management per intensive care physician. (2) COVID-19 virus infection: Code(s): U07.1 - COVID-19 Status: Acute Assessment and Plan: He completed remdisivir and dexamethasone He also received convalescent plasma. 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 On long acting insulin and ISS, consider short acting meal time insulin if glucose continues to be high. (4) Hypothyroidism: Qualifiers: Hypothyroidism type: unspecified Qualified Code(s): E03.9 - Hypothyroidism, unspecified Code(s): E03.9 - Hypothyroidism, unspecified Status: Chronic (5) DVT prophylaxis: Code(s): Z29.9 - Encounter for prophylactic measures, unspecified Status: Acute Assessment and Plan: On pharmacological therapy. Subjective Date/time seen: 12/14/19 16:11 Interval history: 64-year-old male with history of coronary artery disease status post CABG, hypertension, hyperlipidemia, and type 2 diabetes mellitus who presented to the emergency department with complaints of cough, shortness of breath, and fever. Found to be covid positive with Bilateral infiltrates on cxr. Patient was intubated for acute hypoxic respiratory failure. Pt has received convalescent plasma. Currently he is on steroids and diuresis. Completed 5 days of remdesivir already. Unfortunately pt had to be reintubated on 12/08 for respiratory failure and ARDS. Pt had to be reintubated today with new ETT by ICU doctor due to desaturation and old ETT tube blocked with mucous plugs Pt has been in the hospital over 20 days pt requires extended hospitalization due to ARDS, respiratory failure, COVID positive status with underlying bilateral infiltrates. Pt also has multiple co-morbidities as mentioned above. Review of Systems Review of Systems: ROS unobtainable: Yes unobtainable due to endotracheal tube Exam Const: General: comfortable and no acute distress Other: Intubated Objective Data Vital Signs Vital Signs: Vital Signs - 24 hr 12/13/19 17:25 12/13/19 17:38 12/13/19 17:39 Temperature 36.4 C Pulse Rate 81 80 84 Respiratory Rate 22 H Blood Pressure 134/67 Pulse Oximetry 99 99 12/13/19 20:00 12/13/19 20:35 12/13/19 22:00 Temperature 36.9 C Pulse Rate 78 72 72 Respiratory Rate 22 H 21 H Blood Pressure 133/67 122/63 Pulse Oximetry 100 98 98 12/13/19 23:10 12/14/19 00:00 12/14/19 01:09 Temperature 36.9 C Pulse Rate 84 86 86 Respiratory Rate 31 H Blood Pressure 141/70 H Pulse Oximetry 98 99 99 12/14/19 02:00 12/14/19 04:00 12/14/19 04:40 Temperature Pulse Rate 79 71 72 Respiratory Rate 22 H 22 H Blood Pressure 127/63 125/61 Pulse Oximetry 99 99 99 12/14/19 06:00 12/14/19 08:00 12/14/19 08:50 Temperature 36.8 C 36.5 C Pulse Rate 77 72 76 Respiratory Rate 24 H 22 H Blood Pressure 137/69 135/67 Pulse Oximetry 98 98 98 12/14/19 09:57 12/14/19 12:00 12/14/19 12:37 Temperature 36.5 C Pulse Rate 72 75 78 Respiratory Rate 22 H 22 H Blood Pressure 124/63 140/65 Pulse O
[2019-12-14 18:14] LABS: Glucose Point of Care 185 (65-105)
[2019-12-14 23:45] LABS: Glucose Point of Care 195 (65-105)
[2019-12-15] VITALS (32 sets, daily range): BP systolic 136–157; BP diastolic 63–72; PULSE 79–123; RESP 18–36; TEMP 36.7–37.3; O2SAT 95–98
[2019-12-15] MEDS: MIDAZOLAM HCL 2 MG/2 ML VIAL IV PUSH (00:57)
[2019-12-15] MEDS: ALBUMIN HUMAN 25% 25 GM/100 ML 100 ML IVPB ×2 (00:59→05:01)
[2019-12-15] MEDS: PROPOFOL IV EMULSION 100 ML 26 MG IV CONT ×7 (00:59→23:57)
[2019-12-15 03:57] LABS: Alveolar/Arterial O2 Gradient 370.1 mmHg; Base Excess ABG 4.5 mEq/l (+/-2.0); Carboxyhemoglobin 0.3 % THb (0-2.0); Fractional Inspired Oxygen 70 %; HCO3 ABG 29.5 mEq/l (22.0-26.0); Methemoglobin ABG 0.5 %THb (0-1.5); Oxygen Content ABG 12.1 %vol (16.0-22.0); Oxygen Saturation ABG 95.8 % (95.0-100.0); Oxyhemoglobin 93.7 % THb (90.0-100.0); PCO2 ABG 46.4 mmHg (35.0-45.0); PO2 ABG 79.1 mmHg (80.0-100.0); PO2 FiO2 Ratio Arterial Blood 1.13 %; Reduced Hemoglobin 5.5 %THb (0-5.0); Total Hemoglobin 9.1 g/dL (12.0-18.0); pH ABG 7.421 (7.350-7.450)
[2019-12-15 03:58] LABS: Device VENTILATOR; Modified Allen's Test Unable to perform; Site Drawn RIGHT RADIAL
[2019-12-15 03:59] LABS: Arterial Blood Gas PEEP 12 cmH2O; Arterial Blood Gas Tidal Volume 400 ml; Arterial Blood Gas Vent Mode CMV; Arterial Blood Gas Ventilator rate 22 /MIN
[2019-12-15] MEDS: CENTRAL LINE FLUSH 10 ML IV PUSH ×3 (05:04→20:25)
[2019-12-15 05:27] LABS: Hematocrit 25.8 % (42.0-52.0); Hemoglobin 8.3 g/dL (14.0-18.0); Mean Corpuscular HGB Conc 32.2 g/dl (32-36); Mean Corpuscular Hemoglobin 30.1 pg (26-34); Mean Corpuscular Volume 93.5 fl (80-100); Mean Platelet Volume 10.1 fl (7.4-10.4); Platelet Count Result 175 k/mm3 (150-375); Red Blood Count 2.76 M/mm3 (4.6-6.20); Red Cell Distribution Width 13.9 % (11.5-14.5); White Blood Count 7.4 K/mm3 (4.5-10.0)
[2019-12-15 05:48] LABS: Blood Urea Nitrogen 45 mg/dL (9-20); Calcium 9.3 mg/dL (8.4-10.2); Carbon Dioxide 35 mmol/L (22-30); Chloride 99 mmol/L (98-107); Estimated CRCL calculation 78 ml/min; Estimated Glomerular Filt Rate > 60; Glucose 189 mg/dL (75-110); Phosphorus 3.1 mg/dL (2.5-4.5); Potassium 3.6 mmol/L (3.4-5.0); Sodium 142 mmol/L (137-145)
[2019-12-15] MEDS: LEVOTHYROXINE SODIUM 100 MCG TABLET PO (05:59)
[2019-12-15] MEDS: FUROSEMIDE INJ 40 MG/4 ML VIAL IV PUSH (08:10)
[2019-12-15] MEDS: AMLODIPINE BESYLATE 5 MG TABLET 10 MG PO (08:11)
[2019-12-15] MEDS: ENOXAPARIN 80 MG/0.8 ML SYRINGE SUB-Q ×2 (08:12→20:23)
[2019-12-15] MEDS: polyethylene glycoL 3350 17 GM POWD.PACK PO (08:16)
[2019-12-15] MEDS: PANTOPRAZOLE SODIUM IV 40 MG VIAL IV PUSH (08:16)
[2019-12-15] MEDS: INSULIN GLARGINE (*BKC) 100 UNITS/ML 20 UNITS SUB-Q (09:00)
--- NOTE | 2019-12-15 11:25 | PCDIET ---
ICU Rounding Note: Patient tolerating Glucerna 1.2 at 50mL/hr with Pro-Stat BID. Last recorded weight is 85.3kg which is down from last review. Bowel Motility: BM x 1 on 12/14/19 and RN reports smear overnight. Labs Reviewed: Hgb (8.3), Hct (25.3), Glu (189), BUN (45), Mg (3.0) Meds Noted: Fentanyl, Novolog, Lantus, Versed, Protonix, Propofol (rate of 26mL/hr provides 686kcal over 24 hour period) Additional Notes: Right groin puncture. No other skin breakdown documented. Tube feeding at goal with Propofol providing 2006kcal/day. Following daily in ICU rounds. Assessing/reassessing every Sunday/Sunday.
--- NOTE | 2019-12-15 11:31 | WPDINTPN ---
Progress Note: A&P Assessment and Plan (1) Respiratory failure with hypoxia: Qualifiers: Chronicity: acute Qualified Code(s): J96.01 - Acute respiratory failure with hypoxia Code(s): J96.91 - Respiratory failure, unspecified with hypoxia Status: Acute Assessment and Plan: Acute hypoxic respiratory failure likely related to bilateral infiltrates/ARDS as a result of COVID19. Intubated patient on 11/26/2019 for impending respiratory failure POSITIVE COVID-19 with ARDS physiology. Patient was extubated 12/07/2019 after successful weaning trial. Since then patient has had gradual worsening in his hypoxia and increased oxygen requirement. Patient on non-rebreather mask and 15 L nasal cannula. Although saturation was adequate patient was tachypneic with use of accessory muscles. I explained to patient that he will need to be put back on ventilator and he was agreeable. 12/09/2019 -reintubated without any complication. Chest x-ray and ABG reviewed Of 12/13/2019: Patient was hypoxic, patient was reintubated on 12/13/2019 as he had large mucus plugs and his ETT. Patient was placed on 100% FiO2 and peep of 14. - Now he is on 65% FiO2, peep of 12 with adequate O2 sats at improved ABGs. Will continue to wean FiO2 and PEEP as tolerated - repeat SARS-CoV-2 PCR swab was done early this morning, awaiting results Patient has completed 10 day course of dexamethasone on 12/02/2019 He completed the dose of remdisivir of 5 days a on 11/27/2019 Received convalascent plasma on 11/28/2019 His inflammatory markers have improved, LDH, D-dimer, ferritin and CRP are all within normal limits Discontinued routine monitoring of markers unless new symptoms arise Patient was being diuresed and has slight contraction alkalosis but did not show any improvement in hypoxia which suggests that that ARDS is the most likely etiology of hypoxia at this point. Will hold further scheduled Lasix at this point Doppler ultrasound of the lower extremity has been negative for DVT. CT Chest 12/08 IMPRESSION: Severe bilateral pneumonia Pneumomediastinum; no pneumothorax Endotracheal and NG tubes in satisfactory position Right internal jugular central venous catheter Echo 11/29/2019: EF 70%, moderate to severe concentric LV wall thickness, grade 1 diastolic dysfunction, are a moderately enlarged RVSP 33 mmHg Patient now needs tracheostomy. He has been on ventilator for 16 days and is not close to extubation due to hypoxia. Dr Margaret Cisneros spoke to the family on 12/10 along with [facility] immigration case worker and a postal service clerk. They are agreeable to proceeding with tracheostomy and PEG tube and want to continue mechanical ventilation support for as long as needed. Will hold repeat SARS-CoV-2 PCR testing as patient has increasing ventilated requirements (2) COVID-19: Code(s): U07.1 - COVID-19 Status: Acute Assessment and Plan: SARS-CoV-2 PCR POSITIVE Pt on airborne, droplet and contact isolation/precautions Will hold testing inflammatory markers as they had improved Appreciate infectious disease evaluation recommendation. 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
[2019-12-15 12:12] LABS: Glucose Point of Care 189 (65-105)
[2019-12-15 14:26] LABS: SARS-CoV-2 RNA PCR Positive
--- NOTE | 2019-12-15 16:22 | PM.IMPN ---
Progress Note: A&P Assessment and Plan (1) Acute respiratory failure with hypoxia: Code(s): J96.01 - Acute respiratory failure with hypoxia Status: Acute Assessment and Plan: He had to be reintubated today. With new ETT by ICU doctor due to desaturation and old ETT tube blocked with mucous plugs 3rd intubation 11/25 ARDS, 12/08 ongoing respiratory failure and 12/12 mucous plugging Management per intensive care physician. 64-year-old male COVID positive respiratory failure and was intubated 3rd time, patient may require trach possible LTAC for further management (2) COVID-19 virus infection: Code(s): U07.1 - COVID-19 Status: Acute Assessment and Plan: He completed remdisivir and dexamethasone He also received convalescent plasma. 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 On long acting insulin and ISS, consider short acting meal time insulin if glucose continues to be high. (4) Hypothyroidism: Qualifiers: Hypothyroidism type: unspecified Qualified Code(s): E03.9 - Hypothyroidism, unspecified Code(s): E03.9 - Hypothyroidism, unspecified Status: Chronic (5) DVT prophylaxis: Code(s): Z29.9 - Encounter for prophylactic measures, unspecified Status: Acute Assessment and Plan: On pharmacological therapy. Subjective Date/time seen: 12/15/2019 64-year-old male COVID positive respiratory failure and was intubated 3rd time, patient may require trach possible LTAC for further management Review of Systems Review of Systems: ROS unobtainable: Yes unobtainable due to endotracheal tube Exam Narrative: Exam Narrative: patient is seen by not examined Const: General: no acute distress HENMT: General nose exam: Normal nares present Other: ET tube in place Neck: Other: no retraction Resp: Effort & Inspection: normal respiratory effort GI: Other: not distended Skin: General skin exam: normal color Neuro: Other: on vent and sedated Extrem: General: normal to inspection Psych: Other: on vent and sedated Objective Data Vital Signs Vital Signs: Vital Signs - 24 hr 12/14/19 17:10 12/14/19 18:00 12/14/19 20:00 Temperature 98.4 F Pulse Rate 78 81 77 Respiratory Rate 22 H 22 H Blood Pressure 129/65 129/65 Pulse Oximetry 94 93 94 12/14/19 20:23 12/14/19 22:00 12/14/19 23:33 Temperature Pulse Rate 79 99 105 H Respiratory Rate 19 Blood Pressure 150/69 H Pulse Oximetry 93 92 94 12/15/19 00:00 12/15/19 01:51 12/15/19 02:00 Temperature 99.2 F Pulse Rate 99 123 H 90 Respiratory Rate 22 H 20 Blood Pressure 149/66 H 139/65 Pulse Oximetry 95 95 95 12/15/19 04:00 12/15/19 04:40 12/15/19 06:00 Temperature 98.9 F Pulse Rate 86 110 H 86 Respiratory Rate 21 H 22 H Blood Pressure 137/70 148/69 H Pulse Oximetry 96 96 98 12/15/19 08:00 12/15/19 08:36 12/15/19 09:12 Temperature 98.7 F Pulse Rate 81 84 87 Respiratory Rate 20 21 H Blood Pressure 136/67 Pulse Oximetry 98 96 12/15/19 10:00 12/15/19 10:55 12/15/19 12:00 Temperature 98.0 F Pulse Rate 85 82 80 Respiratory Rate 21 H 21 H Blood Pressure 146/70 H 137/68 Pulse Oximetry 96 96 97 12/15/19 12:13 12/15/19 12:15 12/15/19 12:30 Temperature Pulse Rate 79 85 88 Respiratory Rate 18 27 H 29 H Blood Pressure Pulse Oximetry 12/15/19 12:33 12/15/19 13:05 12/15/19 14:00 Temperature Pulse Rate 87 87 84 Respirator
--- NOTE | 2019-12-15 17:57 | PM.CNPUL ---
Assessment and Plan Assessment and plan (1) Acute respiratory failure with hypoxia: Code(s): J96.01 - Acute respiratory failure with hypoxia Status: Acute Assessment and Plan: This patient has been intubated 3 times, has had prolonged acute hypoxemic respiratory failure and is requiring 65% oxygen and 12 of peep. I discussed possibility of bronchoscopy with Dr. Ho, and the risk benefit ratio does not make this a good plan. The patient should proceed with tracheostomy for long-term weaning. Bronchoscopy may be able to remove some secretions but this is a significant risk for others as bronchoscopy is the highest risk procedure for aerosolized ink viral particles. In addition it is unlikely the patient would benefit to the point of not requiring a tracheostomy. Chest x-ray shows diffuse infiltrates. He does not have a specific area that needs to be suctioned. He is not on Pulmozyme. I will start this to decrease secretions and improve ability to suction secretions. We will not plan to perform bronchoscopy at this point. (2) COVID-19: Code(s): U07.1 - COVID-19 Status: Acute Assessment and Plan: Has been treated with remdesivir, dexamethasone in convalescent plasma. Continues have hypoxemic respiratory failure. History of Present Illness History of Present Illness Consult date: 12/15/19 Requesting physician: Reed Ho MD Chief complaint: Respiratory failure, Bilateral pulmonary infiltrat Narrative: NEW: Dr Ho consulted me to see this patient for persistent respiratory failure with COVID, required re-intubation for secretions. Willie Urias is a 64 yo a Italian-speaking man who was admitted November 21 with COVID pneumonia. He received remdesivir , dexamethasone, convalescent plasma; was intubated November 25 December 08 and December 12. He has severe bilateral infiltrates, not able to be extubated and still requiring significant O2, 65% and PEEP 12. He has secretions, and this may be contributing to his failure to wean. His COVID remains (+). Review of Systems Review of Systems: ROS unobtainable: Yes unobtainable due to endotracheal tube (And sedation) PMFSH Past Medical History Medical History (Updated 12/14/19 @ 11:48 by Reed Ho MD) Anemia Anxiety Cerebrovascular accident Chronic knee pain after total replacement of both knee joints Congestive heart failure Coronary artery disease involving coronary bypass graft Depression Former smoker Gastroesophageal reflux disease Hiatal hernia Hyperlipidemia Hypertension Hypothyroidism Myocardial infarction Osteoarthritis Type 2 diabetes mellitus with diabetic neuropathy Vitamin D deficiency Surgical History Surgical History (Updated 11/22/19 @ 22:36 by Rere Weiner PA-C) History of appendectomy History of bilateral knee arthroplasty (~03/2015) History of endoscopy With findings of hiatal hernia. Previous food impaction with subsequent removal and esophageal dilatation. History of laparoscopic cholecystectomy (~02/2015) History of three vessel coronary artery bypass (~2012) Family History Family History (Updated 11/22/19 @ 22:38 by Rere Weiner PA-C) Sibling Diabetes mellitus Mother Diabetes mellitus Other Hypertension Social History Social History (Updated 11/22/19 @ 22:39 by Rere Weiner PA-C) Social History: Surrogate decision maker: Colleen Szymanski, . Code status: Full code. Smoking packs per day: 1.5 Smoking cigarettes per day: 30.0 Years smoked: 20 Smoking pack-years: 30.00 Smoking status: Former smoker Smoking end date: 05/28/92 Alcohol intake: never Substance use: never Additional living arrangements comments: Patient lives with his in [place]. Additional occupation/education comments: Retired.
[2019-12-15 19:09] LABS: Glucose Point of Care 174 (65-105)
[2019-12-15] MEDS: METOPROLOL TARTRATE INJ 5 MG/5 ML VIAL IV PUSH (20:34)
[2019-12-15] MEDS: DORNASE ALFA INH SOLN 1 MG/ML 2.5 ML AMP 2.5 MG INHALATION (21:16)
[2019-12-16] VITALS (38 sets, daily range): BP systolic 122–181; BP diastolic 62–81; PULSE 84–108; RESP 18–31; TEMP 37–38.2; O2SAT 94–100
[2019-12-16 00:06] LABS: Glucose Point of Care 200 (65-105)
[2019-12-16] MEDS: PROPOFOL IV EMULSION 100 ML 26 MG IV CONT ×6 (03:57→23:51)
[2019-12-16 04:21] LABS: Alveolar/Arterial O2 Gradient 337.3 mmHg; Base Excess ABG 5.3 mEq/l (+/-2.0); Carboxyhemoglobin 0.3 % THb (0-2.0); Fractional Inspired Oxygen 65 %; HCO3 ABG 30.4 mEq/l (22.0-26.0); Methemoglobin ABG 0.5 %THb (0-1.5); Oxygen Content ABG 12.9 %vol (16.0-22.0); PCO2 ABG 47.9 mmHg (35.0-45.0); PO2 ABG 74.1 mmHg (80.0-100.0); PO2 FiO2 Ratio Arterial Blood 1.14 %; Reduced Hemoglobin 6.2 %THb (0-5.0); Total Hemoglobin 9.8 g/dL (12.0-18.0); pH ABG 7.421 (7.350-7.450)
[2019-12-16 04:23] LABS: Arterial Blood Gas Vent Mode ASV; Arterial Blood Gas Ventilator rate 22 /MIN; Device VENTILATOR; Modified Allen's Test Pass; Site Drawn RIGHT RADIAL
[2019-12-16 04:24] LABS: Arterial Blood Gas PEEP 12 cmH2O; Arterial Blood Gas Tidal Volume 400 ml
[2019-12-16 05:34] LABS: Hematocrit 29.1 % (42.0-52.0); Hemoglobin 9.2 g/dL (14.0-18.0); Mean Corpuscular HGB Conc 31.6 g/dl (32-36); Mean Corpuscular Hemoglobin 30.1 pg (26-34); Mean Corpuscular Volume 95.1 fl (80-100); Mean Platelet Volume 10.9 fl (7.4-10.4); Platelet Count Result 215 k/mm3 (150-375); Red Blood Count 3.06 M/mm3 (4.6-6.20); Red Cell Distribution Width 13.9 % (11.5-14.5); White Blood Count 6.5 K/mm3 (4.5-10.0)
[2019-12-16 05:45] LABS: Blood Urea Nitrogen 47 mg/dL (9-20); Calcium 9.3 mg/dL (8.4-10.2); Carbon Dioxide 34 mmol/L (22-30); Chloride 101 mmol/L (98-107); Estimated CRCL calculation 88 ml/min; Estimated Glomerular Filt Rate > 60; Glucose 217 mg/dL (75-110); Magnesium 2.9 mg/dL (1.6-2.3); Phosphorus 3.2 mg/dL (2.5-4.5); Potassium 3.8 mmol/L (3.4-5.0); Sodium 144 mmol/L (137-145)
[2019-12-16] MEDS: CENTRAL LINE FLUSH 10 ML IV PUSH ×3 (05:56→20:24)
[2019-12-16] MEDS: INSULIN ASPART (*BKC) 100 UNITS/ML SUB-Q ×2 (06:00→18:44)
[2019-12-16] MEDS: METOPROLOL TARTRATE INJ 5 MG/5 ML VIAL IV PUSH (06:07)
[2019-12-16] MEDS: LEVOTHYROXINE SODIUM 100 MCG TABLET PO (06:08)
[2019-12-16] MEDS: ENOXAPARIN 80 MG/0.8 ML SYRINGE SUB-Q ×2 (08:00→20:23)
[2019-12-16] MEDS: PANTOPRAZOLE SODIUM IV 40 MG VIAL IV PUSH (08:01)
[2019-12-16] MEDS: AMLODIPINE BESYLATE 5 MG TABLET 10 MG PO (08:01)
[2019-12-16] MEDS: hydrALAZINE HCL 20 MG/ML VIAL 10 MG IV PUSH ×2 (08:24→15:14)
[2019-12-16] MEDS: INSULIN GLARGINE (*BKC) 100 UNITS/ML 20 UNITS SUB-Q (08:35)
[2019-12-16] MEDS: DORNASE ALFA INH SOLN 1 MG/ML 2.5 ML AMP 2.5 MG INHALATION ×2 (08:50→20:59)
--- NOTE | 2019-12-16 09:51 | WPDINTPN ---
Progress Note: A&P Assessment and Plan (1) Respiratory failure with hypoxia: Qualifiers: Chronicity: acute Qualified Code(s): J96.01 - Acute respiratory failure with hypoxia Code(s): J96.91 - Respiratory failure, unspecified with hypoxia Status: Acute Assessment and Plan: Acute hypoxic respiratory failure likely related to bilateral infiltrates/ARDS as a result of COVID19. Intubated patient on 11/26/2019 for impending respiratory failure POSITIVE COVID-19 with ARDS physiology. Patient was extubated 12/07/2019 after successful weaning trial. Since then patient has had gradual worsening in his hypoxia and increased oxygen requirement. Patient on non-rebreather mask and 15 L nasal cannula. Although saturation was adequate patient was tachypneic with use of accessory muscles. I explained to patient that he will need to be put back on ventilator and he was agreeable. 12/09/2019 -reintubated without any complication. Chest x-ray and ABG reviewed Of 12/13/2019: Patient was hypoxic, patient was reintubated on 12/13/2019 as he had large mucus plugs and his ETT. Patient was placed on 100% FiO2 and peep of 14. - Now he is on 65% FiO2, peep of 12 with adequate O2 sats at improved ABGs. Will continue to wean FiO2 and PEEP as tolerated - repeat SARS-CoV-2 PCR swab was positive on 12/14/2019 Patient has completed 10 day course of dexamethasone on 12/02/2019 He completed the dose of remdisivir of 5 days a on 11/27/2019 Received convalascent plasma on 11/28/2019 His inflammatory markers have improved, LDH, D-dimer, ferritin and CRP are all within normal limits Discontinued routine monitoring of markers unless new symptoms arise Patient was being diuresed and has slight contraction alkalosis but did not show any improvement in hypoxia which suggests that that ARDS is the most likely etiology of hypoxia at this point. Will hold further scheduled Lasix at this point Doppler ultrasound of the lower extremity has been negative for DVT. CT Chest 12/08 IMPRESSION: Severe bilateral pneumonia Pneumomediastinum; no pneumothorax Endotracheal and NG tubes in satisfactory position Right internal jugular central venous catheter Echo 11/29/2019: EF 70%, moderate to severe concentric LV wall thickness, grade 1 diastolic dysfunction, are a moderately enlarged RVSP 33 mmHg Patient now needs tracheostomy. Dr Margaret Cisneros spoke to the family on 12/[address] [facility] director of casework and a manifest clerk. They are agreeable to proceeding with tracheostomy and PEG tube and want to continue mechanical ventilation support for as long as needed. will discuss with ENT regarding tracheostomy (2) COVID-19: Code(s): U07.1 - COVID-19 Status: Acute Assessment and Plan: SARS-CoV-2 PCR POSITIVE Pt on airborne, droplet and contact isolation/precautions Will hold testing inflammatory markers as they had improved Appreciate infectious disease evaluation recommendation. 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 Is not requiring any pressor supports. -continue amlodipine and metoprolol (5) DVT prophylaxis: Code(s): Z29.9 - Encounter
[2019-12-16 12:05] LABS: Glucose Point of Care 186 (65-105)
--- NOTE | 2019-12-16 14:11 | PCDIET ---
Nutrition Follow-Up Complete: Nutrition Diagnosis: Predicted suboptimal oral intake related to increased O2 requirements as evidenced by full liquid diet order. Nutrition Goal: Patient to meet estimated nutritional needs. Goal met. Patient tolerating Glucerna 1.2 at 50mL/hr goal rate. No reported issues. Last recorded weight is 85.3 kg. Recommend obtaining new weight. Bowel Motility: +BMs overnight and again today, per RN. Miralax changed to prn. Abdomen soft and round. Labs Reviewed: Hgb (9.2), Hct (29.1), Glu (217), BUN (47), Mg (2.9) Meds Noted: Fentanyl, Novolog, Lantus, Synthroid, Versed, Protonix, Propofol (26mL/hr provides 686kcal over 24 hour period) Additional Notes: Right groin puncture site. No pressure sores reported. Will continue to monitor with same goal. Nutrition Monitoring and Evaluation: Follow up every Sunday/Sunday. Follow daily in ICU rounds.
--- NOTE | 2019-12-16 16:27 | PM.IMPN ---
Progress Note: A&P Assessment and Plan (1) Acute respiratory failure with hypoxia: Code(s): J96.01 - Acute respiratory failure with hypoxia Status: Acute Assessment and Plan: He had to be reintubated today. With new ETT by ICU doctor due to desaturation and old ETT tube blocked with mucous plugs 3rd intubation 11/25 ARDS, 12/08 ongoing respiratory failure and 12/12 mucous plugging Management per intensive care physician. 64-year-old male COVID positive respiratory failure and was intubated 3rd time, seen by burglar alarm superintendent severalattempts have failed to wean the patient off ventilation however patient is unable to tolerate being off sedation and sustained breathing to extubate, patient may require trach possible LTAC for further management (2) COVID-19 virus infection: Code(s): U07.1 - COVID-19 Status: Acute Assessment and Plan: He completed remdisivir and dexamethasone He also received convalescent plasma. 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 On long acting insulin and ISS, consider short acting meal time insulin if glucose continues to be high. (4) Hypothyroidism: Qualifiers: Hypothyroidism type: unspecified Qualified Code(s): E03.9 - Hypothyroidism, unspecified Code(s): E03.9 - Hypothyroidism, unspecified Status: Chronic (5) DVT prophylaxis: Code(s): Z29.9 - Encounter for prophylactic measures, unspecified Status: Acute Assessment and Plan: On pharmacological therapy. Subjective Date/time seen: 12/16/19 16:27 Objective Data Vital Signs Vital Signs: Vital Signs - 24 hr 12/15/19 16:30 12/15/19 17:06 12/15/19 18:00 Temperature 99.1 F Pulse Rate 104 H 94 90 Respiratory Rate 36 H 21 H Blood Pressure 157/68 H Pulse Oximetry 96 96 12/15/19 18:03 12/15/19 18:05 12/15/19 20:00 Temperature 99.2 F Pulse Rate 91 90 88 Respiratory Rate 20 21 H 19 Blood Pressure 151/72 H Pulse Oximetry 96 12/15/19 20:34 12/15/19 21:17 12/15/19 21:22 Temperature Pulse Rate 99 87 88 Respiratory Rate 24 H Blood Pressure Pulse Oximetry 96 12/15/19 22:00 12/15/19 23:30 12/16/19 00:00 Temperature Pulse Rate 85 91 94 Respiratory Rate 19 21 H Blood Pressure 146/71 H 164/75 H Pulse Oximetry 97 97 100 12/16/19 01:33 12/16/19 02:00 12/16/19 02:19 Temperature 99.2 F Pulse Rate 89 88 91 Respiratory Rate 20 21 H Blood Pressure 151/66 H Pulse Oximetry 97 97 12/16/19 02:37 12/16/19 04:00 12/16/19 04:13 Temperature 99.1 F Pulse Rate 89 95 93 Respiratory Rate 20 21 H Blood Pressure 168/76 H Pulse Oximetry 98 97 12/16/19 06:00 12/16/19 06:07 12/16/19 07:48 Temperature 99.1 F Pulse Rate 96 95 88 Respiratory Rate 22 H 19 Blood Pressure 171/75 H Pulse Oximetry 98 12/16/19 07:58 12/16/19 08:00 12/16/19 08:51 Temperature 99.3 F Pulse Rate 88 87 95 Respiratory Rate 19 19 19 Blood Pressure 171/77 H Pulse Oximetry 98 12/16/19 08:53 12/16/19 08:58 12/16/19 10:00 Temperature Pulse Rate 92 93 92 Respiratory Rate 22 H 21 H Blood Pressure 161/73 H Pulse Oximetry 97 96 12/16/19 10:49 12/16/19 11:35 12/16/19 12:00 Temperature 98.6 F Pulse Rate 89 88 91 Respiratory Rate 20 20 Blood Pressure 166/76 H Pulse Oximetry 97 95 12/16/19 14:00 12/16/19 14:06 12/16/19 14:21 Temperature Pulse Rate 89 91 96 Respiratory Rate 21 H 18 Blood Pressure 165/71
[2019-12-16 18:28] LABS: Glucose Point of Care 218 (65-105)
[2019-12-16] MEDS: METOPROLOL TARTRATE 25 MG TABLET PO (20:23)
[2019-12-16] MEDS: ACETAMINOPHEN 325 MG TABLET 650 MG PO (20:30)
[2019-12-17] VITALS (51 sets, daily range): BP systolic 126–173; BP diastolic 63–88; PULSE 68–109; RESP 18–35; TEMP 36.9–38.6; O2SAT 90–98
[2019-12-17 00:09] LABS: Glucose Point of Care 213 (65-105)
[2019-12-17] MEDS: PROPOFOL IV EMULSION 100 ML 26 MG IV CONT ×2 (03:42→07:34)
[2019-12-17 05:12] LABS: Carboxyhemoglobin 0.3 % THb (0-2.0); Fractional Inspired Oxygen 55 %; HCO3 ABG 30.7 mEq/l (22.0-26.0); Methemoglobin ABG 0.1 %THb (0-1.5); Oxygen Content ABG 13.4 %vol (16.0-22.0); Oxygen Saturation ABG 95.4 % (95.0-100.0); Oxyhemoglobin 94.4 % THb (90.0-100.0); PCO2 ABG 51.1 mmHg (35.0-45.0); PO2 ABG 78.3 mmHg (80.0-100.0); PO2 FiO2 Ratio Arterial Blood 1.42 %; Reduced Hemoglobin 5.2 %THb (0-5.0); pH ABG 7.396 (7.350-7.450)
[2019-12-17 05:13] LABS: Arterial Blood Gas PEEP 12 cmH2O; Arterial Blood Gas Tidal Volume 400 ml; Arterial Blood Gas Vent Mode CMV; Arterial Blood Gas Ventilator rate 22 /MIN; Device VENTILATOR; Modified Allen's Test Pass; Site Drawn LEFT RADIAL
[2019-12-17] MEDS: LEVOTHYROXINE SODIUM 100 MCG TABLET PO (05:36)
[2019-12-17] MEDS: CENTRAL LINE FLUSH 10 ML IV PUSH ×3 (05:36→22:58)
[2019-12-17 05:50] LABS: Hemoglobin 8.9 g/dL (14.0-18.0); Mean Corpuscular HGB Conc 30.7 g/dl (32-36); Mean Corpuscular Hemoglobin 29.6 pg (26-34); Mean Corpuscular Volume 96.3 fl (80-100); Mean Platelet Volume 10.9 fl (7.4-10.4); Platelet Count Result 244 k/mm3 (150-375); Red Blood Count 3.01 M/mm3 (4.6-6.20); White Blood Count 5.9 K/mm3 (4.5-10.0)
[2019-12-17 06:00] LABS: Blood Urea Nitrogen 48 mg/dL (9-20); Calcium 9.1 mg/dL (8.4-10.2); Carbon Dioxide 37 mmol/L (22-30); Chloride 103 mmol/L (98-107); Estimated CRCL calculation 90 ml/min; Estimated Glomerular Filt Rate > 60; Glucose 195 mg/dL (75-110); Magnesium 2.9 mg/dL (1.6-2.3); Phosphorus 3.3 mg/dL (2.5-4.5); Potassium 3.9 mmol/L (3.4-5.0); Sodium 145 mmol/L (137-145)
[2019-12-17] MEDS: INSULIN GLARGINE (*BKC) 100 UNITS/ML 20 UNITS SUB-Q (07:35)
[2019-12-17] MEDS: ENOXAPARIN 80 MG/0.8 ML SYRINGE SUB-Q ×2 (07:35→20:16)
[2019-12-17] MEDS: METOPROLOL TARTRATE 25 MG TABLET PO ×2 (07:35→20:16)
[2019-12-17] MEDS: PANTOPRAZOLE SODIUM IV 40 MG VIAL IV PUSH (07:36)
[2019-12-17] MEDS: AMLODIPINE BESYLATE 5 MG TABLET 10 MG PO (07:36)
[2019-12-17 08:13] LABS: Glucose Point of Care 192 (65-105)
[2019-12-17] MEDS: DORNASE ALFA INH SOLN 1 MG/ML 2.5 ML AMP 2.5 MG INHALATION ×2 (08:15→19:34)
[2019-12-17] MEDS: FUROSEMIDE INJ 40 MG/4 ML VIAL IV PUSH (09:16)
[2019-12-17] MEDS: INSULIN ASPART (*BKC) 100 UNITS/ML SUB-Q ×3 (11:24→17:29)
[2019-12-17] MEDS: PROPOFOL IV EMULSION 100 ML 18.2 MG IV CONT (11:25)
--- NOTE | 2019-12-17 11:34 | WPDINTPN ---
Progress Note: A&P Assessment and Plan (1) Respiratory failure with hypoxia: Qualifiers: Chronicity: acute Qualified Code(s): J96.01 - Acute respiratory failure with hypoxia Code(s): J96.91 - Respiratory failure, unspecified with hypoxia Status: Acute Assessment and Plan: Acute hypoxic respiratory failure likely related to bilateral infiltrates/ARDS as a result of COVID19. Intubated patient on 11/26/2019 for impending respiratory failure POSITIVE COVID-19 with ARDS physiology. Patient was extubated 12/07/2019 after successful weaning trial. 12/09/2019 -reintubated without any complication. On12/13/2019: Patient was hypoxic, patient was reintubated on 12/13/2019 as he had large mucus plugs and his ETT. Patient was placed on 100% FiO2 and peep of 14. - Now he is on 55% FiO2, peep of 12 with adequate O2 sats at improved ABGs. Will continue to wean FiO2 and PEEP as tolerated - repeat SARS-CoV-2 PCR swab was positive on 12/14/2019 Patient has completed 10 day course of dexamethasone on 12/02/2019 He completed the dose of remdisivir of 5 days a on 11/27/2019 Received convalascent plasma on 11/28/2019 Discontinued routine monitoring of markers unless new symptoms arise Appreciate infectious disease following the patient Doppler ultrasound of the lower extremity has been negative for DVT. CT Chest 12/08 IMPRESSION: Severe bilateral pneumonia Pneumomediastinum; no pneumothorax Endotracheal and NG tubes in satisfactory position Right internal jugular central venous catheter Echo 11/29/2019: EF 70%, moderate to severe concentric LV wall thickness, grade 1 diastolic dysfunction, are a moderately enlarged RVSP 33 mmHg Patient now needs tracheostomy. Dr Margaret Cisneros spoke to the family on 12/10 along with [facility] outsole caser and a certified registered dental assistant. They are agreeable to proceeding with tracheostomy and PEG tube and want to continue mechanical ventilation support for as long as needed. will discuss with ENT regarding tracheostomy (2) COVID-19: Code(s): U07.1 - COVID-19 Status: Acute Assessment and Plan: SARS-CoV-2 PCR POSITIVE Pt on airborne, droplet and contact isolation/precautions Will hold testing inflammatory markers as they had improved Appreciate infectious disease evaluation recommendation. 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 Is not requiring any pressor supports. -continue amlodipine and metoprolol (5) DVT prophylaxis: Code(s): Z29.9 - Encounter for prophylactic measures, unspecified Status: Acute Assessment and Plan: Continue Lovenox at therapeutic dose (6) Hypothyroidism: Qualifiers: Hypothyroidism type: unspecified Qualified Code(s): E03.9 - Hypothyroidism, unspecified Code(s): E03.9 - Hypothyroidism, unspecified Status: Chronic Assessment and Plan: Change PO levothyroxine (7) Dietary counseling and surveillance: Code(s): Z71.3 - Dietary counseling and surveillance Status: Acute Assessment and Plan: Tolerating tube feeds positive bowel movements (8) Hematoma: Code(s): T14.8XXA -
[2019-12-17 11:42] LABS: Glucose Point of Care 218 (65-105)
--- NOTE | 2019-12-17 11:48 | PCDIET ---
ICU Rounding Note: Patient continues to tolerating Glucerna 1.2 at 50mL/hr without issues. Last recorded weight is 88.5kg which is increased from last review. +I/O. Bowel Motility: +BM today. Labs Reviewed: Hgb (8.9), Hct (29.0), Glu (192), BUN (48), Mg (2.9) Meds Noted: Fentanyl, Versed, Novolog, Protonix, Lantus, Miralax, Synthroid, Propofol (rate of 20.8mL/hr provides 549kcal over 24 hour period), s/p Lasix Additional Notes: Right groin puncture site. No documented pressure ulcers. Following daily in ICU rounds. Assessing/reassessing every Sunday/Sunday.
--- NOTE | 2019-12-17 12:36 | PM.PNPUL ---
Progress Note: A&P Assessment and Plan (1) Acute respiratory failure with hypoxia: Code(s): J96.01 - Acute respiratory failure with hypoxia Status: Acute Assessment and Plan: This patient has been intubated 3 times, has had prolonged acute hypoxemic respiratory failure, now on lower FiO2 55% oxygen and 12 of peep. The patient should proceed with tracheostomy for long-term weaning which may happen next week. Chest x-ray shows diffuse infiltrates. Continue Pulmozyme. Has been on the vent a total of 20 days. (2) COVID-19: Code(s): U07.1 - COVID-19 Status: Acute Assessment and Plan: Has been treated with remdesivir, dexamethasone in convalescent plasma. Continues have hypoxemic respiratory failure. Subjective Date/time seen: 12/17/19 12:36 Interval history: Patient is a 64 year old male seen in follow up for acute hypoxemic respiratory failure due to COVID pneumonia; remdesivir, 10 days of dexamethasone, convalescent plasma 11/27. Was extubated 12/06, worsened, re-intubated 12/08, and again 12/12. d/w Dr Ho. His O2 requirements are lower, 55% and PEEP 12. Saturation 94%. No fevers. Review of Systems Review of Systems: ROS unobtainable: Yes unobtainable due to endotracheal tube (And sedation) Exam Const: General: no acute distress Other: Orally intubated sedated with fentanyl 250 micrograms/hour Eyes: General: appearance normal, both eyes and all related structures Neck: Neck: no JVD Lymphatic: lymphadenopathy not noted Resp: Auscultation: crackles and diminished lung sounds Cardio: Rate: regular rate Rhythm: regular rhythm Other: Distant heart tones Skin: General skin exam: normal color Extrem: General: no clubbing, no cyanosis and edema (Bilateral hands 1+) Psych: Other: Sedated, intubated Objective Data Vital Signs Vital Signs: Vital Signs - 24 hr 12/16/19 14:00 12/16/19 14:06 12/16/19 14:21 Temperature Pulse Rate 89 91 96 Respiratory Rate 21 H 18 Blood Pressure 165/71 H Pulse Oximetry 95 94 12/16/19 15:17 12/16/19 16:00 12/16/19 16:59 Temperature Pulse Rate 95 97 104 H Respiratory Rate 19 21 H Blood Pressure 174/80 H Pulse Oximetry 96 96 12/16/19 17:18 12/16/19 17:22 12/16/19 18:00 Temperature 37.4 C Pulse Rate 106 H 108 H 106 H Respiratory Rate 23 H 21 H 31 H Blood Pressure 181/81 H Pulse Oximetry 96 12/16/19 20:00 12/16/19 20:23 12/16/19 20:30 Temperature 38.2 C H 38.2 C H Pulse Rate 99 96 Respiratory Rate 22 H Blood Pressure 164/77 H Pulse Oximetry 97 12/16/19 21:01 12/16/19 21:03 12/16/19 21:13 Temperature Pulse Rate 93 93 93 Respiratory Rate 23 H 23 H Blood Pressure Pulse Oximetry 94 12/16/19 21:30 12/16/19 22:00 12/16/19 23:52 Temperature 37.9 C H 37.9 C H Pulse Rate 87 85 Respiratory Rate 22 H 22 H Blood Pressure 122/62 Pulse Oximetry 96 12/16/19 23:53 12/17/19 00:00 12/17/19 00:22 Temperature 37.8 C H Pulse Rate 85 86 Respiratory Rate 22 H Blood Pressure 147/88 H Pulse Oximetry 98 98 12/17/19 01:10 12/17/19 02:00 12/17/19 03:45 Temperature 37.6 C H Pulse Rate 82 87 Respiratory Rate 22 H 22 H Blood Pressure 134/64 Pulse Oximetry 96 98 12/17/19 04:00 12/17/19 06:00 12/17/19 07:33 Temperature 37.2 C Pulse Rate 85 80 73 Respiratory Rate 28 H 22 H 22 H Blood Pressure 155/76 H 141/63 H Pulse Oximetry 95 97 12/17/19 07:34 12/17/19 07:35 12/17/19 07:53 Temperature Pulse Rate 73 74 72 Respiratory Rate 22 H 22 H Blood Pressure Pulse Oximetry 12/17/19 07:54 12/17/19 08:00 12/17/19 08:10 Temperature 36.9 C Pulse Rate 73 70 69 Respiratory Rate 22 H 35 H 22 H Blood Pressure 126/64 Pulse Oximetry 97 98 98 12/17/19 08:18 12/17/19 08:43 12/17/19 09:24 Temperature
[2019-12-17] MEDS: METOPROLOL TARTRATE INJ 5 MG/5 ML VIAL IV PUSH (14:10)
[2019-12-17] MEDS: PROPOFOL IV EMULSION 100 ML 20.8 MG IV CONT ×2 (15:35→20:28)
[2019-12-17] MEDS: ACETAMINOPHEN 325 MG TABLET 650 MG PO ×2 (15:36→20:16)
[2019-12-17 17:47] LABS: Glucose Point of Care 251 (65-105)
[2019-12-18] VITALS (37 sets, daily range): BP systolic 115–161; BP diastolic 63–79; PULSE 71–111; RESP 14–26; TEMP 36.4–38.4; O2SAT 93–97
[2019-12-18 00:07] LABS: Glucose Point of Care 230 (65-105)
[2019-12-18] MEDS: INSULIN ASPART (*BKC) 100 UNITS/ML SUB-Q ×3 (01:03→11:28)
[2019-12-18] MEDS: ACETAMINOPHEN 325 MG TABLET 650 MG PO ×2 (01:04→20:03)
[2019-12-18] MEDS: PROPOFOL IV EMULSION 100 ML 23.4 MG IV CONT ×2 (01:10→22:33)
[2019-12-18 04:36] LABS: Hematocrit 27.6 % (42.0-52.0); Hemoglobin 8.6 g/dL (14.0-18.0); Mean Corpuscular HGB Conc 31.2 g/dl (32-36); Mean Corpuscular Hemoglobin 29.7 pg (26-34); Mean Corpuscular Volume 95.2 fl (80-100); Mean Platelet Volume 10.7 fl (7.4-10.4); Platelet Count Result 249 k/mm3 (150-375); Red Cell Distribution Width 13.6 % (11.5-14.5); White Blood Count 7.2 K/mm3 (4.5-10.0)
[2019-12-18 04:57] LABS: Anion Gap 7.1 mmol/L (7-16); Blood Urea Nitrogen 48 mg/dL (9-20); Carbon Dioxide 38 mmol/L (22-30); Chloride 104 mmol/L (98-107); Estimated CRCL calculation 90 ml/min; Estimated Glomerular Filt Rate > 60; Glucose 243 mg/dL (75-110); Magnesium 2.6 mg/dL (1.6-2.3); Phosphorus 3.1 mg/dL (2.5-4.5); Potassium 4.1 mmol/L (3.4-5.0); Sodium 145 mmol/L (137-145)
[2019-12-18 05:22] LABS: Alveolar/Arterial O2 Gradient 190.7 mmHg; Base Excess ABG 10.1 mEq/l (+/-2.0); Carboxyhemoglobin 0.3 % THb (0-2.0); Device VENTILATOR; Fractional Inspired Oxygen 45 %; HCO3 ABG 36.3 mEq/l (22.0-26.0); Methemoglobin ABG 0.1 %THb (0-1.5); Modified Allen's Test Unable to perform; Oxygen Content ABG 13.5 %vol (16.0-22.0); Oxygen Saturation ABG 92.4 % (95.0-100.0); Oxyhemoglobin 91.1 % THb (90.0-100.0); PCO2 ABG 57.7 mmHg (35.0-45.0); PO2 ABG 64.5 mmHg (80.0-100.0); PO2 FiO2 Ratio Arterial Blood 1.43 %; Reduced Hemoglobin 8.5 %THb (0-5.0); Site Drawn LEFT RADIAL; Total Hemoglobin 10.5 g/dL (12.0-18.0); pH ABG 7.416 (7.350-7.450)
[2019-12-18 05:23] LABS: Arterial Blood Gas PEEP 12 cmH2O; Arterial Blood Gas Tidal Volume 400 ml; Arterial Blood Gas Vent Mode CMV; Arterial Blood Gas Ventilator rate 22 /MIN
[2019-12-18] MEDS: CENTRAL LINE FLUSH 10 ML IV PUSH ×3 (05:38→21:40)
[2019-12-18] MEDS: PROPOFOL IV EMULSION 100 ML 20.8 MG IV CONT ×4 (05:39→17:10)
[2019-12-18] MEDS: LEVOTHYROXINE SODIUM 100 MCG TABLET PO (05:41)
[2019-12-18] MEDS: METOPROLOL TARTRATE 25 MG TABLET PO ×2 (07:26→20:03)
[2019-12-18] MEDS: AMLODIPINE BESYLATE 5 MG TABLET 10 MG PO (07:26)
[2019-12-18] MEDS: ENOXAPARIN 80 MG/0.8 ML SYRINGE SUB-Q ×2 (07:26→20:04)
[2019-12-18] MEDS: PANTOPRAZOLE SODIUM IV 40 MG VIAL IV PUSH (07:26)
[2019-12-18] MEDS: INSULIN GLARGINE (*BKC) 100 UNITS/ML 35 UNITS SUB-Q (07:28)
[2019-12-18 07:55] LABS: Glucose Point of Care 214 (65-105)
[2019-12-18] MEDS: acetaZOLAMIDE SODIUM FOR INJ 500 MG VIAL IV PUSH ×2 (07:56→18:04)
[2019-12-18] MEDS: DORNASE ALFA INH SOLN 1 MG/ML 2.5 ML AMP 2.5 MG INHALATION ×2 (08:17→19:25)
--- NOTE | 2019-12-18 09:13 | WPDINTPN ---
Progress Note: A&P Assessment and Plan (1) Respiratory failure with hypoxia: Qualifiers: Chronicity: acute Qualified Code(s): J96.01 - Acute respiratory failure with hypoxia Code(s): J96.91 - Respiratory failure, unspecified with hypoxia Status: Acute Assessment and Plan: Acute hypoxic respiratory failure likely related to bilateral infiltrates/ARDS as a result of COVID19. Intubated patient on 11/26/2019 for impending respiratory failure POSITIVE COVID-19 with ARDS physiology. Patient was extubated 12/07/2019 after successful weaning trial. 12/09/2019 -reintubated without any complication. 12/13/2019: a new ET tube was placed as patient was hypoxic, large mucus plugs were being suctioned. 12/14/2019: Repeat SARS-CoV-2 PCR was positive - Now he is on 45% FiO2, peep of 12 with adequate O2 sats at improved ABGs. Will continue to wean FiO2 and PEEP as tolerated - repeat SARS-CoV-2 PCR swab was positive on 12/14/2019 - patient febrile overnight , ordered blood, urine, sputum cultures - continue diuresis, will diurese with Diamox today as he is alkalotic Patient has completed 10 day course of dexamethasone on 12/02/2019 He completed the dose of remdisivir of 5 days a on 11/27/2019 Received 1 unit off convalascent plasma on 11/28/2019 Discontinued routine monitoring of markers unless new symptoms arise Appreciate infectious disease following the patient Doppler ultrasound of the lower extremity has been negative for DVT. CT Chest 12/08 IMPRESSION: Severe bilateral pneumonia Pneumomediastinum; no pneumothorax Endotracheal and NG tubes in satisfactory position Right internal jugular central venous catheter Echo 11/29/2019: EF 70%, moderate to severe concentric LV wall thickness, grade 1 diastolic dysfunction, are a moderately enlarged RVSP 33 mmHg Patient now needs tracheostomy. (2) COVID-19: Code(s): U07.1 - COVID-19 Status: Acute Assessment and Plan: SARS-CoV-2 PCR POSITIVE Pt on airborne, droplet and contact isolation/precautions Will hold testing inflammatory markers as they had improved Appreciate infectious disease evaluation recommendation. 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 Is not requiring any pressor supports. -continue amlodipine and metoprolol (5) DVT prophylaxis: Code(s): Z29.9 - Encounter for prophylactic measures, unspecified Status: Acute Assessment and Plan: Continue Lovenox at therapeutic dose (6) Hypothyroidism: Qualifiers: Hypothyroidism type: unspecified Qualified Code(s): E03.9 - Hypothyroidism, unspecified Code(s): E03.9 - Hypothyroidism, unspecified Status: Chronic Assessment and Plan: continue PO levothyroxine (7) Dietary counseling and surveillance: Code(s): Z71.3 - Dietary counseling and surveillance Status: Acute Assessment and Plan: Tolerating tube feeds positive bowel movements (8) Hematoma: Code(s): T14.8XXA - Other injury of unspecified body region, initial encounter Status: Acute Assessment and Plan: 12/08 patient was febrile and had increase in white
--- NOTE | 2019-12-18 11:07 | PCDIET ---
ICU Rounding Note: Patient tolerating Glucerna 1.2 at 50mL/hr with Pro-Stat flush BID. MD ordered to stop water flushes at this time. Last recorded weight is 86.4kg which is down from last review, but still up from admission. Bowel Motility: BM x 2 today. Labs Reviewed: Hgb (8.6), Hct (27.6), Glu (214), BUN (48), Mg (2.6) Meds Noted: Diamox, Novolog, Propofol (rate of 20.8mL/hr provides 549kcal over 24 hours), Fentanyl, Lantus, Versed, Protonix, Miralax prn (not given today) Additional Notes: Right groin puncture site with no pressure sores reported. Following daily in ICU rounds. Assessing/reassessing every Sunday/Sunday.
--- NOTE | 2019-12-18 11:41 | WPDGICN ---
Assessment and Plan Assessment and plan (1) Nutritional assessment: Code(s): Z00.8 - Encounter for other general examination Status: Acute Assessment and Plan: Patient currently ventilator dependent. Long to nutrition suggest he will need tube feedings. Plan is to place a PEG tube on Sunday. (2) COVID-19: Code(s): U07.1 - COVID-19 Status: Acute (3) DM type 2 (diabetes mellitus, type 2): Qualifiers: Diabetes mellitus assisted insulin use: unspecified assisted insulin use status Diabetes mellitus complication status: with neurologic complications Diabetes mellitus complication detail: with unspecified neuropathy Qualified Code(s): E11.40 - Type 2 diabetes mellitus with diabetic neuropathy, unspecified Code(s): E11.9 - Type 2 diabetes mellitus without complications Status: Acute (4) Bilateral pulmonary infiltrates on chest x-ray: Code(s): R91.8 - Other nonspecific abnormal finding of lung field Status: Acute (5) Essential (primary) hypertension: Code(s): I10 - Essential (primary) hypertension Status: Acute GI Consult Note Consult date/time: 12/18/19 11:41 HPI: Willie Urias is a 64 year old male Seen in evaluation at the request of the liner worker service. 64-year-old male with underlying history of atherosclerotic heart disease. He is status post henderson CABG, hypertension hyperlipidemia diabetes mellitus. Mid to the hospital 711 with shortness of breath. Patient has been intubated 3 times in currently felt to be ventilator dependent in the intensive care unit. He has been found to be COVID positive period with bilateral infiltrates an ARDS physiology. I am asked to see him for nutritional support. Currently receiving nutrition via NG tube. Patient is on the ventilator and unable to add any additional useful history. No prior surgeries are reported. Patient is received antiviral therapy, dexamethasone, convalescent plasma as well. Review of Systems Review of Systems: ROS unobtainable: Yes unobtainable due to endotracheal tube PMFSH Past Medical History Medical History Anemia Anxiety Cerebrovascular accident Chronic knee pain after total replacement of both knee joints Congestive heart failure Coronary artery disease involving coronary bypass graft Depression Former smoker Gastroesophageal reflux disease Hiatal hernia Hyperlipidemia Hypertension Hypothyroidism Myocardial infarction Osteoarthritis Type 2 diabetes mellitus with diabetic neuropathy Vitamin D deficiency Surgical History Surgical History History of appendectomy History of bilateral knee arthroplasty (~03/2015) History of endoscopy With findings of hiatal hernia. Previous food impaction with subsequent removal and esophageal dilatation. History of laparoscopic cholecystectomy (~02/2015) History of three vessel coronary artery bypass (~2012) Family History Family History Sibling Diabetes mellitus Mother Diabetes mellitus Other Hypertension Social History Social History Social History: Surrogate decision maker: Colleen Szymanski, . Code status: Full code. Smoking packs per day: 1.5 Smoking cigarettes per day: 30.0 Years smoked: 20 Smoking pack-years: 30.00 Smoking status: Former smoker Smoking end date: 05/28/92 Alcohol intake: never Substance use: never Additional living arrangements comments: Patient lives with his in [place]. Additional occupation/education comments: Retired. Gender identity (if verbalized by the patient): Male Spiritual care concerns: No Meds Home Medications and Allergies Home Medications Medication Instructions Recorded Confirmed Type amlodipine-benazepril 1 cap
[2019-12-18 13:24] LABS: Glucose Point of Care 225 (65-105)
[2019-12-18 17:19] LABS: Glucose Point of Care 166 (65-105)
[2019-12-18] MEDS: MIDAZOLAM HCL 2 MG/2 ML VIAL IV PUSH (22:29)
[2019-12-19] VITALS (38 sets, daily range): BP systolic 124–157; BP diastolic 62–79; PULSE 71–120; RESP 17–30; TEMP 36.6–39.4; O2SAT 95–100
[2019-12-19] MEDS: ACETAMINOPHEN 325 MG TABLET 650 MG PO ×2 (00:32→04:27)
[2019-12-19] MEDS: INSULIN ASPART (*BKC) 100 UNITS/ML SUB-Q ×4 (00:35→23:17)
[2019-12-19 00:48] LABS: Glucose Point of Care 213 (65-105)
[2019-12-19] MEDS: PROPOFOL IV EMULSION 100 ML 23.4 MG IV CONT (03:21)
[2019-12-19 03:53] LABS: Alveolar/Arterial O2 Gradient 170.6 mmHg; Base Excess ABG 4.1 mEq/l (+/-2.0); Carboxyhemoglobin 0.1 % THb (0-2.0); Fractional Inspired Oxygen 45 %; HCO3 ABG 31.3 mEq/l (22.0-26.0); Methemoglobin ABG 0.3 %THb (0-1.5); Oxygen Content ABG 14.9 %vol (16.0-22.0); Oxygen Saturation ABG 94.9 % (95.0-100.0); Oxyhemoglobin 94.2 % THb (90.0-100.0); PO2 ABG 81.2 mmHg (80.0-100.0); Reduced Hemoglobin 5.4 %THb (0-5.0); Total Hemoglobin 11.2 g/dL (12.0-18.0)
[2019-12-19 03:54] LABS: Arterial Blood Gas Vent Mode CMV; Arterial Blood Gas Ventilator rate 22 /MIN; Device VENTILATOR; Modified Allen's Test Pass; PCO2 ABG 60.7 mmHg (35.0-45.0); Site Drawn LEFT RADIAL
[2019-12-19 03:55] LABS: Arterial Blood Gas PEEP 12 cmH2O; Arterial Blood Gas Tidal Volume 400 ml
[2019-12-19 05:15] LABS: Hematocrit 31.2 % (42.0-52.0); Hemoglobin 9.6 g/dL (14.0-18.0); Mean Corpuscular HGB Conc 30.8 g/dl (32-36); Mean Corpuscular Hemoglobin 29.5 pg (26-34); Mean Platelet Volume 11.3 fl (7.4-10.4); Platelet Count Result 266 k/mm3 (150-375); Red Blood Count 3.25 M/mm3 (4.6-6.20); Red Cell Distribution Width 13.6 % (11.5-14.5); White Blood Count 5.9 K/mm3 (4.5-10.0)
[2019-12-19 05:32] LABS: Anion Gap 9.6 mmol/L (7-16); Blood Urea Nitrogen 37 mg/dL (9-20); Calcium 9.3 mg/dL (8.4-10.2); Carbon Dioxide 31 mmol/L (22-30); Chloride 110 mmol/L (98-107); Estimated CRCL calculation 78 ml/min; Estimated Glomerular Filt Rate > 60; Glucose 214 mg/dL (75-110); Magnesium 2.1 mg/dL (1.6-2.3); Phosphorus 4.1 mg/dL (2.5-4.5); Potassium 3.6 mmol/L (3.4-5.0); Sodium 147 mmol/L (137-145)
[2019-12-19] MEDS: CENTRAL LINE FLUSH 10 ML IV PUSH ×5 (06:25→21:09)
[2019-12-19] MEDS: LEVOTHYROXINE SODIUM 100 MCG TABLET PO (06:25)
[2019-12-19] MEDS: AZTREONAM 1 GM in DEXTROSE 5% IN WATER 50 ML 100 ML IVPB (06:55)
[2019-12-19] MEDS: PROPOFOL IV EMULSION 100 ML 20.8 MG IV CONT ×4 (06:57→20:28)
--- NOTE | 2019-12-19 07:41 | WPDINTPN ---
Progress Note: A&P Assessment and Plan (1) Respiratory failure with hypoxia: Qualifiers: Chronicity: acute Qualified Code(s): J96.01 - Acute respiratory failure with hypoxia Code(s): J96.91 - Respiratory failure, unspecified with hypoxia Status: Acute Assessment and Plan: Acute hypoxic respiratory failure likely related to bilateral infiltrates/ARDS as a result of COVID19. Intubated patient on 11/26/2019 for impending respiratory failure POSITIVE COVID-19 with ARDS physiology. Patient was extubated 12/07/2019 after successful weaning trial. 12/09/2019 -reintubated without any complication. 12/13/2019: a new ET tube was placed as patient was hypoxic, large mucus plugs were being suctioned. 12/14/2019: Repeat SARS-CoV-2 PCR was positive - Now he is on 45% FiO2, peep of 12 with adequate O2 sats at improved ABGs. Will continue to wean FiO2 and PEEP as tolerated - repeat SARS-CoV-2 PCR swab was positive on 12/14/2019 - patient febrile, ordered blood, urine, sputum cultures (pending). Remove RIJ CVC and place PICC. Patient has completed 10 day course of dexamethasone on 12/02/2019 He completed the dose of remdisivir of 5 days a on 11/27/2019 Received 1 unit off convalascent plasma on 11/28/2019 Discontinued routine monitoring of markers unless new symptoms arise Appreciate infectious disease following the patient Doppler ultrasound of the lower extremity has been negative for DVT. CT Chest 12/08 IMPRESSION: Severe bilateral pneumonia Pneumomediastinum; no pneumothorax Endotracheal and NG tubes in satisfactory position Right internal jugular central venous catheter Echo 11/29/2019: EF 70%, moderate to severe concentric LV wall thickness, grade 1 diastolic dysfunction, are a moderately enlarged RVSP 33 mmHg Patient now needs tracheostomy - plan for Sunday. (2) COVID-19: Code(s): U07.1 - COVID-19 Status: Acute Assessment and Plan: SARS-CoV-2 PCR POSITIVE Pt on airborne, droplet and contact isolation/precautions Will hold testing inflammatory markers as they had improved Appreciate infectious disease evaluation recommendation. 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 Is not requiring any pressor support. -continue amlodipine and metoprolol (5) DVT prophylaxis: Code(s): Z29.9 - Encounter for prophylactic measures, unspecified Status: Acute Assessment and Plan: Continue Lovenox at therapeutic dose (6) Hypothyroidism: Qualifiers: Hypothyroidism type: unspecified Qualified Code(s): E03.9 - Hypothyroidism, unspecified Code(s): E03.9 - Hypothyroidism, unspecified Status: Chronic Assessment and Plan: continue PO levothyroxine (7) Dietary counseling and surveillance: Code(s): Z71.3 - Dietary counseling and surveillance Status: Acute Assessment and Plan: Tolerating tube feeds positive bowel movements (8) Hematoma: Code(s): T14.8XXA - Other injury of unspecified body region, initial encounter Status: Acute Assessment and Plan: 12/08 patient was febrile and had increase in white count. Pt tender in R groi
[2019-12-19] MEDS: ENOXAPARIN 80 MG/0.8 ML SYRINGE SUB-Q ×2 (07:56→20:03)
[2019-12-19] MEDS: PANTOPRAZOLE SODIUM IV 40 MG VIAL IV PUSH (07:57)
[2019-12-19] MEDS: AMLODIPINE BESYLATE 5 MG TABLET 10 MG PO (07:57)
[2019-12-19] MEDS: INSULIN GLARGINE (*BKC) 100 UNITS/ML 35 UNITS SUB-Q (07:57)
[2019-12-19] MEDS: METOPROLOL TARTRATE 25 MG TABLET PO ×2 (07:57→20:03)
[2019-12-19 08:12] LABS: Glucose Point of Care 244 (65-105)
[2019-12-19] MEDS: DORNASE ALFA INH SOLN 1 MG/ML 2.5 ML AMP 2.5 MG INHALATION ×2 (08:23→20:08)
--- NOTE | 2019-12-19 10:10 | WPDGIPROGNO ---
Progress Note: A&P Additional Plan Patient unchanged. Remains on ventilator. Physical exam discussed with nursing staff. Patient is developed a fever. Impression 1. Nutritional support. Patient now ventilator dependent. Anticipate PEG tube placement next week. Discussed with nursing staff. Hopefully this can be arranged Sunday or Sunday per 2. COVID positive. Pneumonia with ARDS physiology. Actively managed by the oil deliverer staff. Subjective Date/time seen: 12/19/19 10:10 Objective Data Vital Signs Vital Signs: Vital Signs - 24 hr 12/18/19 11:31 12/18/19 12:00 12/18/19 12:07 Temperature 99 F Pulse Rate 80 84 80 Respiratory Rate 24 H 22 H Blood Pressure 139/69 Pulse Oximetry 95 95 96 12/18/19 13:59 12/18/19 14:00 12/18/19 14:01 Temperature 99.1 F Pulse Rate 85 85 85 Respiratory Rate 22 H 17 Blood Pressure 127/66 Pulse Oximetry 94 12/18/19 14:03 12/18/19 14:38 12/18/19 15:07 Temperature Pulse Rate 85 82 82 Respiratory Rate 22 H 22 H Blood Pressure Pulse Oximetry 95 96 12/18/19 16:00 12/18/19 17:09 12/18/19 17:10 Temperature 99.1 F Pulse Rate 84 90 89 Respiratory Rate 24 H 18 18 Blood Pressure 134/65 Pulse Oximetry 96 12/18/19 18:00 12/18/19 19:25 12/18/19 19:29 Temperature Pulse Rate 93 98 98 Respiratory Rate 18 24 H Blood Pressure 129/67 Pulse Oximetry 97 96 12/18/19 19:35 12/18/19 20:00 12/18/19 20:03 Temperature 100.7 F H 100.7 F H Pulse Rate 98 99 97 Respiratory Rate 23 H 20 Blood Pressure 146/77 H Pulse Oximetry 96 12/18/19 21:03 12/18/19 22:00 12/18/19 22:48 Temperature 100.0 F H Pulse Rate 83 111 H Respiratory Rate 19 Blood Pressure 121/66 Pulse Oximetry 97 95 12/19/19 00:00 12/19/19 00:30 12/19/19 00:32 Temperature 103 F H 103 F H Pulse Rate 115 H 120 H Respiratory Rate 21 H 23 H Blood Pressure 148/74 H Pulse Oximetry 95 12/19/19 01:32 12/19/19 02:00 12/19/19 02:16 Temperature 102.1 F H 101.3 F H Pulse Rate 101 H 97 Respiratory Rate 22 H Blood Pressure 132/66 Pulse Oximetry 97 96 12/19/19 03:57 12/19/19 04:00 12/19/19 04:27 Temperature 101.3 F H 101.2 F H Pulse Rate 93 92 Respiratory Rate 24 H Blood Pressure 127/70 Pulse Oximetry 96 96 12/19/19 06:00 12/19/19 06:24 12/19/19 07:57 Temperature 101.8 F H 102 F H Pulse Rate 111 H 96 Respiratory Rate 26 H Blood Pressure 140/73 Pulse Oximetry 96 12/19/19 08:00 12/19/19 08:23 12/19/19 08:33 Temperature 101.1 F H Pulse Rate 85 89 81 Respiratory Rate 18 25 H 24 H Blood Pressure 137/68 Pulse Oximetry 98 98 12/19/19 09:58 Temperature Pulse Rate 78 Respiratory Rate Blood Pressure Pulse Oximetry Intake/Output Intake/Output: Intake & Output 12/16/19 12/17/19 12/18/19 12/19/19 23:59 23:59 23:59 23:59 Intake Total 2260 2334 1957 1225 Output Total 1500 1800 1900 1450 Balance 760 534 57 -225 Meds/Results Medications: Active Medications Generic Name Dose Route Start Last Admin Trade Name Freq PRN Reason Stop Dose Admin Acetaminophen 650 mg 11/22/19 10:38 12/19/19 04:27 Tylenol Tablet PO 650 mg Q4H PRN Administration Mild Pain (1-3) or Fever Amlodipine Besylate 10 mg 12/03/19 09:00 12/19/19 07:57 Norvasc PO 10 mg QAM OLENA Administration Artificial Tears 1 drop 11/23/19 15:28 12/09/19 06:31 Artificial Tears EACH EYE 1 drop QID PRN Administration Dry Eye(s) Benzocaine 1 lozenge 11/24/19 07:22 11/24/19 20:13 Chloraseptic Lozenge PO 1 lozenge PRN PRN Administration Sore Throat Dextrose 12.5 gm 11/22/19 13:13 Dextrose 50% Syringe IV PUSH PRN PRN Hypoglycemia Protocol Dornase Markel 2.5 mg 12/15/19 20:00 12/19/19 08:23 Pulmozyme INHALATION 2.5 mg Q12HRT OLENA Administration Enoxaparin Sodium 80 mg 11/27/19 21:00 12/19/19 07:56 Lovenox SUB-Q 80 mg Q12HR OLENA Administra
[2019-12-19] MEDS: NEOMYCIN/POLYMYXIN/BACITRACIN OINTMENT PACKET 1 PACKET (11:47)
[2019-12-19 12:16] LABS: Glucose Point of Care 238 (65-105)
[2019-12-19] MEDS: AZTREONAM 1 GM in DEXTROSE 5% IN WATER 50 ML IVPB ×2 (13:19→21:08)
--- NOTE | 2019-12-19 14:10 | PCDIET ---
Nutrition Follow-Up Complete: Nutrition Diagnosis: Predicted suboptimal oral intake related to increased O2 requirements as evidenced by full liquid diet order. Nutrition Goal: Patient to meet estimated nutritional needs. Goal met. Patient tolerating Glucerna 1.2 at 50mL/hr with Pro-Stat flush BID. MD adding 150mL water flush every 6 hours. Last recorded weight is 84.2 kg which is down from last review. Bowel Motility: Small BM reported today. Labs Reviewed: Hgb (9.6), Hct (31.2), Glu (214), Na (147), Cl (110) Meds Noted: Propofol (rate of 20.8mL/hr provides 549kcal over 24 hours), Aztreonam, Ancef, Fentanyl, Novolog, Lantus, Synthroid, Versed, Protonix, Miralax, Vancomycin Additional Notes: MD ordering to check TG level. No skin breakdown reported. Plan for PEG/tracheostomy next week. Will continue to monitor with same goals. Nutrition Monitoring and Evaluation: Follow up every Sunday/Sunday. Follow daily in ICU rounds.
--- NOTE | 2019-12-19 15:08 | PM.IMPN ---
Progress Note: A&P Assessment and Plan (1) Acute respiratory failure with hypoxia: Code(s): J96.01 - Acute respiratory failure with hypoxia Status: Acute Assessment and Plan: He had to be reintubated today. With new ETT by ICU doctor due to desaturation and old ETT tube blocked with mucous plugs 3rd intubation 11/25 ARDS, 12/08 ongoing respiratory failure and 12/12 mucous plugging Management per intensive care physician. 12/19/19 15:08 Management per intensive care physician. 64-year-old male COVID positive respiratory failure and was intubated 3rd time, seen by personal banker severalattempts have failed to wean the patient off ventilation however patient is unable to tolerate being off sedation and sustained breathing to extubate, patient may require trach possible LTAC for further management, patient is scheduled have a PEG and trach on Sunday (2) COVID-19 virus infection: Code(s): U07.1 - COVID-19 Status: Acute Assessment and Plan: He completed remdisivir and dexamethasone He also received convalescent plasma. 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 On long acting insulin and ISS, consider short acting meal time insulin if glucose continues to be high. (4) Hypothyroidism: Qualifiers: Hypothyroidism type: unspecified Qualified Code(s): E03.9 - Hypothyroidism, unspecified Code(s): E03.9 - Hypothyroidism, unspecified Status: Chronic (5) DVT prophylaxis: Code(s): Z29.9 - Encounter for prophylactic measures, unspecified Status: Acute Assessment and Plan: On pharmacological therapy. Subjective Date/time seen: 12/19/19 15:08 Management per intensive care physician. 64-year-old male COVID positive respiratory failure and was intubated 3rd time, seen by personal banker severalattempts have failed to wean the patient off ventilation however patient is unable to tolerate being off sedation and sustained breathing to extubate, patient may require trach possible LTAC for further management, patient is scheduled have a PEG and trach on Sunday Review of Systems Review of Systems: ROS unobtainable: Yes unobtainable due to endotracheal tube Exam Narrative: Exam Narrative: patient is seen but not examine Const: General: comfortable and no acute distress HENMT: Other: ET tube in place Neck: Other: no retraction Resp: Effort & Inspection: normal respiratory effort GI: Other: not distended Skin: General skin exam: normal color Neuro: Other: on vent and sedated Extrem: General: normal to inspection Psych: Other: on vent and sedated Objective Data Vital Signs Vital Signs: Vital Signs - 24 hr 12/18/19 16:00 12/18/19 17:09 12/18/19 17:10 Temperature 99.1 F Pulse Rate 84 90 89 Respiratory Rate 24 H 18 18 Blood Pressure 134/65 Pulse Oximetry 96 12/18/19 18:00 12/18/19 19:25 12/18/19 19:29 Temperature Pulse Rate 93 98 98 Respiratory Rate 18 24 H Blood Pressure 129/67 Pulse Oximetry 97 96 12/18/19 19:35 12/18/19 20:00 12/18/19 20:03 Temperature 100.7 F H 100.7 F H Pulse Rate 98 99 97 Respiratory Rate 23 H 20 Blood Pressure 146/77 H Pulse Oximetry 96 12/18/19 21:03 12/18/19 22:00 12/18/19 22:48 Temperature 100.0 F H Pulse Rate 83 111 H Respiratory Rate 19 Blood Pressure 121/66 Pulse Oximetry 97 95 12/19/19 00:00 12/19/19 00:30 12/19/19 00:32 Temperature 103 F H 10
[2019-12-19 17:14] LABS: Glucose Point of Care 192 (65-105)
[2019-12-19 23:30] LABS: Glucose Point of Care 255 (65-105)
[2019-12-20] VITALS (38 sets, daily range): BP systolic 119–172; BP diastolic 62–84; PULSE 71–93; RESP 24–31; TEMP 37.1–38; O2SAT 96–100
[2019-12-20] MEDS: PROPOFOL IV EMULSION 100 ML 20.8 MG IV CONT ×2 (00:50→05:48)
[2019-12-20 05:13] LABS: Hematocrit 27.2 % (42.0-52.0); Hemoglobin 8.6 g/dL (14.0-18.0); Mean Corpuscular HGB Conc 31.6 g/dl (32-36); Mean Corpuscular Hemoglobin 29.9 pg (26-34); Mean Corpuscular Volume 94.4 fl (80-100); Mean Platelet Volume 11.3 fl (7.4-10.4); Platelet Count Result 249 k/mm3 (150-375); Red Blood Count 2.88 M/mm3 (4.6-6.20); Red Cell Distribution Width 13.3 % (11.5-14.5); White Blood Count 7.8 K/mm3 (4.5-10.0)
[2019-12-20 05:22] LABS: Anion Gap 7.6 mmol/L (7-16); Blood Urea Nitrogen 36 mg/dL (9-20); Calcium 8.8 mg/dL (8.4-10.2); Carbon Dioxide 31 mmol/L (22-30); Chloride 110 mmol/L (98-107); Estimated CRCL calculation 101 ml/min; Estimated Glomerular Filt Rate > 60; Glucose 208 mg/dL (75-110); Magnesium 2.2 mg/dL (1.6-2.3); Phosphorus 2.8 mg/dL (2.5-4.5); Potassium 3.6 mmol/L (3.4-5.0); Sodium 145 mmol/L (137-145)
[2019-12-20 05:43] LABS: Alveolar/Arterial O2 Gradient 178.9 mmHg; Base Excess ABG 4.8 mEq/l (+/-2.0); Carboxyhemoglobin 0.3 % THb (0-2.0); Fractional Inspired Oxygen 45 %; HCO3 ABG 30.8 mEq/l (22.0-26.0); Methemoglobin ABG 0.3 %THb (0-1.5); Oxygen Content ABG 12.3 %vol (16.0-22.0); Oxygen Saturation ABG 95.5 % (95.0-100.0); Oxyhemoglobin 94.3 % THb (90.0-100.0); PCO2 ABG 53.6 mmHg (35.0-45.0); Reduced Hemoglobin 5.1 %THb (0-5.0); Total Hemoglobin 9.2 g/dL (12.0-18.0); pH ABG 7.377 (7.350-7.450)
[2019-12-20 05:44] LABS: Triglycerides 646 mg/dL (<150)
[2019-12-20 05:44] LABS: Device VENTILATOR; Modified Allen's Test Pass; Site Drawn RIGHT RADIAL
[2019-12-20 05:45] LABS: Arterial Blood Gas PEEP 12 cmH2O; Arterial Blood Gas Tidal Volume 400 ml; Arterial Blood Gas Vent Mode CMV; Arterial Blood Gas Ventilator rate 24 /MIN
[2019-12-20] MEDS: AZTREONAM 1 GM in DEXTROSE 5% IN WATER 50 ML IVPB (05:50)
[2019-12-20] MEDS: CENTRAL LINE FLUSH 10 ML IV PUSH ×5 (05:53→20:16)
[2019-12-20] MEDS: INSULIN ASPART (*BKC) 100 UNITS/ML SUB-Q ×4 (05:55→23:19)
[2019-12-20] MEDS: LEVOTHYROXINE SODIUM 100 MCG TABLET PO (06:22)
--- NOTE | 2019-12-20 07:11 | WPDINTPN ---
Progress Note: A&P Assessment and Plan (1) Respiratory failure with hypoxia: Qualifiers: Chronicity: acute Qualified Code(s): J96.01 - Acute respiratory failure with hypoxia Code(s): J96.91 - Respiratory failure, unspecified with hypoxia Status: Acute Assessment and Plan: Acute hypoxemic respiratory failure due to COVID-19 related ARDS. Intubated patient on 11/26/2019 for impending respiratory failure Patient was extubated 12/07/2019 after successful weaning trial. 12/09/2019 -reintubated without any complication. 12/13/2019: a new ET tube was placed as patient was hypoxic, large mucus plugs were being suctioned. 12/14/2019: Repeat SARS-CoV-2 PCR was positive Currently on AC 400x24, FiO2 0.45, PEEP 12. Ppeak 29-31. Patient has been unable to wean further and plan for tracheostomy Sunday or Sunday. He is on propofol and fentanyl gtts - triglycerides markedly elevated this AM and will switch propofol to Precedex. (2) COVID-19: Code(s): U07.1 - COVID-19 Status: Acute Assessment and Plan: SARS-CoV-2 PCR POSITIVE Pt on airborne, droplet and contact isolation/precautions. Patient has completed 10 day course of dexamethasone on 12/02/2019. He completed the dose of remdisivir of 5 days on 11/27/2019. Received 1 unit off convalascent plasma on 11/28/2019. Discontinued routine monitoring of markers unless new symptoms arise. Appreciate infectious disease following the patient. (3) DM type 2 (diabetes mellitus, type 2): Qualifiers: Diabetes mellitus complication detail: with unspecified neuropathy Diabetes mellitus complication status: with neurologic complications Diabetes mellitus terminal gauger insulin use: unspecified terminal gauger insulin use status Qualified Code(s): E11.40 - Type 2 diabetes mellitus with diabetic neuropathy, unspecified Code(s): E11.9 - Type 2 diabetes mellitus without complications Status: Acute Assessment and Plan: Uncontrolled on Lantus and SSI - increase Lantus today. (4) Essential (primary) hypertension: Code(s): I10 - Essential (primary) hypertension Status: Acute Assessment and Plan: Continue amlodipine and metoprolol. (5) DVT prophylaxis: Code(s): Z29.9 - Encounter for prophylactic measures, unspecified Status: Acute Assessment and Plan: Continue Lovenox at therapeutic dose (6) Hypothyroidism: Qualifiers: Hypothyroidism type: unspecified Qualified Code(s): E03.9 - Hypothyroidism, unspecified Code(s): E03.9 - Hypothyroidism, unspecified Status: Chronic Assessment and Plan: Continue levothyroxine. (7) Dietary counseling and surveillance: Code(s): Z71.3 - Dietary counseling and surveillance Status: Acute Assessment and Plan: Tolerating tube feeds. Positive bowel movements. (8) Hematoma: Code(s): T14.8XXA - Other injury of unspecified body region, initial encounter Status: Acute Assessment and Plan: Resolved. (9) Anemia: Qualifiers: Anemia type: unspecified type Qualified Code(s): D64.9 - Anemia, unspecified Code(s): D64.9 - Anemia, unspecified Status: Acute Assessment and Plan: Now stable. Hematoma may have contributed. Patient was transfused 2 units of packed red cells 12/10. No obvious signs of bleeding. Will continue to monitor. Will continue Lovenox. (10) Febrile illness: Code(s): R50.9 - Fever, unspecified Status: Acute Assessment and Plan: Blood culture from 12/17 with Klebsiella aerogenes. RIJ CVC removed 12/18; L AC PICC placed. Will continue vancomycin for now, switch aztreonam to ceftriaxone based on sensitivities. Additional Plan Will discuss with family Code Status: Full code SUP - PPI Critical care time spent: 35 minutes Due to a high probability of clinically significant, life threatening deterioration, the patient required my
[2019-12-20] MEDS: DORNASE ALFA INH SOLN 1 MG/ML 2.5 ML AMP 2.5 MG INHALATION ×2 (07:56→19:29)
[2019-12-20] MEDS: AMLODIPINE BESYLATE 5 MG TABLET 10 MG PO (08:25)
[2019-12-20] MEDS: METOPROLOL TARTRATE 25 MG TABLET PO ×2 (08:25→20:14)
[2019-12-20] MEDS: INSULIN GLARGINE (*BKC) 100 UNITS/ML 45 UNITS SUB-Q (08:25)
[2019-12-20] MEDS: ENOXAPARIN 80 MG/0.8 ML SYRINGE SUB-Q ×2 (09:33→20:13)
[2019-12-20] MEDS: PANTOPRAZOLE SODIUM IV 40 MG VIAL IV PUSH (09:33)
[2019-12-20] MEDS: ACETAMINOPHEN 325 MG TABLET 650 MG PO (13:11)
[2019-12-20] MEDS: MIDAZOLAM HCL 2 MG/2 ML VIAL IV PUSH (13:12)
--- NOTE | 2019-12-20 15:32 | PM.IMPN ---
Progress Note: A&P Assessment and Plan (1) Acute respiratory failure with hypoxia: Code(s): J96.01 - Acute respiratory failure with hypoxia Status: Acute Assessment and Plan: He had to be reintubated today. With new ETT by ICU doctor due to desaturation and old ETT tube blocked with mucous plugs 3rd intubation 11/25 ARDS, 12/08 ongoing respiratory failure and 12/12 mucous plugging Management per intensive care physician. 12/20/19 15:32 64-year-old male COVID positive respiratory failure and was intubated 3rd time, seen by slubber operator severalattempts have failed to wean the patient off ventilation however patient is unable to tolerate being off sedation and sustained breathing to extubate, patient may require trach possible LTAC for further management, patient is scheduled have a PEG and trach on Sunday (2) COVID-19 virus infection: Code(s): U07.1 - COVID-19 Status: Acute Assessment and Plan: He completed remdisivir and dexamethasone He also received convalescent plasma. (3) DM type 2 (diabetes mellitus, type 2): Qualifiers: Diabetes mellitus complication detail: with unspecified neuropathy Diabetes mellitus complication status: with neurologic complications Diabetes mellitus detention insulin use: unspecified detention insulin use status Qualified Code(s): E11.40 - Type 2 diabetes mellitus with diabetic neuropathy, unspecified Code(s): E11.9 - Type 2 diabetes mellitus without complications Status: Acute Assessment and Plan: Monitor blood glucose on dexamethasone. On long acting insulin and ISS, consider short acting meal time insulin if glucose continues to be high. (4) Hypothyroidism: Qualifiers: Hypothyroidism type: unspecified Qualified Code(s): E03.9 - Hypothyroidism, unspecified Code(s): E03.9 - Hypothyroidism, unspecified Status: Chronic (5) DVT prophylaxis: Code(s): Z29.9 - Encounter for prophylactic measures, unspecified Status: Acute Assessment and Plan: On pharmacological therapy. Subjective Date/time seen: 12/20/19 15:32 64-year-old male COVID positive respiratory failure and was intubated 3rd time, seen by slubber operator severalattempts have failed to wean the patient off ventilation however patient is unable to tolerate being off sedation and sustained breathing to extubate, patient may require trach possible LTAC for further management, patient is scheduled have a PEG and trach on Sunday Review of Systems Review of Systems: ROS unobtainable: Yes unobtainable due to endotracheal tube Exam Narrative: Exam Narrative: patient is seen but not examined Const: General: comfortable and no acute distress HENMT: General nose exam: Normal nares present Other: ET tube in place Neck: Other: no retraction Resp: Effort & Inspection: normal respiratory effort GI: Other: not distant Skin: General skin exam: normal color Neuro: Other: patient on vent and sedated Extrem: General: normal to inspection Psych: Other: patient on vent and sedated Objective Data Vital Signs Vital Signs: Vital Signs - 24 hr 12/19/19 15:33 12/19/19 15:43 12/19/19 15:44 Temperature Pulse Rate 74 78 76 Respiratory Rate 25 H 24 H 24 H Blood Pressure Pulse Oximetry 97 12/19/19 15:45 12/19/19 16:00 12/19/19 16:39 Temperature 98.5 F Pulse Rate 76 78 76 Respiratory Rate 24 H 22 H Blood Pressure 135/68 Pulse Oximetry 97 97 12/19/19 18:00 12/19/19 20:00 12/19/19 20:03 Temperature 99 F 99.4 F Pulse Rate 79 88 88 Respiratory Rate 24 H 26 H Blood Pressure 137/68 157/79 H Pulse Oximetry 98 97 12/19/19 20:08 12/19/19 20:25 12/19/19 20:28 Temperature Pulse Rate 91 93 93 Respiratory Rate 28 H 30 H 26 H Blood Pressure Pulse Oximetry 12/19/19 20:33 12/19/19 22:00 12/19/19 23:03 Temperature 99.7 F H Pulse Rate 93 80 76 Respiratory Rate
[2019-12-20 17:26] LABS: Glucose Point of Care 253 (65-105)
[2019-12-20 17:26] LABS: Glucose Point of Care 293 (65-105)
[2019-12-20 17:26] LABS: Glucose Point of Care 229 (65-105)
[2019-12-20 20:12] LABS: Vancomycin Trough 11.4 ug/mL (10.0-20.0)
[2019-12-20 23:36] LABS: Glucose Point of Care 289 (65-105)
[2019-12-21] VITALS (35 sets, daily range): BP systolic 133–178; BP diastolic 69–89; PULSE 66–108; RESP 22–30; TEMP 37.5–38; O2SAT 96–100
[2019-12-21] MEDS: MIDAZOLAM HCL 2 MG/2 ML VIAL IV PUSH ×5 (04:52→21:26)
[2019-12-21] MEDS: LEVOTHYROXINE SODIUM 100 MCG TABLET PO (05:31)
[2019-12-21] MEDS: CENTRAL LINE FLUSH 10 ML IV PUSH ×5 (05:31→20:02)
[2019-12-21 05:35] LABS: Hematocrit 25.9 % (42.0-52.0); Hemoglobin 8.4 g/dL (14.0-18.0); Mean Corpuscular HGB Conc 32.4 g/dl (32-36); Mean Corpuscular Hemoglobin 29.7 pg (26-34); Mean Corpuscular Volume 91.5 fl (80-100); Mean Platelet Volume 12.1 fl (7.4-10.4); Platelet Count Result 285 k/mm3 (150-375); Red Blood Count 2.83 M/mm3 (4.6-6.20); Red Cell Distribution Width 13.1 % (11.5-14.5); White Blood Count 7.3 K/mm3 (4.5-10.0)
[2019-12-21 05:49] LABS: Anion Gap 8.4 mmol/L (7-16); Blood Urea Nitrogen 27 mg/dL (9-20); Calcium 8.6 mg/dL (8.4-10.2); Carbon Dioxide 29 mmol/L (22-30); Chloride 107 mmol/L (98-107); Estimated CRCL calculation 102 ml/min; Estimated Glomerular Filt Rate > 60; Glucose 270 mg/dL (75-110); Magnesium 2.1 mg/dL (1.6-2.3); Phosphorus 2.3 mg/dL (2.5-4.5); Potassium 3.4 mmol/L (3.4-5.0); Sodium 141 mmol/L (137-145)
[2019-12-21] MEDS: INSULIN ASPART (*BKC) 100 UNITS/ML SUB-Q ×3 (05:49→17:03)
[2019-12-21 05:54] LABS: Glucose Point of Care 257 (65-105)
--- NOTE | 2019-12-21 07:38 | WPDINTPN ---
Progress Note: A&P Assessment and Plan (1) Respiratory failure with hypoxia: Qualifiers: Chronicity: acute Qualified Code(s): J96.01 - Acute respiratory failure with hypoxia Code(s): J96.91 - Respiratory failure, unspecified with hypoxia Status: Acute Assessment and Plan: Acute hypoxemic respiratory failure due to COVID-19 related ARDS. Intubated patient on 11/26/2019 for impending respiratory failure Patient was extubated 12/07/2019 after successful weaning trial. 12/09/2019 -reintubated without any complication. 12/13/2019: a new ET tube was placed as patient was hypoxic, large mucus plugs were being suctioned. 12/14/2019: Repeat SARS-CoV-2 PCR was positive Currently on AC 400x24, FiO2 0.45, PEEP 10. Ppeak 27. Patient has been unable to wean further and plan for tracheostomy Sunday or Sunday. He is on fentanyl gtt - triglycerides markedly elevated and switched propofol to Precedex. (2) COVID-19: Code(s): U07.1 - COVID-19 Status: Acute Assessment and Plan: SARS-CoV-2 PCR POSITIVE Pt on airborne, droplet and contact isolation/precautions. Patient has completed 10 day course of dexamethasone on 12/02/2019. He completed the dose of remdisivir of 5 days on 11/27/2019. Received 1 unit off convalascent plasma on 11/28/2019. Discontinued routine monitoring of markers unless new symptoms arise. Appreciate infectious disease following the patient. (3) DM type 2 (diabetes mellitus, type 2): Qualifiers: Diabetes mellitus complication detail: with unspecified neuropathy Diabetes mellitus complication status: with neurologic complications Diabetes mellitus care home insulin use: unspecified long term care social worker insulin use status Qualified Code(s): E11.40 - Type 2 diabetes mellitus with diabetic neuropathy, unspecified Code(s): E11.9 - Type 2 diabetes mellitus without complications Status: Acute Assessment and Plan: Uncontrolled on Lantus and SSI - increase Lantus today. (4) Essential (primary) hypertension: Code(s): I10 - Essential (primary) hypertension Status: Acute Assessment and Plan: Continue amlodipine and metoprolol. (5) DVT prophylaxis: Code(s): Z29.9 - Encounter for prophylactic measures, unspecified Status: Acute Assessment and Plan: Continue Lovenox at therapeutic dose. (6) Hypothyroidism: Qualifiers: Hypothyroidism type: unspecified Qualified Code(s): E03.9 - Hypothyroidism, unspecified Code(s): E03.9 - Hypothyroidism, unspecified Status: Chronic Assessment and Plan: Continue levothyroxine. (7) Dietary counseling and surveillance: Code(s): Z71.3 - Dietary counseling and surveillance Status: Acute Assessment and Plan: Tolerating tube feeds. Positive bowel movements. (8) Hematoma: Code(s): T14.8XXA - Other injury of unspecified body region, initial encounter Status: Acute Assessment and Plan: Resolved. (9) Anemia: Qualifiers: Anemia type: unspecified type Qualified Code(s): D64.9 - Anemia, unspecified Code(s): D64.9 - Anemia, unspecified Status: Acute Assessment and Plan: Now stable. Hematoma may have contributed. Patient was transfused 2 units of packed red cells 12/10. No obvious signs of bleeding. Will continue to monitor. Will continue Lovenox. (10) Febrile illness: Code(s): R50.9 - Fever, unspecified Status: Acute Assessment and Plan: Blood culture from 12/17 with Klebsiella aerogenes; sputum culture with Klebsiella aerogenes and Proteus mirabilis. RIJ CVC removed 12/18; L AC PICC placed. Will continue vancomycin for now, switched aztreonam to ceftriaxone based on sensitivities. Additional Plan Code Status: Full code SUP - PPI Critical care time spent: 33 minutes Due to a high probability of clinically significant, life threatening deterioration, the patient requir
[2019-12-21] MEDS: DORNASE ALFA INH SOLN 1 MG/ML 2.5 ML AMP 2.5 MG INHALATION ×2 (08:00→19:50)
[2019-12-21] MEDS: ENOXAPARIN 80 MG/0.8 ML SYRINGE SUB-Q (08:00)
[2019-12-21] MEDS: PANTOPRAZOLE SODIUM IV 40 MG VIAL IV PUSH (08:01)
[2019-12-21] MEDS: METOPROLOL TARTRATE 25 MG TABLET PO ×2 (09:07→20:03)
[2019-12-21] MEDS: AMLODIPINE BESYLATE 5 MG TABLET 10 MG PO (09:07)
[2019-12-21] MEDS: ACETAMINOPHEN 325 MG TABLET 650 MG PO (09:07)
[2019-12-21] MEDS: INSULIN GLARGINE (*BKC) 100 UNITS/ML 45 UNITS SUB-Q (09:07)
[2019-12-21] MEDS: hydrALAZINE HCL 20 MG/ML VIAL 10 MG IV PUSH (16:08)
--- NOTE | 2019-12-21 16:26 | PM.IMPN ---
Progress Note: A&P Assessment and Plan (1) Acute respiratory failure with hypoxia: Code(s): J96.01 - Acute respiratory failure with hypoxia Status: Acute Assessment and Plan: He had to be reintubated today. With new ETT by ICU doctor due to desaturation and old ETT tube blocked with mucous plugs 3rd intubation 11/25 ARDS, 12/08 ongoing respiratory failure and 12/12 mucous plugging Management per intensive care physician. 12/21/19 16:26 64-year-old male COVID positive respiratory failure and was intubated 3rd time, seen by barrel ribs solderer severalattempts have failed to wean the patient off ventilation however patient is unable to tolerate being off sedation and sustained breathing to extubate, patient may require trach possible LTAC for further management, patient remains clinically stable there is no significant change compared to yesterday patient is scheduled have a PEG and trach on Sunday (2) COVID-19 virus infection: Code(s): U07.1 - COVID-19 Status: Acute Assessment and Plan: He completed remdisivir and dexamethasone He also received convalescent plasma. (3) DM type 2 (diabetes mellitus, type 2): Qualifiers: Diabetes mellitus watermelon inspector insulin use: unspecified watermelon inspector insulin use status Diabetes mellitus complication status: with neurologic complications Diabetes mellitus complication detail: with unspecified neuropathy Qualified Code(s): E11.40 - Type 2 diabetes mellitus with diabetic neuropathy, unspecified Code(s): E11.9 - Type 2 diabetes mellitus without complications Status: Acute Assessment and Plan: Monitor blood glucose on dexamethasone. On long acting insulin and ISS, consider short acting meal time insulin if glucose continues to be high. (4) Hypothyroidism: Qualifiers: Hypothyroidism type: unspecified Qualified Code(s): E03.9 - Hypothyroidism, unspecified Code(s): E03.9 - Hypothyroidism, unspecified Status: Chronic (5) DVT prophylaxis: Code(s): Z29.9 - Encounter for prophylactic measures, unspecified Status: Acute Assessment and Plan: On pharmacological therapy. Subjective Date/time seen: 12/21/19 16:26 64-year-old male COVID positive respiratory failure and was intubated 3rd time, seen by barrel ribs solderer severalattempts have failed to wean the patient off ventilation however patient is unable to tolerate being off sedation and sustained breathing to extubate, patient may require trach possible LTAC for further management, patient remains clinically stable there is no significant change compared to yesterday patient is scheduled have a PEG and trach on Sunday Review of Systems Review of Systems: ROS unobtainable: Yes unobtainable due to endotracheal tube Exam Narrative: Exam Narrative: patient is seen but not examined Const: General: comfortable and no acute distress HENMT: Other: ET tube in place Eyes: Sclera: sclerae normal Neck: Other: no retraction Resp: Effort & Inspection: normal respiratory effort GI: Other: not distant Skin: General skin exam: normal color Neuro: Other: patient on vent and sedated Extrem: General: normal to inspection Psych: Other: patient on vent and sedated Objective Data Vital Signs Vital Signs: Vital Signs - 24 hr 12/20/19 17:04 12/20/19 17:07 12/20/19 18:00 Temperature Pulse Rate 71 74 74 Respiratory Rate 26 H 24 H Blood Pressure 144/67 H Pulse Oximetry 99 99 12/20/19 19:29 12/20/19 19:30 12/20/19 19:37 Temperature Pulse Rate 85 89 88 Respiratory Rate 27 H 27 H Blood Pressure Pulse Oximetry 99 12/20/19 20:00 12/20/19 20:14 12/20/19 22:00 Temperature 100.4 F H 100.4 F H Pulse Rate 93 93 73 Respiratory Rate 31 H 26 H Blood Pressure 172/84 H 140/65 Pulse Oximetry 98 100 12/20/19 22:14 12/20/19 23:05 12/20/19 23:20 Temperature Pulse Rate 73 78 78 Respiratory Rate 25 H
[2019-12-21 17:19] LABS: Glucose Point of Care 223 (65-105)
[2019-12-21 17:20] LABS: Glucose Point of Care 300 (65-105)
[2019-12-21 17:20] LABS: Glucose Point of Care 212 (65-105)
[2019-12-22] VITALS (51 sets, daily range): BP systolic 114–170; BP diastolic 64–89; PULSE 8–101; RESP 20–37; TEMP 36.5–38.3; O2SAT 93–100
[2019-12-22] MEDS: INSULIN ASPART (*BKC) 100 UNITS/ML SUB-Q (00:01)
[2019-12-22 00:09] LABS: Glucose Point of Care 219 (65-105)
[2019-12-22] MEDS: MIDAZOLAM HCL 2 MG/2 ML VIAL IV PUSH ×3 (01:46→13:44)
[2019-12-22] MEDS: CENTRAL LINE FLUSH 10 ML IV PUSH ×6 (05:27→21:37)
[2019-12-22 05:49] LABS: Hemoglobin 8.9 g/dL (14.0-18.0); Mean Corpuscular Hemoglobin 29.7 pg (26-34); Mean Platelet Volume 11.5 fl (7.4-10.4); Platelet Count Result 302 k/mm3 (150-375); Red Cell Distribution Width 13.2 % (11.5-14.5); White Blood Count 9.4 K/mm3 (4.5-10.0)
[2019-12-22] MEDS: LEVOTHYROXINE SODIUM 100 MCG TABLET PO (05:49)
[2019-12-22 06:12] LABS: Anion Gap 10.3 mmol/L (7-16); Blood Urea Nitrogen 27 mg/dL (9-20); Calcium 8.6 mg/dL (8.4-10.2); Carbon Dioxide 29 mmol/L (22-30); Chloride 105 mmol/L (98-107); Estimated CRCL calculation 120 ml/min; Estimated Glomerular Filt Rate > 60; Glucose 148 mg/dL (75-110); Magnesium 2.2 mg/dL (1.6-2.3); Phosphorus 2.7 mg/dL (2.5-4.5); Potassium 3.3 mmol/L (3.4-5.0); Sodium 141 mmol/L (137-145)
--- NOTE | 2019-12-22 07:29 | WPDCN ---
Assessment and Plan Assessment and plan (1) Acute respiratory failure with hypoxia: Code(s): J96.01 - Acute respiratory failure with hypoxia Status: Acute Assessment and Plan: Willie has SARS-COV-2 and ARDS with failure to extubate. After extensive care in ICU, family has wanted to continue to pursue life saving measures and we will plan for Tracheostomy today in conjunction with GI placing a PEG tube to facilitate LTAC recovery when appropriate. HPI Data of Consult Date/Time: 12/22/19 07:29 Requesting Physician: Duke Winston MD Primary Care Provider: Alison Mata, Consult Narrative Reason for consult: Tracheostomy Narrative: Willie Urias is a 64 year old male seen in evaluation at the request of the dewatering filtering supervisor service with underlying history of atherosclerotic heart disease. He is status post henderson CABG, hypertension hyperlipidemia diabetes mellitus. Admitted to the hospital with shortness of breath. Patient has been intubated 3 times and felt to be ventilator dependent in the intensive care unit. He has been found to be COVID positive period with bilateral infiltrates an ARDS physiology. PCR testing on 12/13 remained positive. Patient is on the ventilator and unable to add any additional useful history. Patient is received antiviral therapy, dexamethasone, convalescent plasma as well. Review of Systems Review of Systems: ROS unobtainable: Yes unobtainable due to endotracheal tube PMFSH Past Medical History Medical History Anemia Anxiety Cerebrovascular accident Chronic knee pain after total replacement of both knee joints Congestive heart failure Coronary artery disease involving coronary bypass graft Depression Former smoker Gastroesophageal reflux disease Hiatal hernia Hyperlipidemia Hypertension Hypothyroidism Myocardial infarction Osteoarthritis Type 2 diabetes mellitus with diabetic neuropathy Vitamin D deficiency Surgical History Surgical History History of appendectomy History of bilateral knee arthroplasty (~03/2015) History of endoscopy With findings of hiatal hernia. Previous food impaction with subsequent removal and esophageal dilatation. History of laparoscopic cholecystectomy (~02/2015) History of three vessel coronary artery bypass (~2012) Family History Family History Sibling Diabetes mellitus Mother Diabetes mellitus Other Hypertension Social History Social History Social History: Surrogate decision maker: Colleen Szymanski, . Code status: Full code. Smoking packs per day: 1.5 Smoking cigarettes per day: 30.0 Years smoked: 20 Smoking pack-years: 30.00 Smoking status: Former smoker Smoking end date: 05/28/92 Alcohol intake: never Substance use: never Additional living arrangements comments: Patient lives with his in [place]. Additional occupation/education comments: Retired. Gender identity (if verbalized by the patient): Male Spiritual care concerns: No Meds Home Medications and Allergies Home Medications Medication Instructions Recorded Confirmed Type amlodipine-benazepril 1 cap PO DAILY 11/22/19 11/22/19 History famotidine 40 mg PO BID 11/22/19 11/22/19 History glimepiride 4 mg PO DAILY 11/22/19 11/22/19 History levothyroxine 100 mcg PO DAILY 11/22/19 11/22/19 History metformin 1,000 mg PO BID 11/22/19 11/22/19 History metoprolol succinate 25 mg PO DAILY 11/22/19 11/22/19 History omeprazole 40 mg PO DAILY 11/22/19 11/22/19 History potassium chloride 10 meq PO DAILY 11/22/19 11/22/19 History semaglutide [Ozempic] 0.5 mg SUBCUT WEEKLY 11/22/19 11/22/19 History sitagliptin [Januvia] 100 mg PO DAILY 11/22/19 11/22/19 History Allergies Allergy/AdvReac Type Severity Reaction
[2019-12-22] MEDS: PANTOPRAZOLE SODIUM IV 40 MG VIAL IV PUSH (07:57)
[2019-12-22] MEDS: METOPROLOL TARTRATE 25 MG TABLET PO ×2 (07:57→20:00)
[2019-12-22] MEDS: AMLODIPINE BESYLATE 5 MG TABLET 10 MG PO (07:58)
[2019-12-22] MEDS: DORNASE ALFA INH SOLN 1 MG/ML 2.5 ML AMP 2.5 MG INHALATION ×2 (08:08→19:09)
[2019-12-22 08:30] LABS: Glucose Point of Care 164 (65-105)
[2019-12-22] MEDS: POTASSIUM CHLORIDE 20 MEQ PACKET (FOR LIQUID) 40 MEQ PO (08:36)
[2019-12-22 08:52] LABS: Vancomycin Trough 11.8 ug/mL (10.0-20.0)
--- NOTE | 2019-12-22 09:30 | WPDANESEPPF ---
Anes - Initial Pre Proc Eval Procedure: Operation Date: 12/22/19 11:30 Proposed Procedures p Percutaneous Endoscopic Gastrostomy - Cristo Cash MD s Tracheostomy - Abhishek Urbina MD Date/Time: 12/22/19 09:30 Pre Op Diagnosis: Respiratory failure, Bilateral pulmonary infiltrat Patient Data Age: 64 Gender: M Height: 1.63 m Weight: 85.7 kg Last Vital Signs Temp 37.6 C H 12/22/19 08:23 Pulse 83 12/22/19 08:25 Resp 21 H 12/22/19 08:25 BP 169/84 H 12/22/19 08:23 Pulse Ox 97 12/22/19 08:23 Allergies Allergy/AdvReac Type Severity Reaction Status Date / Time naproxen Allergy Unknown Redness of Verified 11/22/19 09:43 Skin Home Medications Medication Instructions Recorded Confirmed Type amlodipine-benazepril 1 cap PO DAILY 11/22/19 11/22/19 History famotidine 40 mg PO BID 11/22/19 11/22/19 History glimepiride 4 mg PO DAILY 11/22/19 11/22/19 History levothyroxine 100 mcg PO DAILY 11/22/19 11/22/19 History metformin 1,000 mg PO BID 11/22/19 11/22/19 History metoprolol succinate 25 mg PO DAILY 11/22/19 11/22/19 History omeprazole 40 mg PO DAILY 11/22/19 11/22/19 History potassium chloride 10 meq PO DAILY 11/22/19 11/22/19 History semaglutide [Ozempic] 0.5 mg SUBCUT WEEKLY 11/22/19 11/22/19 History sitagliptin [Januvia] 100 mg PO DAILY 11/22/19 11/22/19 History Laboratory Tests 12/21/19 12/21/19 12/21/19 07:57 11:06 17:01 WBC RBC Hgb Hct MCV MCH MCHC RDW Plt Count MPV Sodium Potassium Chloride Carbon Dioxide Anion Gap BUN Creatinine Estim Creat Clear Calc Estimated GFR Glucose POC Capillary Glucose 223 mg/dl H mg/dl 300 mg/dl H mg/dl 212 mg/dl H mg/dl (65-105) (65-105) (65-105) Calcium Phosphorus Magnesium Vancomycin Trough 12/21/19 12/22/19 12/22/19 23:59 05:24 05:24 WBC 9.4 K/mm3 K/mm3 (4.5-10.0) RBC 3.00 M/mm3 L M/mm3 (4.6-6.20) Hgb 8.9 g/dL L g/dL (14.0-18.0) Hct 27.0 % L % (42.0-52.0) MCV 90.0 fl fl (80-100) MCH 29.7 pg pg (26-34) MCHC 33.0 g/dl g/dl (32-36) RDW 13.2 % % (11.5-14.5) Plt Count 302 k/mm3 k/mm3 (150-375) MPV 11.5 fl H fl (7.4-10.4) Sodium 141 mmol/L mmol/L (137-145) Potassium 3.3 mmol/L L mmol/L (3.4-5.0) Chloride 105 mmol/L mmol/L (98-107) Carbon Dioxide 29 mmol/L mmol/L (22-30) Anion Gap 10.3 mmol/L mmol/L (7-16) BUN 27 mg/dL H mg/dL (9-20) Creatinine 0.50 mg/dL L mg/dL (0.7-1.3) Estim Creat Clear Calc 120 ml/min ml/min Estimated GFR > 60 (59 - ) Glucose 148 mg/dL H mg/dL (75-110) POC Capillary Glucose 219 mg/dl H mg/dl (65-105) Calcium 8.6 mg/dL mg/dL (8.4-10.2) Phosphorus 2.7 mg/dL mg/dL (2.5-4.5) Magnesium 2.2 mg/dL mg/dL (1.6-2.3) Vancomycin Trough 12/22/19 12/22/19 07:53 08:01 WBC RBC Hgb Hct MCV MCH MCHC RDW Plt Count MPV Sodium Potassium Chloride Carbon Dioxide Anion Gap BUN Creatinine Estim Creat Clear Calc Estimated GFR Glucose POC Capillary Glucose 164 mg/dl H mg/dl (65-105) Calcium Phosphorus Magnesium Vancomycin Trough 11.8 ug/mL ug/mL (10.0-20.0) Patient hx anesthesia problems: none Family hx anesthesia problems: none [facility] Past Medical History Medical History (Reviewed 12/22/19 @ 07:31 by Abhishek Styles Geor
[2019-12-22] MEDS: ACETAMINOPHEN 325 MG TABLET 650 MG PO ×2 (09:34→20:00)
--- NOTE | 2019-12-22 11:24 | PCDIET ---
ICU Rounding Note: Patient currently NPO for trach/PEG. Tube feedings on hold. Last recorded weight is 85.7kg which is up from last review. Bowel Motility: Last documented BM on 12/21/19 x 1. Labs Reviewed: Hgb (8.9), Hct (27.0), Glu (164), K (3.3) Meds Noted: KCl, Rocephin, Synthorid, Precedex, Versed, Protonix, Fentanyl, Novolog, Miralax, Lantus, Vancomycin, LR at 150mL/hr Additional Notes: No documented pressure sores. Following daily in ICU rounds. Assessing/reassessing every Sunday/Sunday.
[2019-12-22] MEDS: LIDO 1%/EPINEPHRINE 1:100,000 10 ML VIAL 20 ML INFILTRATE (11:52)
--- NOTE | 2019-12-22 12:22 | PM.PROC ---
Procedure Note - Detailed Date of procedure: 12/22/19 Pre-op diagnosis: Respiratory failure, Bilateral pulmonary infiltrat Post-op diagnosis: same Procedure performed: Tracheostomy Description of procedure: The patient was previously consented by family. They were then brought back to the OR and induced with anesthesia through the endotracheal tube. They were then transferred to the OR table. A shoulder roll was placed. Landmarks were palpated and marked. A timeout was performed. An 8-0 DCT cuffed shiley tracheostomy tube was selected and tested. Precautions taken by all team members for this COVID positive patient. The patient was prepped and drapped in the usual sterile fashion for an tracheotostomy. A horizontal incision was made along the marked line 1-2 cm above the suprasternal notch. Dissection was carried down in the midline through subcutaneous tissues using a hemostat and retraction by vein retractor and then [employer] retractors. The strap muscles were identified and divided using a combination of blunt dissection through the median raphe and electrocautery. The thyroid isthmus was encounted and divided using electrocautery and retracted. The trachea was encountered. A cricoid hook was placed to stabilize and elevate the trachea. The tracheostomy tube was tested on the field and showed no leak. After confirmation with anesthesia and the respiratory services manager ensuring FiO2 was acceptable an #11 blade was used to make a horizontal incision into the trachea. Heavy scissors were used to make parallel vertical cuts laterally through the second ring. The endotracheal tube was pulled. The tracheostomy tube was placed and successfully hooked up the circuit. The airway was stabilized and verified by anesthesia. The cricoid/tracheal hook was carefully removed. The tracheotomy tube was then secured with 0 silk sutures placed at each corner of the trach tube and the underlying skin. A tracheal tie was then placed. Surgicel tucked into the wound to ensure hemostasis. This ended this portion of the procedure and care of the patient was returned to anesthesia who recovered him in the ICU. Abhishek Urbina M.D. Anesthesia: GETA Surgeon: Abhishek Urbina MD Estimated blood loss (mL): 10 Drains: No Packing: Yes (surgicel) Pathology: none sent Complications: No immediate complications Condition: critical Disposition: ICU Findings: 8-0 cuffed shiley trach placed
[2019-12-22 13:40] LABS: Glucose Point of Care 186 (65-105)
--- NOTE | 2019-12-22 14:08 | WPDINTPN ---
Progress Note: A&P Assessment and Plan (1) Respiratory failure with hypoxia: Qualifiers: Chronicity: acute Qualified Code(s): J96.01 - Acute respiratory failure with hypoxia Code(s): J96.91 - Respiratory failure, unspecified with hypoxia Status: Acute Assessment and Plan: Acute hypoxemic respiratory failure due to COVID-19 related ARDS. Intubated patient on 11/26/2019 for impending respiratory failure Patient was extubated 12/07/2019 after successful weaning trial. 12/09/2019 -reintubated without any complication. 12/13/2019: a new ET tube was placed as patient was hypoxic, large mucus plugs were being suctioned. 12/14/2019: Repeat SARS-CoV-2 PCR was positive Currently on AC 400x24, FiO2 0.35, PEEP 10. plan for tracheostomy today, 12/22/2019. He is on fentanyl gtt and Precedex infusion - tube feeds on hold (2) COVID-19: Code(s): U07.1 - COVID-19 Status: Acute Assessment and Plan: SARS-CoV-2 PCR POSITIVE Pt on airborne, droplet and contact isolation/precautions. Patient has completed 10 day course of dexamethasone on 12/02/2019. He completed the dose of remdisivir of 5 days on 11/27/2019. Received 1 unit off convalascent plasma on 11/28/2019. Discontinued routine monitoring of markers unless new symptoms arise. Appreciate infectious disease following the patient. (3) DM type 2 (diabetes mellitus, type 2): Qualifiers: Diabetes mellitus terminal press operator insulin use: unspecified terminal press operator insulin use status Diabetes mellitus complication status: with neurologic complications Diabetes mellitus complication detail: with unspecified neuropathy Qualified Code(s): E11.40 - Type 2 diabetes mellitus with diabetic neuropathy, unspecified Code(s): E11.9 - Type 2 diabetes mellitus without complications Status: Acute Assessment and Plan: Uncontrolled on Lantus and SSI - continue Lantus (4) Essential (primary) hypertension: Code(s): I10 - Essential (primary) hypertension Status: Acute Assessment and Plan: Continue amlodipine and metoprolol. (5) DVT prophylaxis: Code(s): Z29.9 - Encounter for prophylactic measures, unspecified Status: Acute Assessment and Plan: Continue Lovenox at therapeutic dose. currently on hold for tracheostomy and PEG tube placement (6) Hypothyroidism: Qualifiers: Hypothyroidism type: unspecified Qualified Code(s): E03.9 - Hypothyroidism, unspecified Code(s): E03.9 - Hypothyroidism, unspecified Status: Chronic Assessment and Plan: Continue levothyroxine. (7) Dietary counseling and surveillance: Code(s): Z71.3 - Dietary counseling and surveillance Status: Acute Assessment and Plan: Tolerating tube feeds. Positive bowel movements. currently on hold for PEG tube and tracheostomy (8) Hematoma: Code(s): T14.8XXA - Other injury of unspecified body region, initial encounter Status: Acute Assessment and Plan: Resolved. (9) Anemia: Qualifiers: Anemia type: unspecified type Qualified Code(s): D64.9 - Anemia, unspecified Code(s): D64.9 - Anemia, unspecified Status: Acute Assessment and Plan: Now stable. Hematoma may have contributed. Patient was transfused 2 units of packed red cells 12/10. No obvious signs of bleeding. Will continue to monitor. Will continue Lovenox. (10) Febrile illness: Code(s): R50.9 - Fever, unspecified Status: Acute Assessment and Plan: Blood culture from 12/17 with Klebsiella aerogenes; sputum culture with Klebsiella aerogenes and Proteus mirabilis. RIJ CVC removed 12/18; L AC PICC placed. Will continue vancomycin and ceftriaxone based on sensitivities. Additional Plan Code Status: Full code SUP - PPI Critical care time spent: 34 minutes Due to a high probability of clinically significant, life threatening deterioration, the patient required my highest
--- NOTE | 2019-12-22 14:24 | PCDIET ---
Nutrition consult received. RN to start tube feedings this evening. Recommend change to Glucerna 1.2 (previous formula) for optimal glucose control. Rate ordered to start at 30mL/hr. Once able to advance tube feedings, will likely recommend goal rate of 65mL/hr without use of modular protein supplement. Will follow along closely.
[2019-12-22 17:23] LABS: Glucose Point of Care 153 (65-105)
[2019-12-22] MEDS: ACETAMINOPHEN ELIXIR 325 MG/10.15 ML UDC 650 MG PO (23:47)
[2019-12-22 23:59] LABS: Glucose Point of Care 194 (65-105)
[2019-12-23] VITALS (43 sets, daily range): BP systolic 131–163; BP diastolic 69–85; PULSE 57–95; RESP 21–36; TEMP 36.6–38.3; O2SAT 9–98
[2019-12-23] MEDS: ACETAMINOPHEN ELIXIR 325 MG/10.15 ML UDC 650 MG PO (03:48)
[2019-12-23 04:11] LABS: Hematocrit 25.6 % (42.0-52.0); Hemoglobin 8.6 g/dL (14.0-18.0); Mean Corpuscular HGB Conc 33.6 g/dl (32-36); Mean Corpuscular Volume 89.2 fl (80-100); Mean Platelet Volume 11.3 fl (7.4-10.4); Platelet Count Result 294 k/mm3 (150-375); Red Blood Count 2.87 M/mm3 (4.6-6.20); Red Cell Distribution Width 13.2 % (11.5-14.5); White Blood Count 15.2 K/mm3 (4.5-10.0)
[2019-12-23 04:22] LABS: Anion Gap 7.9 mmol/L (7-16); Blood Urea Nitrogen 19 mg/dL (9-20); Calcium 8.4 mg/dL (8.4-10.2); Carbon Dioxide 29 mmol/L (22-30); Chloride 103 mmol/L (98-107); Estimated CRCL calculation 124 ml/min; Estimated Glomerular Filt Rate > 60; Glucose 218 mg/dL (75-110); Magnesium 2.1 mg/dL (1.6-2.3); Phosphorus 2.8 mg/dL (2.5-4.5); Potassium 3.9 mmol/L (3.4-5.0); Sodium 136 mmol/L (137-145)
[2019-12-23] MEDS: CENTRAL LINE FLUSH 10 ML IV PUSH ×6 (05:54→19:53)
[2019-12-23] MEDS: INSULIN ASPART (*BKC) 100 UNITS/ML SUB-Q ×3 (05:55→17:34)
[2019-12-23] MEDS: LEVOTHYROXINE SODIUM 100 MCG TABLET PO (05:55)
[2019-12-23] MEDS: AMLODIPINE BESYLATE 5 MG TABLET 10 MG PO (08:06)
[2019-12-23] MEDS: METOPROLOL TARTRATE 25 MG TABLET PO ×2 (08:06→19:52)
[2019-12-23] MEDS: PANTOPRAZOLE SODIUM IV 40 MG VIAL IV PUSH (08:06)
[2019-12-23] MEDS: DORNASE ALFA INH SOLN 1 MG/ML 2.5 ML AMP 2.5 MG INHALATION ×2 (08:31→19:55)
[2019-12-23 08:58] LABS: Alveolar/Arterial O2 Gradient 109.1 mmHg; Fractional Inspired Oxygen 30 %; HCO3 ABG 26.2 mEq/l (22.0-26.0); Oxygen Saturation ABG 91.4 % (95.0-100.0); Oxyhemoglobin 89.7 % THb (90.0-100.0); PCO2 ABG 39.4 mmHg (35.0-45.0); PO2 ABG 58.5 mmHg (80.0-100.0); PO2 FiO2 Ratio Arterial Blood 1.95 %; Total Hemoglobin 11.1 g/dL (12.0-18.0); pH ABG 7.441 (7.350-7.450)
[2019-12-23 08:59] LABS: Arterial Blood Gas Vent Mode CMV; Arterial Blood Gas Ventilator rate 24 /MIN; Device VENTILATOR; Modified Allen's Test Pass; Site Drawn LEFT RADIAL
[2019-12-23 09:00] LABS: Arterial Blood Gas PEEP 10 cmH2O; Arterial Blood Gas Tidal Volume 400 ml
--- NOTE | 2019-12-23 09:10 | WPDCDIQUERY2 ---
CDI Query Clarification Request 1) -Febrile illness: Blood culture from 12/17 with Klebsiella aerogenes; sputum culture with Klebsiella aerogenes and Proteus mirabilis. RIJ CVC removed 12/18; L AC PICC placed. Will continue vancomycin and ceftriaxone based on sensitivities. documented - Blood cultures 12/17 and 12/18 growing Klebsiella aerogenes Please clarify if there is a corresponding diagnosis for above findings. Also please clarify suspected source for positive blood culture. 2) - Sputum culture growing Klebsiella aerogenes and Proteus Mirabilis Please clarify if there is any clinical significance to this finding.
[2019-12-23 09:14] LABS: Glucose Point of Care 282 (65-105)
[2019-12-23] MEDS: INSULIN GLARGINE (*BKC) 100 UNITS/ML 55 UNITS SUB-Q (10:02)
[2019-12-23] MEDS: ENOXAPARIN 40 MG/0.4 ML SYRINGE SUB-Q (10:51)
[2019-12-23] MEDS: FUROSEMIDE INJ 40 MG/4 ML VIAL IV PUSH (10:51)
--- NOTE | 2019-12-23 11:00 | WPDANESPN ---
Anes - Prog Note Post-Op Date/Time: 12/23/19 11:00 Cardiovascular status: other (management per ICU team) Respiratory status: other (management per ICU team) Airway patency: other (tracheostomy) Mental status: other (management per ICU team) Post-Op hydration status: other (managment per ICU team) Vital Signs: Last Vital Signs Temp 36.7 C 12/23/19 10:00 Pulse 62 12/23/19 10:00 Resp 26 H 12/23/19 10:00 BP 149/72 H 12/23/19 10:00 Pulse Ox 96 12/23/19 10:00 I/O: Intake & Output 12/22/19 12/23/19 12/23/19 23:59 07:59 15:59 Intake Total 752 546 594 Output Total 700 800 Balance 52 -254 594 Laboratory Tests 12/23/19 03:58 12/23/19 03:58 12/22/19 12/22/19 12/22/19 13:11 17:15 23:52 WBC RBC Hgb Hct MCV MCH MCHC RDW Plt Count MPV Puncture Site ABG pH ABG pCO2 ABG pO2 ABG PO2/FiO2 Ratio ABG HCO3 ABG O2 Saturation ABG O2 Content ABG Base Excess A-a Gradient Oxyhemoglobin Total Hemoglobin O2 Delivery Device O2 Liters/Min Minute Volume Vent Rate Vent Mode FiO2 Tidal Volume PEEP Peak Inspir Pressure Pressure Support Sodium Potassium Chloride Carbon Dioxide Anion Gap BUN Creatinine Estim Creat Clear Calc Estimated GFR Glucose POC Capillary Glucose 186 H 153 H 194 H Calcium Phosphorus Magnesium 12/23/19 12/23/19 12/23/19 03:58 03:58 08:02 WBC 15.2 H RBC 2.87 L Hgb 8.6 L Hct 25.6 L MCV 89.2 MCH 30.0 MCHC 33.6 RDW 13.2 Plt Count 294 MPV 11.3 H Puncture Site ABG pH ABG pCO2 ABG pO2 ABG PO2/FiO2 Ratio ABG HCO3 ABG O2 Saturation ABG O2 Content ABG Base Excess A-a Gradient Oxyhemoglobin Total Hemoglobin O2 Delivery Device O2 Liters/Min Minute Volume Vent Rate Vent Mode FiO2 Tidal Volume PEEP Peak Inspir Pressure Pressure Support Sodium 136 L Potassium 3.9 Chloride 103 Carbon Dioxide 29 Anion Gap 7.9 BUN 19 Creatinine 0.50 L Estim Creat Clear Calc 124 Estimated GFR > 60 Glucose 218 H POC Capillary Glucose 282 H Calcium 8.4 Phosphorus 2.8 Magnesium 2.1 12/23/19 08:45 WBC RBC Hgb Hct MCV MCH MCHC RDW Plt Count MPV Puncture Site Left radial ABG pH 7.441 ABG pCO2 39.4 ABG pO2 58.5 L ABG PO2/FiO2 Ratio 1.95 ABG HCO3 26.2 H ABG O2 Saturation 91.4 L ABG O2 Content 14.0 L ABG Base Excess 2.0 A-a Gradient 109.1 Oxyhemoglobin 89.7 L Total Hemoglobin 11.1 L O2 Delivery Device Ventilator O2 Liters/Min Not Reportable Minute Volume Not Reportable Vent Rate 24 Vent Mode Cmv FiO2 30 Tidal Volume 400 PEEP 10 Peak Inspir Pressure Not Reportable Pressure Support Not Reportable Sodium Potassium Chloride Carbon Dioxide Anion Gap BUN Creatinine Estim Creat Clear Calc Estimated GFR Glucose POC Capillary Glucose Calcium Phosphorus Magnesium Microbiology 12/19/19 10:35 Blood Blood Culture - Preliminary Klebs aerogenes (Enterobacter) Post-procedural complaints: none
--- NOTE | 2019-12-23 11:02 | PCDIET ---
Nutrition Follow-Up Complete: Nutrition Diagnosis: Predicted suboptimal oral intake related to increased O2 requirements as evidenced by full liquid diet order. Nutrition Goal: Patient to meet estimated nutritional needs. Goal in progress. Patient tolerating Glucerna 1.2 at 30mL/hr. Discussed recommendation with MD to increase to goal of 65mL/hr without use of Pro-Stat for 1716kcal and 85g protein daily (given 22 hours/day). Verbal order obtained. Last recorded weight is 91.9 kg which is significantly increased from last review. +I/O, although would consider re-weighing to ensure accuracy. Bowel Motility: BM x 2 yesterday, per RN. Labs Reviewed: WBC (15.2), Hgb (8.6), Hct (25.6), Glu (218), Na (136) Meds Noted: Protonix, Miralax, Vancomycin, Cefepime, Novolog, Precedex, Lantus, Fentanyl, Lasix Additional Notes: No skin breakdown, per nursing. Will continue to monitor with same goal. Nutrition Monitoring and Evaluation: Follow up every Sunday/Sunday. Follow daily in ICU rounds.
[2019-12-23 11:05] LABS: Glucose Point of Care 251 (65-105)
--- NOTE | 2019-12-23 12:25 | WPDGIPROGNO ---
Progress Note: A&P Additional Plan Patient alert this morning. After tracheostomy and PEG tube placement yesterday. Appears to be tolerating tube feedings. At a slow rate. impression 1. Status post PEG placement plan to continue local care to PEG tube site. Advance tube feedings as necessary to maintain nutrition. Will advance to60cc/hour at present. Hopefully head of bed can remain elevated during tube feedings. Subjective Date/time seen: 12/23/19 12:25 Objective Data Vital Signs Vital Signs: Vital Signs - 24 hr 12/22/19 12:45 12/22/19 13:08 12/22/19 13:19 Temperature 97.7 F Pulse Rate 77 83 80 Respiratory Rate 23 H 24 H Blood Pressure 170/73 H Pulse Oximetry 96 95 94 12/22/19 13:30 12/22/19 13:31 12/22/19 13:44 Temperature Pulse Rate 77 79 78 Respiratory Rate 27 H 25 H 20 Blood Pressure Pulse Oximetry 12/22/19 13:45 12/22/19 13:49 12/22/19 13:59 Temperature Pulse Rate 78 78 69 Respiratory Rate 20 23 H Blood Pressure Pulse Oximetry 12/22/19 14:00 12/22/19 14:02 12/22/19 14:13 Temperature 97.9 F Pulse Rate 69 72 71 Respiratory Rate 22 H 24 H 20 Blood Pressure 132/68 Pulse Oximetry 93 12/22/19 14:53 12/22/19 15:37 12/22/19 16:00 Temperature 98.3 F Pulse Rate 76 75 73 Respiratory Rate 25 H 22 H Blood Pressure 140/76 Pulse Oximetry 95 97 97 12/22/19 16:24 12/22/19 16:38 12/22/19 17:35 Temperature Pulse Rate 73 74 71 Respiratory Rate 21 H Blood Pressure Pulse Oximetry 95 12/22/19 18:00 12/22/19 19:09 12/22/19 19:14 Temperature 99.1 F Pulse Rate 79 100 101 H Respiratory Rate 31 H 37 H Blood Pressure 163/89 H Pulse Oximetry 97 95 12/22/19 19:21 12/22/19 19:25 12/22/19 19:55 Temperature Pulse Rate 100 99 77 Respiratory Rate 32 H 35 H 30 H Blood Pressure Pulse Oximetry 12/22/19 20:00 12/22/19 22:00 12/22/19 23:02 Temperature 100.3 F H 100.8 F H Pulse Rate 80 71 70 Respiratory Rate 27 H 26 H Blood Pressure 158/85 H 158/87 H Pulse Oximetry 98 98 98 12/22/19 23:06 12/22/19 23:47 12/23/19 00:00 Temperature 101 F H 101 F H Pulse Rate 70 77 80 Respiratory Rate 26 H 26 H 32 H Blood Pressure 163/85 H Pulse Oximetry 97 94 12/23/19 01:50 12/23/19 02:00 12/23/19 03:29 Temperature 100.8 F H Pulse Rate 73 90 73 Respiratory Rate 35 H 28 H Blood Pressure 162/76 H Pulse Oximetry 95 96 94 12/23/19 03:45 12/23/19 03:47 12/23/19 03:48 Temperature 100.3 F H Pulse Rate 69 69 Respiratory Rate 25 H 25 H Blood Pressure Pulse Oximetry 12/23/19 04:00 12/23/19 04:01 12/23/19 05:02 Temperature 100.2 F H 100.2 F H Pulse Rate 72 73 87 Respiratory Rate 25 H 25 H Blood Pressure 155/83 H Pulse Oximetry 9 L 96 95 12/23/19 06:00 12/23/19 06:02 12/23/19 08:00 Temperature 99.8 F H Pulse Rate 67 67 57 L Respiratory Rate 22 H 25 H Blood Pressure 137/73 Pulse Oximetry 96 12/23/19 08:03 12/23/19 08:06 12/23/19 08:12 Temperature 98 F Pulse Rate 70 65 64 Respiratory Rate 22 H 26 H Blood Pressure 145/77 H Pulse Oximetry 96 12/23/19 08:14 12/23/19 08:34 12/23/19 08:35 Temperature Pulse Rate 64 63 62 Respiratory Rate 26 H 29 H Blood Pressure Pulse Oximetry 96 97 12/23/19 09:58 12/23/19 10:00 12/23/19 11:07 Temperature 98.1 F Pulse Rate 63 62 65 Respiratory Rate 26 H 28 H Blood Pressure 149/72 H Pulse Oximetry 96 98 12/23/19 12:00 12/23/19 12:20 Temperature 98.4 F Pulse Rate 65 66 Respiratory Rate 21 H 24 H Blood Pressure 145/81 H Pulse Oximetry 97 Intake/Output Intake/Output: Intake & Output 12/20/19 12/21/19 12/22/19 12/23/19 23:59 23:59 23:59 23:59 Intake Total 3451 3425 2579.0 1240 Output Total 1750 1875 1350 800 Balance 1701 1550 1229.0 440 Meds/Results Medications: Active Medications Generic Name Dose Route Start Last Admin Trade Name Freq PRN Reason Stop Dose Admin Acetaminophen 650
[2019-12-23] MEDS: MIDAZOLAM HCL 2 MG/2 ML VIAL IV PUSH ×5 (13:14→22:52)
--- NOTE | 2019-12-23 14:05 | WPDINTPN ---
Progress Note: A&P Assessment and Plan (1) Respiratory failure with hypoxia: Qualifiers: Chronicity: acute Qualified Code(s): J96.01 - Acute respiratory failure with hypoxia Code(s): J96.91 - Respiratory failure, unspecified with hypoxia Status: Acute Assessment and Plan: Acute hypoxemic respiratory failure due to COVID-19 related ARDS. Intubated patient on 11/26/2019 for impending respiratory failure Patient was extubated 12/07/2019 after successful weaning trial. 12/09/2019 -reintubated without any complication. 12/13/2019: a new ET tube was placed as patient was hypoxic, large mucus plugs were being suctioned. 12/14/2019: Repeat SARS-CoV-2 PCR was positive 12/22/2019: Tracheostomy and PEG tube placed currently on CMP 400, 24, 10, 35% FiO2 chest x-ray and ABGs reviewed. Will diurese with Lasix 40 mg IV x1 today - patient on Precedex infusion (2) COVID-19: Code(s): U07.1 - COVID-19 Status: Acute Assessment and Plan: SARS-CoV-2 PCR POSITIVE Pt on airborne, droplet and contact isolation/precautions. Patient has completed 10 day course of dexamethasone on 12/02/2019. He completed the dose of remdisivir of 5 days on 11/27/2019. Received 1 unit off convalascent plasma on 11/28/2019. Discontinued routine monitoring of markers unless new symptoms arise. Appreciate infectious disease following the patient. 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 (5) DVT prophylaxis: Code(s): Z29.9 - Encounter for prophylactic measures, unspecified Status: Acute Assessment and Plan: will restart Lovenox 40 mg SQ daily (6) Hypothyroidism: Qualifiers: Hypothyroidism type: unspecified Qualified Code(s): E03.9 - Hypothyroidism, unspecified Code(s): E03.9 - Hypothyroidism, unspecified Status: Chronic Assessment and Plan: Continue levothyroxine. (7) Dietary counseling and surveillance: Code(s): Z71.3 - Dietary counseling and surveillance Status: Acute Assessment and Plan: tube feeds have been restarted, patient has had bowel movements (8) Hematoma: Code(s): T14.8XXA - Other injury of unspecified body region, initial encounter Status: Acute Assessment and Plan: Resolved. (9) Anemia: Qualifiers: Anemia type: unspecified type Qualified Code(s): D64.9 - Anemia, unspecified Code(s): D64.9 - Anemia, unspecified Status: Acute Assessment and Plan: Now stable. Hematoma may have contributed. Patient was transfused 2 units of packed red cells 12/10. No obvious signs of bleeding. Will continue to monitor. Will continue Lovenox. (10) Febrile illness: Code(s): R50.9 - Fever, unspecified Status: Acute Assessment and Plan: Blood culture from 12/17 with Klebsiella aerogenes; sputum culture with Klebsiella aerogenes and Proteus mirabilis. RIJ CVC removed 12/18; L AC PICC placed. Will continue vancomycin. His new blood cultures from 12/18, Klebsiella resistant to ceftriaxone, switched to cefepime Additional Plan discussed with care coordination, she has been talking to the LTAC facility for placement Code Status: Full code SUP - PPI Critical care time spent: 33 minutes Due to a high proba
--- NOTE | 2019-12-23 14:48 | PM.IMPN ---
Progress Note: A&P Assessment and Plan (1) Acute respiratory failure with hypoxia: Code(s): J96.01 - Acute respiratory failure with hypoxia Status: Acute Assessment and Plan: Awaiting [facility] hopefully tomorrow. 64-year-old male COVID positive respiratory failure and was intubated 3rd time, had to wean pt had a PEG and trach on Sunday (2) COVID-19 virus infection: Code(s): U07.1 - COVID-19 Status: Acute Assessment and Plan: He completed remdisivir and dexamethasone He also received convalescent plasma. 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 Diabetes mellitus complication status: with neurologic complications Diabetes mellitus complication detail: with unspecified neuropathy Qualified Code(s): E11.40 - Type 2 diabetes mellitus with diabetic neuropathy, unspecified Code(s): E11.9 - Type 2 diabetes mellitus without complications Status: Chronic (4) Hypothyroidism: Qualifiers: Hypothyroidism type: unspecified Qualified Code(s): E03.9 - Hypothyroidism, unspecified Code(s): E03.9 - Hypothyroidism, unspecified Status: Chronic (5) DVT prophylaxis: Code(s): Z29.9 - Encounter for prophylactic measures, unspecified Status: Acute Assessment and Plan: On pharmacological therapy. Subjective Date/time seen: 12/23/19 14:48 Interval history: 64-year-old male with history of coronary artery disease status post CABG, hypertension, hyperlipidemia, and type 2 diabetes mellitus who presented to the emergency department with complaints of cough, shortness of breath, and fever. Found to be covid positive with Bilateral infiltrates on cxr. Patient was intubated for acute hypoxic respiratory failure. Pt has received convalescent plasma. Currently he is on steroids and diuresis. Completed 5 days of remdesivir already. Unfortunately pt had to be reintubated on 12/08 for respiratory failure and ARDS. Pt has been in the hospital over 20 days pt requires extended hospitalization due to ARDS, respiratory failure, COVID positive status with underlying bilateral infiltrates. Pt also has multiple co-morbidities as mentioned above. Patient had a PEG and trach Sunday as he is difficult to wean of the vent awaiting [place] Review of Systems Review of Systems: ROS unobtainable: Yes unobtainable due to medical condition Exam Narrative: Exam Narrative: Pt is intubated pt has a tracheostomy tube Objective Data Vital Signs Vital Signs: Vital Signs - 24 hr 12/22/19 14:53 12/22/19 15:37 12/22/19 16:00 Temperature 36.8 C Pulse Rate 76 75 73 Respiratory Rate 25 H 22 H Blood Pressure 140/76 Pulse Oximetry 95 97 97 12/22/19 16:24 12/22/19 16:38 12/22/19 17:35 Temperature Pulse Rate 73 74 71 Respiratory Rate 21 H Blood Pressure Pulse Oximetry 95 12/22/19 18:00 12/22/19 19:09 12/22/19 19:14 Temperature 37.3 C Pulse Rate 79 100 101 H Respiratory Rate 31 H 37 H Blood Pressure 163/89 H Pulse Oximetry 97 95 12/22/19 19:21 12/22/19 19:25 12/22/19 19:55 Temperature Pulse Rate 100 99 77 Respiratory Rate 32 H 35 H 30 H Blood Pressure Pulse Oximetry 12/22/19 20:00 12/22/19 22:00 12/22/19 23:02 Temperature 37.9 C H 38.2 C H Pulse Rate 80 71 70 Respiratory Rate 27 H 26 H Blood Pressure 158/85 H 158/87 H Pulse Oximetry 98 98 98 12/22/19 23:06 12/22/19 23:47 12/23/19 00:00 Temperature 38.3 C H 38.3 C H Pulse Rate 70 77 80 Respiratory Rate 26 H 26 H 32 H Blood Pressure 163/85 H Pulse Oximetry 97 94 12/23/19 01:50 12/23/19 02:00 12/23/19 03:29 Temperature 38.2 C H Pulse Rate 73 90 73 Respiratory Rate 35 H 28 H Blood Pressure 162/76 H Pulse Oximetry 95 96 94 12/23/19 03:45 12/23/19 03:47 12/23/19 03:48 Temperature 37.9 C H Pulse Rate 6
[2019-12-23 17:52] LABS: Glucose Point of Care 206 (65-105)
[2019-12-23 23:16] LABS: Glucose Point of Care 198 (65-105)
[2019-12-24] VITALS (59 sets, daily range): BP systolic 122–180; BP diastolic 61–106; PULSE 53–136; RESP 21–393; TEMP 36.7–39; O2SAT 91–100
[2019-12-24] MEDS: ACETAMINOPHEN ELIXIR 325 MG/10.15 ML UDC 650 MG PO ×3 (00:15→18:14)
[2019-12-24] MEDS: MIDAZOLAM HCL 2 MG/2 ML VIAL IV PUSH ×8 (00:16→23:42)
[2019-12-24 05:31] LABS: Hematocrit 24.8 % (42.0-52.0); Hemoglobin 8.2 g/dL (14.0-18.0); Mean Corpuscular HGB Conc 33.1 g/dl (32-36); Mean Corpuscular Hemoglobin 29.3 pg (26-34); Mean Corpuscular Volume 88.6 fl (80-100); Mean Platelet Volume 11.5 fl (7.4-10.4); Platelet Count Result 277 k/mm3 (150-375); Red Cell Distribution Width 13.2 % (11.5-14.5)
[2019-12-24 05:43] LABS: Anion Gap 8.5 mmol/L (7-16); Blood Urea Nitrogen 16 mg/dL (9-20); Calcium 8.3 mg/dL (8.4-10.2); Carbon Dioxide 31 mmol/L (22-30); Chloride 100 mmol/L (98-107); Estimated CRCL calculation 124 ml/min; Estimated Glomerular Filt Rate > 60; Glucose 216 mg/dL (75-110); Magnesium 2.1 mg/dL (1.6-2.3); Potassium 3.5 mmol/L (3.4-5.0); Sodium 136 mmol/L (137-145)
[2019-12-24] MEDS: LEVOTHYROXINE SODIUM 100 MCG TABLET PO (06:13)
[2019-12-24] MEDS: CENTRAL LINE FLUSH 10 ML IV PUSH ×6 (06:13→20:26)
[2019-12-24] MEDS: INSULIN ASPART (*BKC) 100 UNITS/ML SUB-Q ×2 (06:13→11:09)
[2019-12-24 06:18] LABS: Vancomycin Trough 13.2 ug/mL (10.0-20.0)
[2019-12-24] MEDS: INSULIN GLARGINE (*BKC) 100 UNITS/ML 55 UNITS SUB-Q (08:32)
[2019-12-24] MEDS: ENOXAPARIN 40 MG/0.4 ML SYRINGE SUB-Q (08:32)
[2019-12-24] MEDS: AMLODIPINE BESYLATE 5 MG TABLET 10 MG PO (08:33)
[2019-12-24] MEDS: METOPROLOL TARTRATE 25 MG TABLET PO ×2 (08:33→20:25)
[2019-12-24] MEDS: DORNASE ALFA INH SOLN 1 MG/ML 2.5 ML AMP 2.5 MG INHALATION ×2 (08:41→20:33)
--- NOTE | 2019-12-24 09:32 | WPDINTPN ---
Progress Note: A&P Assessment and Plan (1) Respiratory failure with hypoxia: Qualifiers: Chronicity: acute Qualified Code(s): J96.01 - Acute respiratory failure with hypoxia Code(s): J96.91 - Respiratory failure, unspecified with hypoxia Status: Acute Assessment and Plan: Acute hypoxemic respiratory failure due to COVID-19 related ARDS. Intubated patient on 11/26/2019 for impending respiratory failure Patient was extubated 12/07/2019 after successful weaning trial. 12/09/2019 -reintubated without any complication. 12/13/2019: a new ET tube was placed as patient was hypoxic, large mucus plugs were being suctioned. 12/14/2019: Repeat SARS-CoV-2 PCR was positive 12/22/2019: Tracheostomy and PEG tube placed currently on CMP 400, 24, 10, 35% FiO2 chest x-ray and ABGs reviewed. Will diurese with Lasix 40 mg IV x1 today 12/24/2019 - patient on propofol infusion as he was fighting overnight, patient is awake, follows simple commands - await LTAC placement (2) COVID-19: Code(s): U07.1 - COVID-19 Status: Acute Assessment and Plan: SARS-CoV-2 PCR POSITIVE Pt on airborne, droplet and contact isolation/precautions. Patient has completed 10 day course of dexamethasone on 12/02/2019. He completed the dose of remdisivir of 5 days on 11/27/2019. Received 1 unit off convalascent plasma on 11/28/2019. Discontinued routine monitoring of markers unless new symptoms arise. Appreciate infectious disease following the patient. (3) DM type 2 (diabetes mellitus, type 2): Qualifiers: Diabetes mellitus [facility] insulin use: unspecified m[facility]p insulin use status Diabetes mellitus complication status: with neurologic complications Diabetes mellitus complication detail: with unspecified neuropathy Qualified Code(s): E11.40 - Type 2 diabetes mellitus with diabetic neuropathy, unspecified Code(s): E11.9 - Type 2 diabetes mellitus without complications Status: Chronic Assessment and Plan: Uncontrolled on Lantus and SSI - continue Lantus (4) Essential (primary) hypertension: Code(s): I10 - Essential (primary) hypertension Status: Acute Assessment and Plan: Continue amlodipine and metoprolol. (5) DVT prophylaxis: Code(s): Z29.9 - Encounter for prophylactic measures, unspecified Status: Acute Assessment and Plan: Lovenox 40 mg SQ daily (6) Hypothyroidism: Qualifiers: Hypothyroidism type: unspecified Qualified Code(s): E03.9 - Hypothyroidism, unspecified Code(s): E03.9 - Hypothyroidism, unspecified Status: Chronic Assessment and Plan: Continue levothyroxine. (7) Dietary counseling and surveillance: Code(s): Z71.3 - Dietary counseling and surveillance Status: Acute Assessment and Plan: tolerating tube feeds, patient has had bowel movements (8) Hematoma: Code(s): T14.8XXA - Other injury of unspecified body region, initial encounter Status: Acute Assessment and Plan: Resolved. (9) Anemia: Qualifiers: Anemia type: unspecified type Qualified Code(s): D64.9 - Anemia, unspecified Code(s): D64.9 - Anemia, unspecified Status: Acute Assessment and Plan: Now stable. Hematoma may have contributed. Patient was transfused 2 units of packed red cells 12/10. No obvious signs of bleeding. Will continue to monitor. Will continue Lovenox. (10) Febrile illness: Code(s): R50.9 - Fever, unspecified Status: Acute Assessment and Plan: Blood culture from 12/17 with Klebsiella aerogenes; sputum culture with Klebsiella aerogenes and Proteus mirabilis. RIJ CVC removed 12/18; L AC PICC placed. - continue cefepime and vancomycin - His new blood cultures from 12/18, growing Klebsiella Additional Plan discussed with care coordination, she has been talking to the LTAC facility for placement. Discussed with physician at the LTAC and
[2019-12-24 09:49] LABS: Glucose Point of Care 184 (65-105)
[2019-12-24] MEDS: FUROSEMIDE INJ 40 MG/4 ML VIAL IV PUSH (09:51)
[2019-12-24] MEDS: QUEtiapine FUMARATE 25 MG TABLET PO ×2 (11:11→20:25)
--- NOTE | 2019-12-24 11:29 | PCDIET ---
ICU Rounding Note: Patient tolerating Glucerna 1.2 at 65mL/hr with 30mL water flush every 4 hours. Recommend continuing current tube feeding. Last recorded weight is 91.8kg which is stable. Bowel Motility: BM x 1 today. Labs Reviewed: Glu (216), Na (136) Meds Noted: Vancomycin, KCl, Versed, Miralax, Novolog, Lantus, Maxipime, Precedex, Fentanyl Additional Notes: Plan to transition from Precedex to Seroquel for LTAC placement. Following daily in ICU rounds. Assessing/reassessing every Sunday/Sunday.
[2019-12-24 11:43] LABS: Glucose Point of Care 267 (65-105)
--- NOTE | 2019-12-24 13:43 | PM.IMPN ---
Progress Note: A&P Assessment and Plan (1) Acute respiratory failure with hypoxia: Code(s): J96.01 - Acute respiratory failure with hypoxia Status: Acute Assessment and Plan: Awaiting [facility]. 64-year-old male COVID positive respiratory failure and was intubated 3rd time, hard to wean pt had a PEG and trach on Sunday (2) COVID-19 virus infection: Code(s): U07.1 - COVID-19 Status: Acute Assessment and Plan: He completed remdisivir and dexamethasone He also received convalescent plasma. 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 Diabetes mellitus complication status: with neurologic complications Diabetes mellitus complication detail: with unspecified neuropathy Qualified Code(s): E11.40 - Type 2 diabetes mellitus with diabetic neuropathy, unspecified Code(s): E11.9 - Type 2 diabetes mellitus without complications Status: Chronic (4) Hypothyroidism: Qualifiers: Hypothyroidism type: unspecified Qualified Code(s): E03.9 - Hypothyroidism, unspecified Code(s): E03.9 - Hypothyroidism, unspecified Status: Chronic (5) DVT prophylaxis: Code(s): Z29.9 - Encounter for prophylactic measures, unspecified Status: Acute Assessment and Plan: On pharmacological therapy. Subjective Date/time seen: 12/24/19 13:43 Interval history: 64-year-old male with history of coronary artery disease status post CABG, hypertension, hyperlipidemia, and type 2 diabetes mellitus who presented to the emergency department with complaints of cough, shortness of breath, and fever. Found to be covid positive with Bilateral infiltrates on cxr. Patient was intubated for acute hypoxic respiratory failure. Pt has received convalescent plasma. Currently he is on steroids and diuresis. Completed 5 days of remdesivir already. Unfortunately pt had to be reintubated on 12/08 for respiratory failure and ARDS. Pt has been in the hospital over 20 days pt requires extended hospitalization due to ARDS, respiratory failure, COVID positive status with underlying bilateral infiltrates. Pt also has multiple co-morbidities as mentioned above. Patient had a PEG and trach Sunday as he is difficult to wean of the vent awaiting [facility] Exam Narrative: Exam Narrative: Pt is intubated pt has a tracheostomy tube Objective Data Vital Signs Vital Signs: Vital Signs - 24 hr 12/23/19 14:00 12/23/19 14:17 12/23/19 15:01 Temperature 37.1 C Pulse Rate 63 72 67 Respiratory Rate 21 H 27 H Blood Pressure 131/69 Pulse Oximetry 98 97 98 12/23/19 15:23 12/23/19 16:00 12/23/19 16:36 Temperature 37.1 C Pulse Rate 69 73 71 Respiratory Rate 23 H 27 H 24 H Blood Pressure 151/77 H Pulse Oximetry 97 12/23/19 16:37 12/23/19 18:00 12/23/19 19:43 Temperature 37.2 C Pulse Rate 71 64 72 Respiratory Rate 27 H 21 H 36 H Blood Pressure 132/71 Pulse Oximetry 98 12/23/19 19:52 12/23/19 19:56 12/23/19 20:00 Temperature 37.2 C Pulse Rate 76 69 69 Respiratory Rate 21 H 32 H Blood Pressure 152/74 H Pulse Oximetry 98 95 12/23/19 22:00 12/23/19 22:53 12/23/19 23:09 Temperature 37.3 C Pulse Rate 63 71 72 Respiratory Rate 21 H 28 H 28 H Blood Pressure 140/70 Pulse Oximetry 94 12/23/19 23:11 12/23/19 23:47 12/24/19 00:00 Temperature 37.7 C H Pulse Rate 69 80 81 Respiratory Rate 29 H 36 H Blood Pressure 149/71 H Pulse Oximetry 97 95 93 12/24/19 01:54 12/24/19 02:21 12/24/19 02:27 Temperature 38.3 C H Pulse Rate 81 79 86 Respiratory Rate 393 H 34 H Blood Pressure 161/79 H Pulse Oximetry 93 94 12/24/19 02:28 12/24/19 04:00 12/24/19 04:57 Temperature 37.9 C H Pulse Rate 86 69 64 Respiratory Rate 26 H 26 H Blood Pressure 142/71 H Pulse Oximetry 96 12/24/19 05:49 12/24/19 06:00
[2019-12-24 17:05] LABS: Glucose Point of Care 181 (65-105)
[2019-12-24] MEDS: METOPROLOL TARTRATE INJ 5 MG/5 ML VIAL IV PUSH (17:31)
--- NOTE | 2019-12-24 20:39 | PC.NURSE ---
Spoke with Dr. Ho regarding increase in temperature to 102.2 despite Tylenol through Gtube. Icebags were applied. PRN medication given, RR 41, HR 130. Change tylenol to 1GM IV Q6h PRN. Put cooling blanket on patient if temp reaches 103.
--- NOTE | 2019-12-24 21:55 | PC.NURSE ---
Patient had vomited as RR increased as well as HR. PRN sedation was in the process of being given. Order to turn off tube feeding. LIS peg tube. Zofran 4mg IV x1. Obstructive series. Start propofol. Sedate to Rass -2. IV tylenol in the process of being given.
[2019-12-24] MEDS: PROPOFOL IV EMULSION 100 ML 2.8 MG IV CONT (22:02)
[2019-12-24] MEDS: ONDANSETRON INJ 4 MG/2 ML VIAL IV PUSH (22:02)
[2019-12-24] MEDS: FAMOTIDINE 20 MG/2 ML VIAL IV PUSH (22:15)
--- NOTE | 2019-12-24 22:59 | PC.NURSE ---
Spoke with Dr. Ho regarding obstructive series results. Get stat CT abd pelvis with contrast. Ct chest. Lactic Acid stat.
[2019-12-24 23:25] LABS: Lactic Acid 0.9 mmol/L (0.7-2.1)
[2019-12-25] VITALS (43 sets, daily range): BP systolic 120–169; BP diastolic 58–85; PULSE 82–118; RESP 24–44; TEMP 36.3–39; O2SAT 91–99
--- NOTE | 2019-12-25 | PC.NURSE ---
Spoke with Dr. Ho regarding CT results suspicious for bowel perforation. Continue to monitor patient for now.
[2019-12-25] MEDS: PROPOFOL IV EMULSION 100 ML 24.8 MG IV CONT ×3 (00:46→13:34)
[2019-12-25] MEDS: INSULIN ASPART (*BKC) 100 UNITS/ML SUB-Q (00:51)
[2019-12-25 01:34] LABS: Glucose Point of Care 206 (65-105)
[2019-12-25 04:14] LABS: Alveolar/Arterial O2 Gradient 208.3 mmHg; Base Excess ABG 3.6 mEq/l (+/-2.0); Carboxyhemoglobin 0.3 % THb (0-2.0); Fractional Inspired Oxygen 45 %; HCO3 ABG 27.8 mEq/l (22.0-26.0); Methemoglobin ABG 0.2 %THb (0-1.5); Oxygen Saturation ABG 93.9 % (95.0-100.0); PCO2 ABG 40.8 mmHg (35.0-45.0); PO2 ABG 66.1 mmHg (80.0-100.0); PO2 FiO2 Ratio Arterial Blood 1.47 %; Reduced Hemoglobin 7.5 %THb (0-5.0); pH ABG 7.452 (7.350-7.450)
[2019-12-25 04:15] LABS: Arterial Blood Gas PEEP 10 cmH2O; Arterial Blood Gas Tidal Volume 400 ml; Arterial Blood Gas Vent Mode CMV; Arterial Blood Gas Ventilator rate 24 /MIN; Device VENTILATOR; Modified Allen's Test Unable to perform; Site Drawn RIGHT RADIAL
[2019-12-25 04:58] LABS: Hematocrit 26.7 % (42.0-52.0); Hemoglobin 8.7 g/dL (14.0-18.0); Mean Corpuscular HGB Conc 32.6 g/dl (32-36); Mean Corpuscular Hemoglobin 29.3 pg (26-34); Mean Corpuscular Volume 89.9 fl (80-100); Mean Platelet Volume 11.6 fl (7.4-10.4); Platelet Count Result 294 k/mm3 (150-375); Red Blood Count 2.97 M/mm3 (4.6-6.20); Red Cell Distribution Width 14.1 % (11.5-14.5)
[2019-12-25 05:11] LABS: Alanine Aminotransferase 25 U/L (4-50); Albumin Level 3.5 g/dL (3.5-5.1); Alkaline Phosphatase 88 U/L (38-126); Anion Gap 12.6 mmol/L (7-16); Aspartate Amino Transferase 23 U/L (17-59); Bilirubin,Total 0.5 mg/dL (0.2-1.3); Blood Urea Nitrogen 16 mg/dL (9-20); Calcium 8.2 mg/dL (8.4-10.2); Carbon Dioxide 31 mmol/L (22-30); Chloride 97 mmol/L (98-107); Estimated CRCL calculation 122 ml/min; Estimated Glomerular Filt Rate > 60; Glucose 190 mg/dL (75-110); Magnesium 2.2 mg/dL (1.6-2.3); Potassium 3.6 mmol/L (3.4-5.0); Sodium 137 mmol/L (137-145)
[2019-12-25 05:18] LABS: Lactic Acid 1.3 mmol/L (0.7-2.1)
[2019-12-25] MEDS: CENTRAL LINE FLUSH 10 ML IV PUSH ×6 (05:28→20:21)
[2019-12-25] MEDS: ENOXAPARIN 40 MG/0.4 ML SYRINGE SUB-Q (07:59)
[2019-12-25] MEDS: FAMOTIDINE 20 MG/2 ML VIAL IV PUSH ×2 (08:00→20:20)
[2019-12-25] MEDS: INSULIN GLARGINE (*BKC) 100 UNITS/ML 35 UNITS SUB-Q (08:02)
[2019-12-25] MEDS: PROPOFOL IV EMULSION 100 ML 19.3 MG IV CONT (09:25)
[2019-12-25] MEDS: METOPROLOL TARTRATE INJ 5 MG/5 ML VIAL IV PUSH (10:59)
[2019-12-25] MEDS: MIDAZOLAM HCL 2 MG/2 ML VIAL IV PUSH ×6 (11:03→23:35)
--- NOTE | 2019-12-25 11:13 | PCDIET ---
ICU Rounding Note: Tube feedings on hold since patient had reported projectile vomiting overnight. Surgery to evaluate due to concern for bowel perforation. Last recorded weight is 89.4kg which is down from last review. Bowel Motility: +BM on 12/24/19 Labs Reviewed: Hgb (8.7), Hct (26.7), Glu (190), Ca (8.2) Meds Noted: Propofol (rate of 19.3mL/hr provides 509kcal over 24 hour period), Versed, Miralax, KCl, Maxipime, Pepcid, Fentanyl, Novolog, Lantus, Vancomycin Additional Notes: No reported skin issues. Lantus decreased now that tube feedings on hold. Following daily in ICU rounds. Assessing/reassessing every Sunday/Sunday.
--- NOTE | 2019-12-25 11:23 | WPDINTPN ---
Progress Note: A&P Assessment and Plan (1) Abnormal CT of the abdomen: Code(s): R93.5 - Abnormal findings on diagnostic imaging of other abdominal regions, including retroperitoneum Status: Acute Assessment and Plan: patient had episode of projectile vomiting overnight, obstructive series and CT scan of the abdomen and pelvis showed: 1. Moderate free intraperitoneal air, suspicious for bowel perforation. Site of perforation not identified. 2: Progression of extensive bilateral airspace disease which may represent pneumonia, edema and/or ARDS. 3: Abnormal bladder wall thickening with surrounding perivesical infiltration, suspicious for cystitis. 4: Small left pleural effusion. lactic acid is normal, worsening leukocytosis - continue cefepime, vancomycin, will add Flagyl - surgery has been consulted and await evaluation recommendations (2) Respiratory failure with hypoxia: Qualifiers: Chronicity: acute Qualified Code(s): J96.01 - Acute respiratory failure with hypoxia Code(s): J96.91 - Respiratory failure, unspecified with hypoxia Status: Acute Assessment and Plan: Acute hypoxemic respiratory failure due to COVID-19 related ARDS. Intubated patient on 11/26/2019 for impending respiratory failure Patient was extubated 12/07/2019 after successful weaning trial. 12/09/2019 -reintubated without any complication. 12/13/2019: a new ET tube was placed as patient was hypoxic, large mucus plugs were being suctioned. 12/14/2019: Repeat SARS-CoV-2 PCR was positive 12/22/2019: Tracheostomy and PEG tube placed currently on CMP 400, 24, 10,45% FiO2 chest x-ray and ABGs reviewed. patient diuresed well yesterday on 12/24/2019, will hold diuresis today - patient on propofol infusion as he was fighting overnight, patient is awake, follows simple commands - await LTAC placement (3) COVID-19: Code(s): U07.1 - COVID-19 Status: Acute Assessment and Plan: SARS-CoV-2 PCR POSITIVE Pt on airborne, droplet and contact isolation/precautions. Patient has completed 10 day course of dexamethasone on 12/02/2019. He completed the dose of remdisivir of 5 days on 11/27/2019. Received 1 unit off convalascent plasma on 11/28/2019. Discontinued routine monitoring of markers unless new symptoms arise. Appreciate infectious disease following the patient. - repeat SARS-CoV-2 PCR PCR was also positive on 12/14/2019 (4) DM type 2 (diabetes mellitus, type 2): Qualifiers: Diabetes mellitus fpc insulin use: unspecified fpc insulin use status Diabetes mellitus complication status: with neurologic complications Diabetes mellitus complication detail: with unspecified neuropathy Qualified Code(s): E11.40 - Type 2 diabetes mellitus with diabetic neuropathy, unspecified Code(s): E11.9 - Type 2 diabetes mellitus without complications Status: Chronic Assessment and Plan: Uncontrolled on Lantus and SSI - continue Lantus (5) Essential (primary) hypertension: Code(s): I10 - Essential (primary) hypertension Status: Acute Assessment and Plan: not using PEG tube is of in a since he has abnormalities on the CT scan of the abdomen - hydralazine and metoprolol IV p.r.n. (6) DVT prophylaxis: Code(s): Z29.9 - Encounter for prophylactic measures, unspecified Status: Acute Assessment and Plan: Lovenox 40 mg SQ daily (7) Hypothyroidism: Qualifiers: Hypothyroidism type: unspecified Qualified Code(s): E03.9 - Hypothyroidism, unspecified Code(s): E03.9 - Hypothyroidism, unspecified Status: Chronic Assessment and Plan: Continue levothyroxine. change to IV (8) Dietary counseling and surveillance: Code(s): Z71.3 - Dietary counseling and surveillance Status: Acute Assessment and Plan: hold tube feeds for now (9) Hematoma: Code(s): T14.8XXA - Other injury of unspecified body re
[2019-12-25 11:49] LABS: Glucose Point of Care 189 (65-105)
--- NOTE | 2019-12-25 12:49 | PM.CNGS ---
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 (3) Acute respiratory failure with hypoxia: Code(s): J96.01 - Acute respiratory failure with hypoxia Status: Acute Assessment and Plan: s/p trach, cont mgmt per stringing machine tender (4) Type 2 diabetes mellitus with diabetic neuropathy: Code(s): E11.40 - Type 2 diabetes mellitus with diabetic neuropathy, unspecified Status: Acute Assessment and Plan: stable, cont current mgmt (5) Essential (primary) hypertension: Code(s): I10 - Essential (primary) hypertension Status: Acute Assessment and Plan: stable, cont current mgmt History of Present Illness Consult details Consult date: 12/25/19 Reason for consult: other (free air) Requesting physician: Reed Ho MD Narrative: Pt is a 64 y/o male c multiple med issues including ARF secondary to complications from COVID that was recently seen to have free air on both KUB and CT. Pt has had long hospital course secondary to virus complications and recently required trach/peg on 12/21. Pt had projectile emesis yesterday prompting workup including imaging. Pt also c noted temp yest as well as increased leukocytosis. Review of Systems Review of Systems: ROS unobtainable: Yes unobtainable due to medical condition [facility] Past Medical History Medical History Anemia Anxiety Cerebrovascular accident Chronic knee pain after total replacement of both knee joints Congestive heart failure Coronary artery disease involving coronary bypass graft Depression Former smoker Gastroesophageal reflux disease Hiatal hernia Hyperlipidemia Hypertension Hypothyroidism Myocardial infarction Osteoarthritis Type 2 diabetes mellitus with diabetic neuropathy Vitamin D deficiency Surgical History Surgical History History of appendectomy History of bilateral knee arthroplasty (~03/2015) History of endoscopy With findings of hiatal hernia. Previous food impaction with subsequent removal and esophageal dilatation. History of laparoscopic cholecystectomy (~02/2015) History of three vessel coronary artery bypass (~2012) Family History Family History Sibling Diabetes mellitus Mother Diabetes mellitus Other Hypertension Social History Social History Social History: Surrogate decision maker: Colleen Szymanski, . Code status: Full code. Smoking packs per day: 1.5 Smoking cigarettes per day: 30.0 Years smoked: 20 Smoking pack-years: 30.00 Smoking status: Former smoker Smoking end date: 05/28/92 Alcohol intake: never Substance use: never Additional living arrangements comments: Patient lives with his in [place]. Additional occupation/education comments: Retired. Gender identity (if verbalized by the patient): Male Spiritual care concerns: No Meds Home Medications and Allergies Home Medications Medication Instructions Recorded Confirmed Type amlodipine-benazepril 1 cap PO DAILY 11/22/19 11/22/19 History famotidine 40 mg PO BID 11/22/19 11/22/19 History glimepiride 4 mg PO DAILY 11/22/19 11/22/19 History levothyroxine 100 mcg PO DAILY 11/22/19 11/22/19 History metformin 1,000 mg PO BID 11/22/19 11/22/19 History metoprolol succinate 25 mg PO DAILY 11/22/19 11/22/19 Histo
[2019-12-25] MEDS: metroNIDAZOLE 500 MG/ISO 100ML 500 MG/100 ML BAG 100 MG IVPB ×2 (14:33→21:34)
[2019-12-25] MEDS: QUEtiapine FUMARATE 25 MG TABLET 50 MG PO ×2 (15:37→20:21)
--- NOTE | 2019-12-25 17:00 | PM.IMPN ---
Progress Note: A&P Assessment and Plan (1) Acute respiratory failure with hypoxia: Code(s): J96.01 - Acute respiratory failure with hypoxia Status: Acute Assessment and Plan: Awaiting LTAC john. 64-year-old male COVID positive respiratory failure and was intubated 3rd time, hard to wean pt had a PEG and trach on 12/22/19 (2) COVID-19 virus infection: Code(s): U07.1 - COVID-19 Status: Acute Assessment and Plan: He completed remdisivir and dexamethasone He also received convalescent plasma. 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 insulin use status Diabetes mellitus complication status: with neurologic complications Diabetes mellitus complication detail: with unspecified neuropathy Qualified Code(s): E11.40 - Type 2 diabetes mellitus with diabetic neuropathy, unspecified Code(s): E11.9 - Type 2 diabetes mellitus without complications Status: Chronic (4) Hypothyroidism: Qualifiers: Hypothyroidism type: unspecified Qualified Code(s): E03.9 - Hypothyroidism, unspecified Code(s): E03.9 - Hypothyroidism, unspecified Status: Chronic (5) DVT prophylaxis: Code(s): Z29.9 - Encounter for prophylactic measures, unspecified Status: Acute Assessment and Plan: On pharmacological therapy. (6) Projectile vomiting: Code(s): R11.12 - Projectile vomiting Status: Acute Assessment and Plan: surgery consulted further contrast Gi imaging Subjective Date/time seen: 12/25/19 17:00 Interval history: 64-year-old male with history of coronary artery disease status post CABG, hypertension, hyperlipidemia, and type 2 diabetes mellitus who presented to the emergency department with complaints of cough, shortness of breath, and fever. Found to be covid positive with Bilateral infiltrates on cxr. Patient was intubated for acute hypoxic respiratory failure. Pt has received convalescent plasma. Currently he is on steroids and diuresis. Completed 5 days of remdesivir already. Unfortunately pt had to be reintubated on 12/08 for respiratory failure and ARDS. Patient had a PEG and trach 12/21 as he is difficult to wean of the vent. awaiting John Pt had projectile vomit, ? SBO surgery consulted awaiting further contrast imaging Review of Systems Review of Systems: ROS unobtainable: Yes other (intubated ) Exam Narrative: Exam Narrative: Pt is intubated pt has a tracheostomy tube and PEG tube Objective Data Vital Signs Vital Signs: Vital Signs - 24 hr 12/24/19 17:20 12/24/19 17:31 12/24/19 18:00 Temperature 38.4 C H Pulse Rate 65 112 H 111 H Respiratory Rate 32 H Blood Pressure 166/92 H Pulse Oximetry 97 96 12/24/19 18:14 12/24/19 19:14 12/24/19 20:00 Temperature 38.4 C H 39.0 C H Pulse Rate 131 H Respiratory Rate 40 H Blood Pressure Pulse Oximetry 95 12/24/19 20:01 12/24/19 20:25 12/24/19 20:27 Temperature 38.9 C H Pulse Rate 131 H 131 H 129 H Respiratory Rate 34 H Blood Pressure 180/106 H Pulse Oximetry 93 95 12/24/19 20:34 12/24/19 21:01 12/24/19 21:35 Temperature 38.9 C H 38.9 C H Pulse Rate 127 H 136 H Respiratory Rate 40 H 42 H Blood Pressure 170/101 H Pulse Oximetry 91 12/24/19 21:54 12/24/19 22:00 12/24/19 22:02 Temperature 39.0 C H Pulse Rate 129 H 118 H 130 H Respiratory Rate 36 H 46 H Blood Pressure 162/92 H Pulse Oximetry 99 12/24/19 22:05 12/24/19 22:18 12/24/19 22:31 Temperature 38.9 C H 38.8 C H Pulse Rate 131 H 115 H 118 H Respiratory Rate 42 H 34 H 29 H Blood Pressure 138/72 146/78 H Pulse Oximetry 98 97 12/24/19 22:46 12/24/19 23:01 12/24/19 23:12 Temperature 38.7 C H 38.6 C H Pulse Rate 112 H 109 H 112 H Respiratory Rate 30 H 33 H 28 H Blood Pressure 135/72 140/73 140/73 Pulse Oximetry 96 97 97 0
[2019-12-25 18:25] LABS: Glucose Point of Care 159 (65-105)
[2019-12-25 18:52] LABS: Vancomycin Trough 12.8 ug/mL (10.0-20.0)
[2019-12-25] MEDS: METOPROLOL TARTRATE 25 MG TABLET PO (20:20)
[2019-12-25] MEDS: ENOXAPARIN 100 MG/ML SYRINGE 90 MG SUB-Q (20:20)
[2019-12-25] MEDS: DORNASE ALFA INH SOLN 1 MG/ML 2.5 ML AMP 2.5 MG INHALATION (21:12)
[2019-12-25 23:46] LABS: Glucose Point of Care 188 (65-105)
[2019-12-26] VITALS (27 sets, daily range): BP systolic 118–195; BP diastolic 67–92; PULSE 90–120; RESP 22–35; TEMP 36.9–38.6; O2SAT 93–97
[2019-12-26] MEDS: MIDAZOLAM HCL 2 MG/2 ML VIAL IV PUSH ×4 (01:30→23:33)
[2019-12-26 03:59] LABS: Basophils Absolute Auto 0.1 K/mm3 (0.0-0.1); Basophils Percent Auto 0.6 % (0.2-1.2); Eosinophils Absolute Auto 0.1 K/mm3 (0-0.3); Eosinophils Percent Auto 0.7 % (0-4.4); Immature Granulocyte Absolute 0.24 K/mm3 (0.00-0.031); Immature Granulocyte Percent A 1.6 % (0-0.5); Lymphocytes Absolute Auto 1.74 K/mm3 (0.9-3.2); Lymphocytes Percent Auto 11.3 % (18.3-44.2); Mean Corpuscular Hemoglobin 29.3 pg (26-34); Mean Corpuscular Volume 91.6 fl (80-100); Mean Platelet Volume 11.1 fl (7.4-10.4); Monocytes Percent Auto 6.6 % (2.6-8.5); Neutrophils Absolute Auto 12.2 K/mm3 (1.3-6.7); Neutrophils Percent Auto 79.2 % (45.5-73.1); Nucleated Red Blood Cells Perc 0.1 % (0.0-0.2); Platelet Count Result 248 k/mm3 (150-375); Red Blood Count 2.73 M/mm3 (4.6-6.20); Red Cell Distribution Width 14.4 % (11.5-14.5); White Blood Count 15.4 K/mm3 (4.5-10.0)
[2019-12-26 04:11] LABS: Anion Gap 7.4 mmol/L (7-16); Blood Urea Nitrogen 15 mg/dL (9-20); Calcium 7.9 mg/dL (8.4-10.2); Carbon Dioxide 31 mmol/L (22-30); Chloride 101 mmol/L (98-107); Estimated CRCL calculation 103 ml/min; Estimated Glomerular Filt Rate > 60; Glucose 178 mg/dL (75-110); Magnesium 2.3 mg/dL (1.6-2.3); Phosphorus 3.6 mg/dL (2.5-4.5); Potassium 4.4 mmol/L (3.4-5.0); Sodium 135 mmol/L (137-145)
[2019-12-26 04:13] LABS: Alveolar/Arterial O2 Gradient 229.3 mmHg; Base Excess ABG 4.7 mEq/l (+/-2.0); Carboxyhemoglobin 0.3 % THb (0-2.0); Fractional Inspired Oxygen 50 %; HCO3 ABG 29.6 mEq/l (22.0-26.0); Methemoglobin ABG 0.5 %THb (0-1.5); Oxygen Content ABG 11.7 %vol (16.0-22.0); Oxygen Saturation ABG 95.4 % (95.0-100.0); Oxyhemoglobin 93.8 % THb (90.0-100.0); PCO2 ABG 45.9 mmHg (35.0-45.0); PO2 ABG 75.6 mmHg (80.0-100.0); PO2 FiO2 Ratio Arterial Blood 1.51 %; Reduced Hemoglobin 5.4 %THb (0-5.0); Total Hemoglobin 8.8 g/dL (12.0-18.0); pH ABG 7.428 (7.350-7.450)
[2019-12-26 04:14] LABS: Arterial Blood Gas Ventilator rate 24 /MIN; Device VENTILATOR; Site Drawn RIGHT BRACHIAL
[2019-12-26 04:15] LABS: Arterial Blood Gas PEEP 10 cmH2O; Arterial Blood Gas Tidal Volume 400 ml; Arterial Blood Gas Vent Mode CMV
[2019-12-26] MEDS: metroNIDAZOLE 500 MG/ISO 100ML 500 MG/100 ML BAG 100 MG IVPB ×2 (05:53→13:05)
[2019-12-26] MEDS: CENTRAL LINE FLUSH 10 ML IV PUSH ×5 (05:54→21:04)
[2019-12-26] MEDS: LEVOTHYROXINE SODIUM 100 MCG TABLET PO (05:56)
[2019-12-26] MEDS: AMLODIPINE BESYLATE 5 MG TABLET 10 MG PO (08:23)
[2019-12-26] MEDS: FAMOTIDINE 20 MG/2 ML VIAL IV PUSH ×2 (08:24→21:03)
[2019-12-26] MEDS: ENOXAPARIN 100 MG/ML SYRINGE 90 MG SUB-Q ×2 (08:24→21:03)
[2019-12-26] MEDS: INSULIN GLARGINE (*BKC) 100 UNITS/ML 35 UNITS SUB-Q (08:25)
[2019-12-26] MEDS: QUEtiapine FUMARATE 25 MG TABLET 50 MG PO ×2 (08:27→21:03)
[2019-12-26] MEDS: METOPROLOL TARTRATE 25 MG TABLET PO ×2 (08:27→21:03)
--- NOTE | 2019-12-26 08:48 | WPDGIPROGNO ---
Progress Note: A&P Additional Plan Patient remains intubated. Unable to add history. Apparently had projectile vomiting. I was unaware until today. KUB and CT scan in suggested free air of the abdomen. On physical exam abdomen is benign. Peg tube is been functioning well. CT scan and KUB suggests some free air in the abdomen. WBC modestly elevated 15. contrast study through the G-tube reveals this to be in good position with no extravasation. Impression 1. Status post PEG tube. Free air in the abdomen is not unusual after this is accomplished. Agree with resuming tube feedings. Appears to be in good position. Apparently has been tolerating well previously. 2. Leukocytosis. 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 Feeling is it may be related to new diagnosis of DVT. Continue monitor closely. Antibiotics if necessary. 3. COVID positive. Pneumonitis noted by chest x-rays. Patient now on ventilator with tracheostomy. Placement pending. Plan to continue to monitor abdominal exam. Monitor WBC count. Close observation. Tube feedings are to be resumed and advanced as tolerated today. Subjective Date/time seen: 12/26/19 08:48 Objective Data Vital Signs Vital Signs: Vital Signs - 24 hr 12/25/19 09:25 12/25/19 09:58 12/25/19 10:00 Temperature 98.6 F Pulse Rate 96 99 98 Respiratory Rate 34 H 34 H Blood Pressure 169/79 H Pulse Oximetry 91 12/25/19 10:59 12/25/19 11:09 12/25/19 11:13 Temperature 100.3 F H Pulse Rate 118 H 101 H Respiratory Rate 44 H Blood Pressure Pulse Oximetry 92 12/25/19 11:30 12/25/19 11:32 12/25/19 12:00 Temperature 101.1 F H Pulse Rate 90 98 102 H Respiratory Rate 39 H Blood Pressure 156/71 H Pulse Oximetry 99 96 12/25/19 14:00 12/25/19 15:26 12/25/19 16:00 Temperature 101.6 F H 101.8 F H Pulse Rate 105 H 112 H 114 H Respiratory Rate 43 H 39 H Blood Pressure 154/76 H 154/79 H Pulse Oximetry 96 95 93 12/25/19 17:14 12/25/19 17:40 12/25/19 17:43 Temperature 101.8 F H Pulse Rate 113 H 111 H Respiratory Rate Blood Pressure Pulse Oximetry 95 07/30/20 17:44 12/25/19 18:00 12/25/19 20:00 Temperature 101.2 F H 101.1 F H 100 F H Pulse Rate 113 H 102 H Respiratory Rate 34 H 34 H Blood Pressure 158/85 H 153/72 H Pulse Oximetry 94 95 12/25/19 20:20 12/25/19 21:00 12/25/19 21:13 Temperature Pulse Rate 110 H 114 H 116 H Respiratory Rate 40 H Blood Pressure Pulse Oximetry 91 12/25/19 21:15 12/25/19 22:00 12/25/19 22:50 Temperature 101.1 F H 102.2 F H Pulse Rate 114 H 116 H Respiratory Rate 40 H 31 H Blood Pressure 162/72 H Pulse Oximetry 94 12/25/19 23:18 12/25/19 23:20 12/25/19 23:54 Temperature 102.2 F H Pulse Rate 118 H 118 H Respiratory Rate 40 H Blood Pressure Pulse Oximetry 95 95 12/26/19 00:00 12/26/19 02:22 12/26/19 02:51 Temperature 101.5 F H 99.6 F Pulse Rate 115 H 96 94 Respiratory Rate 25 H 26 H Blood Pressure 137/71 133/70 Pulse Oximetry 94 95 96 12/26/19 03:05 12/26/19 04:00 12/26/19 04:49 Temperature 98.5 F Pulse Rate 90 92 91 Respiratory Rate 26 H 24 H Blood Pressure 118/67 Pulse Oximetry 95 96 96 12/26/19 06:00 12/26/19 08:27 12/26/19 08:29 Temperature 98.7 F Pulse Rate 97 104 H 104 H Respiratory Rate 24 H 35 H Blood Pressure 133/78 Pulse Oximetry 93 94 Intake/Output Intake/Output: Intake & Output 12/23/19 12/24/19 12/25/19 12/26/19 23:59 23:59 23:59 23:59 Intake Total 2595 3078 1738 750 Output Total 2600 2750 2150 600 Balance -5 328 -412 150 Meds/Results Medications: Active Medications Generic Name Dose Route Start Last Admin Trade Name Freq PRN Reason Stop Dose Admin Amlodipine Besylate 10 mg 12/03/19 09:00 12/26/19 08:23 Norvasc PO 10 mg QAM OLENA Administration Benzocaine 1 lozenge 11/24/19 07:22 11/24/19 20:13 Chloraseptic Lozenge PO 1 lozenge PRN PRN Administratio
[2019-12-26 11:56] LABS: Glucose Point of Care 168 (65-105)
--- NOTE | 2019-12-26 13:30 | PCDIET ---
Nutrition Follow-Up Complete: Nutrition Diagnosis: Predicted suboptimal oral intake related to increased O2 requirements as evidenced by full liquid diet order. Nutrition Goal: Patient to meet estimated nutritional needs. Goal in progress. Tube feedings re-started following small bowel follow through yesterday. Patient tolerated well at 10mL/hr (Glucerna 1.2). MD order to advance toward goal of 65mL/hr as recommended by RD. Last recorded weight is 88.5 kg which is down from last review. -I/O. Bowel Motility: +BM today. Labs Reviewed: Hgb (8.0), Hct (25.0), Glu (178), Na (135), Alb (3.5), Teri Ca (8.3) Meds Noted: Cefepime, Pepcid, Fentanyl, Novolog, Lantus, Synthroid, Versed, Flagyl, Miralax, Vancomycin Additional Notes: No documented skin breakdown. Will continue to monitor with same goals. Nutrition Monitoring and Evaluation: Follow up every Sunday/Sunday. Follow daily in ICU rounds.
--- NOTE | 2019-12-26 14:17 | WPDINTPN ---
Progress Note: A&P Assessment and Plan (1) Febrile illness: Code(s): R50.9 - Fever, unspecified Status: Acute Assessment and Plan: Blood culture from 12/17 with Klebsiella aerogenes; sputum culture with Klebsiella aerogenes and Proteus mirabilis. RIJ CVC removed 12/18; L AC PICC placed. - continue cefepime and vancomycin - His new blood cultures from 12/18, growing Klebsiella, resistant to ceftriaxone - infectious Disease has been notified for febrile illness (2) Abnormal CT of the abdomen: Code(s): R93.5 - Abnormal findings on diagnostic imaging of other abdominal regions, including retroperitoneum Status: Acute Assessment and Plan: patient had episode of projectile vomiting overnight, obstructive series and CT scan of the abdomen and pelvis showed: 1. Moderate free intraperitoneal air, suspicious for bowel perforation. Site of perforation not identified. 2: Progression of extensive bilateral airspace disease which may represent pneumonia, edema and/or ARDS. 3: Abnormal bladder wall thickening with surrounding perivesical infiltration, suspicious for cystitis. 4: Small left pleural effusion. lactic acid is normal, worsening leukocytosis - continue cefepime, vancomycin, will add Flagyl - discussed the surgery, likely related to PEG tube placement, small-bowel follow-through with Omnipaque showed free intraperitoneal gas, opacified stomach, proximal jejunum, no suspicion for extravasated contrast - surgery was okay to start tube feeds (3) Respiratory failure with hypoxia: Qualifiers: Chronicity: acute Qualified Code(s): J96.01 - Acute respiratory failure with hypoxia Code(s): J96.91 - Respiratory failure, unspecified with hypoxia Status: Acute Assessment and Plan: Acute hypoxemic respiratory failure due to COVID-19 related ARDS. Intubated patient on 11/26/2019 for impending respiratory failure Patient was extubated 12/07/2019 after successful weaning trial. 12/09/2019 -reintubated without any complication. 12/13/2019: a new ET tube was placed as patient was hypoxic, large mucus plugs were being suctioned. 12/14/2019: Repeat SARS-CoV-2 PCR was positive 12/22/2019: Tracheostomy and PEG tube placed currently on CMP 400, 24, 10,45% FiO2 chest x-ray and ABGs reviewed. patient diuresed well on 12/24/2019 - chest x-ray with pneumonia, patient febrile, sputum cultures and blood cultures growing Klebsiella - patient with p.r.n. Ativan sedation, off all infusions - await LTAC placement (4) COVID-19: Code(s): U07.1 - COVID-19 Status: Acute Assessment and Plan: SARS-CoV-2 PCR POSITIVE Pt on airborne, droplet and contact isolation/precautions. Patient has completed 10 day course of dexamethasone on 12/02/2019. He completed the dose of remdisivir of 5 days on 11/27/2019. Received 1 unit off convalascent plasma on 11/28/2019. Discontinued routine monitoring of markers unless new symptoms arise. Appreciate infectious disease following the patient. 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 Diabetes mellitus complication status: with neurologic complications Diabetes mellitus complication detail: with unspecified neuropathy Qualified Code(s): E11.40 - Type 2 diabetes mellitus with diabetic neuropathy, unspecified Code(s): E11.9 - Type 2 diabetes mellitus without complications Status: Chronic Assessment and Plan: Uncontrolled on Lantus and SSI - continue Lantus (6) Essential (primary) hypertension: Code(s): I10 - Essential (primary) hypertension Status: Acute Assessment and Plan: not using PEG tube is of in a since he has abnormalities on the CT scan of the abdomen - hydralazine and metoprolol IV p.r.n. (7) DVT prophylaxis: Code(s): Z29.9 - En
--- NOTE | 2019-12-26 14:47 | WPDINFPN2 ---
Progress Note: A&P Assessment and Plan (1) COVID-19 virus infection: Code(s): U07.1 - COVID-19 Status: Acute Assessment and Plan: 1. CoVid 19 viral pneumonia, resolved 2. TKAs 3. DM 4. Respiratory failure, largely compensated, trach 5.Fever due to HCAP with Klebsiella, not ESBL producer director on initial specimen, but has persistent fever, raising possibility of subpopulation of ESBL producers REC Change cefepime to Imipenem #1. (quinolones also an option, but potential drug interactions). Remdesivir completed 11/26. Dexamethasone completed 12/01. Convalescent plasma given 11/26. Subjective Date/time seen: 12/26/19 14:47 Interval history: asked to see again re: fever. Clinical course noted Exam Narrative: Exam Narrative: t max 39.0 core/Rios sensor Const: General: no acute distress Eyes: General: appearance normal, both eyes and all related structures Neck: Other: trach in place Resp: Effort & Inspection: normal respiratory effort Auscultation: rales, no wheezes and diminished lung sounds Cardio: Rate: regular rate Rhythm: regular rhythm Heart sounds: no gallops and no murmurs GI: Inspection: non-distended GI Palp: Yes Soft to palpation and No Tenderness to palpation present (GI) Urinary Catheter: Urinary Catheter: patent and draining and urine clear Skin: General skin exam: normal color and no rashes or lesions noted Other: PICC LUE without phlebitis. No femoral lines in place Objective Data Vital Signs Vital Signs: Vital Signs - 24 hr 12/25/19 15:26 12/25/19 16:00 12/25/19 17:14 Temperature 38.8 C H 38.8 C H Pulse Rate 112 H 114 H Respiratory Rate 39 H Blood Pressure 154/79 H Pulse Oximetry 95 93 12/25/19 17:40 12/25/19 17:43 12/25/19 17:44 Temperature 38.4 C H Pulse Rate 113 H 111 H Respiratory Rate Blood Pressure Pulse Oximetry 95 12/25/19 18:00 12/25/19 20:00 12/25/19 20:20 Temperature 38.4 C H 37.7 C H Pulse Rate 113 H 102 H 110 H Respiratory Rate 34 H 34 H Blood Pressure 158/85 H 153/72 H Pulse Oximetry 94 95 12/25/19 21:00 12/25/19 21:13 12/25/19 21:15 Temperature Pulse Rate 114 H 116 H 114 H Respiratory Rate 40 H 40 H Blood Pressure Pulse Oximetry 91 12/25/19 22:00 12/25/19 22:50 12/25/19 23:18 Temperature 38.4 C H 39.0 C H Pulse Rate 116 H 118 H Respiratory Rate 31 H Blood Pressure 162/72 H Pulse Oximetry 94 95 12/25/19 23:20 12/25/19 23:54 12/26/19 00:00 Temperature 39.0 C H 38.6 C H Pulse Rate 118 H 115 H Respiratory Rate 40 H 25 H Blood Pressure 137/71 Pulse Oximetry 95 94 12/26/19 02:22 12/26/19 02:51 12/26/19 03:05 Temperature 37.6 C Pulse Rate 96 94 90 Respiratory Rate 26 H 26 H Blood Pressure 133/70 Pulse Oximetry 95 96 95 12/26/19 04:00 12/26/19 04:49 12/26/19 06:00 Temperature 36.9 C 37.1 C Pulse Rate 92 91 97 Respiratory Rate 24 H 24 H Blood Pressure 118/67 133/78 Pulse Oximetry 96 96 93 12/26/19 08:00 12/26/19 08:27 12/26/19 08:29 Temperature 37.1 C Pulse Rate 94 104 H 104 H Respiratory Rate 23 H 35 H Blood Pressure 129/67 Pulse Oximetry 96 94 12/26/19 10:00 12/26/19 12:00 12/26/19 12:26 Temperature 37.4 C 37.4 C Pulse Rate 97 96 102 H Respiratory Rate 26 H 26 H Blood Pressure 160/83 H 161/77 H Pulse Oximetry 97 97 94 12/26/19 14:00 Temperature 37.4 C Pulse Rate 106 H Respiratory Rate 28 H Blood Pressure 140/76 Pulse Oximetry 94 Intake/Output Intake/Output: Intake & Output 12/23/19 12/24/19 12/25/19 12/26/19 23:59 23:59 23:59 23:59 Intake Total 2595 3078 1738 1500 Output Total 2600 2750 2150 600 Balance -5 328 -412 900 Meds/Results Medications: Active Medications Generic Name Dose Route Start Last Admin Trade Name Freq PRN Reason Stop Dose Admin Amlodipine Besylate 10 mg 12/03/19 09:00 12/26/19 08:23 Norvasc PO 10 mg QAM OLENA Administration Benzocaine 1 lozenge 11/24/19 07:22 11/24/19 20:13 Chl
[2019-12-26] MEDS: IMIPENEM/CILASTATIN SODIUM 500 MG in DEXTROSE 5% 100 ML 300 MG IVPB ×2 (17:35→23:31)
[2019-12-26] MEDS: METOPROLOL TARTRATE INJ 5 MG/5 ML VIAL IV PUSH (18:40)
[2019-12-26 18:56] LABS: Glucose Point of Care 163 (65-105)
[2019-12-26] MEDS: DORNASE ALFA INH SOLN 1 MG/ML 2.5 ML AMP 2.5 MG INHALATION (23:09)
[2019-12-26 23:29] LABS: Glucose Point of Care 123 (65-105)
[2019-12-27] VITALS (29 sets, daily range): BP systolic 139–171; BP diastolic 73–115; PULSE 86–130; RESP 20–37; TEMP 37.3–37.7; O2SAT 92–99
[2019-12-27] MEDS: MIDAZOLAM HCL 2 MG/2 ML VIAL IV PUSH ×3 (02:33→11:25)
[2019-12-27] MEDS: METOPROLOL TARTRATE INJ 5 MG/5 ML VIAL IV PUSH ×2 (02:33→12:57)
[2019-12-27] MEDS: CENTRAL LINE FLUSH 10 ML IV PUSH ×2 (05:18→20:20)
[2019-12-27 05:36] LABS: Alveolar/Arterial O2 Gradient 170.4 mmHg; Base Excess ABG 7.5 mEq/l (+/-2.0); Carboxyhemoglobin 0.3 % THb (0-2.0); Device VENTILATOR; Fractional Inspired Oxygen 40 %; HCO3 ABG 31.7 mEq/l (22.0-26.0); Methemoglobin ABG 0.3 %THb (0-1.5); Modified Allen's Test Pass; Oxygen Content ABG 13.1 %vol (16.0-22.0); Oxyhemoglobin 91.9 % THb (90.0-100.0); PCO2 ABG 43.4 mmHg (35.0-45.0); PO2 ABG 64.9 mmHg (80.0-100.0); PO2 FiO2 Ratio Arterial Blood 1.62 %; Reduced Hemoglobin 7.5 %THb (0-5.0); Site Drawn RIGHT RADIAL; Total Hemoglobin 10.1 g/dL (12.0-18.0); pH ABG 7.482 (7.350-7.450)
[2019-12-27 05:37] LABS: Arterial Blood Gas PEEP 10 cmH2O; Arterial Blood Gas Tidal Volume 400 ml; Arterial Blood Gas Vent Mode CMV; Arterial Blood Gas Ventilator rate 24 /MIN
[2019-12-27 05:40] LABS: Basophils Absolute Auto 0.1 K/mm3 (0.0-0.1); Basophils Percent Auto 0.4 % (0.2-1.2); Eosinophils Percent Auto 0.1 % (0-4.4); Hematocrit 25.4 % (42.0-52.0); Hemoglobin 8.3 g/dL (14.0-18.0); Immature Granulocyte Absolute 0.25 K/mm3 (0.00-0.031); Immature Granulocyte Percent A 1.9 % (0-0.5); Lymphocytes Absolute Auto 1.78 K/mm3 (0.9-3.2); Lymphocytes Percent Auto 13.3 % (18.3-44.2); Mean Corpuscular HGB Conc 32.7 g/dl (32-36); Mean Corpuscular Hemoglobin 29.6 pg (26-34); Mean Corpuscular Volume 90.7 fl (80-100); Mean Platelet Volume 11.1 fl (7.4-10.4); Monocytes Absolute Auto 0.9 K/mm3 (0.1-0.6); Neutrophils Absolute Auto 10.3 K/mm3 (1.3-6.7); Neutrophils Percent Auto 77.3 % (45.5-73.1); Nucleated Red Blood Cells Perc 0.1 % (0.0-0.2); Platelet Count Result 280 k/mm3 (150-375); Red Cell Distribution Width 14.2 % (11.5-14.5); White Blood Count 13.4 K/mm3 (4.5-10.0)
[2019-12-27 05:53] LABS: Alanine Aminotransferase 20 U/L (4-50); Albumin Level 3.4 g/dL (3.5-5.1); Alkaline Phosphatase 104 U/L (38-126); Anion Gap 7.2 mmol/L (7-16); Aspartate Amino Transferase 24 U/L (17-59); Bilirubin,Total 0.5 mg/dL (0.2-1.3); Blood Urea Nitrogen 10 mg/dL (9-20); Calcium 8.4 mg/dL (8.4-10.2); Carbon Dioxide 33 mmol/L (22-30); Chloride 99 mmol/L (98-107); Estimated CRCL calculation 122 ml/min; Estimated Glomerular Filt Rate > 60; Glucose 134 mg/dL (75-110); Magnesium 2.3 mg/dL (1.6-2.3); Phosphorus 2.5 mg/dL (2.5-4.5); Potassium 3.2 mmol/L (3.4-5.0); Sodium 136 mmol/L (137-145)
[2019-12-27] MEDS: LEVOTHYROXINE SODIUM 100 MCG TABLET PO (06:04)
[2019-12-27] MEDS: IMIPENEM/CILASTATIN SODIUM 500 MG in DEXTROSE 5% 100 ML 300 MG IVPB ×3 (06:04→17:45)
[2019-12-27] MEDS: hydrALAZINE HCL 20 MG/ML VIAL 10 MG IV PUSH (07:00)
[2019-12-27] MEDS: DORNASE ALFA INH SOLN 1 MG/ML 2.5 ML AMP 2.5 MG INHALATION ×2 (07:22→21:00)
[2019-12-27] MEDS: FAMOTIDINE 20 MG/2 ML VIAL IV PUSH ×2 (09:00→20:42)
[2019-12-27] MEDS: METOPROLOL TARTRATE 25 MG TABLET PO ×2 (09:00→20:42)
[2019-12-27] MEDS: ENOXAPARIN 100 MG/ML SYRINGE 90 MG SUB-Q ×2 (09:00→20:42)
[2019-12-27] MEDS: AMLODIPINE BESYLATE 5 MG TABLET 10 MG PO (09:00)
[2019-12-27] MEDS: INSULIN GLARGINE (*BKC) 100 UNITS/ML 35 UNITS SUB-Q (09:00)
[2019-12-27] MEDS: QUEtiapine FUMARATE 25 MG TABLET 50 MG PO ×2 (09:10→20:42)
--- NOTE | 2019-12-27 10:51 | WPDGIPROGNO ---
Progress Note: A&P Additional Plan Patient remains on the ventilator. I discussed case with nursing staff. Patient now on tube feedings at55cc an hour. No acute abdominal findings have been reported. No signs of bleeding. Impression 1. Free air identified by recent x-ray studies likely a normal result of PEG tube placement. See chest x-ray today reveals no evidence of free air described. 2. Status post PEG placement. Plan is to advance tube feedings as tolerated. Continue local care to PEG tube site. Subjective Date/time seen: 12/27/19 10:51 Objective Data Vital Signs Vital Signs: Vital Signs - 24 hr 12/26/19 12:00 12/26/19 12:26 12/26/19 14:00 Temperature 99.3 F 99.4 F Pulse Rate 96 102 H 106 H Respiratory Rate 26 H 28 H Blood Pressure 161/77 H 140/76 Pulse Oximetry 97 94 94 12/26/19 14:57 12/26/19 16:00 12/26/19 16:15 Temperature 99.6 F 99.6 F Pulse Rate 118 H 117 H Respiratory Rate 33 H Blood Pressure 165/89 H Pulse Oximetry 97 96 12/26/19 17:07 12/26/19 17:30 12/26/19 18:00 Temperature 99.6 F 99.4 F Pulse Rate 110 H 120 H Respiratory Rate 22 H Blood Pressure 185/88 H Pulse Oximetry 97 96 12/26/19 18:30 12/26/19 18:40 12/26/19 19:00 Temperature Pulse Rate 117 H Respiratory Rate Blood Pressure 172/85 H 152/85 H Pulse Oximetry 12/26/19 20:00 12/26/19 20:40 12/26/19 21:38 Temperature 99.5 F 100 F H Pulse Rate 108 H 110 H 107 H Respiratory Rate 31 H 32 H 30 H Blood Pressure 177/90 H 195/92 H Pulse Oximetry 95 96 94 12/26/19 23:30 12/27/19 00:00 12/27/19 01:24 Temperature 99.8 F H 99.4 F Pulse Rate 111 H 113 H 115 H Respiratory Rate 21 H 20 Blood Pressure 171/81 H 171/99 H Pulse Oximetry 97 98 95 12/27/19 02:20 12/27/19 02:33 12/27/19 04:00 Temperature 99.7 F H Pulse Rate 104 H 105 H 99 Respiratory Rate 24 H Blood Pressure 162/92 H Pulse Oximetry 96 98 12/27/19 05:05 12/27/19 06:00 12/27/19 08:00 Temperature 100 F H 99.1 F Pulse Rate 106 H 105 H 124 H Respiratory Rate 23 H 32 H Blood Pressure 170/115 H 164/92 H Pulse Oximetry 94 98 93 Intake/Output Intake/Output: Intake & Output 12/24/19 12/25/19 12/26/19 12/27/19 23:59 23:59 23:59 23:59 Intake Total 3078 1738 1928 874 Output Total 2750 2150 2450 2600 Balance [phone] Meds/Results Medications: Active Medications Generic Name Dose Route Start Last Admin Trade Name Freq PRN Reason Stop Dose Admin Amlodipine Besylate 10 mg 12/03/19 09:00 12/26/19 08:23 Norvasc PO 10 mg QAM OLENA Administration Dornase Markel 2.5 mg 12/15/19 20:00 12/27/19 07:22 Pulmozyme INHALATION 2.5 mg Q12HRT OLENA Administration Enoxaparin Sodium 90 mg 12/25/19 21:00 12/26/19 21:03 Lovenox SUB-Q 90 mg Q12H OLENA Administration Famotidine 20 mg 12/24/19 21:00 12/26/19 21:03 Pepcid Iv IV PUSH 20 mg Q12HR OLENA Administration Fentanyl Citrate 50 mcg 12/22/19 13:59 12/26/19 23:32 Sublimaze IV PUSH 50 mcg Q2HR PRN Administration Pain Rated 7-10 Hydralazine HCl 10 mg 12/25/19 11:57 12/27/19 07:00 Apresoline Hcl Inj IV PUSH 10 mg Q4H PRN Administration Blood Pressure - High Imipenem/Cilastatin Sodium 500 100 mls @ 300 mls/hr 12/26/19 18:00 12/27/19 06:59 mg/ Dextrose IVPB Infused Q6HR [facility] Infusion Insulin Aspart 4 - 8 units 12/14/19 12:00 12/27/19 06:11 Novolog SUB-Q Not Given Q6HR [facility] Protocol Insulin Glargine 35 units 12/25/19 09:00 12/26/19 08:25 Lantus SUB-Q 35 units DAILY OLENA Administration Levothyroxine Sodium 100 mcg 12/26/19 06:30 12/27/19 06:04 Synthroid PO 100 mcg DAILY@0630 OLENA Administration Lidocaine HCl 0.3 ml 12/22/19 06:51 Xylocaine 2% Local Inj INTRADERM ONCE PRN to numb area Lorazepam 2 mg 12/25/19 14:18 12/26/19 05:38 Ativan Inj IV PUSH 2 mg Q2H PRN Administration Anxiety Metoprolol Tartrate 25
--- NOTE | 2019-12-27 13:42 | WPDINTPN ---
Progress Note: A&P Assessment and Plan (1) Febrile illness: Code(s): R50.9 - Fever, unspecified Status: Acute Assessment and Plan: Blood culture from 12/17 with Klebsiella aerogenes; sputum culture with Klebsiella aerogenes and Proteus mirabilis. RIJ CVC removed 12/18; L AC PICC placed. - continue imipenem as per ID Service. - His new blood cultures from 12/18, growing Klebsiella, resistant to ceftriaxone - infectious Disease Service recommendations appreciated. (2) Abnormal CT of the abdomen: Code(s): R93.5 - Abnormal findings on diagnostic imaging of other abdominal regions, including retroperitoneum Status: Acute Assessment and Plan: patient had episode of projectile vomiting overnight, obstructive series and CT scan of the abdomen and pelvis showed: 1. Moderate free intraperitoneal air, suspicious for bowel perforation. Site of perforation not identified. 2: Progression of extensive bilateral airspace disease which may represent pneumonia, edema and/or ARDS. 3: Abnormal bladder wall thickening with surrounding perivesical infiltration, suspicious for cystitis. 4: Small left pleural effusion. lactic acid is normal, Leukocytosis is improving now as well. - continue Antibiotics with imipenem. - discussed the surgery, likely related to PEG tube placement, small-bowel follow-through with Omnipaque showed free intraperitoneal gas, opacified stomach, proximal jejunum, no suspicion for extravasated contrast - surgery was okay to start tube feeds which is being titrated up. (3) Respiratory failure with hypoxia: Qualifiers: Chronicity: acute Qualified Code(s): J96.01 - Acute respiratory failure with hypoxia Code(s): J96.91 - Respiratory failure, unspecified with hypoxia Status: Acute Assessment and Plan: Acute hypoxemic respiratory failure due to COVID-19 related ARDS. Intubated patient on 11/26/2019 for impending respiratory failure Patient was extubated 12/07/2019 after successful weaning trial. 12/09/2019 -reintubated without any complication. 12/13/2019: a new ET tube was placed as patient was hypoxic, large mucus plugs were being suctioned. 12/14/2019: Repeat SARS-CoV-2 PCR was positive 12/22/2019: Tracheostomy and PEG tube placed currently on CMP 400, 24, 10,45% FiO2 chest x-ray and ABGs reviewed. He has been self diuresing and had a net negative fluid balance of 2.5 L in the last 24 hour without any diuretics. - chest x-ray with pneumonia, patient febrile, sputum cultures and blood cultures growing Klebsiella - patient with p.r.n. Ativan sedation, off all infusions - await LTAC placement (4) COVID-19: Code(s): U07.1 - COVID-19 Status: Acute Assessment and Plan: SARS-CoV-2 PCR POSITIVE Pt on airborne, droplet and contact isolation/precautions. Patient has completed 10 day course of dexamethasone on 12/02/2019. He completed the dose of remdisivir of 5 days on 11/27/2019. Received 1 unit off convalascent plasma on 11/28/2019. Discontinued routine monitoring of markers unless new symptoms arise. Appreciate infectious disease following the patient. - repeat SARS-CoV-2 PCR PCR was also positive on 12/14/2019 (5) DM type 2 (diabetes mellitus, type 2): Qualifiers: Diabetes mellitus half-way insulin use: unspecified long term care social worker insulin use status Diabetes mellitus complication status: with neurologic complications Diabetes mellitus complication detail: with unspecified neuropathy Qualified Code(s): E11.40 - Type 2 diabetes mellitus with diabetic neuropathy, unspecified Code(s): E11.9 - Type 2 diabetes mellitus without complications Status: Chronic Assessment and Plan: Uncontrolled on Lantus and SSI - continue Lantus (6) Essential (primary) hypertension: Code(s): I10 - Essential (primary) hypertension Status: Acute Assessment and Plan: - Continue metoprolol and amlodipine (7) DVT proph
--- NOTE | 2019-12-27 15:48 | PM.IMPN ---
Progress Note: A&P Assessment and Plan (1) Acute respiratory failure with hypoxia: Code(s): J96.01 - Acute respiratory failure with hypoxia Status: Acute Assessment and Plan: Awaiting LTAC [facility]. 64-year-old male COVID positive respiratory failure and was intubated 3rd time, hard to wean pt had a PEG and trach on 12/22/19 (2) COVID-19 virus infection: Code(s): U07.1 - COVID-19 Status: Acute Assessment and Plan: He completed remdisivir and dexamethasone He also received convalescent plasma. 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: Diabetes mellitus complication detail: with unspecified neuropathy Diabetes mellitus complication status: with neurologic complications Diabetes mellitus prison insulin use: unspecified prison insulin use status Qualified Code(s): E11.40 - Type 2 diabetes mellitus with diabetic neuropathy, unspecified Code(s): E11.9 - Type 2 diabetes mellitus without complications Status: Chronic (4) Hypothyroidism: Qualifiers: Hypothyroidism type: unspecified Qualified Code(s): E03.9 - Hypothyroidism, unspecified Code(s): E03.9 - Hypothyroidism, unspecified Status: Chronic (5) DVT prophylaxis: Code(s): Z29.9 - Encounter for prophylactic measures, unspecified Status: Acute Assessment and Plan: On pharmacological therapy. (6) Projectile vomiting: Code(s): R11.12 - Projectile vomiting Status: Acute Assessment and Plan: surgery consulted further contrast Gi imaging Subjective Date/time seen: 12/27/19 15:48 Interval history: 64-year-old male with history of coronary artery disease status post CABG, hypertension, hyperlipidemia, and type 2 diabetes mellitus who presented to the emergency department with complaints of cough, shortness of breath, and fever. Found to be covid positive with Bilateral infiltrates on cxr. Patient was intubated for acute hypoxic respiratory failure. Pt has received convalescent plasma. Currently he is on steroids and diuresis. Completed 5 days of remdesivir already. Unfortunately pt had to be reintubated on 12/08 for respiratory failure and ARDS. Patient had a PEG and trach 12/21 as he is difficult to wean of the vent. awaiting [facility] Pt had projectile vomit resolved. PEG is in place. DVT found in left brachial vein Review of Systems Review of Systems: All systems reviewed & are unremarkable except as noted in HPI and below ROS unobtainable: Yes unobtainable due to medical condition and other (intubated ) Exam Narrative: Exam Narrative: Pt is intubated pt has a tracheostomy tube and PEG tube Objective Data Vital Signs Vital Signs: Vital Signs - 24 hr 12/26/19 16:00 12/26/19 16:15 12/26/19 17:07 Temperature 37.6 C 37.6 C 37.6 C Pulse Rate 117 H Respiratory Rate 33 H Blood Pressure 165/89 H Pulse Oximetry 96 12/26/19 17:30 12/26/19 18:00 12/26/19 18:30 Temperature 37.4 C Pulse Rate 110 H 120 H Respiratory Rate 22 H Blood Pressure 185/88 H 172/85 H Pulse Oximetry 97 96 12/26/19 18:40 12/26/19 19:00 12/26/19 20:00 Temperature 37.5 C Pulse Rate 117 H 108 H Respiratory Rate 31 H Blood Pressure 152/85 H 177/90 H Pulse Oximetry 95 12/26/19 20:40 12/26/19 21:38 12/26/19 23:30 Temperature 37.7 C H Pulse Rate 110 H 107 H 111 H Respiratory Rate 32 H 30 H Blood Pressure 195/92 H Pulse Oximetry 96 94 97 12/27/19 00:00 12/27/19 01:24 12/27/19 02:20 Temperature 37.7 C H 37.4 C Pulse Rate 113 H 115 H 104 H Respiratory Rate 21 H 20 Blood Pressure 171/81 H 171/99 H Pulse Oximetry 98 95 96 12/27/19 02:33 12/27/19 04:00 12/27/19 05:05 Temperature 37.6 C H Pulse Rate 105 H 99 106 H Respiratory Rate 24 H Blood Pressure 162/92 H Pulse Oximetry 98 94 12/27/19 06:00 12/27/19 07:22 12/27/19 07:31 Temperature 37.7 C H Pulse Rate 105 H
[2019-12-27 19:32] LABS: Glucose Point of Care 192 (65-105)
[2019-12-27 19:32] LABS: Glucose Point of Care 183 (65-105)
[2019-12-27 19:32] LABS: Glucose Point of Care 185 (65-105)
[2019-12-27 23:55] LABS: Glucose Point of Care 139 (65-105)
[2019-12-28] VITALS (26 sets, daily range): BP systolic 123–178; BP diastolic 74–92; PULSE 82–115; RESP 25–33; TEMP 37.1–37.6; O2SAT 91–100
[2019-12-28] MEDS: IMIPENEM/CILASTATIN SODIUM 500 MG in DEXTROSE 5% 100 ML 300 MG IVPB ×5 (00:02→23:15)
[2019-12-28] MEDS: CENTRAL LINE FLUSH 10 ML IV PUSH ×3 (05:03→20:48)
[2019-12-28 06:00] LABS: Glucose Point of Care 204 (65-105)
[2019-12-28] MEDS: LEVOTHYROXINE SODIUM 100 MCG TABLET PO (06:04)
[2019-12-28] MEDS: INSULIN ASPART (*BKC) 100 UNITS/ML SUB-Q (06:38)
[2019-12-28] MEDS: QUEtiapine FUMARATE 25 MG TABLET 50 MG PO ×2 (07:59→20:48)
[2019-12-28] MEDS: FAMOTIDINE 20 MG/2 ML VIAL IV PUSH (07:59)
[2019-12-28] MEDS: METOPROLOL TARTRATE 25 MG TABLET PO (07:59)
[2019-12-28] MEDS: AMLODIPINE BESYLATE 5 MG TABLET 10 MG PO (07:59)
[2019-12-28] MEDS: DORNASE ALFA INH SOLN 1 MG/ML 2.5 ML AMP 2.5 MG INHALATION (08:19)
--- NOTE | 2019-12-28 08:59 | WPDINTPN ---
Progress Note: A&P Assessment and Plan (1) Febrile illness: Code(s): R50.9 - Fever, unspecified Status: Acute Assessment and Plan: Blood culture from 12/17 with Klebsiella aerogenes; sputum culture with Klebsiella aerogenes and Proteus mirabilis. RIJ CVC removed 12/18; L AC PICC placed. - continue imipenem as per ID Service. - His new blood cultures from 12/18, growing Klebsiella, resistant to ceftriaxone - infectious Disease Service recommendations appreciated. I will send repeat blood culture for documentation of clearing of bacteremia today. He has low-grade fever but fever curve is trending down. (2) Abnormal CT of the abdomen: Code(s): R93.5 - Abnormal findings on diagnostic imaging of other abdominal regions, including retroperitoneum Status: Acute Assessment and Plan: Patient had episode of projectile vomiting overnight, obstructive series and CT scan of the abdomen and pelvis showed: 1. Moderate free intraperitoneal air, suspicious for bowel perforation. Site of perforation not identified. 2: Progression of extensive bilateral airspace disease which may represent pneumonia, edema and/or ARDS. 3: Abnormal bladder wall thickening with surrounding perivesical infiltration, suspicious for cystitis. 4: Small left pleural effusion. lactic acid is normal, Leukocytosis is improving now as well. - continue Antibiotics with imipenem. - discussed the surgery, likely related to PEG tube placement, small-bowel follow-through with Omnipaque showed free intraperitoneal gas, opacified stomach, proximal jejunum, no suspicion for extravasated contrast - surgery was okay to start tube feeds which is Now at goal. (3) Respiratory failure with hypoxia: Qualifiers: Chronicity: acute Qualified Code(s): J96.01 - Acute respiratory failure with hypoxia Code(s): J96.91 - Respiratory failure, unspecified with hypoxia Status: Acute Assessment and Plan: Acute hypoxemic respiratory failure due to COVID-19 related ARDS. Intubated patient on 11/26/2019 for impending respiratory failure Patient was extubated 12/07/2019 after successful weaning trial. 12/09/2019 -reintubated without any complication. 12/13/2019: a new ET tube was placed as patient was hypoxic, large mucus plugs were being suctioned. 12/14/2019: Repeat SARS-CoV-2 PCR was positive 12/22/2019: Tracheostomy and PEG tube placed currently on CMP 400, 24, 10,45% FiO2 chest x-ray and ABGs reviewed. I will decrease the PEEP today to 8 and further taper it down if he is able to tolerated. He has been tachypneic but he has been consistently so during his hospitalization. He has been self diuresing and had a net negative fluid balance of 500mL in the last 24 hour without any diuretics. - chest x-ray with pneumonia, patient febrile, sputum cultures and blood cultures growing Klebsiella With sputum growing Proteus mirabilis as well. - patient with p.r.n. Ativan sedation, off all infusions - await LTAC placement I will stop dornase alpha. (4) COVID-19: Code(s): U07.1 - COVID-19 Status: Acute Assessment and Plan: SARS-CoV-2 PCR POSITIVE Pt on airborne, droplet and contact isolation/precautions. Patient has completed 10 day course of dexamethasone on 12/02/2019. He completed the dose of remdisivir of 5 days on 11/27/2019. Received 1 unit off convalascent plasma on 11/28/2019. Discontinued routine monitoring of markers unless new symptoms arise. Appreciate infectious disease following the patient. - repeat SARS-CoV-2 PCR PCR was also positive on 12/14/2019 (5) DM type 2 (diabetes mellitus, type 2): Qualifiers: Diabetes mellitus complication detail: with unspecified neuropathy Diabetes mellitus complication status: with neurologic complications Diabetes mellitus [facility] insulin use: unspecified property management coordinator insulin use status Qualified Code(s): E11.40 - Type 2 diabetes mellitus with diabetic neuro
[2019-12-28 09:20] LABS: Hematocrit 26.2 % (42.0-52.0); Hemoglobin 8.5 g/dL (14.0-18.0); Mean Corpuscular HGB Conc 32.4 g/dl (32-36); Mean Corpuscular Hemoglobin 29.5 pg (26-34); Mean Platelet Volume 10.8 fl (7.4-10.4); Platelet Count Result 255 k/mm3 (150-375); Red Blood Count 2.88 M/mm3 (4.6-6.20); Red Cell Distribution Width 14.2 % (11.5-14.5); White Blood Count 12.9 K/mm3 (4.5-10.0)
[2019-12-28 09:37] LABS: Anion Gap 8.5 mmol/L (7-16); Blood Urea Nitrogen 14 mg/dL (9-20); Calcium 8.2 mg/dL (8.4-10.2); Carbon Dioxide 34 mmol/L (22-30); Chloride 96 mmol/L (98-107); Estimated CRCL calculation 142 ml/min; Estimated Glomerular Filt Rate > 60; Glucose 163 mg/dL (75-110); Potassium 3.5 mmol/L (3.4-5.0); Sodium 135 mmol/L (137-145)
[2019-12-28] MEDS: INSULIN GLARGINE (*BKC) 100 UNITS/ML 35 UNITS SUB-Q (09:41)
--- NOTE | 2019-12-28 16:02 | PM.IMPN ---
Progress Note: A&P Assessment and Plan (1) Acute respiratory failure with hypoxia: Code(s): J96.01 - Acute respiratory failure with hypoxia Status: Acute Assessment and Plan: Awaiting LTAC [facility]. 64-year-old male COVID positive respiratory failure and was intubated 3rd time, hard to wean pt had a PEG and trach on 12/22/19 (2) COVID-19 virus infection: Code(s): U07.1 - COVID-19 Status: Acute Assessment and Plan: He completed remdisivir and dexamethasone He also received convalescent plasma. 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: Diabetes mellitus long term care administrator insulin use: unspecified long term care administrator insulin use status Diabetes mellitus complication status: with neurologic complications Diabetes mellitus complication detail: with unspecified neuropathy Qualified Code(s): E11.40 - Type 2 diabetes mellitus with diabetic neuropathy, unspecified Code(s): E11.9 - Type 2 diabetes mellitus without complications Status: Chronic (4) Hypothyroidism: Qualifiers: Hypothyroidism type: unspecified Qualified Code(s): E03.9 - Hypothyroidism, unspecified Code(s): E03.9 - Hypothyroidism, unspecified Status: Chronic (5) DVT prophylaxis: Code(s): Z29.9 - Encounter for prophylactic measures, unspecified Status: Acute Assessment and Plan: On pharmacological therapy. Subjective Date/time seen: 12/28/19 16:02 Interval history: 64-year-old male with history of coronary artery disease status post CABG, hypertension, hyperlipidemia, and type 2 diabetes mellitus who presented to the emergency department with complaints of cough, shortness of breath, and fever. Found to be covid positive with Bilateral infiltrates on cxr. Patient was intubated for acute hypoxic respiratory failure. Pt has received convalescent plasma. Currently he is on steroids and diuresis. Completed 5 days of remdesivir already. Unfortunately pt had to be reintubated on 12/08 for respiratory failure and ARDS. Patient had a PEG and trach 12/21 as he is difficult to wean of the vent. awaiting [place] Pt had projectile vomit resolved. PEG is in place. DVT found in left brachial vein Low grade fevers Review of Systems Review of Systems: ROS unobtainable: Yes unobtainable due to medical condition and other (intubated ) Exam Narrative: Exam Narrative: Pt is intubated pt has a tracheostomy tube and PEG tube Const: General: comfortable and no acute distress Other: Intubated Objective Data Vital Signs Vital Signs: Vital Signs - 24 hr 12/27/19 17:44 12/27/19 17:57 12/27/19 19:55 Temperature 37.3 C Pulse Rate 109 H 108 H 106 H Respiratory Rate 30 H 22 H Blood Pressure 162/87 H 157/88 H Pulse Oximetry 95 96 98 12/27/19 20:00 12/27/19 21:00 12/27/19 21:08 Temperature Pulse Rate 102 H 86 88 Respiratory Rate 25 H 24 H Blood Pressure Pulse Oximetry 98 12/27/19 21:26 12/27/19 23:50 12/28/19 00:00 Temperature 37.7 C H 37.3 C Pulse Rate 89 90 94 Respiratory Rate 26 H 26 H Blood Pressure 139/73 160/86 H Pulse Oximetry 99 98 99 12/28/19 01:48 12/28/19 03:20 12/28/19 04:00 Temperature 37.1 C 37.4 C Pulse Rate 82 96 105 H Respiratory Rate 25 H 30 H Blood Pressure 123/74 178/92 H Pulse Oximetry 99 96 97 12/28/19 06:00 12/28/19 07:52 12/28/19 07:59 Temperature 37.3 C 37.3 C Pulse Rate 104 H 98 96 Respiratory Rate 31 H 30 H Blood Pressure 155/92 H 160/83 H Pulse Oximetry 99 100 12/28/19 08:00 12/28/19 08:19 12/28/19 08:27 Temperature Pulse Rate 95 86 86 Respiratory Rate 26 H 26 H Blood Pressure Pulse Oximetry 99 12/28/19 10:00 12/28/19 11:37 12/28/19 12:00 Temperature 37.2 C Pulse Rate 93 92 90 Respiratory Rate 30 H 28 H Blood Pressure 153/78 H 140/74 Pulse Oximetry 98 99 98 12/28/19 14:00 12/28/19 14:09 Temperature Pulse Rate 99 97 Respiratory
[2019-12-28 17:35] LABS: Glucose Point of Care 187 (65-105)
[2019-12-28 17:35] LABS: Glucose Point of Care 191 (65-105)
[2019-12-28] MEDS: ACETAMINOPHEN ELIXIR 325 MG/10.15 ML UDC 650 MG PO (20:30)
[2019-12-28] MEDS: APIXABAN 5 MG TABLET 10 MG FEED TUBE (20:47)
[2019-12-28] MEDS: METOPROLOL TARTRATE 50 MG TAB PO (20:48)
[2019-12-28] MEDS: FAMOTIDINE 20 MG TABLET FEED TUBE (20:48)
[2019-12-29] VITALS (22 sets, daily range): BP systolic 101–177; BP diastolic 66–99; PULSE 68–115; RESP 27–38; TEMP 37.1–37.5; O2SAT 93–99
[2019-12-29 00:07] LABS: Glucose Point of Care 152 (65-105)
[2019-12-29] MEDS: ACETAMINOPHEN ELIXIR 325 MG/10.15 ML UDC 650 MG PO ×3 (04:30→19:47)
[2019-12-29 04:54] LABS: Hematocrit 27.5 % (42.0-52.0); Mean Corpuscular HGB Conc 32.7 g/dl (32-36); Mean Corpuscular Hemoglobin 29.3 pg (26-34); Mean Corpuscular Volume 89.6 fl (80-100); Mean Platelet Volume 10.9 fl (7.4-10.4); Platelet Count Result 236 k/mm3 (150-375); Red Blood Count 3.07 M/mm3 (4.6-6.20); Red Cell Distribution Width 14.2 % (11.5-14.5); White Blood Count 12.9 K/mm3 (4.5-10.0)
[2019-12-29] MEDS: IMIPENEM/CILASTATIN SODIUM 500 MG in DEXTROSE 5% 100 ML 300 MG IVPB ×3 (05:00→17:18)
[2019-12-29] MEDS: LEVOTHYROXINE SODIUM 100 MCG TABLET PO (05:00)
[2019-12-29] MEDS: CENTRAL LINE FLUSH 10 ML IV PUSH ×3 (05:00→19:47)
[2019-12-29 05:05] LABS: Anion Gap 9.5 mmol/L (7-16); Blood Urea Nitrogen 12 mg/dL (9-20); Calcium 8.6 mg/dL (8.4-10.2); Carbon Dioxide 32 mmol/L (22-30); Chloride 96 mmol/L (98-107); Estimated CRCL calculation 117 ml/min; Estimated Glomerular Filt Rate > 60; Glucose 182 mg/dL (75-110); Potassium 3.5 mmol/L (3.4-5.0); Sodium 134 mmol/L (137-145)
[2019-12-29] MEDS: INSULIN GLARGINE (*BKC) 100 UNITS/ML 35 UNITS SUB-Q (08:00)
[2019-12-29] MEDS: AMLODIPINE BESYLATE 5 MG TABLET 10 MG PO (08:00)
[2019-12-29] MEDS: APIXABAN 5 MG TABLET 10 MG FEED TUBE ×2 (08:00→19:47)
[2019-12-29] MEDS: QUEtiapine FUMARATE 25 MG TABLET 50 MG PO ×2 (08:00→19:47)
[2019-12-29] MEDS: METOPROLOL TARTRATE 50 MG TAB PO ×2 (08:00→19:47)
--- NOTE | 2019-12-29 08:12 | WPDINTPN ---
Progress Note: A&P Assessment and Plan (1) Febrile illness: Code(s): R50.9 - Fever, unspecified Status: Acute Assessment and Plan: Blood culture from 12/17 with Klebsiella aerogenes; sputum culture with Klebsiella aerogenes and Proteus mirabilis. RIJ CVC removed 12/18; L AC PICC placed. - continue imipenem as per ID Service. - His new blood cultures from 12/18, growing Klebsiella, resistant to ceftriaxone - infectious Disease Service recommendations appreciated. - repeat blood cultures from 12/28/2019 pending. fever curve trending down, T-max of 99.7? F (2) Abnormal CT of the abdomen: Code(s): R93.5 - Abnormal findings on diagnostic imaging of other abdominal regions, including retroperitoneum Status: Acute Assessment and Plan: Patient had episode of projectile vomiting overnight, obstructive series and CT scan of the abdomen and pelvis showed: 1. Moderate free intraperitoneal air, suspicious for bowel perforation. Site of perforation not identified. 2: Progression of extensive bilateral airspace disease which may represent pneumonia, edema and/or ARDS. 3: Abnormal bladder wall thickening with surrounding perivesical infiltration, suspicious for cystitis. 4: Small left pleural effusion. lactic acid is normal, Leukocytosis is improving now as well. - continue Antibiotics with imipenem. - discussed the surgery, likely related to PEG tube placement, small-bowel follow-through with Omnipaque showed free intraperitoneal gas, opacified stomach, proximal jejunum, no suspicion for extravasated contrast - surgery was okay to start tube feeds which is Now at goal. (3) Respiratory failure with hypoxia: Qualifiers: Chronicity: acute Qualified Code(s): J96.01 - Acute respiratory failure with hypoxia Code(s): J96.91 - Respiratory failure, unspecified with hypoxia Status: Acute Assessment and Plan: Acute hypoxemic respiratory failure due to COVID-19 related ARDS. Intubated patient on 11/26/2019 for impending respiratory failure Patient was extubated 12/07/2019 after successful weaning trial. 12/09/2019 -reintubated without any complication. 12/13/2019: a new ET tube was placed as patient was hypoxic, large mucus plugs were being suctioned. 12/14/2019: Repeat SARS-CoV-2 PCR was positive 12/22/2019: Tracheostomy and PEG tube placed currently on CMP 400, 24, 10,45% FiO2 chest x-ray and ABGs reviewed. I will decrease the PEEP today to 8 and further taper it down if he is able to tolerated. He has been tachypneic but he has been consistently so during his hospitalization. He has been self diuresing and had a net negative fluid balance of 500mL in the last 24 hour without any diuretics. - chest x-ray with pneumonia, patient febrile, sputum cultures and blood cultures growing Klebsiella With sputum growing Proteus mirabilis as well. - patient with p.r.n. Ativan sedation, off all infusions, off restraints - await LTAC placement (4) COVID-19: Code(s): U07.1 - COVID-19 Status: Acute Assessment and Plan: SARS-CoV-2 PCR POSITIVE Pt on airborne, droplet and contact isolation/precautions. Patient has completed 10 day course of dexamethasone on 12/02/2019. He completed the dose of remdisivir of 5 days on 11/27/2019. Received 1 unit off convalascent plasma on 11/28/2019. Discontinued routine monitoring of markers unless new symptoms arise. Appreciate infectious disease following the patient. - repeat SARS-CoV-2 PCR PCR was also positive on 12/14/2019 (5) DM type 2 (diabetes mellitus, type 2): Qualifiers: Diabetes mellitus care home insulin use: unspecified care home insulin use status Diabetes mellitus complication status: with neurologic complications Diabetes mellitus complication detail: with unspecified neuropathy Qualified Code(s): E11.40 - Type 2 diabetes mellitus with diabetic neuropathy, unspecified Code(s): E11.9 - Type 2 diabetes rut
--- NOTE | 2019-12-29 09:33 | WPDINFPN2 ---
Progress Note: A&P Assessment and Plan (1) COVID-19 virus infection: Code(s): U07.1 - COVID-19 Status: Acute Assessment and Plan: 1. CoVid 19 viral pneumonia, resolved 2. TKAs 3. DM 4. 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 Appears to have defervesced, though mild leukocytosis REC Imipenem #4 / days tentatively. Remdesivir completed 11/26. Dexamethasone completed 12/01. Convalescent plasma given 11/26. Subjective Date/time seen: 12/29/19 09:33 Interval history: awake, trach with O2, no pressors Exam Narrative: Exam Narrative: t max 37.6 Const: General: no acute distress Eyes: General: appearance normal, both eyes and all related structures Resp: Effort & Inspection: normal respiratory effort Auscultation: clear to auscultation bilaterally and diminished lung sounds Cardio: Rate: regular rate Rhythm: regular rhythm Heart sounds: no murmurs GI: Inspection: non-distended GI Palp: Yes Soft to palpation and No Tenderness to palpation present (GI) Skin: General skin exam: no rashes or lesions noted Objective Data Vital Signs Vital Signs: Vital Signs - 24 hr 12/28/19 10:00 12/28/19 11:37 12/28/19 12:00 Temperature 37.2 C Pulse Rate 93 92 90 Respiratory Rate 30 H 28 H Blood Pressure 153/78 H 140/74 Pulse Oximetry 98 99 98 12/28/19 14:00 12/28/19 14:09 12/28/19 16:00 Temperature 37.3 C Pulse Rate 99 97 102 H Respiratory Rate 28 H 28 H Blood Pressure 150/76 H 162/90 H Pulse Oximetry 98 98 99 12/28/19 16:48 12/28/19 18:00 12/28/19 19:55 Temperature Pulse Rate 97 98 104 H Respiratory Rate 32 H 33 H Blood Pressure 148/80 H Pulse Oximetry 99 99 98 12/28/19 20:00 12/28/19 20:29 12/28/19 20:30 Temperature 37.6 C 37.6 C H Pulse Rate 103 H 107 H Respiratory Rate 30 H Blood Pressure 163/82 H Pulse Oximetry 98 98 12/28/19 20:48 12/28/19 22:00 12/28/19 23:11 Temperature 37.6 C H Pulse Rate 115 H 88 97 Respiratory Rate 33 H Blood Pressure 125/81 Pulse Oximetry 97 95 12/28/19 23:54 12/29/19 00:00 12/29/19 02:00 Temperature 37.2 C 37.3 C Pulse Rate 91 91 68 Respiratory Rate 29 H 33 H 33 H Blood Pressure 161/99 H 153/86 H Pulse Oximetry 91 93 95 12/29/19 02:15 12/29/19 03:25 12/29/19 04:00 Temperature Pulse Rate 94 99 106 H Respiratory Rate 33 H Blood Pressure Pulse Oximetry 95 94 12/29/19 04:52 12/29/19 04:58 12/29/19 06:00 Temperature 37.4 C 37.2 C Pulse Rate 107 H 112 H 88 Respiratory Rate 38 H 27 H Blood Pressure 177/96 H 135/81 Pulse Oximetry 94 94 93 12/29/19 08:00 12/29/19 08:45 Temperature 37.1 C Pulse Rate 95 83 Respiratory Rate 31 H Blood Pressure 156/89 H Pulse Oximetry 95 95 Intake/Output Intake/Output: Intake & Output 12/26/19 12/27/19 12/28/19 12/29/19 23:59 23:59 23:59 23:59 Intake Total 1928 1864 1754 980 Output Total 2450 3900 2300 1500 [facility] [phone] Meds/Results Medications: Active Medications Generic Name Dose Route Start Last Admin Trade Name Freq PRN Reason Stop Dose Admin Acetaminophen 650 mg 12/28/19 19:55 12/29/19 04:30 Tylenol Elixir PO 650 mg Q4H PRN Administration Mild Pain (1-3) or Fever Amlodipine Besylate 10 mg 12/03/19 09:00 12/29/19 08:00 Norvasc PO 10 mg QAM OLENA Administration Apixaban 10 mg 12/28/19 21:00 12/29/19 08:00 Eliquis FEED TUBE 10 mg Q12HR OLENA Administration Famotidine 20 mg 12/28/19 21:00 12/28/19 20:48 Pepcid FEED TUBE 20 mg Q12HR OLENA Administration Hydralazine HCl 10 mg 12/25/19 11:57 12/27/19 07:00 Apresoline Hcl Inj IV PUSH 10 mg Q4H PRN Administration Blood Pressure - High Imipenem/Cilastatin Sodium 500 100 mls @ 300 mls/hr 12/26/19 18:00 12/29/19 05:48 mg/ Dextrose IVPB Infuse
[2019-12-29] MEDS: FAMOTIDINE 20 MG TABLET FEED TUBE ×2 (09:42→19:47)
[2019-12-29 11:44] LABS: Glucose Point of Care 180 (65-105)
--- NOTE | 2019-12-29 11:49 | PCDIET ---
ICU Rounding Note: Pt current nutrition is Glucerna 1.2 at 65ml/hr. Nutrition recommendation: agree Last recorded weight is 81.8 kg (down from 88.5kg 1500 out overnight) Bowel Motility: 12/24 BM+ Labs Reviewed:Glucerna 182, Na 134, WBC 12.9 Meds Noted:Synthroid, Lantus, Ativan, Miralax Additional Notes: Pt with trach and peg tolerating Glucerna 1.2 at goal of 65ml/hr with 0 residuals providing 1716 kcals, meeting 100% of nutrition needs. Bowels moving. Fentanyl and versed off. Pt arranging for d/c. Following daily in ICU rounds. Assessing/reassessing every T/F.
--- NOTE | 2019-12-29 11:59 | PM.IMPN ---
Progress Note: A&P Assessment and Plan (1) Acute respiratory failure with hypoxia: Code(s): J96.01 - Acute respiratory failure with hypoxia Status: Acute Assessment and Plan: Awaiting LT[facility]. 64-year-old male COVID positive respiratory failure and was intubated 3rd time, hard to wean pt had a PEG and trach on 12/22/19, patient clinically stable, will continue to monitor (2) COVID-19 virus infection: Code(s): U07.1 - COVID-19 Status: Acute Assessment and Plan: He completed remdisivir and dexamethasone He also received convalescent plasma. 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: unspecified residential insulin use status Diabetes mellitus complication status: with neurologic complications Diabetes mellitus complication detail: with unspecified neuropathy Qualified Code(s): E11.40 - Type 2 diabetes mellitus with diabetic neuropathy, unspecified Code(s): E11.9 - Type 2 diabetes mellitus without complications Status: Chronic (4) Hypothyroidism: Qualifiers: Hypothyroidism type: unspecified Qualified Code(s): E03.9 - Hypothyroidism, unspecified Code(s): E03.9 - Hypothyroidism, unspecified Status: Chronic (5) DVT prophylaxis: Code(s): Z29.9 - Encounter for prophylactic measures, unspecified Status: Acute Assessment and Plan: On pharmacological therapy. Subjective Date/time seen: 12/29/19 11:59 patient with trach and PEG tub Review of Systems Review of Systems: ROS unobtainable: Yes unobtainable due to endotracheal tube Exam Narrative: Exam Narrative: patient is seen but not examined Const: General: comfortable and no acute distress HENMT: General nose exam: Normal nares present Neck: Other: tract, no retraction Resp: Effort & Inspection: normal respiratory effort GI: Other: not distended Skin: General skin exam: normal color Extrem: General: normal to inspection Psych: Affect: Anxious affect present Objective Data Vital Signs Vital Signs: Vital Signs - 24 hr 12/28/19 12:00 12/28/19 14:00 12/28/19 14:09 Temperature 98.9 F Pulse Rate 90 99 97 Respiratory Rate 28 H 28 H Blood Pressure 140/74 150/76 H Pulse Oximetry 98 98 98 12/28/19 16:00 12/28/19 16:48 12/28/19 18:00 Temperature 99.2 F Pulse Rate 102 H 97 98 Respiratory Rate 28 H 32 H Blood Pressure 162/90 H 148/80 H Pulse Oximetry 99 99 99 12/28/19 19:55 12/28/19 20:00 12/28/19 20:29 Temperature 99.6 F Pulse Rate 104 H 103 H 107 H Respiratory Rate 33 H 30 H Blood Pressure 163/82 H Pulse Oximetry 98 98 98 12/28/19 20:30 12/28/19 20:48 12/28/19 22:00 Temperature 99.7 F H 99.7 F H Pulse Rate 115 H 88 Respiratory Rate 33 H Blood Pressure 125/81 Pulse Oximetry 97 12/28/19 23:11 12/28/19 23:54 12/29/19 00:00 Temperature 98.9 F Pulse Rate 97 91 91 Respiratory Rate 29 H 33 H Blood Pressure 161/99 H Pulse Oximetry 95 91 93 12/29/19 02:00 12/29/19 02:15 12/29/19 03:25 Temperature 99.1 F Pulse Rate 68 94 99 Respiratory Rate 33 H 33 H Blood Pressure 153/86 H Pulse Oximetry 95 95 94 12/29/19 04:00 12/29/19 04:52 12/29/19 04:58 Temperature 99.4 F Pulse Rate 106 H 107 H 112 H Respiratory Rate 38 H Blood Pressure 177/96 H Pulse Oximetry 94 94 12/29/19 06:00 12/29/19 08:00 12/29/19 08:45 Temperature 99.0 F 98.7 F Pulse Rate 88 95 83 Respiratory Rate 27 H 31 H Blood Pressure 135/81 156/89 H Pulse Oximetry 93 95 95 12/29/19 10:00 12/29/19 10:51 Temperature 99.0 F Pulse Rate 81 87 Respiratory Rate 27 H Blood Pressure 157/83 H Pulse Oximetry 99 96 Intake/Output Intake/Output: Intake & Output 12/26/19 12/27/19 12/28/19 12/29/19 23:59 23:59 23:59 23:59 Intake Total 1928 1864 1754 980 Output Total 2450 3900 2300 1500 [facility] -[phone] Meds/Re
--- NOTE | 2019-12-29 13:00 | PM.TDS ---
Transfer Discharge Sum: Prov Provider Date of admission: 11/22/19 10:38 Primary care physician: Alison Mata, Admitting clinician: Duke Winston MD Consults: 11/22/19 10:40 Consult to Physician Routine Comment: DR. MARQUEZ IS AWARE OF THE CONSULT Consulting Provider: Scar Marquez Reason for consultation: respiratory failure Has provider been notified: Yes 11/23/19 09:13 Consult to Physician Routine Comment: Consulting Provider: Alejandro Leone call worker/MD group to consult: INFECTIOUS DISEASE Reason for consultation: POSITIVE COVID-19 Has provider been notified: Yes 12/18/19 10:08 Consult to Physician Routine Comment: DR. MARQUEZ IS AWARE OF THE PT CONSULT Consulting Provider: Scar Marquez call worker/MD group to consult: Dr. Marquez ([facility]) Reason for consultation: Tracheostomy Has provider been notified: Yes 12/18/19 10:10 Consult to Physician Routine Comment: CALLED OFFICE WITH CONSULT INFORMATION Consulting Provider: Cristo Cash call worker/MD group to consult: DR. Cash Reason for consultation: PEG tube Has provider been notified: Yes 12/22/19 11:40 Consult to Dietitian Routine Reason for Consult:: Fretted Instrument Inspector recommendations for tube feeding order 12/25/19 07:24 Consult to Physician Routine Comment: gave information to office for consult Consulting Provider: Mariama Torres call worker/MD group to consult: Surgery Reason for consultation: Possible bowel perforation Has provider been notified: Yes 12/25/19 12:37 Consult to Physician Routine Comment: notified by RN Consulting Provider: Alejandro Leone call worker/MD group to consult: infectious disease Reason for consultation: febrile illness Has provider been notified: Yes DS: Admitting Diagnosis Admitting Diagnosis Admitting Diagnosis: Acute respiratory failure with hypoxia DS: Discharge Diagnosis Discharge Diagnosis (1) Acute respiratory failure with hypoxia: Code(s): J96.01 - Acute respiratory failure with hypoxia Status: Acute Assessment and Plan: Willie Urias is a 64 year old male being transferred to [facility]. 64-year-old male COVID positive respiratory failure and was intubated 3rd time, was hard to wean off ventilator and pt had a PEG and trach on 12/22/19, patient clinically stable, he been accepted by LTAC will transfer him today Transfer Discharge Sum: Med Medications Active and Home Medications: Home Medications amlodipine-benazepril 1 cap PO DAILY 11/22/19 [History Confirmed 11/22/19] famotidine 40 mg PO BID 11/22/19 [History Confirmed 11/22/19] glimepiride 4 mg PO DAILY 11/22/19 [History Confirmed 11/22/19] levothyroxine 100 mcg PO DAILY 11/22/19 [History Confirmed 11/22/19] metformin 1,000 mg PO BID 11/22/19 [History Confirmed 11/22/19] metoprolol succinate 25 mg PO DAILY 11/22/19 [History Confirmed 11/22/19] omeprazole 40 mg PO DAILY 11/22/19 [History Confirmed 11/22/19] potassium chloride 10 meq PO DAILY 11/22/19 [History Confirmed 11/22/19] semaglutide [Ozempic] 0.5 mg SUBCUT WEEKLY 11/22/19 [History Confirmed 11/22/19] sitagliptin [Januvia] 100 mg PO DAILY 11/22/19 [History Confirmed 11/22/19] Active Medications Acetaminophen (Tylenol Elixir) 650 mg PO Q4H PRN PRN Reason: Mild Pain (1-3) or Fever Last Admin: 12/29/19 04:30 Dose: 650 mg Documented by: Amlodipine Besylate (Norvasc) 10 mg PO QAM [facility] Last Admin: 12/29/19 08:00 Dose: 10 mg Documented by: Apixaban (Eliquis) 10 mg FEED TUBE Q12HR [facility] Last Admin: 12/29/19 08:00 Dose: 10 mg Documented by: Famotidine (Pepcid) 20 mg FEED TUBE Q12HR [facility] Last Admin: 12/29/19 09:42 Dose: 20 mg Documented by: Hydralazine HCl (Apresoline Hcl Inj) 10 mg IV PUSH Q4H PRN PRN Reason: Blood Pressure - High Last Admin: 12/27/19 07:00 Dose: 10 mg Documented by: Imipenem/Cilastatin Sodium 500 (mg/ Dextrose) 100 mls @ 300 mls/hr IVPB Q6HR [facility] Last Infusion: 12/29/19 12:14 Dose: Infus
[2019-12-29] MEDS: hydrALAZINE HCL 20 MG/ML VIAL 10 MG IV PUSH (15:00)
[2019-12-29 17:17] LABS: Glucose Point of Care 205 (65-105)
[2019-12-29] MEDS: INSULIN ASPART (*BKC) 100 UNITS/ML SUB-Q (17:18)
--- NOTE | 2019-12-29 20:53 | PC.NURSE ---
Report given to EMS crew. Inner canulas and Obterator given. John notified of patient departure (report had previously been given). Family notified of patient departure.
== END 2019-12-29 20:53 | DRG 4 ==
LOC: ANHED 10:36 → ANHICU 12:30
PROVIDERS: Internal Medicine; Internal Medicine Critical Care Medicine; Internal Medicine Gastroenterology; Otolaryngology; Physician Assistant; Admitting Provider Internal Medicine; Emergency Provider Emergency Medicine; PCP Family Medicine; Visit Provider Family Medicine
PROC: 0DH63UZ Insertion of Feeding Device into Stomach, Percutaneous Approach (ICD-10-PCS; CPT 43246; principal; 2019-12-22 11:30)
PROC: 0B110F4 Bypass Trachea to Cutaneous with Tracheostomy Device, Open Approach (ICD-10-PCS; 2019-12-22 11:30)
DX: U07.1 COVID-19 (principal); J12.89 Other viral pneumonia; J96.01 Acute respiratory failure with hypoxia; J15.0 Pneumonia due to Klebsiella pneumoniae; I25.810 Atherosclerosis of coronary artery bypass graft(s) without angina pectoris; I47.2 Ventricular tachycardia; T17.890A Other foreign object in other parts of respiratory tract causing asphyxiation, initial encounter; I82.622 Acute embolism and thrombosis of deep veins of left upper extremity; R78.81 Bacteremia; E11.9 Type 2 diabetes mellitus without complications; E78.5 Hyperlipidemia, unspecified; F41.8 Other specified anxiety disorders; E03.9 Hypothyroidism, unspecified; I25.2 Old myocardial infarction; I50.9 Heart failure, unspecified; E11.40 Type 2 diabetes mellitus with diabetic neuropathy, unspecified; K21.9 Gastro-esophageal reflux disease without esophagitis; I11.0 Hypertensive heart disease with heart failure; Z95.1 Presence of aortocoronary bypass graft; S30.1XXA Contusion of abdominal wall, initial encounter; D64.9 Anemia, unspecified; R11.12 Projectile vomiting
CPT/HCPCS: 31500; 36415; 36430; 36569; 36600; 43246; 71045; 71250; 71260; 74019; 74176; 74177; 74250; 80048; 80053; 80202; 81001; 82375; 82728; 82805; 83036; 83050; 83605; 83615; 83735; 83880; 84100; 84145; 84443; 84478; 84484; 85025; 85027; 85380; 85610; 85730; 86140; 86644; 86850; 86900; 86901; 86923; 87040; 87070; 87077; 87086; 87186; 87205; 87635; 92610; 93005; 93306; 93926; 93970; 94002; 94003; 94640; 96361; 96365; 96372; 96375; 99285; A9270; C1751; C9113; C9803; J0131; J0171; J0330; J0360; J0456; J0690; J0692; J0696; J0743; J1100; J1120; J1650; J1815; J1940; J2060; J2250; J2405; J2543; J2704; J2765; J3010; J3370; J3480; J7030; J7040; J7050; P9016; P9047; P9059; Q9967; U0003

== ENCOUNTER 2020-12-13 12:29 | Observation (INO) | payer MEDICARE, SELFPAY ==
[2020-12-13] VITALS (8 sets, daily range): BP systolic 148–186; BP diastolic 78–101; PULSE 68–89; RESP 16–24; TEMP 36–37; O2SAT 96–99; BMI 35.0
--- NOTE | ~2020-12-13 | MR_ITS ---
EXAMINATION: MR brain/brain stem wo con EXAM DATE: 12/13/2020 18:10 INDICATION: Left sided weakness. TECHNIQUE: Magnetic resonance imaging (MRI) of the brain/brain stem obtained without contrast. Sagitt al T1, axial diffusion, gradient echo (T2*), T1, T2, FLAIR sequences obtained. Correlation is made t o head CT earlier same date. Compared to prior brain MRI 12/16/2015. FINDINGS: There is punctate acute lacunar infarction in the right thalamus. No larger territorial inf arctions.. There is moderate microangiopathy. There is mild cerebral atrophy. Old small right centrum semiovale infarction. Old small right cerebellar infarction. There is no acute hemorrhage seen on the T2*, a he mosiderin sensitive sequence. No intraparenchymal brain mass. The ventricles are normal in size. Th ere are no extra-axial collections. Flow voids are seen in the cerebral arteries on the T2-weighted sequences consistent with their expected patency. The orbits are unremarkable. Soft tissue is unrem arkable. IMPRESSION: 1. Punctate acute right thalamic lacunar infarction. 2. Old small infarctions. 3. Senescent changes. Reviewed, dictated and finalized at location A.
--- NOTE | ~2020-12-13 | CT_ITS ---
EXAMINATION: CT brain wo con INDICATION: Left-sided numbness COMPARISON: 12/15/2015 TECHNIQUE: Standard unenhanced head CT. The dose-length product (DLP) was 605.33 mGy-cm. The mA was a djusted according to patient size. Iterative reconstruction technique was employed. FINDINGS: There is no acute intraparenchymal hemorrhage. No evidence of mass lesion. No evidence of a cute infarction.. Encephalomalacia in the right frontoparietal valladares radiata is consistent with old infarct. An old right cerebellar infarct is noted. There is mild periventricular and subcortical hypo density probably related to small vessel ischemic disease. There is mild prominence of the sulci and ventricles related to cerebral atrophy. Intracranial calcified cerebral atherosclerosis is noted. The re are no extra-axial collections. There is no mass effect or midline shift. The orbits and soft tiss ues are unremarkable. There is mild mucosal thickening of the paranasal sinuses. IMPRESSION: 1. No acute intracranial abnormality. 2. Age related findings. Reviewed, dictated and finalized at location B.
--- NOTE | ~2020-12-13 | XR_ITS ---
EXAMINATION: XR chest 1V INDICATION: Left-sided numbness TECHNIQUE: AP view of the chest is obtained. COMPARISON: 12/27/2019 FINDINGS: The lung volumes are low. The heart size is upper limits of normal for technique. No acute airspace opacities are identified. Median sternotomy wires and mediastinal surgical clips are seen, l ikely from prior coronary artery bypass grafting. There is advanced osteoarthritis of the shoulders. IMPRESSION: 1. No acute cardiopulmonary abnormality. Reviewed, dictated and finalized at location B.
--- NOTE | ~2020-12-13 | CT_ITS ---
EXAMINATION: CTA BRAIN/CAROTID DATE: 12/14/2020 09:34 INDICATION: Acute stroke TECHNIQUE: Computed tomographic angiography (CTA) of the head and neck was performed with 100 mL Omni paque-350 intravenous contrast. Multiplanar reconstructions and maximum intensity projection 3D-recon structions of the carotid arteries and of the intracranial arteries were created by the technologist on a separate workstation. Precontrast CT of the head was also obtained. Automated exposure control and iterative reconstruction technique were employed.The dose-length product was 1757.20 mGy-cm. COMPARISON: Head CT and brain MR dated 12/13/2020 FINDINGS: Carotid arteries: Small amount of atherosclerotic plaque without hemodynamically significant stenosis at the normal jarocho iber aortic arch and at the origin of the great vessels. There is small amount of atherosclerotic daniel que with 0% stenosis of the left carotid bulb relative to normal distal artery lumen diameter (NASCET criteria). There is no evident plaque or stenosis of the left carotid bulb. No significant stenosis at the origins or along the cervical portions of the bilateral vertebral arteries. Postoperative romero ge of prior median sternotomy and coronary artery bypass grafting. Patchy groundglass opacities in th e bilateral upper lung zones relatively sparing the subpleural lung which could represent pulmonary e froy, pneumonia or atelectasis. Moderate cervical spondylosis. Chronic nonunited nondisplaced fractur e of the T7 spinous process. Head: Interval development of a subtle focus of decreased attenuation at the right thalamus consistent with evolution of the small acute lacunar infarct better appreciated on the prior MRI. Additional small o ld lacunar infarct at the right cerebellum. No acute intracranial hemorrhage or abnormal extra axial fluid collection. There is moderate scattered white matter hypoattenuation consistent with chronic sm all vessel ischemic disease. Ventricles are normal and symmetric. No mass/mass effect. Mild mucosal t hickening in the bilateral ethmoid and maxillary sinuses. The orbits and mastoid air cells are normal . Intracranial arteries There is extensive atherosclerotic calcification along the bilateral carotid siphons but with <50% st enosis. There is additional <50% stenosis at the right vertebral and basilar arteries. No evident db nosis along the left vertebral artery. Vertebral arteries are codominant. There are no aneurysms, thr ombosis or dissection identified. Both A1 and P1 segments are patent. There appears be a tiny anteri or communicating artery. Cerebral arterial arborization appears symmetric. IMPRESSION: 1. Small amount of plaque with 0% stenosis of the left carotid bulb relative to normal distal artery lumen diameter (NASCET criteria). No evident atherosclerotic plaque at the left carotid bulb. 2. Atherosclerotic disease with <50% stenosis most prominent at the bilateral carotid siphons and to lesser degree at the right vertebral and basilar arteries. No hemodynamically significant stenosis, t hrombosis, aneurysm or dissection along the intracranial arteries. 3. Evolving acute small right thalamic lacunar infarct with additional small old right cerebellar lac unar infarct. 4. Groundglass opacities in bilateral upper lungs which could represent mild pulmonary edema, pneumon ia or atelectasis. Reviewed, dictated and finalized at location A. IMPRESSION: 1. Small amount of plaque with 0% stenosis of the left carotid bulb relative to normal distal artery lumen diameter (NASCET criteria). No evident atherosclero tic plaque at the left carotid bulb. 2. Atherosclerotic disease with <50% stenosis most prominent at the bilateral c arotid siphons and to lesser degree at the right vertebral an
--- NOTE | 2020-12-13 13:00 | ECG_ITS ---
Measurements Intervals [place] Rate: 79 P: 11 ME: 173 QRS: -17 QRSD: 90 T: 59 QT: 357 QTc: 411 Interpretive Statements SINUS RHYTHM INCOMPLETE RIGHT BUNDLE BRANCH BLOCK VOLTAGE CRITERIA FOR LVH POOR R WAVE PROGRESSION, ANTERIOR LEADS BASELINE ARTIFACT- I, II, AVR, AVL, AVF, V1-V3 BORDERLINE ECG Electronically Signed On 12-13-2020 13:37:15 CDT by Eugene Moss D.O.
[2020-12-13 13:20] LABS: Basophils Absolute Auto 0.1 K/mm3 (0.0-0.1); Eosinophils Absolute Auto 0.4 K/mm3 (0-0.3); Eosinophils Percent Auto 4.5 % (0-4.4); Hematocrit 36.6 % (42.0-52.0); Hemoglobin 11.2 g/dL (14.0-18.0); Immature Granulocyte Absolute 0.03 K/mm3 (0.00-0.031); Immature Granulocyte Percent A 0.4 % (0-0.5); Lymphocytes Absolute Auto 2.07 K/mm3 (0.9-3.2); Lymphocytes Percent Auto 26.7 % (18.3-44.2); Mean Corpuscular HGB Conc 30.6 g/dl (32-36); Mean Corpuscular Hemoglobin 25.6 pg (26-34); Mean Corpuscular Volume 83.8 fl (80-100); Monocytes Absolute Auto 0.8 K/mm3 (0.1-0.6); Monocytes Percent Auto 10.6 % (2.6-8.5); Neutrophils Absolute Auto 4.4 K/mm3 (1.3-6.7); Neutrophils Percent Auto 56.8 % (45.5-73.1); Platelet Count Result 224 k/mm3 (150-375); Red Blood Count 4.37 M/mm3 (4.6-6.20); White Blood Count 7.8 K/mm3 (4.5-10.0)
[2020-12-13 13:29] LABS: Prothrombin Time 12.9 Seconds (11.1-14.7)
[2020-12-13 13:30] LABS: Anion Gap 8 mmol/L (8-16); Blood Urea Nitrogen 13 mg/dL (9-20); Calcium 8.9 mg/dL (8.4-10.2); Carbon Dioxide 26 mmol/L (22-30); Chloride 102 mmol/L (98-107); Estimated CRCL calculation 79 ml/min; Estimated Glomerular Filt Rate > 60; Glucose 177 mg/dL (65-110); Partial Thromboplastin Time 25.8 SECONDS (22.3-36.8); Potassium 4.4 mmol/L (3.4-5.0); Sodium 136 mmol/L (137-145)
[2020-12-13 13:41] LABS: Troponin I < 0.012 ng/mL (0.000-0.034)
--- NOTE | 2020-12-13 14:27 | ED.GENADULT ---
HPI - General Adult General Chief complaint: Weakness Stated complaint: Numbness Left Hand/Leg Time Seen by Provider: 12/13/20 14:07 Source: patient and family Limitations: language barrier History of Present Illness HPI narrative: Patient is a 65 y/o male complaining of mild left sided weakness starting 7:00 AM yesterday morning. He is able to walk, but has a slight limp. There is no known alleviating or exacerbating factor. Of note, patient is non-Slovak speaking and his provided translation. Related Data Home Medications Medication Instructions Recorded Confirmed famotidine 20 mg PO Q12HR 12/13/20 glimepiride 4 mg PO DAILY 12/13/20 insulin glargine [Lantus U-100 SUBCUT 12/13/20 Insulin] levothyroxine 125 mcg PO DAILY 12/13/20 levothyroxine [Euthyrox] 12/13/20 lisinopril 12/13/20 metformin mg 12/13/20 metoprolol succinate 25 mg PO DAILY 12/13/20 12/13/20 Allergies Allergy/AdvReac Type Severity Reaction Status Date / Time naproxen Allergy Unknown Redness of Verified 12/13/20 13:53 Skin Review of Systems Review of Systems: All systems reviewed & are unremarkable except as noted in HPI and below Constitutional: Constitutional: Reports as per HPI Neurologic: Reports numbness (left sided) and Reports weakness (left sided) [facility] Past Medical History Medical History (Updated 12/13/20 @ 16:43 by Marisela Savage MD) Anemia Anxiety Cerebrovascular accident Chronic knee pain after total replacement of both knee joints Congestive heart failure Coronary artery disease involving coronary bypass graft Depression Former smoker Gastroesophageal reflux disease Hiatal hernia Hyperlipidemia Hypertension Hypothyroidism Myocardial infarction Osteoarthritis Type 2 diabetes mellitus with diabetic neuropathy Vitamin D deficiency Surgical History Surgical History History of appendectomy History of bilateral knee arthroplasty (~03/2015) History of endoscopy With findings of hiatal hernia. Previous food impaction with subsequent removal and esophageal dilatation. History of laparoscopic cholecystectomy (~02/2015) History of three vessel coronary artery bypass (~2012) Family History Family History Sibling Diabetes mellitus Mother Diabetes mellitus Other Hypertension Social History Social History Social History: Surrogate decision maker: Colleen Szymanski, . Code status: Full code. Smoking packs per day: 1.5 Smoking cigarettes per day: 30.0 Years smoked: 20 Smoking pack-years: 30.00 Smoking status: Former smoker Smoking end date: 05/28/92 Alcohol intake: never Substance use: never Additional living arrangements comments: Patient lives with his in [place]. Additional occupation/education comments: Retired. Gender identity (if verbalized by the patient): Male Spiritual care concerns: No Exam Const: General: no acute distress and well developed Orientation/consciousness: oriented to person, oriented to place, oriented to time and patient oriented x3 HENMT: Head: normocephalic Ears: external ears normal General nose exam: Normal external nose present Eyes: General: appearance normal, both eyes and all related structures Conjunctivae: conjunctivae normal Neck: Neck: normal visual inspection and full ROM Chest: Chest palpation & inspection: normal inspection of the chest and no tenderness Resp: Effort & Inspection: normal respiratory effort Auscultation: clear to auscultation bilaterally Cardio: Rate: regular rate Rhythm: regular rhythm GI: GI Palp: No abdominal tenderness and Yes Soft to palpation Skin: General skin exam: normal color and turgor normal Neuro: General: oriented to person, oriented to place, oriented to time and patient oriented x3 Cognition (Neuro): nor
--- NOTE | 2020-12-13 16:52 | ADMGEN ---
This patient, Willie Urias, was admitted to Medical Room 342-01. Patient/family oriented to hospital policies and general routines including ID bracelet, bed and alarms, visiting hours, pain management, procedures, bathroom and other care routines, personal items, smoking policy, room service/diet, and visiting hours. Information on how to activate the Rapid Response Team has been discussed. Patient/Family are encouraged to report perceived risks to care and to ask questions if they do not understand what they are told or what they should do.
--- NOTE | 2020-12-13 17:30 | PC.NURSE ---
Admission and assessment completed using [employer] interpreter. Patient speaks primarily [place]ian. at bedside and speaks some Arabic. [employer] interpreter utilized.
--- NOTE | 2020-12-13 19:38 | PC.NURSE ---
Called MRI results to Maty Riley NP.
[2020-12-13 20:14] LABS: Glucose Point of Care 154 mg/dl (65-105)
--- NOTE | 2020-12-13 21:32 | PM.IMHP ---
H&P: HPI History of Present Illness Date/Time: 12/13/20 21:32 Chief Complaint: Right hand numbness Narrative: This is a 65-year-old male with past medical history significant for type 2 diabetes mellitus, coronary artery disease, coronary artery bypass, hypertension, stroke. patient presented to the emergency room after he has been having numbness of his right hand initially later on started having numbness of his right foot this started during the weekend on Sunday morning as patient recalls he decided to wait it out thinking would go away however it remained consistent and he decided to come see his primary care physician which in turn sent him to the emergency room. patient denies any changes in his vision, any motor deficits or weakness, a states that feels some paresthesia like tingling and prickling sensation in his right hand and his right foot, denies any dizziness lightheadedness headaches, no chest pain no palpitations no syncope or near syncope no PND no orthopnea no claudication. patient has been in his usual state of health up until this. Preliminary workup was significant for MRI of the brain with acute infarct. Review of Systems Review of Systems: Narrative: right hand and foot numbness Constitutional: Constitutional: Denies chills, Denies fatigue, Denies fever(s), Denies headache(s), Denies lethargy, Denies malaise and Denies weakness Eyes: Eyes: Denies change in vision ENT: Denies dysphagia, Denies vertigo, Denies dizziness, Denies nasal congestion, Denies nasal discharge and Denies nasal obstruction Cardiovascular: Cardiovascular: Denies irregular heart rhythm, Denies claudication, Denies lightheadedness, Denies radiating jaw, neck or arm pain, Denies palpitations, Denies dyspnea on exertion and Denies paroxysmal nocturnal dyspnea Respiratory: Respiratory: Denies cough and Denies dyspnea Gastrointestinal: Gastrointestinal: Denies abdominal pain, Denies diarrhea, Denies nausea and Denies vomiting Genitourinary: Genitourinary: Reports no additional male genitourinary complaints Musculoskeletal: Musculoskeletal: Reports no additional musculoskeletal complaints Integumentary/Breasts: Skin/Breast: Reports system reviewed and no additional complaints, except as docu Neurologic: Denies focal weakness, Reports Sensory deficit (Neuro) ( numbness), Reports tingling, Denies disequilibrium and Denies weakness Psychiatric: Psychiatric: Reports no additional psychiatric complaints Endocrine: Endocrine: Reports no additional endocrine complaints Hematologic/Lymphatic: Hematologic/Lymphatic: Reports no additional hematologic/lymphatic complaints Allergic/Immunologic: Allergic/Immunologic: Reports no additional allergic/immunologic complaints [facility] Past Medical History Medical History (Updated 12/13/20 @ 22:26 by Orlando Max MD) Anemia Anxiety Cerebrovascular accident Chronic knee pain after total replacement of both knee joints Congestive heart failure Coronary artery disease involving coronary bypass graft Depression Former smoker Gastroesophageal reflux disease Hiatal hernia Hyperlipidemia Hypertension Hypothyroidism Myocardial infarction Osteoarthritis Type 2 diabetes mellitus with diabetic neuropathy Vitamin D deficiency Surgical History Surgical History History of appendectomy History of bilateral knee arthroplasty (~03/2015) History of endoscopy With findings of hiatal hernia. Previous food impaction with subsequent removal and esophageal dilatation. History of laparoscopic cholecystectomy (~02/2015) History of three vessel coronary artery bypass (~2012) Family History Family History (Updated 12/13/20 @ 17:06 by Kylah Estevez RN) Sibling Diabetes mellitus Hypertension Cerebrovascular accident Mother Diabetes mellitus Social History Social History Social History: [place]
[2020-12-14] VITALS (8 sets, daily range): BP systolic 183–193; BP diastolic 83–88; PULSE 65–93; RESP 17–18; TEMP 36.1–36.2; O2SAT 96–97
--- NOTE | 2020-12-14 06:00 | ECHO_ITS ---
Patient Info Name: Willie Urias Age: 65 years : 1955 Gender: Male Ht: 64 in Wt: 204 lbs BSA: 2.08 m2 HR: 67 bpm BP: 190 / 88 mmHg Heart Rhythm: Sinus Rhythm Technical Quality: Fair Exam Date: 12/14/2020 11:54 AM Exam Location: [facility] Patient Status: Outpatient Admit Date: 12/13/2020 Staff Ordering Physician: Marisela Savage MD Coal Inspector: Nieves Holbrook RDCS Attending Provider: France Mota PA-C Referring Physician: Hussein FIGUEROA; Exam Type: CA echo doppler color flow Study Info Indications - LEFT SIDED WEAKNESS Complete two-dimensional, color flow and Doppler transthoracic echocardiogram is performed. Summary 1. Complete two-dimensional, color flow and Doppler transthoracic echocardiogram is performed. 2. Left ventricular systolic function is normal, estimated at 55-60%. 3. There is moderately increased left ventricular wall thickness. 4. The left ventricular diastolic function is grade I diastolic dysfunction. 5. There is trace mitral valve regurgitation. 6. There is trace tricuspid valve regurgitation. 7. No pulmonary hypertension, estimated pulmonary arterial systolic pressure is 24 mmHg. Recommendations * Consider bubble study or transesophageal echocardiogram if clinically indicated. Left Ventricle Left ventricular chamber dimension is normal. Left ventricular systolic function is normal, estimated at 55-60%. There is moderately increased left ventricular wall thickness. The left ventricular diastolic function is grade I diastolic dysfunction. Global longitudinal strain is moderately elevated at -11 %. Right Ventricle Right ventricular chamber dimension is normal. Right ventricular systolic function is normal. Left Atria Left atrial chamber dimension is normal. Right Atria Right atrial chamber dimension is normal. Aortic Valve The aortic valve is probable trileaflet. There is mild aortic valve sclerosis. There is no aortic valve stenosis. There is no aortic valve regurgitation. Pulmonic Valve The pulmonic valve is not well visualized. There is trace pulmonic regurgitation. Mitral Valve The mitral valve has normal leaflets. There is trace mitral valve regurgitation. The mitral valve annulus is moderately calcified. Tricuspid Valve The tricuspid valve leaflets are normal. There is trace tricuspid valve regurgitation. No pulmonary hypertension, estimated pulmonary arterial systolic pressure is 24 mmHg. Pericardium/Pleural The pericardium appears epicardial fat pad. There is no pericardial effusion. Aorta The aortic root size at the sinus of Valsalva is normal. There is mild aortic atherosclerosis. Left Ventricular Outflow Tract Name Value Normal LVOT 2D LVOT Diameter 2.0 cm LVOT Doppler LVOT Peak Gradient 4 mmHg LVOT Mean Gradient 2 mmHg LVOT VTI 20 cm LVOT VTI/AV VTI Ratio 1.0 LVOT Stroke Volume 63 ml LVOT CO 4.1 l/min LVOT CI
[2020-12-14] MEDS: LEVOTHYROXINE SODIUM 125 MCG TABLET PO (06:30)
[2020-12-14 08:07] LABS: Glucose Point of Care 155 mg/dl (65-105)
[2020-12-14] MEDS: ATORVASTATIN 40 MG TABLET PO (08:07)
[2020-12-14] MEDS: PANTOPRAZOLE 40 MG TABLET PO (08:08)
[2020-12-14] MEDS: CLOPIDOGREL BISULFATE 75 MG TABLET PO (08:08)
[2020-12-14] MEDS: lisinopriL 5 MG TABLET PO (08:08)
[2020-12-14] MEDS: METOPROLOL SUCCINATE EXT REL 25 MG TABCR PO (08:08)
[2020-12-14] MEDS: ASPIRIN 81 MG ENTERIC TABLET PO (08:09)
[2020-12-14] MEDS: INSULIN GLARGINE (*BKC) 100 UNITS/ML 40 UNITS SUB-Q (08:13)
[2020-12-14 13:14] LABS: Glucose Point of Care 89 mg/dl (65-105)
--- NOTE | 2020-12-14 14:32 | PM.DS ---
DS: Admitting Diagnosis Admitting Diagnosis Admitting Diagnosis: Numbness to left extremities DS: Discharge Diagnosis Discharge Diagnosis (1) Acute stroke due to ischemia: Code(s): I63.9 - Cerebral infarction, unspecified Status: Acute Assessment and Plan: The patient is a 65-year-old male with a history of coronary artery disease status post bypass surgery, diabetes, prior stroke, who presented to the emergency room with symptoms of numbness and tingling to his left arm and leg which began Sunday12/11/20 when he woke up. The patient went disease primary care provider on 12/13/2020 and she told him if he continues to have symptoms to go to the nearest emergency room. He went home and continued to have symptoms so came to the ER for further evaluation workup. Initial vitals showed elevated blood pressure at 173/101, heart rate 89, afebrile, normal respiratory rate oxygenation on room air. Initial labs showed normocytic anemia with a hemoglobin of 11, hematocrit 36%. Normal coag panel. Normal BMP other than elevated glucose at 177. Negative troponin x1. CT head showed no acute intracranial abnormality, age-related findings. Chest x-ray showed no acute cardiopulmonary abnormality. The patient was admitted into the hospital for further workup and evaluation of his symptoms to rule out stroke. An MRI was obtained showing punctate acute right thalamic lacunar infarct. Old small right cerebellar infarct and old small right centrum semiovale infarction. his CTA head and neck showed no significant plaque buildup to his head and neck. Less than 50% stenosis of bilateral carotid siphons and to lesser degree at the right vertebral and basilar arteries. echocardiogram was completed showing normal EF at 55-60%, moderate increased LVH, left ventricular diastolic function grade I. The patient states his symptoms worse is slowly improving. He only has slight numbness tingling to his palm of his left hand and foot. He was seen by PT / OT who discharged him from their services. Atorvastatin was increased to 40 mg which is high dose due to his multiple strokes and diabetes history Patient had hypertension and LVH suggesting he has had uncontrolled hypertension for a while. I increased his lisinopril and telemetry is blood pressure twice daily to follow-up with primary care provider. He was continued on his aspirin 81 mg and added on Plavix for 28 days. He will have to follow-up with primary care provider to decide if he needs to continue on both antiplatelets or 1 or the other After 28 days. told him risks of bleeding and return back to the ER for any head trauma or other concerns or issues. Gave him information to follow-up with Dr. Priest, neurologist for further evaluation and monitoring after strokes. educated him on glucose control to trying prevent further plaque buildup Telemetry showed the patient had are rate of 60 beats per minute and in normal sinus rhythm. He did have 1 episode where he became tachycardic at 131. During this time the patient states he was asymptomatic. Concerns for atrial flutter as a possibility due to now total 3 strokes. I called [facility] cardiology office to get a 14 day Tele order to monitor and rule out Afib or Aflutter. The patient needs an insurance auth/referral from PCP. I called PCP office which was closed. I called Cardiology office who will follow up with his PCP office 12/15/20 on the authorization. The patient will keep his appointment for 12/15/20 at 1:30 p to have Tele monitor placed and Cardiology office will reach out if they need to reschedule. the patient understands and agrees with the plan all questions answered. Discharge in stable condition. Return to ER warnings given. (2) Left-sided weakness: Code(s): R53.1 - Weakness Status: Acute (3) Gastroesophageal reflux disease: Code(s): K21.9 - Gastro-esophageal reflux disease without esophagitis
== END 2020-12-14 18:05 | disposition home or self-care (01) ==
LOC: ANHED 14:38 → ANH3MED 16:28
PROVIDERS: Admitting Provider Internal Medicine; Emergency Provider Emergency Medicine; PCP Family Medicine; Visit Provider Physician Assistant
DX: I63.9 Cerebral infarction, unspecified (principal); R53.1 Weakness; R20.0 Anesthesia of skin; I25.10 Atherosclerotic heart disease of native coronary artery without angina pectoris; D64.9 Anemia, unspecified; R29.701 NIHSS score 1; F41.8 Other specified anxiety disorders; I11.0 Hypertensive heart disease with heart failure; I50.9 Heart failure, unspecified; K21.9 Gastro-esophageal reflux disease without esophagitis; Z87.891 Personal history of nicotine dependence; E78.5 Hyperlipidemia, unspecified; E03.9 Hypothyroidism, unspecified; I25.2 Old myocardial infarction; E11.40 Type 2 diabetes mellitus with diabetic neuropathy, unspecified; E55.9 Vitamin D deficiency, unspecified; M19.90 Unspecified osteoarthritis, unspecified site; Z79.4 Long term (current) use of insulin; Z79.84 Long term (current) use of oral hypoglycemic drugs; Z86.73 Personal history of transient ischemic attack (TIA), and cerebral infarction without residual deficits
CPT/HCPCS: 36415; 70450; 70496; 70498; 70551; 71045; 80048; 82948; 84484; 85025; 85610; 85730; 93005; 93306; 97161; 99285; A9270; G0378; J1815; Q9967

== ENCOUNTER 2021-03-15 12:29 | Observation (INO) | payer MEDICARE, SELFPAY ==
[2021-03-15] VITALS (11 sets, daily range): BP systolic 145–183; BP diastolic 73–85; PULSE 65–79; RESP 16–22; TEMP 36.6–36.8; O2SAT 19–97; BMI 34.7
--- NOTE | ~2021-03-15 | CT_ITS ---
EXAMINATION: CT brain wo con DATE: 03/17/2021 10:42 INDICATION: Right-sided hemiparesis TECHNIQUE: Computed tomography (CT) of the head was performed without intravenous contrast. Sagittal and coronal reconstructions were performed. The mA was adjusted according to patient size. Iterative reconstruction technique was employed. The dose-length product was 605.33 mGy-cm. COMPARISON: head CT dated 03/15/2021 and brain MR dated 03/16/2021 FINDINGS: Again seen are small infarcts in the right cerebellum, farhad, right basal ganglia, left internal capsu le and right frontoparietal valladares radiata a few of which are better appreciated on the prior MRI. No acute intracranial hemorrhage, acute infarction or abnormal extra axial fluid collection. There is m oderate scattered white matter hypoattenuation consistent with chronic small vessel ischemic disease. Ventricles are normal and symmetric. No mass/mass effect. Moderate mucosal thickening throughout the paranasal sinuses. The orbits and mastoid air cells are normal. Intracranial calcified cerebral athe rosclerosis is noted. IMPRESSION: 1. No acute intracranial process. 2. Unchanged scattered small old infarcts in the brain. 3. Stable appearance of moderate scattered white matter hypoattenuation consistent with chronic small vessel ischemic disease. Reviewed, dictated and finalized at location A. IMPRESSION: 1. No acute intracranial process. 2. Unchanged scattered small old infarcts in the brain. 3. Stable appearance of moderate scattered white matter hypoattenuation consist ent with chronic small vessel ischemic disease.
--- NOTE | ~2021-03-15 | MR_ITS ---
EXAMINATION: MR brain/brain stem wo/w con DATE: 03/16/2021 13:26 INDICATION: Left-sided weakness and tingling. TECHNIQUE: Magnetic resonance imaging (MRI) of the brain and brainstem was performed without and with 18 mL MultiHance intravenous contrast. Sequences included sagittal and axial T1-weighted FSE, axial diffusion-weighted FS EPI, axial T2*-weighted GRE, axial T2-weighted FLAIR Propeller, and axial T2-we ighted Propeller. Postcontrast sequences included axial and coronal T1-weighted FSE. Apparent diffusi on coefficient (ADC) maps were created. COMPARISON: Brain MRI 12/13/2020, head CT 03/15/2021 FINDINGS: There is a small old infarct in right cerebellum. There are scattered areas of nonspecific increased T2-weighted signal intensity in the cerebral white matter. There are old infarcts in the po ns, right thalamus, left internal capsule, right basal ganglia, and right frontoparietal valladares radia ta. There is no intracranial hemorrhage, acute infarction, or abnormal intracranial mass lesion. The ventricles are normal in size. The orbits are normal. There is mild mucosal thickening in the paranas al sinuses. There is a trace left mastoid effusion. IMPRESSION: 1. Old infarcts in the brain. 2. Moderate nonspecific cerebral white matter disease, which likely represents chronic small vessel i schemic disease. Reviewed, dictated and finalized at location A. IMPRESSION: 1. Old infarcts in the brain. 2. Moderate nonspecific cerebral white matter disease, which likely represents chronic small vessel ischemic disease.
--- NOTE | ~2021-03-15 | US_ITS ---
EXAMINATION: US carotid duplex BI DATE: 03/16/2021 13:07 INDICATION: Stroke symptoms with left-sided hemiparesis and tingling. TECHNIQUE: Grayscale, color Doppler, and pulsed Doppler images of the cervical carotid arteries were obtained. The degree of vessel stenosis is placed in one of the following categories: normal, <50%, 5 0-69%, >=70% but less than near-occlusion, near-occlusion, or total occlusion. Note that percent sten osis relative to normal distal artery lumen diameter is indirectly measured from velocity measurement s as described by Claudio, et al. Radiology 2003; [id number]. COMPARISON: None. FINDINGS: RIGHT: The right common carotid artery (CCA) peak systolic velocity (PSV) is 96 cm/s. The right internal car otid artery (ICA) PSV is 85 cm/s. The right ICA end-diastolic velocity (EDV) is 24 cm/s. The right IC A/CCA PSV ratio is 0.9. Grayscale and color Doppler images yield an estimate of <50% diameter reducti on from plaque in the ICA. The external carotid artery (ECA) PSV is 79 cm/s. There is antegrade flow in the right vertebral artery. LEFT: The left CCA PSV is 91 cm/s. The left ICA PSV is 74 cm/s. The left ICA EDV is 16 cm/s. The left ICA/C CA PSV ratio is 0.8. Grayscale and color Doppler images yield an estimate of <50% diameter reduction from plaque in the ICA. The ECA PSV is 89 cm/s. There is antegrade flow in the left vertebral artery. IMPRESSION: 1. <50% stenosis in the right internal carotid artery. 2. <50% stenosis in the left internal carotid artery. Reviewed, dictated and finalized at location A.
--- NOTE | ~2021-03-15 | CT_ITS ---
EXAMINATION: CTA brain carotid DATE: 03/15/2021 13:56 INDICATION: Left facial droop. Slurred speech. Left hemiparesis. TECHNIQUE: Computed tomographic angiography (CTA) of the head was performed with 100 mL Omnipaque-350 intravenous contrast. CTA of the neck was performed with intravenous contrast. Automated exposure co ntrol and iterative reconstruction technique were employed. The dose-length product was 1026.93 mGy-c m. Maximum intensity projection and volume rendered 3D-reconstructions were created by the technologi on a separate workstation. COMPARISON: Head CT 03/15/2021, CTA head and neck 12/14/2020, brain MRI 12/13/2020 FINDINGS: HEAD CTA: There are scattered areas of low attenuation in the cerebral white matter. There are old in farcts involving the right cerebellum, right basal ganglia, and left internal capsule. There is no in tracranial hemorrhage, acute infarction, or abnormal intracranial mass lesion. The ventricles are nor mal in size. There is mucosal thickening in the paranasal sinuses. The orbits are normal. The mastoid air cells are normal. Left vertebral artery is dominant. There is moderate stenosis of basilar arter y. There is focal moderate stenosis of right posterior cerebral artery. There is moderate stenosis of the intracranial internal carotid arteries. There is no significant stenosis of the anterior or midd le cerebral arteries. Anterior communicating artery is normal. The posterior communicating arteries a re normal. There is no aneurysm. NECK CTA: The visualized portions of the lung apices demonstrate groundglass opacities, small airspac e opacities, and septal thickening with mild architectural distortion. There are no pathologically en larged lymph nodes. There is no significant stenosis of the vertebral arteries. There is plaque in th e proximal internal carotid arteries. There is 0% stenosis of the proximal right internal carotid art mercedes relative to normal distal artery lumen diameter (NASCET criteria). There is 0% stenosis of the pr oximal left internal carotid artery relative to normal distal artery lumen diameter. Dental disease i s noted. 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 There is moderate cervical spondy losis. IMPRESSION: 1. Old infarcts involving the right cerebellum, right basal ganglia, and left internal capsule. 2. Moderate nonspecific cerebral white matter disease, which likely represents chronic small vessel i schemic disease. 3. Moderate stenosis of basilar artery, right posterior cerebral artery, and the intracranial interna l carotid arteries. 4. 0% stenosis of the proximal internal carotid arteries relative to normal distal artery lumen diame ters (NASCET criteria). 5. Disease at the lung apices, which may be chronic lung disease or pneumonia. Reviewed, dictated and finalized at location A. IMPRESSION: 1. Old infarcts involving the right cerebellum, right basal ganglia, and left i nternal capsule. 2. Moderate nonspecific cerebral white matter disease, which likely represents chronic small vessel ischemic disease. 3. Moderate stenosis of basilar artery, right posterior cerebral artery, and th e intracranial internal carotid arteries. 4. 0% stenosis of the proximal internal carotid arteries relative to normal dis sveta artery lumen diameters (NASCET criteria). 5. Disease at the lung apices, which may be chronic lung disease or pneumonia.
--- NOTE | ~2021-03-15 | XR_ITS ---
EXAMINATION: XR chest 1V portable DATE: 03/15/2021 13:23 INDICATION: Stroke with left hemiparesis TECHNIQUE: frontal view of the chest was obtained. COMPARISON: Chest radiograph dated 12/13/2020 FINDINGS: Unchanged elevation of the right hemidiaphragm. Cardiomegaly with pulmonary vascular congestion. Ther e are subtle groundglass opacities throughout the left lung and in the right mid and upper lung zones . No pleural effusion or pneumothorax. Median sternotomy wires and mediastinal surgical clips are see n, likely from prior coronary artery bypass grafting. Severe left and moderate right glenohumeral ost eoarthritis. IMPRESSION: 1. Bilateral groundglass opacities which could represent atelectasis, mild pulmonary edema or less li josefa pneumonia. 2. Cardiomegaly with pulmonary vascular congestion. 3. Chronic elevation of the right hemidiaphragm. Reviewed, dictated and finalized at location A. IMPRESSION: 1. Bilateral groundglass opacities which could represent atelectasis, mild pulm onary edema or less likely pneumonia. 2. Cardiomegaly with pulmonary vascular congestion. 3. Chronic elevation of the right hemidiaphragm.
--- NOTE | ~2021-03-15 | CT_ITS ---
EXAMINATION: CT brain wo con DATE: 03/15/2021 13:04 INDICATION: Stroke with slurred speech, left facial droop and left hemiparesis. TECHNIQUE: Computed tomography (CT) of the head was performed without intravenous contrast. Sagittal and coronal reconstructions were performed. The mA was adjusted according to patient size. Iterative reconstruction technique was employed. The dose-length product was 605.33 mGy-cm. COMPARISON: head CT dated 12/14/2020 FINDINGS: No acute intracranial hemorrhage, acute infarction or abnormal extra axial fluid collection. Small ol d lacunar infarct in the right cerebellar hemisphere. There is moderate scattered white matter hypoat tenuation consistent with chronic small vessel ischemic disease. Ventricles are normal and symmetric . No mass/mass effect. Mild mucosal thickening in the bilateral ethmoid and maxillary sinuses. The or bits and mastoid air cells are normal. Intracranial calcified cerebral atherosclerosis is noted. IMPRESSION: 1. No acute intracranial process. 2. Small old lacunar infarct in the right cerebral hemisphere. 3. Moderate scattered white matter hypoattenuation consistent with chronic small vessel ischemic dise ase. Reviewed, dictated and finalized at location A. IMPRESSION: 1. No acute intracranial process. 2. Small old lacunar infarct in the right cerebral hemisphere. 3. Moderate scattered white matter hypoattenuation consistent with chronic smal l vessel ischemic disease.
--- NOTE | 2021-03-15 12:57 | ECG_ITS ---
Measurements Intervals [place] Rate: 79 P: 16 WA: 177 QRS: -20 QRSD: 93 T: 60 QT: 357 QTc: 411 Interpretive Statements SINUS RHYTHM INCOMPLETE RIGHT BUNDLE BRANCH BLOCK DELAYED PRECORDIAL R/S TRANSITION BASELINE ARTIFACT- I, II, III, AVR, AVL, AVF, V1, V4-V6 BORDERLINE ECG Electronically Signed On 03-15-2021 13:11:46 CDT by Eugene Moss D.O.
--- NOTE | 2021-03-15 13:12 | PC.NURSE ---
1249-to ct stat for onset slurred speech, lt facial droop and lt arm & leg weakness
[2021-03-15 13:16] LABS: Glucose Point of Care 129 mg/dl (65-105)
--- NOTE | 2021-03-15 13:20 | PC.NURSE ---
md present for assessment. pt symptoms appear less severe as prior to ct. pt speech less garbled/slurred. lt arm and leg strength improved. pt still has slight drift lt arm and leg.
[2021-03-15 13:24] LABS: Basophils Absolute Auto 0.1 K/mm3 (0.0-0.1); Basophils Percent Auto 0.9 % (0.2-1.2); Eosinophils Absolute Auto 0.2 K/mm3 (0-0.3); Eosinophils Percent Auto 2.5 % (0-4.4); Hematocrit 33.9 % (42.0-52.0); Hemoglobin 10.9 g/dL (14.0-18.0); Immature Granulocyte Absolute 0.02 K/mm3 (0.00-0.031); Immature Granulocyte Percent A 0.3 % (0-0.5); Lymphocytes Absolute Auto 1.73 K/mm3 (0.9-3.2); Lymphocytes Percent Auto 25.1 % (18.3-44.2); Mean Corpuscular HGB Conc 32.2 g/dl (32-36); Mean Corpuscular Hemoglobin 26.6 pg (26-34); Mean Corpuscular Volume 82.7 fl (80-100); Monocytes Absolute Auto 0.6 K/mm3 (0.1-0.6); Monocytes Percent Auto 8.8 % (2.6-8.5); Neutrophils Absolute Auto 4.3 K/mm3 (1.3-6.7); Neutrophils Percent Auto 62.4 % (45.5-73.1); Platelet Count Result 246 k/mm3 (150-375); Red Cell Distribution Width 14.7 % (11.5-14.5); White Blood Count 6.9 K/mm3 (4.5-10.0)
--- NOTE | 2021-03-15 13:29 | ED.GENADULT ---
HPI - General Adult General Chief complaint: Unspecified Stated complaint: Weakness Time Seen by Provider: 03/15/21 12:52 Source: patient, family and RN notes reviewed Mode of arrival: EMS Limitations: language barrier History of Present Illness HPI narrative: Patient is 66 years old white male, brought to the emergency room by ambulance because trouble getting of the chair at 10:30 AM. Patient was seen okay 15 minutes prior to that. History of trouble moving lower extremities off and on for the last 2 weeks. On arrival to the emergency room, patient noted that the patient have a stroke symptoms, slurred speech, trouble moving the left upper extremity or left lower extremity. History of diabetes, hypertension, CVA, CABG. Patient on Plavix and aspirin. Patient is fully vaccinated for COVID-19. The patient and his does not speak Swedish. I was able to contact the granddaughter on the phone. And was able to get history through her. Related Data Home Medications Medication Instructions Recorded Confirmed Januvia 50 mg PO DAILY 12/13/20 03/03/21 Lantus U-100 Insulin 40 unit SUBCUT DAILY 12/13/20 03/03/21 aspirin 81 mg PO DAILY 12/13/20 03/03/21 glimepiride 4 mg PO DAILY 12/13/20 03/03/21 levothyroxine 125 mcg PO DAILY 12/13/20 03/03/21 metformin 1,000 mg PO BID 12/13/20 03/03/21 metoprolol succinate 25 mg PO DAILY 12/13/20 03/03/21 potassium chloride 10 meq PO DAILY 12/13/20 03/03/21 famotidine BID 03/15/21 lisinopril 5 mg PO DAILY 03/15/21 Allergies Allergy/AdvReac Type Severity Reaction Status Date / Time ibuprofen [From Advil] Allergy Intermediate Hives Verified 03/15/21 13:28 Review of Systems Review of Systems: CONSTITUTIONAL: Denies fever, chills, or sweats. EYES: Denies visual changes, redness, or discharge. ENT: Denies rhinorrhea, congestion, sore throat, or otalgia. CARDIOVASCULAR: Denies chest pain, palpitations, or edema. RESPIRATORY: Denies cough or dyspnea. GASTROINTESTINAL: Denies abdominal pain, nausea, vomiting, or diarrhea. GENITOURINARY: Denies dysuria or hematuria. SKIN: Denies rash or itching. MUSCULOSKELETAL: Denies back pain, joint pain, or myalgia. NEUROLOGIC: Denies headache, numbness, or weakness. PSYCHIATRIC: Denies anxiety or depression. [facility] Past Medical History Medical History Anemia Anxiety Cerebrovascular accident Chronic knee pain after total replacement of both knee joints Congestive heart failure Coronary artery disease involving coronary bypass graft Depression Former smoker Gastroesophageal reflux disease Hiatal hernia Hyperlipidemia Hypertension Hypothyroidism Myocardial infarction Osteoarthritis Type 2 diabetes mellitus with diabetic neuropathy Vitamin D deficiency Surgical History Surgical History History of appendectomy History of bilateral knee arthroplasty (~03/2015) History of endoscopy With findings of hiatal hernia. Previous food impaction with subsequent removal and esophageal dilatation. History of laparoscopic cholecystectomy (~02/2015) History of three vessel coronary artery bypass (~2012) Family History Family History Sibling Diabetes mellitus Hypertension Cerebrovascular accident Mother Diabetes mellitus Social History Social History Social History: Surrogate decision maker: Colleen Szymanski, . Code status: Full code. Smoking packs per day: 1.5 Smoking cigarettes per day: 30.0 Years smoked: 20 Smoking pack-years: 30.00 Smoking status: Former smoker Alcohol intake: never Substance use: never Substance use type: does not use Additional living arrangements comments: Patient lives with his in [place]. Additional occupation/education comments: Retired. Gender identity (if verbalized by the patient): M
[2021-03-15 13:38] LABS: Anion Gap 5 mmol/L (8-16); Blood Urea Nitrogen 14 mg/dL (9-20); Calcium 8.8 mg/dL (8.4-10.2); Carbon Dioxide 30 mmol/L (22-30); Chloride 104 mmol/L (98-107); Estimated CRCL calculation 78 ml/min; Estimated Glomerular Filt Rate > 60; Glucose 151 mg/dL (65-110); INR 1.1; Potassium 4.5 mmol/L (3.4-5.0); Prothrombin Time 14.3 Seconds (11.1-14.7); Sodium 139 mmol/L (137-145)
[2021-03-15 13:39] LABS: Partial Thromboplastin Time 27.2 SECONDS (22.3-36.8)
[2021-03-15] MEDS: ASPIRIN 325 MG TABLET PO (13:42)
[2021-03-15 13:49] LABS: Troponin I < 0.012 ng/mL (0.000-0.034)
--- NOTE | 2021-03-15 16:21 | PC.NURSE ---
2nd fax of sbar to floor at this time.
--- NOTE | 2021-03-15 17:30 | PM.IMHP ---
H&P: HPI History of Present Illness Date/Time: 03/15/21 17:30 Chief Complaint: Left-sided numbness and weakness. Narrative: This is a pleasant 66-year-old male with history of stroke, congestive heart failure, coronary artery disease, hypertension, anemia, hypothyroidism, and type 2 diabetes mellitus who presented to the emergency department earlier today via EMS from home for evaluation of left-sided numbness and weakness. The patient is Mohawk speaking thus a video interpreter for the deaf was used to obtain the following history. Willie reports feeling just fine when he got up this morning and while in the kitchen helping his prepare breakfast he suddenly felt off balance with numbness and weakness throughout the left side of his body. He attempted to tell his what was going on however he was having difficulty speaking and she called 911 after he was unable to get himself the chair without help. Stroke Scale was 9 on arrival to the emergency department however within 30 minutes his symptoms had nearly resolved with a stroke scale of 1 thereafter. He was given aspirin 324 mg p.o. in the emergency department physician consulted with the stroke team at [facility]. At that time they did not suggest tPA but did request a CTA of the head and neck which showed moderate stenosis of the basilar artery, right posterior cerebral artery, and the intracranial internal carotid arteries. Given no acute need for intervention and lack of beds at their facility, he is being admitted to [facility] however it is my understanding that he will need to follow-up with them as an outpatient as long as his condition remains unchanged. Currently he has no significant complaints although he does mention a mild right posterior headache and mild tingling in the left palm. Patient states compliance with all of his home medications. Review of Systems Review of Systems: Twelve systems reviewed. No acute auditory visual changes. He denies current vertigo. No current focal weakness. No dysarthria or dysphagia at this time. He denies chest pain and palpitations. No fever, chills, or sweats. No recent cold or flu symptoms. He denies nausea and vomiting. Except as documented, all other systems were reviewed and are negative. [facility] Past Medical History Medical History (Updated 03/16/21 @ 00:05 by Rere Weiner PA-C) Anemia Anxiety Cerebrovascular accident Chronic anemia Chronic knee pain after total replacement of both knee joints Congestive heart failure Coronary artery disease involving coronary bypass graft COVID-19 (10/2019) Complicated by respiratory failure requiring intubation and subsequent tracheostomy. Deep venous thrombosis Depression Former smoker Gastroesophageal reflux disease Hiatal hernia Hyperlipidemia Hypertension Hypothyroidism Myocardial infarction Osteoarthritis Type 2 diabetes mellitus with diabetic neuropathy Hemoglobin A1c was 8.1% on 11/23/2019. Vitamin D deficiency Surgical History Surgical History (Updated 03/15/21 @ 23:53 by Rere Weiner PA-C) History of appendectomy History of bilateral knee arthroplasty (~03/2015) History of endoscopy With findings of hiatal hernia. Previous food impaction with subsequent removal and esophageal dilatation. History of laparoscopic cholecystectomy (~02/2015) History of three vessel coronary artery bypass (~2012) History of tracheostomy (12/22/19) Family History Family History Sibling Diabetes mellitus Hypertension Cerebrovascular accident Mother Diabetes mellitus Social History Social History (Updated 03/16/21 @ 00:02 by Rere Weiner PA-C) Social History: Surrogate decision maker: Colleen Szymanski, . Code status: Full code. Smoking packs per day: 3 Smoking cigarettes per day: 60.0 Years smoked: 20 Smoking pack-years: 60.00 Smoking status: Former smoker Tobacco type: cigarettes Alcohol intake:
[2021-03-15 23:57] LABS: Glucose Point of Care 92 mg/dl (65-105)
[2021-03-16] VITALS (10 sets, daily range): BP systolic 134–167; BP diastolic 68–77; PULSE 60–88; RESP 18; TEMP 36.4–36.6; O2SAT 93–97
[2021-03-16 00:38] LABS: Hemoglobin A1C 7.9 % (<5.7)
[2021-03-16] MEDS: LEVOTHYROXINE SODIUM 125 MCG TABLET PO (05:37)
[2021-03-16 06:28] LABS: Hematocrit 35.4 % (42.0-52.0); Hemoglobin 11.3 g/dL (14.0-18.0); Mean Corpuscular HGB Conc 31.9 g/dl (32-36); Mean Corpuscular Hemoglobin 26.3 pg (26-34); Mean Corpuscular Volume 82.3 fl (80-100); Platelet Count Result 230 k/mm3 (150-375); Red Cell Distribution Width 14.6 % (11.5-14.5); White Blood Count 5.3 K/mm3 (4.5-10.0)
[2021-03-16 06:47] LABS: Alanine Aminotransferase 14 U/L (4-50); Albumin Level 3.6 g/dL (3.5-5.1); Alkaline Phosphatase 78 U/L (38-126); Anion Gap 6 mmol/L (8-16); Aspartate Amino Transferase 20 U/L (17-59); Bilirubin,Total 0.5 mg/dL (0.2-1.3); Blood Urea Nitrogen 9 mg/dL (9-20); Calcium 8.9 mg/dL (8.4-10.2); Carbon Dioxide 30 mmol/L (22-30); Chloride 104 mmol/L (98-107); Estimated CRCL calculation 79 ml/min; Estimated Glomerular Filt Rate > 60; Glucose 102 mg/dL (65-110); Magnesium 1.9 mg/dL (1.6-2.3); Potassium 4.1 mmol/L (3.4-5.0); Sodium 140 mmol/L (137-145)
[2021-03-16 08:20] LABS: Thyroid Stimulating Hormone Reflex < 0.015 uIU/mL (0.465-4.68)
[2021-03-16 08:53] LABS: Glucose Point of Care 105 mg/dl (65-105)
[2021-03-16] MEDS: ACETAMINOPHEN 325 MG TABLET 650 MG PO (09:59)
[2021-03-16] MEDS: ASPIRIN 81 MG CHEWABLE TABLET PO (10:00)
[2021-03-16] MEDS: METOPROLOL SUCCINATE EXT REL 25 MG TABCR PO (10:00)
[2021-03-16] MEDS: ATORVASTATIN 40 MG TABLET PO (10:00)
[2021-03-16] MEDS: lisinopriL 5 MG TABLET PO (10:01)
[2021-03-16] MEDS: FAMOTIDINE 20 MG TABLET 40 MG PO ×2 (10:01→16:29)
[2021-03-16] MEDS: CLOPIDOGREL BISULFATE 75 MG TABLET PO (10:01)
[2021-03-16] MEDS: POTASSIUM CHLORIDE 10 MEQ TABLET.ER PO (10:01)
[2021-03-16] MEDS: GLIMEPIRIDE 2 MG TABLET 4 MG PO (10:01)
[2021-03-16] MEDS: INSULIN GLARGINE (*BKC) 100 UNITS/ML 40 UNITS SUB-Q (10:02)
[2021-03-16 10:21] LABS: Free T4 Free Thyroxine Reflex 1.94 ng/dL (0.78-2.19)
[2021-03-16 11:11] LABS: Total Triiodothyronine (T3) 1.23 NG/ML (0.97-1.69)
--- NOTE | 2021-03-16 11:36 | WPDNEURCNPN ---
Assessment and Plan Additional Plan considering the evaluation up until now particularly the CTA he will benefit from the anticoagulation therapy if there is no other contraindication for that medical because of the involvement of the posterior circulation he is a likely candidate to have the recurrent stroke Consult date: 03/16/21 Time Seen: 10:30 HPI: Willie Urias is a 66 year old male admitted to the hospital for the complaints of left-sided numbness and weakness in addition to ongoing history of 1. Stroke 2. Congestive heart failure 3. Coronary artery disease 4. Hypertension 5. Hypothyroidism 6. Anemia 7. Type 2 diabetes mellitus. He was brought to the emergency room by the EMS for the complaints of left-sided numbness and weakness with subsequent information documented as that he was feeling fine when he got up in the morning and while in the kitchen helping his prepare breakfast he suddenly felt off balance with numbness and weakness throughout the left side of the body call the 911 he was unable to get out of the chair without help with documented stroke scale of 9 on arrival to the emergency room but within 30 minutes resolution of all the symptomatology he received aspirin 325 mg in the ER stroke team at [facility] was T was contacted who did not suggest tPA but requested the CTA of the head and neck which documented moderate stenosis of basilar artery right posterior cerebral artery and intracranial carotid arteries as well and given the need for no acute intervention he was admitted to the hospital here with the introduction to follow as an outpatient . Patient does have ongoing history of multiple medical problem as mentioned before in addition to chronic knee pain after total replacement of both knee joints, congestive heart failure, coronary artery disease involving coronary bypass grafting DVT. He is a former smoker and has undergone multiple surgeries. as mentioned before CTA has documented old infarct involving the right cerebellum right basal ganglia and left internal capsule with non specific white matter disease moderate stenosis of basilar artery right posterior cerebral artery and intracranial internal carotid arteries. routine labs compatible with mild anemia normal platelet count normal coagulation profile UA with 21 to 50 RBCs, positive serology for the COVID in November of last year Review of Systems Review of Systems: All systems reviewed & are unremarkable except as noted in HPI and below PMFSH Past Medical History Medical History Anemia Anxiety Cerebrovascular accident Chronic anemia Chronic knee pain after total replacement of both knee joints Congestive heart failure Coronary artery disease involving coronary bypass graft COVID-19 (10/2019) Complicated by respiratory failure requiring intubation and subsequent tracheostomy. Deep venous thrombosis Depression Former smoker Gastroesophageal reflux disease Hiatal hernia Hyperlipidemia Hypertension Hypothyroidism Myocardial infarction Osteoarthritis Type 2 diabetes mellitus with diabetic neuropathy Hemoglobin A1c was 8.1% on 11/23/2019. Vitamin D deficiency Surgical History Surgical History History of appendectomy History of bilateral knee arthroplasty (~03/2015) History of endoscopy With findings of hiatal hernia. Previous food impaction with subsequent removal and esophageal dilatation. History of laparoscopic cholecystectomy (~02/2015) History of three vessel coronary artery bypass (~2012) History of tracheostomy (12/22/19) Family History Family History Sibling Diabetes mellitus Hypertension Cerebrovascular accident Mother Diabetes mellitus Social History Social History Social History: Surrogate decision maker: Colleen Stephon, . Code stat
[2021-03-16 11:40] LABS: Glucose Point of Care 200 mg/dl (65-105)
--- NOTE | 2021-03-16 12:35 | P.PNIM_ITS ---
Progress Note: A&P Assessment and Plan (1) Left-sided weakness: Code(s): R53.1 - Weakness Status: Acute Assessment and Plan: * presented to the emergency department with sudden onset of left-sided weakness and paresthesias with mild dysarthria * Symptoms nearly completely resolved within approximately 30 minutes and he only has some mild tingling in his left palm at this time. * Stroke team at [facility] was consulted- recommended follow up outpatient post discharge * telemetry * neurologic checks will be performed q.4 hours. * Brain MRI showed: 1. Old infarcts in the brain. 2. Moderate nonspecific cerebral white matter disease, which likely represents chronic small vessel ischemic disease.. * Neck CTA; Old infarts of the right cerebellum, basal ganglia, and left internal capsule. chronic small vessel diesase, Moderate stenosis of basilar artery, right posterior cerebral artery, and the intracranial internal carotid arteries * Head CT:1. No acute intracranial process. 2. Small old lacunar infarct in the right cerebral hemisphere. 3. Moderate scattered white matter hypoattenuation consistent with chronic small vessel ischemic disease. * Carotid Doppler: 1. <50% stenosis in the right internal carotid artery. 2. <50% stenosis in the left internal carotid artery. * Echo (12/14/20): 55-60% normal systolic function , grade 1 diastolic dysfunction, PAP 24 * Probably a TIA * Patient continued on aspirin and Plavix * Continue atorvastatin 40 mg p.o. daily (2) Transient neurological symptoms: Code(s): R29.818 - Other symptoms and signs involving the nervous system Status: Acute Assessment and Plan: * See above (3) Abnormal computed tomography angiography (CTA) of neck: Code(s): R93.89 - Abnormal findings on diagnostic imaging of other specified body structures Status: Acute Assessment and Plan: * See above4 (4) Hypertension: Code(s): I10 - Essential (primary) hypertension Status: Acute Assessment and Plan: * Current blood pressure 134/68 * Continue home lisinopril 5 mg p.o. daily * Trend blood pressure * Adjust medications as needed (5) Chronic anemia: Code(s): D64.9 - Anemia, unspecified Status: Acute Assessment and Plan: * H/H stable 11.3/35.4 * Stable at this time (6) Type 2 diabetes mellitus with diabetic neuropathy: Code(s): E11.40 - Type 2 diabetes mellitus with diabetic neuropathy, unspecified Status: Acute Assessment and Plan: * Glucose on labs 102 * Continue home medications * Accu checks * Hypoglycemia protocol * Adjust medications as needed (7) Hypothyroidism: Code(s): E03.9 - Hypothyroidism, unspecified Status: Acute Assessment and Plan: * Continue levothyroxine * TSH <0.015 Time Spent With Patient Time with patient: 25 - 35 minutes Subjective Date/time seen: 03/16/21 12:35 Interval history: Date/Time: 03/15/21 17:30 Narrative: This is a pleasant 66-year-old male with history of stroke, congestive heart failure, coronary artery disease, hypertension, anemia, hypothyroidism, and type 2 diabetes mellitus who presented to the emergency department earlier today via EMS from home for evaluation of left-sided numbness and weakness. The patient is Bengali speaking thus a video extension edger was used to obtain the following history. Willie reports feeling just fine when he got up this morning and while in
--- NOTE | 2021-03-16 12:35 | PM.IMPN ---
Progress Note: A&P Assessment and Plan (1) Left-sided weakness: Code(s): R53.1 - Weakness Status: Acute Assessment and Plan: presented to the emergency department with sudden onset of left-sided weakness and paresthesias with mild dysarthria Symptoms nearly completely resolved within approximately 30 minutes and he only has some mild tingling in his left palm at this time. Stroke team at [facility] was consulted- recommended follow up outpatient post discharge telemetry neurologic checks will be performed q.4 hours. Brain MRI showed: 1. Old infarcts in the brain. 2. Moderate nonspecific cerebral white matter disease, which likely represents chronic small vessel ischemic disease.. Neck CTA; Old infarts of the right cerebellum, basal ganglia, and left internal capsule. chronic small vessel diesase, Moderate stenosis of basilar artery, right posterior cerebral artery, and the intracranial internal carotid arteries Head CT:1. No acute intracranial process. 2. Small old lacunar infarct in the right cerebral hemisphere. 3. Moderate scattered white matter hypoattenuation consistent with chronic small vessel ischemic disease. Carotid Doppler: 1. <50% stenosis in the right internal carotid artery. 2. <50% stenosis in the left internal carotid artery. Echo (12/14/20): 55-60% normal systolic function , grade 1 diastolic dysfunction, PAP 24 Probably a TIA Patient continued on aspirin and Plavix Continue atorvastatin 40 mg p.o. daily (2) Transient neurological symptoms: Code(s): R29.818 - Other symptoms and signs involving the nervous system Status: Acute Assessment and Plan: See above (3) Abnormal computed tomography angiography (CTA) of neck: Code(s): R93.89 - Abnormal findings on diagnostic imaging of other specified body structures Status: Acute Assessment and Plan: See above4 (4) Hypertension: Code(s): I10 - Essential (primary) hypertension Status: Acute Assessment and Plan: Current blood pressure 134/68 Continue home lisinopril 5 mg p.o. daily Trend blood pressure Adjust medications as needed (5) Chronic anemia: Code(s): D64.9 - Anemia, unspecified Status: Acute Assessment and Plan: H/H stable 11.3/35.4 Stable at this time (6) Type 2 diabetes mellitus with diabetic neuropathy: Code(s): E11.40 - Type 2 diabetes mellitus with diabetic neuropathy, unspecified Status: Acute Assessment and Plan: Glucose on labs 102 Continue home medications Accu checks Hypoglycemia protocol Adjust medications as needed (7) Hypothyroidism: Code(s): E03.9 - Hypothyroidism, unspecified Status: Acute Assessment and Plan: Continue levothyroxine TSH <0.015 Time Spent With Patient Time with patient: 25 - 35 minutes Subjective Date/time seen: 03/16/21 12:35 Interval history: Date/Time: 03/15/21 17:30 Narrative: This is a pleasant 66-year-old male with history of stroke, congestive heart failure, coronary artery disease, hypertension, anemia, hypothyroidism, and type 2 diabetes mellitus who presented to the emergency department earlier today via EMS from home for evaluation of left-sided numbness and weakness. The patient is Occitan speaking thus a video applications engineer was used to obtain the following history. Willie reports feeling just fine when he got up this morning and while in the kitchen helping his prepare breakfast he suddenly felt off balance with numbness and weakness throughout the left side of his body. He attempted to tell his what was going on however he was having difficulty speaking and she called 911 after he was unable to get himself the chair without help. Stroke Scale was 9 on arrival to the emergency department however within 30 minutes his symptoms had nearly resolved with a stroke scale of 1 thereafter. He was given aspirin 32
[2021-03-16] MEDS: BUMETANIDE INJ 1 MG/4 ML VIAL IV PUSH (16:29)
[2021-03-16] MEDS: TAMSULOSIN HCL 0.4 MG CAPSULE PO (16:30)
[2021-03-16 16:39] LABS: Glucose Point of Care 111 mg/dl (65-105)
[2021-03-16 22:26] LABS: Glucose Point of Care 103 mg/dl (65-105)
[2021-03-17] VITALS (10 sets, daily range): BP systolic 129–164; BP diastolic 70–88; PULSE 59–120; RESP 16–27; TEMP 36.4; O2SAT 95–100
[2021-03-17] MEDS: LEVOTHYROXINE SODIUM 125 MCG TABLET PO (05:23)
[2021-03-17 06:35] LABS: Basophils Absolute Auto 0.1 K/mm3 (0.0-0.1); Basophils Percent Auto 1.1 % (0.2-1.2); Eosinophils Absolute Auto 0.3 K/mm3 (0-0.3); Eosinophils Percent Auto 4.7 % (0-4.4); Hematocrit 37.3 % (42.0-52.0); Hemoglobin 11.7 g/dL (14.0-18.0); Immature Granulocyte Absolute 0.01 K/mm3 (0.00-0.031); Immature Granulocyte Percent A 0.1 % (0-0.5); Lymphocytes Absolute Auto 2.05 K/mm3 (0.9-3.2); Lymphocytes Percent Auto 29.2 % (18.3-44.2); Mean Corpuscular HGB Conc 31.4 g/dl (32-36); Mean Corpuscular Hemoglobin 26.7 pg (26-34); Mean Platelet Volume 10.2 fl (7.4-10.4); Monocytes Absolute Auto 0.8 K/mm3 (0.1-0.6); Monocytes Percent Auto 11.4 % (2.6-8.5); Neutrophils Absolute Auto 3.8 K/mm3 (1.3-6.7); Neutrophils Percent Auto 53.5 % (45.5-73.1); Platelet Count Result 234 k/mm3 (150-375); Red Blood Count 4.39 M/mm3 (4.6-6.20); Red Cell Distribution Width 14.8 % (11.5-14.5)
[2021-03-17 06:52] LABS: Alanine Aminotransferase 14 U/L (4-50); Albumin Level 3.8 g/dL (3.5-5.1); Alkaline Phosphatase 79 U/L (38-126); Anion Gap 7 mmol/L (8-16); Aspartate Amino Transferase 20 U/L (17-59); Bilirubin,Total 0.5 mg/dL (0.2-1.3); Blood Urea Nitrogen 15 mg/dL (9-20); Carbon Dioxide 31 mmol/L (22-30); Chloride 101 mmol/L (98-107); Estimated CRCL calculation 70 ml/min; Estimated Glomerular Filt Rate > 60; Glucose 97 mg/dL (65-110); Magnesium 1.9 mg/dL (1.6-2.3); Potassium 4.1 mmol/L (3.4-5.0); Sodium 139 mmol/L (137-145)
[2021-03-17 08:28] LABS: Glucose Point of Care 93 mg/dl (65-105)
[2021-03-17] MEDS: hydrALAZINE HCL 20 MG/ML VIAL IV PUSH (10:20)
[2021-03-17] MEDS: GLIMEPIRIDE 2 MG TABLET 4 MG PO (10:53)
[2021-03-17] MEDS: METOPROLOL SUCCINATE EXT REL 25 MG TABCR PO (10:53)
[2021-03-17] MEDS: ATORVASTATIN 40 MG TABLET PO (10:53)
[2021-03-17] MEDS: POTASSIUM CHLORIDE 10 MEQ TABLET.ER PO (10:53)
[2021-03-17] MEDS: CLOPIDOGREL BISULFATE 75 MG TABLET PO (10:54)
[2021-03-17] MEDS: TAMSULOSIN HCL 0.4 MG CAPSULE PO (10:54)
[2021-03-17] MEDS: ASPIRIN 81 MG CHEWABLE TABLET PO (10:54)
[2021-03-17] MEDS: FAMOTIDINE 20 MG TABLET 40 MG PO (10:54)
[2021-03-17] MEDS: lisinopriL 5 MG TABLET PO (10:54)
[2021-03-17] MEDS: METOPROLOL TARTRATE INJ 5 MG/5 ML VIAL IV PUSH (10:57)
[2021-03-17 11:21] LABS: Glucose Point of Care 159 mg/dl (65-105)
[2021-03-17] MEDS: INSULIN GLARGINE (*BKC) 100 UNITS/ML 40 UNITS SUB-Q (11:25)
[2021-03-17 11:38] LABS: Troponin I < 0.012 ng/mL (0.000-0.034)
[2021-03-17 11:40] LABS: Alanine Aminotransferase 14 U/L (4-50); Albumin Level 4.3 g/dL (3.5-5.1); Alkaline Phosphatase 94 U/L (38-126); Anion Gap 10 mmol/L (8-16); Aspartate Amino Transferase 20 U/L (17-59); Bilirubin,Total 0.6 mg/dL (0.2-1.3); Blood Urea Nitrogen 16 mg/dL (9-20); Calcium 9.7 mg/dL (8.4-10.2); Carbon Dioxide 28 mmol/L (22-30); Chloride 101 mmol/L (98-107); Estimated CRCL calculation 70 ml/min; Estimated Glomerular Filt Rate > 60; Glucose 160 mg/dL (65-110); Potassium 4.7 mmol/L (3.4-5.0); Sodium 139 mmol/L (137-145)
--- NOTE | 2021-03-17 12:12 | ECG_ITS ---
Measurements Intervals [place] Rate: 108 P: 145 [place]: 175 QRS: 202 QRSD: 92 T: 122 QT: 324 QTc: 436 Interpretive Statements SINUS TACHYCARDIA LIMB LEAD REVERSAL INCOMPLETE RIGHT BUNDLE BRANCH BLOCK DELAYED PRECORDIAL R/S TRANSITION ABNORMAL ECG Electronically Signed On 03-17-2021 13:05:46 CDT by Eugene Moss D.O.
[2021-03-17 12:16] LABS: INR 1.1; Prothrombin Time 13.9 Seconds (11.1-14.7)
[2021-03-17 12:17] LABS: Partial Thromboplastin Time 28.6 SECONDS (22.3-36.8)
--- NOTE | 2021-03-17 12:25 | PC.NURSE ---
Patient arrived via bed with Amisha Randolph to bedside. Dr. Cisneros to bedside. Assessment performed per MD. TPA initiated post initial vital signs. Brice, Radiology transport to bedside to assist with translation. 2nd peripheral IV initiated.
--- NOTE | 2021-03-17 12:32 | P.TS_ITS ---
Transfer Discharge Sum: Prov Provider Date of admission: 03/15/21 14:47 Primary care physician: Alison Mata, Admitting clinician: Cesia Brunner MD Consults: 03/15/21 14:49 Consult to Physician Routine Comment: Consulting Provider: Yemi Priest Reason for consultation: Acute CVA Has provider been notified: Yes DS: Admitting Diagnosis Discharge Date Date of service 03/17/21 12:33 Admitting Diagnosis CVA DS: Discharge Diagnosis Discharge Diagnosis (1) CVA (cerebral vascular accident): Code(s): I63.9 - Cerebral infarction, unspecified Status: Acute Assessment and Plan: * presented to the emergency department with sudden onset of left-sided weakness and paresthesias with mild dysarthria * Symptoms nearly completely resolved within approximately 30 minutes and he only has some mild tingling in his left palm at this time. * Stroke team at [facility] was consulted- recommended follow up outpatient post discharge * telemetry * neurologic checks will be performed q.4 hours. * Brain MRI showed: 1. Old infarcts in the brain. 2. Moderate nonspecific cerebral white matter disease, which likely represents chronic small vessel ischemic disease.. * Neck CTA; Old infarts of the right cerebellum, basal ganglia, and left internal capsule. chronic small vessel diesase, Moderate stenosis of basilar artery, right posterior cerebral artery, and the intracranial internal carotid arteries * Head CT:1. No acute intracranial process. 2. Small old lacunar infarct in the right cerebral hemisphere. 3. Moderate scattered white matter hypoattenuation consistent with chronic small vessel ischemic disease. * Carotid Doppler: 1. <50% stenosis in the right internal carotid artery. 2. <50% stenosis in the left internal carotid artery. * Echo (12/14/20): 55-60% normal systolic function , grade 1 diastolic dysfunction, PAP 24 * Probably a TIA * Patient continued on aspirin and Plavix * Continue atorvastatin 40 mg p.o. daily (2) Left-sided weakness: Code(s): R53.1 - Weakness Status: Acute Assessment and Plan: * presented to the emergency department with sudden onset of left-sided weakness and paresthesias with mild dysarthria * Symptoms nearly completely resolved within approximately 30 minutes and he only has some mild tingling in his left palm at this time. * Stroke team at [facility] was consulted- recommended follow up outpatient post discharge * telemetry * neurologic checks will be performed q.4 hours. * Brain MRI showed: 1. Old infarcts in the brain. 2. Moderate nonspecific cerebral white matter disease, which likely represents chronic small vessel ischemic disease.. * Neck CTA; Old infarts of the right cerebellum, basal ganglia, and left internal capsule. chronic small vessel diesase, Moderate stenosis of basilar artery, right posterior cerebral artery, and the intracranial internal carotid arteries * Head CT:1. No acute intracranial process. 2. Small old lacunar infarct in the right cerebral hemisphere. 3. Moderate scattered white matter hypoattenuation consistent with chronic small vessel ischemic disease. * Carotid Doppler: 1. <50% stenosis in the right internal carotid artery. 2. <50% stenosis in the left internal carotid artery. * Echo (12/14/20): 55-60% normal systolic function , grade 1 diastolic dysfunction, PAP 24 * Probably a TIA * Patient continued on aspirin and Plavix * Continue atorvastatin 40 mg p.o. daily (3) Transient neurologi
--- NOTE | 2021-03-17 12:32 | PM.TDS ---
Transfer Discharge Sum: Prov Provider Date of admission: 03/15/21 14:47 Primary care physician: Alison Mata, Admitting clinician: Cesia Brunner MD Consults: 03/15/21 14:49 Consult to Physician Routine Comment: Consulting Provider: Yemi Priest Reason for consultation: Acute CVA Has provider been notified: Yes DS: Admitting Diagnosis Discharge Date Date of service 03/17/21 12:33 Admitting Diagnosis CVA DS: Discharge Diagnosis Discharge Diagnosis (1) CVA (cerebral vascular accident): Code(s): I63.9 - Cerebral infarction, unspecified Status: Acute Assessment and Plan: presented to the emergency department with sudden onset of left-sided weakness and paresthesias with mild dysarthria Symptoms nearly completely resolved within approximately 30 minutes and he only has some mild tingling in his left palm at this time. Stroke team at [facility] was consulted- recommended follow up outpatient post discharge telemetry neurologic checks will be performed q.4 hours. Brain MRI showed: 1. Old infarcts in the brain. 2. Moderate nonspecific cerebral white matter disease, which likely represents chronic small vessel ischemic disease.. Neck CTA; Old infarts of the right cerebellum, basal ganglia, and left internal capsule. chronic small vessel diesase, Moderate stenosis of basilar artery, right posterior cerebral artery, and the intracranial internal carotid arteries Head CT:1. No acute intracranial process. 2. Small old lacunar infarct in the right cerebral hemisphere. 3. Moderate scattered white matter hypoattenuation consistent with chronic small vessel ischemic disease. Carotid Doppler: 1. <50% stenosis in the right internal carotid artery. 2. <50% stenosis in the left internal carotid artery. Echo (12/14/20): 55-60% normal systolic function , grade 1 diastolic dysfunction, PAP 24 Probably a TIA Patient continued on aspirin and Plavix Continue atorvastatin 40 mg p.o. daily (2) Left-sided weakness: Code(s): R53.1 - Weakness Status: Acute Assessment and Plan: presented to the emergency department with sudden onset of left-sided weakness and paresthesias with mild dysarthria Symptoms nearly completely resolved within approximately 30 minutes and he only has some mild tingling in his left palm at this time. Stroke team at [facility] was consulted- recommended follow up outpatient post discharge telemetry neurologic checks will be performed q.4 hours. Brain MRI showed: 1. Old infarcts in the brain. 2. Moderate nonspecific cerebral white matter disease, which likely represents chronic small vessel ischemic disease.. Neck CTA; Old infarts of the right cerebellum, basal ganglia, and left internal capsule. chronic small vessel diesase, Moderate stenosis of basilar artery, right posterior cerebral artery, and the intracranial internal carotid arteries Head CT:1. No acute intracranial process. 2. Small old lacunar infarct in the right cerebral hemisphere. 3. Moderate scattered white matter hypoattenuation consistent with chronic small vessel ischemic disease. Carotid Doppler: 1. <50% stenosis in the right internal carotid artery. 2. <50% stenosis in the left internal carotid artery. Echo (12/14/20): 55-60% normal systolic function , grade 1 diastolic dysfunction, PAP 24 Probably a TIA Patient continued on aspirin and Plavix Continue atorvastatin 40 mg p.o. daily (3) Transient neurological symptoms: Code(s): R29.818 - Other symptoms and signs involving the nervous system Status: Acute Assessment and Plan: See above (4) Abnormal computed tomography angiography (CTA) of neck: Code(s): R93.89 - Abnormal findings on diagnostic imaging of other specified body structures Status: Acute Assessment and Plan: See above4 (5) Hypertension: Code(s): I10 - Essential (primary) hypertension
--- NOTE | 2021-03-17 12:47 | WPDCNINT ---
Assessment and Plan Assessment and plan (1) Acute CVA (cerebrovascular accident): Code(s): I63.9 - Cerebral infarction, unspecified Status: Acute Assessment and Plan: Acute CVA with left-sided paralysis and right facial droop that started around 1015 a.m. this morning. Patient presented with TIA with similar presentation which had resolved within 30 minutes. Workup done as mentioned above Patient transferred to ICU Internal medicine provider discussed with [facility] stroke team and patient is being given tPA right now Blood pressure was controlled with hydralazine and metoprolol prior to arrival to ICU ICU telemetry monitoring EKG done and reviewed Neurochecks Q15 minutes Air transport has been notified for transfer of patient to [facility] ER But will defer further definitive evaluation and workup to the accepting hospital (2) Hypertension: Code(s): I10 - Essential (primary) hypertension Status: Acute Assessment and Plan: IV PRN Labetalol to keep BP < 180/105 Additional Plan Management of other medical issues like diabetes, CAD and hypothyroidism has been deferred at this time as patient is being transferred now to [facility]. Total Critical Care Time - 32 minutes Due to a high probability of clinically significant, life threatening deterioration, the patient required my highest level of preparedness to intervene emergently and I personally spent this critical care time directly and personally managing the patient. This critical care time included obtaining a history; examining the patient; pulse oximetry; ordering and review of studies; arranging urgent treatment with development of a management plan; evaluation of patient's response to treatment; frequent reassessment; and discussions with other providers. It was exclusive of separately billable procedures and treating other patients and teaching time. Please see Assessment and Plan section and the rest of the note for further information on patient assessment and treatment Head Silverman Consult Note Consult date: 03/17/21 HPI: Willie Urias is a 66 year old male with past medical history of stroke, congestive heart failure, coronary artery disease, hypertension, anemia, hypothyroidism, and type 2 diabetes mellitus who presented to the emergency department on 03/15 for evaluation of left-sided numbness and weakness. Stroke Scale was 9 on arrival to the emergency department however within 30 minutes his symptoms had nearly resolved with a stroke scale of 1 thereafter. He was given aspirin 324 mg p.o. in the emergency department physician consulted with the stroke team at [facility]. Patient was admitted with diagnosis of TIA for further workup. Patient was seen by Neurology. Brain MRI showed: 1. Old infarcts in the brain. 2. Moderate nonspecific cerebral white matter disease, which likely represents chronic small vessel ischemic disease.. Neck CTA; Old infarts of the right cerebellum, basal ganglia, and left internal capsule. chronic small vessel diesase, Moderate stenosis of basilar artery, right posterior cerebral artery, and the intracranial internal carotid arteries Head CT:1. No acute intracranial process. 2. Small old lacunar infarct in the right cerebral hemisphere. 3. Moderate scattered white matter hypoattenuation consistent with chronic small vessel ischemic disease. Carotid Doppler: 1. <50% stenosis in the right internal carotid artery. 2. <50% stenosis in the left internal carotid artery. Echo (12/14/20): 55-60% normal systolic function , grade 1 diastolic dysfunction, PAP 24 This morning around 10:15 patient stated to the interactive video technician that he was unable to move his left side. Patient was evaluated by hospitalist Medicine and a code stroke was called. Head CT was done and was negative. Neurology was consulted and they recommended heparin infusion.. Internal medicine provider spoke t
--- NOTE | 2021-03-17 13:05 | PC.NURSE ---
Report called to Amisha Olea at [facility] Emergency Department.
--- NOTE | 2021-03-17 13:10 | PC.NURSE ---
[facility] team to bedside, no changes in assessment noted.
--- NOTE | 2021-03-17 13:32 | PC.NURSE ---
MACIEL Olea at [facility] ER notified of patient's departure.
[2021-03-21 05:11] LABS: Ionized Calcium 5.1 mg/dL (4.8-5.6)
--- NOTE | 2021-04-08 14:16 | ED.GENADULT ---
HPI - General Adult General Chief complaint: Unspecified Stated complaint: Weakness Time Seen by Provider: 03/15/21 12:52 Source: patient, family and RN notes reviewed Mode of arrival: EMS Limitations: language barrier Related Data Home Medications Medication Instructions Recorded Confirmed Januvia 50 mg PO DAILY 12/13/20 03/15/21 Lantus U-100 Insulin 40 unit SUBCUT DAILY 12/13/20 03/15/21 aspirin 81 mg PO DAILY 12/13/20 03/15/21 glimepiride 4 mg PO DAILY 12/13/20 03/15/21 levothyroxine 125 mcg PO DAILY 12/13/20 03/15/21 metformin 1,000 mg PO BID 12/13/20 03/15/21 metoprolol succinate 25 mg PO DAILY 12/13/20 03/15/21 potassium chloride 10 meq PO DAILY 12/13/20 03/15/21 famotidine 40 mg PO BID 03/15/21 03/15/21 lisinopril 5 mg PO DAILY 03/15/21 03/15/21 Allergies Allergy/AdvReac Type Severity Reaction Status Date / Time ibuprofen [From Advil] Allergy Intermediate Hives Verified 03/15/21 16:55 [facility] Past Medical History Medical History Anemia Anxiety Cerebrovascular accident Chronic anemia Chronic knee pain after total replacement of both knee joints Congestive heart failure Coronary artery disease involving coronary bypass graft COVID-19 (10/2019) Complicated by respiratory failure requiring intubation and subsequent tracheostomy. Deep venous thrombosis Depression Former smoker Gastroesophageal reflux disease Hiatal hernia Hyperlipidemia Hypertension Hypothyroidism Myocardial infarction Osteoarthritis Type 2 diabetes mellitus with diabetic neuropathy Hemoglobin A1c was 8.1% on 11/23/2019. Vitamin D deficiency Surgical History Surgical History History of appendectomy History of bilateral knee arthroplasty (~03/2015) History of endoscopy With findings of hiatal hernia. Previous food impaction with subsequent removal and esophageal dilatation. History of laparoscopic cholecystectomy (~02/2015) History of three vessel coronary artery bypass (~2012) History of tracheostomy (12/22/19) Family History Family History Sibling Diabetes mellitus Hypertension Cerebrovascular accident Mother Diabetes mellitus Social History Social History Social History: Surrogate decision maker: Colleen Szymanski, . Code status: Full code. Smoking packs per day: 3 Smoking cigarettes per day: 60.0 Years smoked: 20 Smoking pack-years: 60.00 Smoking status: Former smoker Tobacco type: cigarettes Alcohol intake: never Substance use: never Substance use type: does not use Additional living arrangements comments: Patient lives with his in [place]. Additional occupation/education comments: Retired. Course Vital Signs Vital signs: Vital Signs Temperature 36.6 C 03/15/21 12:42 Pulse Rate 78 03/15/21 12:42 Respiratory Rate 22 H 03/15/21 12:42 Blood Pressure 165/85 H 03/15/21 12:42 Pulse Oximetry 97 03/15/21 12:42 Temperature 36.4 C 03/17/21 06:00 Pulse Rate 110 H 03/17/21 13:00 Respiratory Rate 21 H 03/17/21 13:00 Blood Pressure 129/70 03/17/21 13:00 Pulse Oximetry 97 03/17/21 13:00 Medical Decision Making Vital Signs Vital Signs: Vital Signs Temperature 36.6 C 03/15/21 12:42 Pulse Rate 78 03/15/21 12:42 Respiratory Rate 22 H 03/15/21 12:42 Blood Pressure 165/85 H 03/15/21 12:42 Pulse Oximetry 97 03/15/21 12:42 Temperature 36.4 C 03/17/21 06:00 Pulse Rate 110 H 03/17/21 13:00 Respiratory Rate 21 H 03/17/21 13:00 Blood Pressure 129/70 03/17/21 13:00 Pulse Oximetry 97 03/17/21 13:00 Lab Data Result diagrams: 03/17/21 06:03 03/17/21 11:09 Labs: Lab Results 03/15/21 03/15/21 03/15/21 Range/Units 13:10 13:15 13:15 WBC 6.9 (4.5-10.0) K/mm3 RBC 4.10 L (4.6-6.
== END 2021-03-17 13:27 | disposition short-term general hospital (02) ==
LOC: ANHED 13:13 → ANH3MEDSUR 15:42 → ANHICU 03-17 12:22
PROVIDERS: Physician Assistant; Admitting Provider Hospitalist; Emergency Provider Emergency Medicine; PCP Family Medicine; Visit Provider Nurse Practitioner
DX: I63.9 Cerebral infarction, unspecified (principal); G81.94 Hemiplegia, unspecified affecting left nondominant side; I65.23 Occlusion and stenosis of bilateral carotid arteries; R29.712 NIHSS score 12; R47.1 Dysarthria and anarthria; I65.1 Occlusion and stenosis of basilar artery; I66.21 Occlusion and stenosis of right posterior cerebral artery; I25.10 Atherosclerotic heart disease of native coronary artery without angina pectoris; I11.0 Hypertensive heart disease with heart failure; I50.9 Heart failure, unspecified; D64.9 Anemia, unspecified; E03.9 Hypothyroidism, unspecified; E11.42 Type 2 diabetes mellitus with diabetic polyneuropathy; E78.5 Hyperlipidemia, unspecified; Z79.82 Long term (current) use of aspirin; Z95.1 Presence of aortocoronary bypass graft; Z86.73 Personal history of transient ischemic attack (TIA), and cerebral infarction without residual deficits; Z79.02 Long term (current) use of antithrombotics/antiplatelets; Z87.891 Personal history of nicotine dependence; Z79.4 Long term (current) use of insulin; Z79.84 Long term (current) use of oral hypoglycemic drugs
CPT/HCPCS: 36415; 70450; 70496; 70498; 70553; 71045; 80048; 80053; 82330; 82607; 82948; 83036; 83735; 84439; 84443; 84480; 84484; 85025; 85027; 85610; 85730; 93005; 93880; 96365; 96375; 97161; 97165; 99285; A9270; A9577; G0378; J0131; J0360; J1815; J2997; Q9967

== ENCOUNTER 2021-07-11 18:52 | Inpatient (IN) | payer MEDICARE, SELFPAY ==
[2021-07-11] VITALS (28 sets, daily range): BP systolic 145–204; BP diastolic 75–91; PULSE 59–74; RESP 15–22; TEMP 36.7; O2SAT 96–100
--- NOTE | ~2021-07-11 | US_ITS ---
EXAMINATION: US carotid duplex BI DATE: 07/12/2021 12:07 INDICATION: Left hemiparesis. TECHNIQUE: Grayscale, color Doppler, and pulsed Doppler images of the cervical carotid arteries were obtained. The degree of vessel stenosis is placed in one of the following categories: normal, <50%, 5 0-69%, >=70% but less than near-occlusion, near-occlusion, or total occlusion. Note that percent sten osis relative to normal distal artery lumen diameter is indirectly measured from velocity measurement s as described by Claudio, et al. Radiology 2003; 229:340-346. COMPARISON: Ultrasound 03/16/2021 FINDINGS: RIGHT: The right common carotid artery (CCA) peak systolic velocity (PSV) is 89 cm/s. The right internal car otid artery (ICA) PSV is 77 cm/s. The right ICA end-diastolic velocity (EDV) is 20 cm/s. The right IC A/CCA PSV ratio is 0.9. Grayscale and color Doppler images yield an estimate of <50% diameter reducti on from plaque in the ICA. There is antegrade flow in the right vertebral artery. LEFT: The left CCA PSV is 124 cm/s. The left ICA PSV is 102 cm/s. The left ICA EDV is 29 cm/s. The left ICA /CCA PSV ratio is 0.8. Grayscale and color Doppler images yield an estimate of <50% diameter reductio n from plaque in the ICA. There is antegrade flow in the left vertebral artery. IMPRESSION: 1. <50% stenosis in the right internal carotid artery. 2. <50% stenosis in the left internal carotid artery. Reviewed, dictated and finalized at location A. OL GUIDANCE COUNSELOR
--- NOTE | ~2021-07-11 | XR_ITS ---
EXAMINATION: XR chest 1V portable DATE: 07/11/2021 19:28 INDICATION: Left-sided weakness TECHNIQUE: frontal view of the chest was obtained. COMPARISON: Chest radiograph dated 03/15/2021 FINDINGS: Chronic elevation of the right hemidiaphragm. No focal airspace opacities, pulmonary edema, pleural e ffusion or pneumothorax. Cardiomegaly. Median sternotomy wires and mediastinal surgical clips are see n, likely from prior coronary artery bypass grafting. Cholecystectomy clips in right upper quadrant. Severe bilateral glenohumeral osteoarthritis. IMPRESSION: 1. Chronic elevation of the right hemidiaphragm. No acute cardiopulmonary disease. 2. Cardiomegaly. Reviewed, dictated and finalized at location A. LER AND TEST PREPARER IMPRESSION: 1. Chronic elevation of the right hemidiaphragm. No acute cardiopulmonary disea se. 2. Cardiomegaly.
--- NOTE | ~2021-07-11 | MR_ITS ---
EXAMINATION: MR brain/brain stem wo/w con DATE: 07/12/2021 12:37 INDICATION: Left hemiparesis. TECHNIQUE: Magnetic resonance imaging (MRI) of the brain and brainstem was performed without and with 17 mL MultiHance intravenous contrast. Sequences included sagittal and axial T1-weighted FSE, axial diffusion-weighted FS EPI, axial T2*-weighted GRE, axial T2-weighted FLAIR Propeller, and axial T2-we ighted Propeller. Postcontrast sequences included axial, sagittal, and coronal T1-weighted FSE. Appar ent diffusion coefficient (ADC) maps were created. COMPARISON: Brain MRI 03/16/2021, head CT 07/11/2021 FINDINGS: There is an acute infarct in right thalamus. There is no intracranial hemorrhage or abnorma l mass lesion. There are scattered areas of nonspecific increased T2-weighted signal intensity in the cerebral white matter and farhad. There is a small old infarct in right cerebellum. There is an old in farct involving the right basal ganglia and frontoparietal valladares radiata. The ventricles are normal in size. Is mucosal thickening in the paranasal sinuses. The orbits are normal. There is a trace left mastoid effusion. IMPRESSION: 1. Acute infarct in right thalamus. 2. Old infarcts involving the right cerebellum, right basal ganglia, and right frontoparietal valladares radiata. 3. Moderate nonspecific cerebral white matter disease and pontine disease, which likely represents ch ronic small vessel ischemic disease. Reviewed, dictated and finalized at location A. [employer] IMPRESSION: 1. Acute infarct in right thalamus. 2. Old infarcts involving the right cerebellum, right basal ganglia, and right frontoparietal valladares radiata. 3. Moderate nonspecific cerebral white matter disease and pontine disease, whic h likely represents chronic small vessel ischemic disease.
--- NOTE | ~2021-07-11 | CT_ITS ---
EXAMINATION: CTA BRAIN/CAROTID DATE: 07/11/2021 19:58 INDICATION: Left-sided weakness TECHNIQUE: Computed tomographic angiography (CTA) of the head and neck was performed with 100 mL Omni paque-350 intravenous contrast. Multiplanar reconstructions and maximum intensity projection 3D-recon structions of the carotid arteries and of the intracranial arteries were created by the technologist on a separate workstation. Precontrast CT of the head was also obtained. Automated exposure control and iterative reconstruction technique were employed.The dose-length product was 1759.33 mGy-cm. COMPARISON: Head CT dated 03/17/2021 and brain and carotid CT angiogram dated 03/15/2021 FINDINGS: Carotid arteries: There is thoracic aorta is normal in caliber with small amount of scattered atherosclerotic plaque. S mall amount of atherosclerotic plaque along the bilateral common carotid arteries. There is 0% stenos is of the right and left carotid bulbs relative to normal distal artery lumen diameter (NASCET criter ia). Similar pattern of groundglass opacities and some irregular septal line thickening the bilateral upper lungs which favors chronic lung disease over pneumonia or pulmonary edema. Postoperative simmons e of prior median sternotomy and coronary artery bypass grafting. 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 Moderate cervical spondylosis. Head: Small old infarcts at the right cerebellar hemisphere, farhad, right basal ganglia and thalamus, left i nternal capsule and right frontal parietal valladares radiata. There is moderate scattered white matter h ypoattenuation consistent with chronic small vessel ischemic disease. No acute intracranial hemorrhag e, acute infarction or abnormal extra axial fluid collection. Ventricles are normal and symmetric. No mass/mass effect. Mucosal thickening in the paranasal sinuses. The orbits and mastoid air cells are normal. Intracranial arteries Extensive atherosclerotic calcific a cyst along the bilateral carotid siphons with multifocal mild st enosis. Bilateral A1 segments are patent. Is also a patent anterior communicating artery. Left verteb ral artery is dominant. Atherosclerotic plaque with mild stenosis at the right vertebral artery. Agai n seen is moderate stenosis along the basilar artery. Bilateral P1 segments are patent. There is also moderate stenosis on the right posterior cerebral artery. There are no aneurysms or dissection ident ified. Cerebral arterial arborization appears symmetric. IMPRESSION: 1. No acute intracranial process. 2. Old infarcts involving the right cerebellum, right thalamus and basal ganglia, left internal capsu le and right frontoparietal valladares radiata. 3. Moderate stenosis of the basilar artery, right posterior cerebral artery and multifocal mild steno sis at the bilateral intracranial carotid arteries. 4. 0% stenosis of the left and right carotid bulbs relative to normal distal artery lumen diameter (N ASCET criteria). 5. Stable appearance of likely chronic interstitial lung disease in the bilateral upper lungs. Reviewed, dictated and finalized at location A. TY SCIENTIST IMPRESSION: 1. No acute intracranial process. 2. Old infarcts involving the right cerebellum, right thalamus and basal gangli a, left internal capsule and right frontoparietal valladares radiata. 3. Moderate stenosis of the basilar artery, right posterior cerebral artery and multifocal mild stenosis at the bilateral intracranial carotid arteries. 4. 0% stenosis of the left and right carotid bulbs relative to normal distal ar edgard lumen diameter (NASCET criteria). 5. Stable appearance of likely chronic interstitial lung disease in the [facility] al upper lungs.
[2021-07-11 19:00] LABS: Glucose Point of Care 120 mg/dl (65-105)
--- NOTE | 2021-07-11 19:13 | ECG_ITS ---
Measurements Intervals [place] Rate: 66 P: 78 CA: 187 QRS: -24 QRSD: 87 T: 74 QT: 368 QTc: 385 Interpretive Statements SINUS RHYTHM INCOMPLETE RIGHT BUNDLE BRANCH BLOCK BORDERLINE R WAVE PROGRESSION, ANTERIOR LEADS BORDERLINE ST-T WAVE ABNORMALITY- HIGH LATERAL LEADS BASELINE ARTIFACT- I, II, III, AVR, AVL, AVF, V1-V6 BORDERLINE ECG Electronically Signed On 07-11-2021 20:18:48 LOADING DOCK HELPER by Eugene Moss D.O.
[2021-07-11 19:34] LABS: Basophils Absolute Auto 0.1 K/mm3 (0.0-0.1); Basophils Percent Auto 1.1 % (0.2-1.2); Eosinophils Absolute Auto 0.4 K/mm3 (0-0.3); Eosinophils Percent Auto 4.6 % (0-4.4); Hematocrit 33.2 % (42.0-52.0); Hemoglobin 10.2 g/dL (14.0-18.0); Immature Granulocyte Absolute 0.03 K/mm3 (0.00-0.031); Immature Granulocyte Percent A 0.3 % (0-0.5); Lymphocytes Absolute Auto 2.41 K/mm3 (0.9-3.2); Lymphocytes Percent Auto 27.4 % (18.3-44.2); Mean Corpuscular HGB Conc 30.7 g/dl (32-36); Mean Corpuscular Hemoglobin 25.5 pg (26-34); Monocytes Absolute Auto 0.8 K/mm3 (0.1-0.6); Monocytes Percent Auto 9.3 % (2.6-8.5); Neutrophils Percent Auto 57.3 % (45.5-73.1); Platelet Count Result 285 k/mm3 (150-375); Red Cell Distribution Width 14.5 % (11.5-14.5); White Blood Count 8.8 K/mm3 (4.5-10.0)
[2021-07-11 19:36] LABS: Add Urine Microscopic? NO; Appearance Urine Clear (Clear); Bilirubin Urine Negative (Negative); Blood Urine Negative (Negative); Color Urine Colorless (Yellow); Glucose Urine UA Negative (Negative); Ketones Urine Negative (Negative); Leukocyte Esterase Ur Negative LEU/UL (Negative); Nitrate Urine Negative (Negative); Protein Urine Negative (Negative); Specific Grav Ur 1.005 (1.001-1.035); Urobilinogen Urine Negative mg/dL (<2.0)
[2021-07-11 19:43] LABS: INR 1.3; Prothrombin Time 15.2 Seconds (11.1-14.7)
[2021-07-11 19:44] LABS: Partial Thromboplastin Time 30.9 SECONDS (22.3-36.8)
[2021-07-11 19:45] LABS: Alanine Aminotransferase 19 U/L (4-50); Albumin Level 4.4 g/dL (3.5-5.1); Alkaline Phosphatase 100 U/L (38-126); Anion Gap 5 mmol/L (8-16); Aspartate Amino Transferase 25 U/L (17-59); Bilirubin,Total 0.5 mg/dL (0.2-1.3); Blood Urea Nitrogen 12 mg/dL (9-20); Carbon Dioxide 30 mmol/L (22-30); Chloride 101 mmol/L (98-107); Estimated CRCL calculation 88 ml/min; Estimated Glomerular Filt Rate > 60; Glucose 146 mg/dL (65-110); Potassium 4.7 mmol/L (3.4-5.0); Sodium 136 mmol/L (137-145)
[2021-07-11 19:56] LABS: Troponin I < 0.012 ng/mL (0.000-0.034)
--- NOTE | 2021-07-11 20:14 | ED.NEUROSD ---
HPI - Neuro Symptoms/Deficit General Chief Complaint: Neuro Symptoms/Deficit Stated Complaint: weakness Time Seen by Provider: 07/11/21 20:14 Source: patient, family, EMS and RN notes reviewed Mode of arrival: EMS Limitations: language barrier History of Present Illness HPI Narrative: Patient is 66 years old male came to the emergency room by ambulance with his complaining of sudden onset of weakness numbness of the left side of the face and left upper and left lower extremity. History of left hemiplegia. Patient believes the weakness got worse yesterday afternoon. Patient used use a walker in the past, did not use it over the last few months, start using it again yesterday because of instability. Patient denies any fever, chills, nausea, vomiting, headache, trauma. Currently patient on aspirin and the Plavix. History of CVA, TIAs, hypertension, hyperlipidemia, diabetes. The above history was taken through a pile driver operator helper. The patient does not speak Sami Related Data Home Medications Medication Instructions Recorded Confirmed Januvia 50 mg PO DAILY 12/13/20 03/15/21 Lantus U-100 Insulin 40 unit SUBCUT DAILY 12/13/20 03/15/21 aspirin 81 mg PO DAILY 12/13/20 03/15/21 glimepiride 4 mg PO DAILY 12/13/20 03/15/21 levothyroxine 125 mcg PO DAILY 12/13/20 03/15/21 metformin 1,000 mg PO BID 12/13/20 03/15/21 metoprolol succinate 25 mg PO DAILY 12/13/20 03/15/21 potassium chloride 10 meq PO DAILY 12/13/20 03/15/21 famotidine 40 mg PO BID 03/15/21 03/15/21 lisinopril 5 mg PO DAILY 03/15/21 03/15/21 Allergies Allergy/AdvReac Type Severity Reaction Status Date / Time ibuprofen [From Advil] Allergy Intermediate Hives Verified 03/15/21 16:55 Review of Systems Review of Systems: CONSTITUTIONAL: Denies fever, chills, or sweats. EYES: Denies visual changes, redness, or discharge. ENT: Denies rhinorrhea, congestion, sore throat, or otalgia. CARDIOVASCULAR: Denies chest pain, palpitations, or edema. RESPIRATORY: Denies cough or dyspnea. GASTROINTESTINAL: Denies abdominal pain, nausea, vomiting, or diarrhea. GENITOURINARY: Denies dysuria or hematuria. SKIN: Denies rash or itching. MUSCULOSKELETAL: Denies back pain, joint pain, or myalgia. NEUROLOGIC: As in the presentation PSYCHIATRIC: Denies anxiety or depression. [facility] Past Medical History Medical History (Updated 07/11/21 @ 21:40 by Marlyn Hale DO) Anxiety Cerebrovascular accident most recent 11/2020 Chronic anemia Chronic knee pain after total replacement of both knee joints Congestive heart failure Coronary artery disease involving coronary bypass graft COVID-19 (10/2019) Complicated by respiratory failure requiring intubation and subsequent tracheostomy. Deep venous thrombosis Depression Former smoker Gastroesophageal reflux disease Hiatal hernia Hyperlipidemia Hypertension Hypothyroidism Myocardial infarction Osteoarthritis Type 2 diabetes mellitus with diabetic neuropathy Hemoglobin A1c was 7.9% on 02/2021 Vitamin D deficiency Surgical History Surgical History History of appendectomy History of bilateral knee arthroplasty (~03/2015) History of endoscopy With findings of hiatal hernia. Previous food impaction with subsequent removal and esophageal dilatation. History of laparoscopic cholecystectomy (~02/2015) History of three vessel coronary artery bypass (~2012) History of tracheostomy (12/22/19) Family History Family History Sibling Diabetes mellitus Hypertension Cerebrovascular accident Mother Diabetes mellitus Social History Social History Social History: Surrogate decision maker: Colleen Szymanski, . Code status: Full code. Smoking packs per day: 3 Smoking cigarettes per day: 60.0 Years smoked: 20 Smoking pack-years: 60.00 Smoking status: Former
[2021-07-11] MEDS: ASPIRIN 81 MG CHEWABLE TABLET 324 MG PO (21:16)
--- NOTE | 2021-07-11 21:24 | PM.IMHP ---
H&P: HPI History of Present Illness Date/Time: 07/11/21 21:24 Chief Complaint: left arm and leg weakness Review of Systems Review of Systems: 12 systems were reviewed with pertinent positives and negatives per HPI. Except as documented in the HPI, all other systems were reviewed and are negative. [facility] Past Medical History Medical History (Updated 07/11/21 @ 21:40 by Marlyn Hale DO) Anxiety Cerebrovascular accident most recent 11/2020 Chronic anemia Chronic knee pain after total replacement of both knee joints Congestive heart failure Coronary artery disease involving coronary bypass graft COVID-19 (10/2019) Complicated by respiratory failure requiring intubation and subsequent tracheostomy. Deep venous thrombosis Depression Former smoker Gastroesophageal reflux disease Hiatal hernia Hyperlipidemia Hypertension Hypothyroidism Myocardial infarction Osteoarthritis Type 2 diabetes mellitus with diabetic neuropathy Hemoglobin A1c was 7.9% on 02/2021 Vitamin D deficiency Surgical History Surgical History History of appendectomy History of bilateral knee arthroplasty (~03/2015) History of endoscopy With findings of hiatal hernia. Previous food impaction with subsequent removal and esophageal dilatation. History of laparoscopic cholecystectomy (~02/2015) History of three vessel coronary artery bypass (~2012) History of tracheostomy (12/22/19) Family History Family History Sibling Diabetes mellitus Hypertension Cerebrovascular accident Mother Diabetes mellitus Social History Social History Social History: Surrogate decision maker: Colleen Szymanski, . Code status: Full code. Smoking packs per day: 3 Smoking cigarettes per day: 60.0 Years smoked: 20 Smoking pack-years: 60.00 Smoking status: Former smoker Tobacco type: cigarettes Alcohol intake: never Substance use: never Substance use type: does not use Additional living arrangements comments: Patient lives with his in [place]. Additional occupation/education comments: Retired. Meds Home Medications and Allergies Home Medications Medication Instructions Recorded Confirmed Type polyethylene glycol 3350 [Miralax] 17 g PO QAM PRN ea 12/29/19 03/15/21 Rx Januvia 50 mg PO DAILY 12/13/20 03/15/21 History Lantus U-100 Insulin 40 unit SUBCUT DAILY 12/13/20 03/15/21 History aspirin 81 mg PO DAILY 12/13/20 03/15/21 History glimepiride 4 mg PO DAILY 12/13/20 03/15/21 History levothyroxine 125 mcg PO DAILY 12/13/20 03/15/21 History metformin 1,000 mg PO BID 12/13/20 03/15/21 History metoprolol succinate 25 mg PO DAILY 12/13/20 03/15/21 History potassium chloride 10 meq PO DAILY 12/13/20 03/15/21 History atorvastatin 40 mg PO DAILY #30 tablet 12/14/20 03/15/21 Rx clopidogrel 75 mg PO QAM 28 Days #28 tablet 12/14/20 03/15/21 Rx famotidine 40 mg PO BID 03/15/21 03/15/21 History lisinopril 5 mg PO DAILY 03/15/21 03/15/21 History Allergies Allergy/AdvReac Type Severity Reaction Status Date / Time ibuprofen [From Advil] Allergy Intermediate Hives Verified 03/15/21 16:55 Vital Signs Vital Signs - 24 hr 07/11/21 18:55 07/11/21 19:52 07/11/21 19:53 Temperature 98.1 F Pulse Rate 72 74 72 Respiratory Rate 19 22 H 22 H Blood Pressure 204/91 H 172/81 H Pulse Oximetry 99 99 99 07/11/21 20:00 07/11/21 20:01 07/11/21 20:16 Temperature Pulse Rate 69 70 65 Respiratory Rate 21 H 19 20 Blood Pressure 168/83 H 166/82 H Pulse Oximetry 100 99 100 07/11/21 20:17 Temperature Pulse Rate 65 Respiratory Rate 19 Blood Pressure Pulse Oximetry 100 Exam Narrative: PHYSICAL EXAM: WEIGHT 87kg BMI 31.9 General: HEENT: Respiratory: Cardiovascular: Gastrointestinal: Skin: Musculoskeletal: Neurological: Psychiatric:
[2021-07-12] VITALS (14 sets, daily range): BP systolic 134–180; BP diastolic 58–78; PULSE 61–81; RESP 14–20; TEMP 36.1–36.8; O2SAT 95–98; BMI 32.5
--- NOTE | 2021-07-12 | ECHO_ITS ---
Patient Info Name: Willie Urias Age: 66 years : 1955 Gender: Male Ht: 65 in Wt: 195 lbs BSA: 2.05 m2 HR: 76 bpm BP: 152 / 77 mmHg Heart Rhythm: Sinus Rhythm Exam Date: 07/12/2021 10:51 AM Exam Location: [facility] Patient Status: Inpatient Admit Date: 07/11/2021 Staff Ordering Physician: Kei Heredia Volleyball Referee: Win Castro RDCS, RT Attending Provider: Marlyn Hale DO Referring Physician: Yan NYE; Exam Type: CA echo doppler w bubble study Study Info Indications R27.9 - Unspecified lack of coordination Complete two-dimensional, color flow and Doppler transthoracic echocardiogram is performed with agitated saline. Summary 1. Left ventricular chamber dimension is normal. 2. Left ventricular systolic function is normal, estimated at >70%. 3. There is moderately increased left ventricular wall thickness. 4. The left ventricular diastolic function is grade I diastolic dysfunction. 5. No interatrial shunt with injection of agitated saline with and without Valsalva. 6. There is no mitral valve regurgitation. 7. There is no aortic valve stenosis. Left Ventricle Left ventricular chamber dimension is normal. Left ventricular systolic function is normal, estimated at >70%. There is moderately increased left ventricular wall thickness. The left ventricular diastolic function is grade I diastolic dysfunction. Global longitudinal strain is mildly elevated at -16 %. Right Ventricle Right ventricular chamber dimension is normal. Right ventricular systolic function is normal. Left Atria Left atrial chamber dimension is normal. Right Atria Right atrial chamber dimension is normal. Atrial Septum No interatrial shunt with injection of agitated saline with and without Valsalva. Aortic Valve The aortic valve is probable trileaflet. There is no aortic valve stenosis. There is no aortic valve regurgitation. Pulmonic Valve The pulmonic valve is not well visualized. Mitral Valve The mitral valve has normal leaflets. There is no mitral valve regurgitation. The mitral valve annulus is mildly calcified. Tricuspid Valve The tricuspid valve leaflets are normal. There is trace tricuspid valve regurgitation. Unable to estimate PA systolic pressure due to poor spectral resolution of tricuspid regurgitant jet velocity. Pericardium/Pleural The pericardium appears epicardial fat pad. There is trivial pericardial effusion. Aorta The aortic root size at the sinus of Valsalva is normal. Left Ventricular Outflow Tract Name Value Normal LVOT Doppler LVOT Peak Gradient 4 mmHg LVOT Mean Gradient 2 mmHg LVOT VTI 23 cm LVOT VTI/AV VTI Ratio 0.8 Mitral Valve Name Value Normal MV Doppler MV Decel [place] 275 cm/s2 MV PHT 86 ms MV Area (PHT)
--- NOTE | 2021-07-12 00:23 | ADMGEN ---
This patient, Willie Urias, was admitted to Medical Room 243-01. Patient/family oriented to hospital policies and general routines including ID bracelet, bed and alarms, visiting hours, pain management, procedures, bathroom and other care routines, personal items, smoking policy, room service/diet, and visiting hours. Information on how to activate the Rapid Response Team has been discussed. Patient/Family are encouraged to report perceived risks to care and to ask questions if they do not understand what they are told or what they should do.
[2021-07-12 08:05] LABS: Glucose Point of Care 127 mg/dl (65-105)
[2021-07-12 08:42] LABS: Cholesterol 103 mg/dL (0-200); HDL Direct 37 mg/dL; Hemoglobin A1C 7.8 % (<5.7); Triglycerides 122 mg/dL (<150)
[2021-07-12 08:53] LABS: LDL Cholesterol Direct 45 mg/dL
--- NOTE | 2021-07-12 09:01 | PC.NURSE ---
school examiner used to do his morning assessment Maurice #[id number]
[2021-07-12] MEDS: ASPIRIN 81 MG CHEWABLE TABLET PO (09:24)
--- NOTE | 2021-07-12 09:30 | PM.IMHP ---
H&P: HPI History of Present Illness Date/Time: 07/12/21 09:30 Chief Complaint: Left sided weakness Narrative: Patient is a 66 year old male with a past medical history of CVA, HLD, DVT, CABG, CHF who present to the ED with complaints of new onset left sided weakness, and numbness, on the left sided face, arm, and leg. It all started yesterday, and was worse in the afternoon. It does appear that this is the same problem that happened last February, when the patient was transferred to [facility] for acute stroke. patient stated that he was doing well after going through PT and OT out in [place] and was able to not use a walker or cane shortly thereafter. Patient stated that yesterday morning around 9:00 a.m. he was starting to have left-sided weakness with left-sided visual changes. Patient stated that he had used his cane for physical support to keep himself balanced. He stated that he did not experience any other issues such as shortness of breath, chest pain, fevers, sweats, chills, urinary dysfunction including frequency, urgency, burning or pain, no palpitations, abdominal pain, nausea, vomiting, diarrhea, constipation, numbness, tingling, dizziness, headache. Patient did say that the left-sided visual changes including blurriness. Patient also states that he checks his glucose b.i.d. and it runs usually between 130-140 any checks it morning and night. Unknown well time at this point 9:00 a.m. is an estimation. Patient admits taking all of his medications when he supposed to including the aspirin and Plavix. PATIENT IS BEING ADMITTED TO THE HOSPITALIST INPATIENT OBSERVATION FOR FURTHER EVALUATION patient is and [place]-speaking. [employer] was used visual lead named Maurice [id number]. Review of Systems Review of Systems: All systems reviewed & are unremarkable except as noted in HPI and below PMFSH Past Medical History Medical History Anxiety Cerebrovascular accident most recent 11/2020 Chronic anemia Chronic knee pain after total replacement of both knee joints Congestive heart failure Coronary artery disease involving coronary bypass graft COVID-19 (10/2019) Complicated by respiratory failure requiring intubation and subsequent tracheostomy. Deep venous thrombosis Depression Former smoker Gastroesophageal reflux disease Hiatal hernia Hyperlipidemia Hypertension Hypothyroidism Myocardial infarction Osteoarthritis Type 2 diabetes mellitus with diabetic neuropathy Hemoglobin A1c was 7.9% on 02/2021 Vitamin D deficiency Surgical History Surgical History History of appendectomy History of bilateral knee arthroplasty (~03/2015) History of endoscopy With findings of hiatal hernia. Previous food impaction with subsequent removal and esophageal dilatation. History of laparoscopic cholecystectomy (~02/2015) History of three vessel coronary artery bypass (~2012) History of tracheostomy (12/22/19) Family History Family History Sibling Diabetes mellitus Hypertension Cerebrovascular accident Mother Diabetes mellitus Social History Social History Social History: Patient lives at home with his who is also [place]-speaking. His Colleen will be his surrogate decision maker. He denies having any animals at home. His granddaughter Rose who speaks Greenlandic is available to help if needed. Surrogate decision maker: Colleen Szymanski, . Code status: Full code. Smoking packs per day: 1 Smoking cigarettes per day: 20.0 Years smoked: 20 Smoking pack-years: 20.00 Smoking status: Former smoker Tobacco type: cigarettes Alcohol intake: never Substance use: never Substance use type: does not use Living arrangements: with family Additional living arrangements comments: Patient lives with his in [place]
[2021-07-12] MEDS: GLIMEPIRIDE 2 MG TABLET 4 MG PO (10:47)
[2021-07-12] MEDS: lisinopriL 5 MG TABLET PO ×2 (10:47→15:00)
[2021-07-12] MEDS: FAMOTIDINE 20 MG TABLET 40 MG PO ×2 (10:48→20:35)
[2021-07-12] MEDS: METOPROLOL SUCCINATE EXT REL 25 MG TABCR PO (10:48)
[2021-07-12] MEDS: CLOPIDOGREL BISULFATE 75 MG TABLET PO (10:48)
[2021-07-12] MEDS: ATORVASTATIN 40 MG TABLET 80 MG PO (10:48)
[2021-07-12 11:46] LABS: Glucose Point of Care 223 mg/dl (65-105)
--- NOTE | 2021-07-12 11:59 | WPDNEURCNPN ---
Assessment and Plan Additional Plan 1. Acute cerebrovascular accident 2. Bihemispheric old strokes 3. Territorial involvement of the intracranial circulation 4. Diabetes mellitus 5. Hypertension 6. Coronary artery disease plan is to continue aspirin with Plavix while awaiting the echocardiogram and involve in the physical therapy Consult date: 07/12/21 HPI: Willie Urias is a 66 year old male History 78 years old right-handed came to the emergency room by ambulance with his complaining of sudden onset of weakness and numbness of the left side of the face and left upper and left lower extremity in addition to the history of left-sided hemiplegia which she believed the weakness was getting worse patient had been using a walker in the past but did not use over the last few months and started using again because of the instability he gave no history of generalized symptomatology the information was taken in the emergency room through the interface developer patient has been on Januvia Lantus insulin aspirin glimepiride levothyroxine metformin metoprolol famotidine lisinopril initial evaluation in the emergency room also documented the cerebrovascular accident most recently in November of 2020, is status post bilateral knee replacement with persistent chronic knee pain, coronary artery disease with history of coronary bypass grafting and congestive heart failure, COVID-19 in 2019 in October requiring the [facility] k[facility]ley and subsequent tracheostomy, DVT, and being a former smoker, patient does have a history of being former smoker with smoking pack years of 60 though he does not drink alcohol and never took the substance, initial evaluation in the emergency room also documented involving the right cerebellum right thalamus and basal ganglia old infarct in addition to left internal capsule right frontoparietal coronal radiata stroke moderate stenosis of basilar artery right posterior cerebral artery and multifocal mild stenosis at the bilateral intracranial carotid arteries but no evidence of involvement of the extracranial carotid arteries Review of Systems Review of Systems: All systems reviewed & are unremarkable except as noted in HPI and below PMFSH Past Medical History Medical History Anxiety Cerebrovascular accident most recent 11/2020 Chronic anemia Chronic knee pain after total replacement of both knee joints Congestive heart failure Coronary artery disease involving coronary bypass graft COVID-19 (10/2019) Complicated by respiratory failure requiring intubation and subsequent tracheostomy. Deep venous thrombosis Depression Former smoker Gastroesophageal reflux disease Hiatal hernia Hyperlipidemia Hypertension Hypothyroidism Myocardial infarction Osteoarthritis Type 2 diabetes mellitus with diabetic neuropathy Hemoglobin A1c was 7.9% on 02/2021 Vitamin D deficiency Surgical History Surgical History History of appendectomy History of bilateral knee arthroplasty (~03/2015) History of endoscopy With findings of hiatal hernia. Previous food impaction with subsequent removal and esophageal dilatation. History of laparoscopic cholecystectomy (~02/2015) History of three vessel coronary artery bypass (~2012) History of tracheostomy (12/22/19) Family History Family History Sibling Diabetes mellitus Hypertension Cerebrovascular accident Mother Diabetes mellitus Social History Social History Social History: Patient lives at home with his who is also Divehi-speaking. His Colleen will be his surrogate decision maker. He denies having any animals at home. His granddaughter Rose who speaks Kyrgyz is available to help if needed. Surrogate decision maker: Colleen Szymanski, . Code status: Full code. Smoking packs per day: 1 Smoking cigaret
[2021-07-12] MEDS: INSULIN ASPART (*BKC) 100 UNITS/ML SUB-Q (13:16)
[2021-07-12 14:02] LABS: Free T4 Free Thyroxine Reflex 0.92 ng/dL (0.78-2.19)
[2021-07-12 14:27] LABS: Estimated CRCL calculation 79 ml/min; Estimated Glomerular Filt Rate > 60
[2021-07-12 15:05] LABS: Total Triiodothyronine (T3) 0.98 NG/ML (0.97-1.69)
[2021-07-12 16:15] LABS: Glucose Point of Care 94 mg/dl (65-105)
--- NOTE | 2021-07-12 16:45 | PC.NURSE ---
On 07/12/2021, the student, Tanvi Brady, provided care and completed [facility] documentation on this patient. I have reviewed the student's documentation and agree with the findings.
[2021-07-12] MEDS: INSULIN GLARGINE (*BKC) 100 UNITS/ML 50 UNITS SUB-Q (20:37)
[2021-07-12 20:48] LABS: Glucose Point of Care 161 mg/dl (65-105)
[2021-07-13] VITALS (9 sets, daily range): BP systolic 142–147; BP diastolic 75–79; PULSE 56–78; RESP 16–20; TEMP 36.6; O2SAT 94–98
[2021-07-13] MEDS: LEVOTHYROXINE SODIUM 125 MCG TABLET PO (05:12)
[2021-07-13 05:50] LABS: Basophils Absolute Auto 0.1 K/mm3 (0.0-0.1); Basophils Percent Auto 1.2 % (0.2-1.2); Eosinophils Absolute Auto 0.4 K/mm3 (0-0.3); Eosinophils Percent Auto 5.1 % (0-4.4); Hematocrit 30.3 % (42.0-52.0); Hemoglobin 9.4 g/dL (14.0-18.0); Immature Granulocyte Absolute 0.02 K/mm3 (0.00-0.031); Immature Granulocyte Percent A 0.3 % (0-0.5); Lymphocytes Absolute Auto 2.31 K/mm3 (0.9-3.2); Lymphocytes Percent Auto 33.6 % (18.3-44.2); Mean Corpuscular Hemoglobin 25.2 pg (26-34); Mean Corpuscular Volume 81.2 fl (80-100); Mean Platelet Volume 10.2 fl (7.4-10.4); Monocytes Absolute Auto 0.8 K/mm3 (0.1-0.6); Monocytes Percent Auto 11.8 % (2.6-8.5); Neutrophils Absolute Auto 3.3 K/mm3 (1.3-6.7); Platelet Count Result 263 k/mm3 (150-375); Red Blood Count 3.73 M/mm3 (4.6-6.20); Red Cell Distribution Width 14.4 % (11.5-14.5); White Blood Count 6.9 K/mm3 (4.5-10.0)
[2021-07-13 06:04] LABS: Alanine Aminotransferase 16 U/L (4-50); Albumin Level 3.7 g/dL (3.5-5.1); Alkaline Phosphatase 79 U/L (38-126); Anion Gap 8 mmol/L (8-16); Aspartate Amino Transferase 23 U/L (17-59); Bilirubin,Total 0.3 mg/dL (0.2-1.3); Blood Urea Nitrogen 15 mg/dL (9-20); Calcium 8.9 mg/dL (8.4-10.2); Carbon Dioxide 28 mmol/L (22-30); Chloride 103 mmol/L (98-107); Estimated CRCL calculation 71 ml/min; Estimated Glomerular Filt Rate > 60; Glucose 112 mg/dL (65-110); Potassium 4.1 mmol/L (3.4-5.0); Sodium 139 mmol/L (137-145)
[2021-07-13 07:49] LABS: Glucose Point of Care 106 mg/dl (65-105)
--- NOTE | 2021-07-13 08:15 | PM.DS ---
DS: Admitting Diagnosis Discharge Date 07/13/21 0815 Admitting Diagnosis Acute CVA/Moderate Stenosis of the cerebral arteries DS: Discharge Diagnosis Discharge Diagnosis (1) Acute cerebrovascular accident (CVA): Code(s): I63.9 - Cerebral infarction, unspecified Status: Acute Assessment and Plan: head CT: Old infarcts involving the right cerebellum, right thalamus, and basal ganglia, left internal capsule and right frontoparietal valladares radiata, Moderate stenosis of the basilar artery, right posterior cerebral artery and multifocal mild stenosis at the bilateral intracranial carotid arteries. Arterial stenosis noted within the vessels of the brain Continue aspirin and plavix MRI Showed: Acute infarct in right thalamus. Old infarcts involving the right cerebellum, right basal ganglia, and right frontoparietal valladares radiata. Moderate nonspecific cerebral white matter disease and pontine disease, which likely represents chronic small vessel ischemic disease. Carotid doppler showed <50% stenosis bilaterally Echo >70% Grade 1 diastolic dysfunction, no patent FO Neurology consult thank you Glucose and BP control (2) Left-sided weakness: Code(s): R53.1 - Weakness Status: Acute Assessment and Plan: Present with left sided facial weakness and numbness NIH on admission was 5, current score is [address]: Old infarcts involving the right cerebellum, right thalamus, and basal ganglia, left internal capsule and right frontoparietal valladares radiata, Moderate stenosis of the basilar artery, right posterior cerebral artery and multifocal mild stenosis at the bilateral intracranial carotid arteries. Neck CTA: 0% stenosis of the bilateral carotid bulbs Carotid doppler <50% stenosis Echo with bubble EF of >70% and grade 1 diastolic dysfunction Neurology consulted thank you Continue home aspirin, change to 325mg and Plavix, change to brilinta MRI Acute infarct in right thalamus. Old infarcts involving the right cerebellum, right basal ganglia, and right frontoparietal valladares radiata. Moderate nonspecific cerebral white matter disease and pontine disease, which likely represents chronic small vessel ischemic disease. (3) Hypertension: Code(s): I10 - Essential (primary) hypertension Status: Acute Assessment and Plan: Current BP 142/79 Continue home lisinopril 5mg PO daily, metoprolol 25mg PO daily Continue to trend BP Adjust medications as indicated Might need to increase medication (4) Coronary artery disease: Code(s): I25.10 - Atherosclerotic heart disease of [place] coronary artery without angina pectoris Status: Acute Assessment and Plan: Continue aspirin 81mg PO daily Increase aspirin to 325mg Telemonitor EKG shows SR with RBBB, no ST elevation noted (5) DM type 2 (diabetes mellitus, type 2): Qualifiers: Diabetes mellitus complication detail: with unspecified neuropathy Diabetes mellitus complication status: with neurologic complications 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 insulin use: unspecified prison insulin use status Qualified Code(s): E11.40 - Type 2 diabetes mellitus with diabetic neuropathy, unspecified Code(s): E11.9 - Type 2 diabetes mellitus without complications Status: Chronic Assessment and Plan: Current glucose is 112 Continue home Januvia 50mg PO daily, Lantus 40 units Daily Hold Metformin due to recent contrast exposure ISS Trend glucose Adjust therapy as indicated A1c 7.8 (6) Hypothyroid: Code(s): E03.9 - Hypothyroidism, unspecified Status: Acute Assessment and Plan: TSH: 9.730 Continue home levothyroxine 125mcg PO daily Adjust therapy as indicated (7) Hyperlipidemia: Code(s): E78.5 - Hyperlipidemia, unspecified Status: Acute Assessment and Plan: Continue home atorvastatin 80mg PO daily Live
--- NOTE | 2021-07-13 08:15 | P.DS_ITS ---
DS: Admitting Diagnosis Discharge Date 07/13/21 0815 Admitting Diagnosis Acute CVA/Moderate Stenosis of the cerebral arteries DS: Discharge Diagnosis Discharge Diagnosis (1) Acute cerebrovascular accident (CVA): Code(s): I63.9 - Cerebral infarction, unspecified Status: Acute Assessment and Plan: * head CT: Old infarcts involving the right cerebellum, right thalamus, and basal ganglia, left internal capsule and right frontoparietal valladares radiata, Moderate stenosis of the basilar artery, right posterior cerebral artery and multifocal mild stenosis at the bilateral intracranial carotid arteries. * Arterial stenosis noted within the vessels of the brain * Continue aspirin and plavix * MRI Showed: Acute infarct in right thalamus. Old infarcts involving the right cerebellum, right basal ganglia, and right frontoparietal valladares radiata. Moderate nonspecific cerebral white matter disease and pontine disease, which likely represents chronic small vessel ischemic disease. * Carotid doppler showed <50% stenosis bilaterally * Echo >70% Grade 1 diastolic dysfunction, no patent FO * Neurology consult thank you * Glucose and BP control (2) Left-sided weakness: Code(s): R53.1 - Weakness Status: Acute Assessment and Plan: * Present with left sided facial weakness and numbness * NIH on admission was 5, current score is 2 * Head CT: Old infarcts involving the right cerebellum, right thalamus, and basal ganglia, left internal capsule and right frontoparietal valladares radiata, Moderate stenosis of the basilar artery, right posterior cerebral artery and multifocal mild stenosis at the bilateral intracranial carotid arteries. * Neck CTA: 0% stenosis of the bilateral carotid bulbs * Carotid doppler <50% stenosis * Echo with bubble EF of >70% and grade 1 diastolic dysfunction * Neurology consulted thank you * Continue home aspirin, change to 325mg and Plavix, change to brilinta * MRI Acute infarct in right thalamus. Old infarcts involving the right cerebellum, right basal ganglia, and right frontoparietal valladares radiata. Moderate nonspecific cerebral white matter disease and pontine disease, which likely represents chronic small vessel ischemic disease. (3) Hypertension: Code(s): I10 - Essential (primary) hypertension Status: Acute Assessment and Plan: * Current BP 142/79 * Continue home lisinopril 5mg PO daily, metoprolol 25mg PO daily * Continue to trend BP * Adjust medications as indicated * Might need to increase medication (4) Coronary artery disease: Code(s): I25.10 - Atherosclerotic heart disease of [place] coronary artery without angina pectoris Status: Acute Assessment and Plan: * Continue aspirin 81mg PO daily * Increase aspirin to 325mg * Telemonitor * EKG shows SR with RBBB, no ST elevation noted (5) DM type 2 (diabetes mellitus, type 2): Qualifiers: Diabetes mellitus complication detail: with unspecified neuropathy Diabetes mellitus complication status: with neurologic complications 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
[2021-07-13] MEDS: ASPIRIN 81 MG CHEWABLE TABLET PO (09:01)
[2021-07-13] MEDS: CLOPIDOGREL BISULFATE 75 MG TABLET PO (09:01)
[2021-07-13] MEDS: FAMOTIDINE 20 MG TABLET 40 MG PO (09:01)
[2021-07-13] MEDS: ATORVASTATIN 40 MG TABLET 80 MG PO (09:01)
[2021-07-13] MEDS: METOPROLOL SUCCINATE EXT REL 25 MG TABCR PO (09:02)
[2021-07-13] MEDS: GLIMEPIRIDE 2 MG TABLET 4 MG PO (09:02)
[2021-07-13] MEDS: lisinopriL 10 MG TABLET PO (09:02)
[2021-07-13 11:37] LABS: Glucose Point of Care 159 mg/dl (65-105)
--- NOTE | 2021-07-13 12:29 | WPDNEUROPN ---
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 and territorial involvement of the intracranial circulation addition to underlying diabetes mellitus hypertension coronary artery disease is being continued aspirin and Plavix, echocardiogram has been obtained which revealed no evidence of PFO or or atrial thrombus patient will be discharged on same medication aspirin and Plavix Exam Const: General: cooperative, comfortable, no acute distress, alert and awake Nutritional Appearance: average body habitus Orientation/consciousness: oriented to person, oriented to place and oriented to time Limitations: language barrier HENMT: Head: normocephalic Ears: hearing grossly normal bilaterally General nose exam: Normal external nose present Face and sinus: normal facial exam Eyes: General: appearance normal, both eyes and all related structures Neck: Neck: normal visual inspection, full ROM and no lymphadenopathy Carotids: normal carotid upstroke Resp: Effort & Inspection: normal respiratory effort and able to speak in complete sentences Auscultation: clear to auscultation bilaterally Cardio: Jugular venous distension: no JVD Rate: regular rate Rhythm: regular rhythm Neuro: General: oriented to person, oriented to place and oriented to time Speech: normal speech Motor exam (neuro): Pronator motor function not present and No tremor noted Sensory Exam: Sensory deficit (Neuro) Psych: Appearance: grossly normal Speech and movement: Normal speech and movement present Affect: normal affect Attitude: cooperative Thought process: Normal thought process present Thought content: Yes Normal thought content present Insight: Fair insight present (Psych) Judgement: Fair judgement present (Psych) Objective Data Vital Signs Vital Signs: Vital Signs - 24 hr 07/12/21 14:00 07/12/21 16:00 07/12/21 19:44 Temperature 36.1 C L 36.8 C Pulse Rate 67 75 67 Respiratory Rate 14 18 Blood Pressure 134/58 L 162/75 H Pulse Oximetry 95 98 07/12/21 20:00 07/12/21 20:33 07/13/21 00:00 Temperature Pulse Rate 65 57 L Respiratory Rate Blood Pressure Pulse Oximetry 98 07/13/21 04:00 07/13/21 04:37 07/13/21 04:38 Temperature 36.6 C 36.6 C Pulse Rate 59 L 56 L 56 L Respiratory Rate 20 20 Blood Pressure 142/79 H 142/79 H Pulse Oximetry 94 94 07/13/21 08:00 07/13/21 09:02 Temperature Pulse Rate 71 78 Respiratory Rate Blood Pressure Pulse Oximetry Intake/Output Intake/Output: Intake & Output 07/10/21 07/11/21 07/12/21 07/13/21 23:59 23:59 23:59 23:59 Intake Total 1490 430 Output Total 350 800 Balance 1140 -370 Meds/Results Medications: Active Medications Generic Name Dose Route Start Last Admin Trade Name Freq PRN Reason Stop Dose Admin Aspirin 81 mg 07/13/21 08:00 07/13/21 09:01 Aspirin 81 Mg Chewable Tablet PO 81 mg DAILY@0800 OLENA Administration Atorvastatin Calcium 80 mg 07/12/21 09:45 07/13/21 09:01 Atorvastatin 40 Mg Tablet PO 80 mg DAILY OLENA Administration Clopidogrel Bisulfate 75 mg 07/12/21 09:45 07/13/21 09:01 Clopidogrel Bisulfate 75 Mg Tablet PO 75 mg QAM OLENA Administration Dextrose 12.5 gm 07/12/21 09:42 Dextrose 50% 25 Gm/50 Ml Syringe IV PUSH PRN PRN Hypoglycemia Protocol Famotidine 40 mg 07/12/21 09:45 07/13/21 09:01 Famotidine 20 Mg Tablet PO 40 mg Q12HR OLENA Administration Glimepiride 4 mg 07/12/21 09:00 07/13/21 09:02 Glimepiride 2 Mg Tablet PO 08/12/21 08:59 4 mg DAILY OLENA Administration Glucagon 1 mg 07/12/21 09:42 Glucagon For Inj 1 Mg Vial IM PRN PRN Hypoglycemia Protocol Glucose 15 gm 07/12/21 09:42 Glucose Oral Gel 15 Gm Of Glucse In 37.5 Gm Tube PO PRN PRN Hypoglycemia Protocol Dextro
--- NOTE | 2021-07-13 14:35 | PC.NURSE ---
Morning assessment performed via the stratus. [employer] Historian Greta #[id number] was used to perform the morning assessment. All questions answered at this time.
--- NOTE | 2021-07-13 14:36 | PC.NURSE ---
Discharge instructions were discussed with the patient using the stratus and the director of supply chain was Fish #[id number]. All questions were answered at this time.
--- NOTE | 2021-07-13 16:24 | PC.NURSE ---
Patients discharge instructions and heart monitor information reviewed with the patient and his in detail via the stratus hourly sign language interpreter. Ismael #[id number] and the hourly sign language interpreter disconnected and the discharge information and all questions answered via a second hourly sign language interpreter at this time Maru #[id number].
[2021-07-13 16:26] LABS: Glucose Point of Care 80 mg/dl (65-105)
== END 2021-07-13 16:45 | disposition home health service (06) | DRG 65 ==
LOC: ANHED 21:43 → ANH2MED 23:04
PROVIDERS: Admitting Provider Internal Medicine; Emergency Provider Emergency Medicine; PCP Family Medicine; Visit Provider Nurse Practitioner
DX: I63.9 Cerebral infarction, unspecified (principal); G81.94 Hemiplegia, unspecified affecting left nondominant side; I50.32 Chronic diastolic (congestive) heart failure; R29.810 Facial weakness; I66.8 Occlusion and stenosis of other cerebral arteries; D64.9 Anemia, unspecified; E11.42 Type 2 diabetes mellitus with diabetic polyneuropathy; E78.5 Hyperlipidemia, unspecified; E03.9 Hypothyroidism, unspecified; E55.9 Vitamin D deficiency, unspecified; F32.A Depression, unspecified; F41.9 Anxiety disorder, unspecified; H53.8 Other visual disturbances; I25.2 Old myocardial infarction; I11.0 Hypertensive heart disease with heart failure; I25.10 Atherosclerotic heart disease of native coronary artery without angina pectoris; K21.9 Gastro-esophageal reflux disease without esophagitis; M19.90 Unspecified osteoarthritis, unspecified site; R29.705 NIHSS score 5; Z86.73 Personal history of transient ischemic attack (TIA), and cerebral infarction without residual deficits; Z79.82 Long term (current) use of aspirin; Z95.1 Presence of aortocoronary bypass graft; Z79.02 Long term (current) use of antithrombotics/antiplatelets; Z87.891 Personal history of nicotine dependence; Z96.653 Presence of artificial knee joint, bilateral; Z90.49 Acquired absence of other specified parts of digestive tract; Z93.0 Tracheostomy status; Z79.4 Long term (current) use of insulin; Z86.718 Personal history of other venous thrombosis and embolism; Z79.899 Other long term (current) drug therapy; Z79.84 Long term (current) use of oral hypoglycemic drugs; Z86.16 Personal history of COVID-19
CPT/HCPCS: 36415; 70496; 70498; 70553; 71045; 80053; 80061; 81003; 82565; 82948; 83036; 83735; 84439; 84443; 84480; 84484; 85025; 85610; 85730; 93005; 93306; 93880; 96375; 97110; 97161; 97165; 99285; A9270; A9577; G0378; J1815; Q9967